=== PATIENT | female | born 2000 | race Caucasian/White ===

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

== ENCOUNTER 2024-02-14 12:49 | Inpatient (IN) ==
--- NOTE | 2024-02-14 13:57 | Emergency Department Note ---
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 PRN (Reason: Nausea) diclofenac sodium [Voltaren] 1 % gel 1 % TOPICAL TID PRN (Reason: KNEES) oxybutynin chloride 5 mg tablet 5 mg PO TID cetirizine [Zyrtec] 10 mg tablet 10 mg PO HS levothyroxine 75 mcg tablet 75 mcg PO UD Rx Instructions: Wednesdays takes 2 (150 mg), rest of days 1 tablet methenamine hippurate 1 gram tablet 1 g PO UD Rx Instructions: 1 gram po BID Mom isnt too sure of this medication. Decided to leave on the list if she does remember. azelastine 137 mcg (0.1 %) aerosol,spray 1 spray intranasal DAILY PRN (Reason: Allergy Symptoms) Rx Instructions: administer into each nostril sodium chloride [Hyper-Haim] 7 % solution for nebulization 4 ml inhalation BID PRN (Reason: Other) Women's Multivitamin 18 mg-400 mcg- 500 mg-50 mcg tablet 0.5 tab PO DAILY Rx Instructions: half tab Referrals Referrals: Sin Fitzpatrick MD [Primary Care Provider] - Discharge Problem: Pulmonary edema Qualifiers: Chronicity: acute Qualified Code(s): J81.0 - Acute pulmonary edema
[2024-02-14] MEDS ORDERED: CEFEPIME 2,000 MG/20 ML VIAL IV STA (14:01)
[2024-02-14 14:39] LABS: Basophils # (auto) 0.02 K/uL (0.00-0.20); Basophils % (auto) 0.3 %; Eosinophils % (auto) 1.3 %; Hematocrit (blood only) 36.8 % (37.0-47.0); Hemoglobin 12.3 g/dl (12.0-16.0); Immature Granulocytes # (auto) 0.12 K/uL (0.01-0.20); Immature Granulocytes % (auto) 1.6 %; Lymphocytes # (auto) 0.87 K/uL (1.20-3.40); Lymphocytes % (auto) 11.7 %; Mean Corpuscular Hemoglobin 33.3 pg (25.0-34.0); Mean Corpuscular Hgb Conc 33.4 g/dL (32.0-36.0); Mean Corpuscular Volume 99.7 fL (80.0-100.0); Mean Platelet Volume 12.6 fL (9.4-12.4); Monocytes % (auto) 6.7 %; Neutrophils # (auto) 5.81 K/uL (1.40-6.50); Neutrophils % (auto) 78.4 %; Nucleated RBC # (auto) 0.02 K/uL (0.00-0.12); Nucleated RBC % (auto) 0.3 %; Platelet Count 163 K/uL (130-400); RDW Coefficient of Variation 16.2 % (11.5-14.5); RDW Standard Deviation 57.1 fL (36.4-46.3); Red Blood Count 3.69 M/uL (4.20-5.40); White Blood Count 7.42 K/ul (4.8-10.8)
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
[2024-02-14 14:55] LABS: Troponin I High Sensitivity 3.3 pg/ml (0-14)
[2024-02-14 15:11] LABS: Adenovirus PCR Not Detected (NotDetected); Bordetella parapertussis PCR Not Detected (NotDetected); Bordetella pertussis PCR Not Detected (NotDetected); Chlamydia pneumoniae PCR Not Detected (NotDetected); Coronavirus 229E PCR Not Detected (NotDetected); Coronavirus CoV-2 (COVID19)PCR Not Detected (NotDetected); Coronavirus HKU1 PCR Not Detected (NotDetected); Coronavirus NL63 PCR Not Detected (NotDetected); Coronavirus OC43PCR Not Detected (NotDetected); Human Metapneumovirus PCR Not Detected (NotDetected); Influenza A PCR Not Detected (NotDetected); Influenza B PCR Not Detected (NotDetected); Mycoplasma pneumoniae PCR Not Detected (NotDetected); Parainfluenza Virus 1 PCR Not Detected (NotDetected); Parainfluenza Virus 2 PCR Not Detected (NotDetected); Parainfluenza Virus 3 PCR Not Detected (NotDetected); Parainfluenza Virus 4 PCR Not Detected (NotDetected); Respiratory Syncytial VirusPCR Not Detected (NotDetected); Rhinovirus/Enterovirus PCR Not Detected (NotDetected)
[2024-02-14 15:42] LABS: iSTAT Creatinine 0.7 mg/dl (0.6-1.3); iSTAT Hemoglobin 11.6 g/dl (12.0-16.0); iSTAT Ionized Calcium 1.12 mmol/l (1.12-1.32); iSTAT Potassium 6.3 mmol/L (3.3-5.0)
[2024-02-14] MEDS: CALCIUM GLUCONATE 1,000 MG/60 ML BAG IV STA (16:09)
[2024-02-14 16:10] LABS: Albumin Globulin Ratio 0.9 (0.9-2); Albumin Level 3.3 gm/dl (3.4-5.0); BUN Creatinine Ratio 45.6 (10-20); Bilirubin,Total 0.2 mg/dl (0.2-1.0); Calcium 8.5 mg/dl (8.6-10.3); Creatinine Clr Calc Pharmacy 113.7 ml/min; Est GFR (African American) 143.9 ml/min; Est GFR (Non-African American) 124.2 ml/min; Globulin 3.8 gm/dl (2.5-4.0); Potassium 6.4 mmol/L (3.5-5.1); Total Protein 7.1 gm/dl (6.0-8.3)
[2024-02-14] MEDS ORDERED: NovoLIN-R INSULIN PER UNIT CHARGE IV STA (16:15)
[2024-02-14] MEDS ORDERED: VANCOMYCIN CONSULT ACTIVE PRN (16:25)
[2024-02-14] MEDS: DEXTROSE 50% 50 ML SYRINGE IV STA ×2 (16:38→23:46)
[2024-02-14] MEDS: INSULIN HUMAN REGULAR PER UNIT 10 UNITS in SYRINGE 9.9 ML IV STA ×2 (16:38→23:46)
[2024-02-14] MEDS: DEXTROSE 50% 50 ML SYRINGE IV ONE (16:38)
[2024-02-14 16:53] LABS: Base Excess VBG 2.4 mEq/L; HCO3 VBG 31 mmol/L; Oxygen Saturation VBG 88.7 %; PCO2 VBG 62 mmHg (38-50); PO2 VBG 57 mmHg
[2024-02-14] MEDS: CEFEPIME 2,000 MG in SYRINGE 0 ML IV STA (17:14)
[2024-02-14 17:17] LABS: Immunoglobulin A 408.5 mg/dl (70-400); Immunoglobulin G 1165.4 mg/dl (635-1741); Immunoglobulin M 43.7 mg/dl (45-281)
[2024-02-14] MEDS: diphenhydrAMINE 50 MG/ML VIAL IV STA (17:19)
[2024-02-14] MEDS: ACETAMINOPHEN 1,000 MG/100 ML VIAL IV STA (17:20)
[2024-02-14] MEDS: VANCOMYCIN HCL 1,750 MG in SODIUM CHLORIDE 0.9% 500 ML IV ONE (17:36)
[2024-02-14 17:54] LABS: Magnesium 3.3 mg/dl (1.7-2.4)
[2024-02-14] MEDS: OPTIRAY 320 125ml IV ONE (18:10)
[2024-02-14] MEDS ORDERED: METHENAMINE HIPPURATE 1 GM TAB PO SCH (18:17)
[2024-02-14] MEDS ORDERED: DOCUSATE SODIUM SYRUP 100 MG/10 ML UDC GT PRN (18:17)
[2024-02-14] MEDS ORDERED: AZELASTINE HCL 0.1% NASAL 200 SPRAYS/27,400 MCG BTL PRN (18:17)
[2024-02-14] MEDS ORDERED: SENNOSIDES 8.8 MG/5 ML UDC PO PRN (18:17)
[2024-02-14] MEDS ORDERED: SODIUM CHLOR 7% 4 ML NEB INH PRN (18:17)
[2024-02-14] MEDS ORDERED: diazePAM RECTAL 2.5 MG GEL PR PRN (18:17)
[2024-02-14] MEDS ORDERED: SODIUM CHLORIDE 0.9% NEBU SOLN 3 ML NEB PRN (18:17)
[2024-02-14] MEDS ORDERED: IBUPROFEN 100 MG/5 ML UDC GT PRN (18:17)
[2024-02-14] MEDS ORDERED: LORazepam 1 MG TAB PO PRN (18:17)
[2024-02-14] MEDS ORDERED: dexAMETHasone 1 MG TAB PO SCH (18:17)
[2024-02-14] MEDS ORDERED: DICLOFENAC SOD 1% GEL 100 GM TUBE EXT PRN (18:17)
--- NOTE | 2024-02-14 18:23 | XCELERA ---
[id number] [id number]
--- NOTE | 2024-02-14 18:25 | CT Scan Report ---
CHEST CTA for PULMONARY ARTERIES CT DOSE: 711.11 mGy.cm HISTORY: Shortness of breath. TECHNIQUE: Multiaxial CT images of the chest were performed following the intravenous administration of contrast to evaluate the pulmonary arteries. 3D/Maximal intensity projection images were also obta ined. Sagittal and coronal reformations were also reviewed. A dose lowering technique was utilized a dhering to the principles of ALARA. COMPARISON STUDY: Chest CT 10/30/2013 FINDINGS: Dextroscoliosis of the thoracic spine. No acute fractures within the chest. The left pcb design engineer ior fourth and fifth ribs are partially fused. This is likely developmental. Limited views of the upp er abdomen demonstrate a normal liver and spleen. There is retrograde opacification of the hepatic ve ins. There are 2 right-sided shunt catheters noted within the anterior chest wall. One of these is in complete and likely old. A tracheostomy tube appears in good position. Normal esophagus. Small hiatus hernia. The heart is mildly enlarged. There are small bilateral pleural effusions. No pericardial ef fusion. Consolidation within the lower lobes posteriorly. This may represent a combination of atelect asis and/or pneumonia. There is heterogeneous opacification in the left lower lobe consolidation norm al caliber thoracic aorta with no evidence for a dissection. The main pulmonary artery remains dilate d up to 3 cm. This suggests mild pulmonary arterial hypertension. No filling defects within the pulmo nary arteries to suggest a pulmonary embolus. No pneumothorax. The central airways are patent. Patchy bilateral perihilar airspace opacities most pronounced on the right. This could be due to pulmonary edema or a pneumonia. IMPRESSION: 1. No evidence for a pulmonary embolus. 2. Cardiomegaly and small bilateral pleural effusions. 3. Consolidation within the lower lobes posteriorly may represent atelectasis and/or a pneumonia. 4. Patchy bilateral perihilar airspace opacities most pronounced on the right. This could be due to p ulmonary edema or a pneumonia. 5. Mild dilatation of the main pulmonary artery suggesting pulmonary arterial hypertension. ACT 112: Negative or not required by law. Electronically signed by: Jeff Chapman M.D. 02/14/2024 6:23 PM
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
[2024-02-14] MEDS ORDERED: TRIAMCINOLONE ACET 0.1% CR 15 GM TUBE TOP PRN (18:39)
--- NOTE | 2024-02-14 19:29 | Electrocardiogram Report ---
Test Reason : Blood Pressure : / mmHG Vent. Rate : 055 BPM Atrial Rate : 055 BPM P-R Int : 174 ms QRS Dur : 096 ms QT Int : 416 ms P-R-T Axes : 039 053 084 degrees QTc Int : 397 ms Sinus bradycardia T wave abnormality, consider lateral ischemia When compared with ECG of 24-SEP-2015 00:30, T wave inversion now evident in Lateral leads Confirmed by Octavio Church ([id number]) on 02/14/2024 7:29:09 PM Referred By: Confirmed By:Octavio Church
[2024-02-14] MEDS: ALBUTEROL HFA 8 GM INHALER INH SCH ×2 (19:31→20:23)
--- NOTE | 2024-02-14 20:19 | Billing Data ---
Date of Service February 14, 2024 Coding Level of Care Code New Pt PROLONG IP/OBS E/M EA 15 MIN (25 - SIGNIFICANT, SEPARATELY IDENTIFIABLE ) Patient Type New Time Spent (min) 30 Comment Time spent in addition to other billable services
[2024-02-14] MEDS: ICU Protocol for HYPERglycemia SCH (20:44)
[2024-02-14] MEDS: PHENobarbitaL 30 MG TAB PO SCH (21:39)
[2024-02-14] MEDS: levETIRAcetam ORAL SOLN 100MG/ML GT SCH (21:40)
[2024-02-14] MEDS: TUBE FEEDING WATER FLUSH GT SCH (21:49)
[2024-02-14] MEDS: MELATONIN 3 MG TAB PO SCH (22:00)
[2024-02-14] MEDS: LEVOTHYROXINE SODIUM 75 MCG TABLET PO SCH (22:00)
[2024-02-14] MEDS: BACLOFEN 10 MG TAB PO SCH ×2 (22:01→22:02)
[2024-02-14] MEDS: MENTHOL-ZINC OXIDE 360 APPLN/120 GM TUBE EXT SCH (22:02)
[2024-02-14] MEDS: CETIRIZINE HCL 10 MG TABLET PO SCH (22:02)
[2024-02-14] MEDS: oxyBUTYnin chloride 5 MG TAB PO SCH (22:03)
[2024-02-14] MEDS: MONTELUKAST SODIUM 10 MG TABLET GT SCH (22:03)
[2024-02-14] MEDS: ERTAPENEM SODIUM 1,000 MG in SYRINGE 0 ML IV SCH (22:04)
[2024-02-14 22:46] LABS: BUN Creatinine Ratio 50.8 (10-20); Calcium 8.3 mg/dl (8.6-10.3); Est GFR (African American) 149.1 ml/min; Est GFR (Non-African American) 128.7 ml/min
[2024-02-14] MEDS: MoRPHine SULFATE 2 MG/ML CARP IV PRN (23:45)
[2024-02-15] MEDS ORDERED: CEFEPIME 2,000 MG in SYRINGE 0 ML IV SCH (01:00)
[2024-02-15] MEDS ORDERED: ACETAMINOPHEN 1,000 MG/100 ML VIAL IV SCH (01:00)
[2024-02-15] MEDS ORDERED: diphenhydrAMINE 50 MG/ML VIAL IV SCH (01:00)
[2024-02-15] MEDS ORDERED: VANCOMYCIN HCL 1,000 MG in SODIUM CHLORIDE 0.9% 250 ML IV SCH (02:00)
[2024-02-15] MEDS ORDERED: VANCOMYCIN HCL 1,000 MG in SODIUM CHLORIDE 0.9% 500 ML IV SCH (02:00)
[2024-02-15 02:12] LABS: BUN Creatinine Ratio 49.2 (10-20); Calcium 8.3 mg/dl (8.6-10.3); Est GFR (African American) 149.1 ml/min; Est GFR (Non-African American) 128.7 ml/min; Potassium 5.9 mmol/L (3.5-5.1)
[2024-02-15] MEDS: PATIROMER CALCIUM SORBITEX 8.4 GM PACK PO ONE (02:17)
[2024-02-15] MEDS: LINEZOLID 600 MG/300 ML BAG IV SCH (03:57)
[2024-02-15] MEDS: DEXTROSE 50% 50 ML SYRINGE IV ONE (04:18)
--- NOTE | 2024-02-15 04:53 | Ultrasound Report ---
Exam(s): US VENOUS BILATERAL LOWER EXTREMITIES EXAM: US Duplex Bilateral Lower Extremities Veins CLINICAL HISTORY: Reason for exam: leg swelling. TECHNIQUE: Real-time duplex ultrasound scan of the bilateral lower extremity veins integrating B-mode two-dimensional vascular structure, Doppler spectral analysis, color flow Doppler imaging and compression. COMPARISON: No relevant prior studies available. FINDINGS: Right deep veins: Unremarkable. No DVT in the right common femoral, femoral, proximal deep femoral or popliteal veins. The veins demonstrate normal color flow, are normally compressible, with normal phasic flow and/or augmentation response. Right superficial veins: Unremarkable. No thrombus in the visualized right great saphenous vein. Left deep veins: Unremarkable. No DVT in the left common femoral, femoral, proximal deep femoral or popliteal veins. The veins demonstrate normal color flow, are normally compressible, with normal phasic flow and/or augmentation response. Left superficial veins: Unremarkable. No thrombus in the visualized left great saphenous vein. Soft tissues: No acute findings. No popliteal cyst. IMPRESSION: No evidence of deep vein thrombus. Electronically signed by: Neeru Mirza MD 02/15/24 04:53 AM
[2024-02-15] MEDS ORDERED: GLUCOSE 10 TAB/TUBE PO PRN (05:08)
[2024-02-15] MEDS ORDERED: GLUCOSE 40% GEL 15 GM TUBE PO PRN (05:08)
[2024-02-15] MEDS ORDERED: GLUCAGON FOR INJ 1 MG VIAL SQ PRN (05:08)
[2024-02-15] MEDS ORDERED: DEXTROSE 50% 50 ML SYRINGE IV PRN (05:08)
[2024-02-15] MEDS ORDERED: CARBOHYDRATES FOR HYPOGLYCEMIA PO PRN (05:08)
[2024-02-15 06:26] LABS: Basophils # (auto) 0.02 K/uL (0.00-0.20); Basophils % (auto) 0.4 %; Eosinophils # (auto) 0.13 K/uL (0.00-0.50); Eosinophils % (auto) 2.9 %; Hematocrit (blood only) 31.6 % (37.0-47.0); Hemoglobin 10.6 g/dl (12.0-16.0); Immature Granulocytes # (auto) 0.04 K/uL (0.01-0.20); Immature Granulocytes % (auto) 0.9 %; Lymphocytes # (auto) 0.87 K/uL (1.20-3.40); Lymphocytes % (auto) 19.1 %; Mean Corpuscular Hemoglobin 32.7 pg (25.0-34.0); Mean Corpuscular Hgb Conc 33.5 g/dL (32.0-36.0); Mean Corpuscular Volume 97.5 fL (80.0-100.0); Mean Platelet Volume 11.5 fL (9.4-12.4); Monocytes # (auto) 0.42 K/uL (0.11-0.59); Monocytes % (auto) 9.2 %; Neutrophils # (auto) 3.08 K/uL (1.40-6.50); Neutrophils % (auto) 67.5 %; Nucleated RBC # (auto) 0.03 K/uL (0.00-0.12); Nucleated RBC % (auto) 0.7 %; Platelet Count 162 K/uL (130-400); RDW Coefficient of Variation 15.5 % (11.5-14.5); RDW Standard Deviation 53.2 fL (36.4-46.3); Red Blood Count 3.24 M/uL (4.20-5.40); White Blood Count 4.56 K/ul (4.8-10.8)
[2024-02-15] MEDS ORDERED: LEVOTHYROXINE SODIUM 75 MCG TABLET PO SCH (06:30)
[2024-02-15 06:48] LABS: BUN Creatinine Ratio 48.3 (10-20); Calcium 8.6 mg/dl (8.6-10.3); Creatinine Clr Calc Pharmacy 140.4 ml/min; Est GFR (Non-African American) 129.4 ml/min
[2024-02-15 07:04] LABS: Thyroid Stimulating Hormone 2.845 uIu/ml (0.300-4.500)
[2024-02-15] MEDS: ICU ELECTROLYTE REPLACEMENT PROTOCOL SCH (07:17)
[2024-02-15] MEDS: COSYNTROPIN 1 MCG in SYRINGE 0 ML IV ONE (07:41)
[2024-02-15] MEDS: PHENobarbitaL 30 MG TAB PO SCH (08:54)
[2024-02-15] MEDS: DEXTROSE 50% 50 ML SYRINGE IV STA (08:54)
[2024-02-15] MEDS: PATIROMER CALCIUM SORBITEX 8.4 GM PACK PO STA (08:54)
[2024-02-15] MEDS: INSULIN HUMAN REGULAR PER UNIT 10 UNITS in SYRINGE 9.9 ML IV STA (08:54)
[2024-02-15] MEDS: LANSOPRAZOLE 30 MG SOLTAB PEG SCH (09:01)
[2024-02-15] MEDS ORDERED: VANCOMYCIN LEVEL ONE (09:30)
[2024-02-15] MEDS: CALCIUM GLUCONATE 1,000 MG/60 ML BAG IV STA (09:32)
--- NOTE | 2024-02-15 12:03 | Critical Care Progress Note ---
Date of Service February 15, 2024 Assessment & Plan (1) Seizure disorder: (2) Chronic respiratory insufficiency: (3) Neurogenic bladder: (4) Congenital dysplasia of hips, bilateral: (5) Liver enzyme elevation: (6) Hypothyroidism: (7) Cerebral palsy: (8) Acid reflux: (9) Ventilator dependent: (10) Hyperkalemia: (11) Hyponatremia: (12) IMER (acute kidney injury): Plan Reason Critically Ill: 23 YOF presents to the ICU for treatment of pneumonia in chronic ventilator dependant patient. Also noted with hyperkalemia and hyponatremia. 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, chronic pain CAM ICU: XANDER - No acute needs at this time- continue with chronic pain control with Tylenol and morphine at this point- introduce other agents from home based on renal indices and clinical course - Continue sizure medications at this time- Keppra, Phenobarb, -Keppra and phenobarbital levels pending, review of labs in September they were within reference range - EXTRUSION PROCESS OPERATOR shunt in place Respiratory - Chronic ventilatory dependancy secondary to chronic respiratory failure, Ventilator associated pneumonia versus tracheitis - patchy opacities and basilar opacity- sputum currently with serratia and staph species- which also appears to be possibly chronic- see ID below - Ventilator support- continue home settings adjust per [employer] for SPo2 and EtCo2 - Tracheostomy site intact- likely with some tracheitis resulting in bloody sputum from increased suctioning - Continue ADAMA nebulizers, hypertonic saline, cough assist and pulmonary toileting Repeated VBG, GI - GERD, enteral feedings - Continue PPI Transaminitis: Chronic Possible mild liver nodularity on ultrasound Nutrition: Nutritional consult - Continue home feeding regime with [employer]- mother would like to continue her home nutrition- will need pump and bags - free water and skim milk as tolerated RENAL/LYTES - Hyponatremia, hyperkalemia, new since labs obtained in September - Hyponatremia likely from free water - consider reducing - Hyperkalemia- would not use milk as tube feeding flush - Hypochloremia: Patient has usually been hyperchloremic or you chloremia this is a change since September - Mild increase in BUN with stable FOOT WORKER follow - - Hold NSAIDS - Urine and plasma osmolality, urine electrolytes - Adequate response to cosyntropin, ordering ACTH, renin aldosterone: These are send out labs - renal consult -Possible relative adrenal insufficiency in the setting of pneumonia and chronic disease -No hemodynamic instability at this time continue to trend electrolytes would consider stress dose steroids in the next 12 to 24 hours after baseline laboratories obtained as well as nephrology consultation - Neurogenic bladder, chronic suppressant therapy for UTI - Place Turner for next 24-48 hours pending clinical course to follow urinary output while in ICU secondary to sepsis and borderline BP - Continue Ditropan - Continue methenamine hippurate ENDO - Hypothyroidism - Continue Synthroid -September TSH and free T4 within appropriate reference range HEME - Immunoglobulin deficiency, hx of b cell lymphoblastic disorder (remission) - receives IGG supplementation every 2 weeks- next dose would be due on 20Feb2024 ID -doubtful sepsis, ventilator associated pneumonia versus tracheitis with suspected chronic colonization - sputum culture with serratia and staph species and with opacities, increase in sputum production mildly elevated NLR - Continue with abx- cefepime- change to Invanz, and change vanco to Zyvox- MRSA nares negative- await sensitivities. Day 2 of 14 day course - Respiratory BioFire panel negative, hepatitis panel negative LINES/IV ACCESS - PIV x2 Continue use of these lines DVT PROPHYLAXIS - SCDS, DISPO: ICU Admission and Anticipated Discharge Date Admission Date: February 14, 2024 Supervising Physician Co-Signing Physician Notes I have personally spent 50 minutes of critical care time in the direct management of this patient. This is a life/limb threatening event. This includes time spent evaluating patient, direct bedside care, chart review, placing orders, interpretation of diagnostic studies, discussion with consultants, patient, and/or family members regarding treatment decisions, as well as other required patient management activities. This time is exclusive of all separately billable procedures, and teaching time and separate from and in addition to any other critical care service time. Subjective No events overnight When I evaluated the patient the patient's father was the only available historian. Unsure of ventilator settings, I was able to turn on the patient's home ventilator it appears the ventilator is set on a pressure support mode with a inspiratory pressure of 18 and a PEEP of 6 and a rate of 10. A asked if there has been any change in the patient's dietary supplementation in the last 6 months also including skim milk flushes and the father reports there has been no change for greater than 6 months. Results & Data Results & Data Vital Signs (Past 12 Hours) Vital Signs Temp Pulse Resp BP BP Pulse Ox FiO2 02/15/24 07:55 63 17 95 30 02/15/24 06:00 35.8 C L 52 L 14 95 02/15/24 06:00 126/61 02/15/24 05:51 35.8 C L 52 L 15 95 02/15/24 05:00 122/61 02/15/24 05:00 35.4 C L 51 L 15 95 02/15/24 04:57 35.4 C L 49 L 16 02/15/24 04:42 35.3 C L 50 L 17 02/15/24 04:30 147/80 H 02/15/24 04:21 35.2 C L 48 L 15 02/15/24 04:00 30 02/15/24 04:00 35.0 C L 48 L 15 02/15/24 03:42 34.9 C L 48 L 16 96 02/15/24 03:37 46 L 18 95 30 02/15/24 03:33 34.8 C L 47 L 15 02/15/24 03:00 114/70 02/15/24 02:48 34.4 C L 45 L 15 95 02/15/24 02:42 34.3 C L 46 L 20 96 02/15/24 02:33 34.3 C L 47 L 14 96 02/15/24 02:30 118/70 02/15/24 02:00 115/67 02/15/24 01:57 34.0 C L 45 L 14 96 02/15/24 01:30 116/70 02/15/24 01:03 33.9 C L 45 L 14 96 02/15/24 01:00 114/69 Critical Care Results & Data Vital Signs (Past 12 Hours) Vital Signs Temp Pulse Resp BP BP Pulse Ox O2 Del Method 02/15/24 12:00 37.2 C 59 L 17 94 Mechanical Vent 02/15/24 12:00 98/56 L 02/15/24 11:24 37.1 C 64 18 95 02/15/24 10:30 36.9 C 76 17 95 02/15/24 10:30 103/59 L 02/15/24 10:00 96/53 L 02/15/24 10:00 36.9 C 60 17 93 02/15/24 09:00 93/52 L 02/15/24 09:00 36.9 C 57 L 16 94 02/15/24 08:03 36.7 C 59 L 12 97 02/15/24 07:55 63 17 95 02/15/24 07:30 36.5 C 60 19 93 02/15/24 07:30 97/56 L 02/15/24 07:06 36.3 C L 58 L 18 94 02/15/24 07:00 126/58 L 02/15/24 06:54 36.2 C L 55 L 18 95 02/15/24 06:00 35.8 C L 52 L 14 95 02/15/24 06:00 126/61 02/15/24 05:51 35.8 C L 52 L 15 95 02/15/24 05:00 122/61 02/15/24 05:00 35.4 C L 51 L 15 02/15/24 04:57 35.4 C L 49 L 16 02/15/24 04:42 35.3 C L 50 L 17 02/15/24 04:30 147/80 H 02/15/24 04:21 35.2 C L 48 L 15 02/15/24 04:00 02/15/24 04:00 35.0 C L 48 L 15 02/15/24 03:42 34.9 C L 48 L 16 96 02/15/24 03:37 46 L 18 95 02/15/24 03:33 34.8 C L 47 L 15 02/15/24 03:00 114/70 02/15/24 02:48 34.4 C L 45 L 15 02/15/24 02:42 34.3 C L 46 L 20 96 02/15/24 02:33 34.3 C L 47 L 14 96 02/15/24 02:30 118/70 02/15/24 02:00 115/67 02/15/24 01:57 34.0 C L 45 L 14 96 02/15/24 01:30 116/70 02/15/24 01:03 33.9 C L 45 L 14 96 02/15/24 01:00 114/69 O2 Flow Rate FiO2 02/15/24 12:00 30 02/15/24 12:00 02/15/24 11:24 02/15/24 10:30 02/15/24 10:30 02/15/24 10:00 02/15/24 10:00 02/15/24 09:00 02/15/24 09:00 02/15/24 08:03 02/15/24 07:55 30 02/15/24 07:30 02/15/24 07:30 02/15/24 07:06 02/15/24 07:00 02/15/24 06:54 02/15/24 06:00 02/15/24 06:00 02/15/24 05:51 02/15/24 05:00 02/15/24 05:00 02/15/24 04:57 02/15/24 04:42 02/15/24 04:30 02/15/24 04:21 02/15/24 04:00 30 02/15/24 04:00 02/15/24 03:42 02/15/24 03:37 30 02/15/24 03:33 02/15/24 03:00 02/15/24 02:48 02/15/24 02:42 02/15/24 02:33 02/15/24 02:30 02/15/24 02:00 02/15/24 01:57 02/15/24 01:30 02/15/24 01:03 02/15/24 01:00 Lab & Micro Results (Past 24 Hours) RBC 3.24 M/uL (4.20-5.40) L 02/15/24 WBC 4.56 K/ul (4.8-10.8) L 02/15/24 Hgb 10.6 g/dl (12.0-16.0) L 02/15/24 Hct 31.6 % (37.0-47.0) L 02/15/24 MCV 97.5 fL (80.0-100.0) 02/15/24 MCH 32.7 pg (25.0-34.0) 02/15/24 MCHC 33.5 g/dL (32.0-36.0) 02/15/24 RDW Standard Deviation 53.2 fL (36.4-46.3) H 02/15/24 RDW Coefficient of Variation 15.5 % (11.5-14.5) H 02/15/24 Plt Count 162 K/uL (130-400) 02/15/24 MPV 11.5 fL (9.4-12.4) 02/15/24 Nucleated Red Blood Cells % (auto) 0.7 % 02/14 Nucleated RBC Absolute Count (auto) 0.03 K/uL (0.00-0.12) 0 02/15/24 Neutrophils (%) (Auto) 67.5 % 02/15/24 Lymphocytes (%) (Auto) 19.1 % 02/15/24 Monocytes # (Auto) 0.42 K/uL (0.11-0.59) 02/15/24 Eosinophils # (Auto) 0.13 K/uL (0.00-0.50) 02/15/24 Immature Granulocyte % (Auto) 0.9 % 02/15/24 Neutrophils # (Auto) 3.08 K/uL (1.40-6.50) 02/15/24 Lymphocytes # (Auto) 0.87 K/uL (1.20-3.40) L 02/15/24 Monocytes # (Auto) 0.42 K/uL (0.11-0.59) 02/15/24 Eosinophils # (Auto) 0.13 K/uL (0.00-0.50) 02/15/24 Basophils # (Auto) 0.02 K/uL (0.00-0.20) 02/15/24 Immature Granulocyte # (Auto) 0.04 K/uL (0.01-0.20) 4 Na 131 mmol/L (136-145) L 02/15/24 K 6.0 mmol/L (3.5-5.1) H 02/15/24 Cl 97 mmol/L (98-107) L 02/15/24 CO2 32 mmol/L (21-32) 02/15/24 Anion Gap 2 (3-11) L 02/15/24 BUN 29 mg/dl (6-23) H 02/15/24 Creatinine 0.60 mg/dl (0.6-1.2) 02/15/24 Estimated GFR ( Amer) 150.0 ml/min 02/15/24 Estimated GFR (Non-Af Amer) 129.4 ml/min 02/15/24 BUN/Creatinine Ratio 48.3 (10-20) H 02/15/24 Glu 134 mg/dl (70-99(Fasting)) H 02/15/24 Ca 8.6 mg/dl (8.6-10.3) 02/15/24 Total Bilirubin 0.2 mg/dl (0.2-1.0) 02/14/24 AST 39 U/L (13-39) 02/14/24 ALT 92 U/L (7-52) H 02/14/24 Alkaline Phosphatase 266 U/L (34-104) H 02/14/24 TP 7.1 gm/dl (6.0-8.3) 02/14/24 Albumin 3.3 gm/dl (3.4-5.0) L 02/14/24 Globulin 3.8 gm/dl (2.5-4.0) 02/14/24 Albumin/Globulin Ratio 0.9 (0.9-2) 02/14/24 Mg 3.0 mg/dl (1.7-2.4) H 02/15/24 06:08 Calcium Level 8.6 mg/dl (8.6-10.3) 02/15/24 06:08 Venous Blood pH 7.42 (7.36-7.41) H 02/15/24 12:40 Venous Blood Partial Pressure CO2 50 mmHg (38-50) 02/15/24 12:4 0 Venous Blood Partial Pressure O2 37 mmHg 02/15/24 12:40 Venous Blood HCO3 32 mmol/L 02/15/24 12:40 Venous Blood Base Excess 6.6 mEq/L 02/15/24 12:40 Venous Blood Oxygen Saturation 74.5 % 02/15/24 12:40 Diagnostic Findings (Past 24 Hours) Chest CTA 02/14/24 16:35 CHEST CTA for PULMONARY ARTERIES CT DOSE: 711.11 mGy.cm HISTORY: Shortness of breath. TECHNIQUE: Multiaxial CT images of the chest were performed following the intravenous administration of contrast to evaluate the pulmonary arteries. 3D/Maximal intensity projection images were also obtained. Sagittal and coronal reformations were also reviewed. A dose lowering technique was utilized adhering to the principles of ALARA. COMPARISON STUDY: Chest CT 10/30/2013 FINDINGS: Dextroscoliosis of the thoracic spine. No acute fractures within the chest. The left posterior fourth and fifth ribs are partially fused. This is likely developmental. Limited views of the upper abdomen demonstrate a normal liver and spleen. There is retrograde opacification of the hepatic veins. There are 2 right-sided shunt catheters noted within the anterior chest wall. One of these is incomplete and likely old. A tracheostomy tube appears in good position. Normal esophagus. Small hiatus hernia. The heart is mildly enlarged. There are small bilateral pleural effusions. No pericardial effusion. Consolidation within the lower lobes posteriorly. This may represent a combination of atelectasis and/or pneumonia. There is heterogeneous opacification in the left lower lobe consolidation normal caliber thoracic aorta with no evidence for a dissection. The main pulmonary artery remains dilated up to 3 cm. This suggests mild pulmonary arterial hypertension. No filling defects within the pulmonary arteries to suggest a pulmonary embolus. No pneumothorax. The central airways are patent. Patchy bilateral perihilar airspace opacities most pronounced on the right. This could be due to pulmonary edema or a pneumonia. IMPRESSION: 1. No evidence for a pulmonary embolus. 2. Cardiomegaly and small bilateral pleural effusions. 3. Consolidation within the lower lobes posteriorly may represent atelectasis and/or a pneumonia. 4. Patchy bilateral perihilar airspace opacities most pronounced on the right. This could be due to pulmonary edema or a pneumonia. 5. Mild dilatation of the main pulmonary artery suggesting pulmonary arterial hypertension. ACT 112: Negative or not required by law. Electronically signed by: Jeff Chapman M.D. 02/14/2024 6:23 PM Venous Doppler Study 02/15/24 00:00 Exam(s): US VENOUS BILATERAL LOWER EXTREMITIES EXAM: US Duplex Bilateral Lower Extremities Veins CLINICAL HISTORY: Reason for exam: leg swelling. TECHNIQUE: Real-time duplex ultrasound scan of the bilateral lower extremity veins integrating B-mode two-dimensional vascular structure, Doppler spectral analysis, color flow Doppler imaging and compression. COMPARISON: No relevant prior studies available. FINDINGS: Right deep veins: Unremarkable. No DVT in the right common femoral, femoral, proximal deep femoral or popliteal veins. The veins demonstrate normal color flow, are normally compressible, with normal phasic flow and/or augmentation response. Right superficial veins: Unremarkable. No thrombus in the visualized right great saphenous vein. Left deep veins: Unremarkable. No DVT in the left common femoral, femoral, proximal deep femoral or popliteal veins. The veins demonstrate normal color flow, are normally compressible, with normal phasic flow and/or augmentation response. Left superficial veins: Unremarkable. No thrombus in the visualized left great saphenous vein. Soft tissues: No acute findings. No popliteal cyst. IMPRESSION: No evidence of deep vein thrombus. Electronically signed by: Neeru Mirza MD 02/15/24 04:53 AM I & O Totals 24 Hours 02/14/24 02/15/24 02/16/24 06:59 06:59 06:59 Intake Total 1245 / 1245 60 / 60 Output Total 1675 / 1675 Balance -430 / -430 60 / 60 Cumulative 02/14/24 12:49 thru 02/15/24 09:52 Intake Total 1305 Output Total 1675 Balance -370 RT Ventilator Mngmt (Last Documented) Ventilator Ordered Settings Ventilator Support Mode SIMV 02/15/24 07:55 Respiratory Rate 17 02/15/24 12:00 Minute Ventilation 4.4 02/15/24 07:55 Ventilator Positive Pressure 12 02/15/24 07:55 Support Setting Positive End Expiratory 6 02/15/24 07:55 Pressure Fraction of Inspired Oxygen 30 02/15/24 07:55 Inspiratory Pressure 18 02/15/24 07:55 Ventilator - PT Measurements Respiratory Rate 17 Exhaled Tidal Volume 261 Minute Ventilation 4.4 Peak Inspiratory Airway 20 Pressure Plateau Pressure 17 Respiratory Cycle Inspiratory: 1:3.4 Expiratory Ratio Inspiratory Phase Time 1.0 End-Tidal CO2 42 Static Lung Compliance 23.73 Dynamic Lung Compliance 18.64 Normal Static Lung Compliance 45.00 Coding Level of Care Code 60706 CRITICAL CARE 1ST 30-74M Diagnoses Seizure disorder G40.909 Chronic respiratory insufficiency R06.89 Neurogenic bladder N31.9 Congenital dysplasia of hips, bilateral Q65.89 Liver enzyme elevation R74.8 Hypothyroidism E03.9 Cerebral palsy G80.9 Acid reflux K21.9 Ventilator dependent Z99.11 Hyperkalemia E87.5 Hyponatremia E87.1 IMER (acute kidney injury) N17.9
[2024-02-15 12:48] LABS: Base Excess VBG 6.6 mEq/L; HCO3 VBG 32 mmol/L; Oxygen Saturation VBG 74.5 %; PCO2 VBG 50 mmHg (38-50); PO2 VBG 37 mmHg; pH VBG 7.42 (7.36-7.41)
[2024-02-15 13:47] LABS: BUN Creatinine Ratio 39.5 (10-20); Calcium 8.9 mg/dl (8.6-10.3); Creatinine Clr Calc Pharmacy 110.8 ml/min; Est GFR (African American) 129.1 ml/min; Est GFR (Non-African American) 111.3 ml/min; Potassium 5.8 mmol/L (3.5-5.1)
[2024-02-15] MEDS: ALBUTEROL 0.083% NEBU SOLN 3 ML VIAL INH PRN (13:54)
[2024-02-15] MEDS: TUBE FEEDING WATER FLUSH GT SCH ×2 (14:08→20:38)
[2024-02-15 14:31] LABS: Urine Chloride 16 mmol/L; Urine Potassium 22.5 mmol/L; Urine Sodium < 10 mmol/L
--- NOTE | 2024-02-15 15:15 | Hospitalist Progress Note ---
Date of Service February 15, 2024 Assessment & Plan (1) Pneumonia: Plan: Worsening/intermittent SOB x 1 month with an acute worsening on 02/13 Patient completed course of levofloxacin prescribed on 01/27 - 02/03; failure of outpatient tx Outpatient CXR on 02/13 revealed residual pneumonia History of MRSA pneumonia Sputum culture result from 02/12/2024 revealed Serratia and staph. Tracheitis versus pneumonia. Antibiotics changed to Zyvox and Invanz per director of security. Bilateral lower extremities dopplers negative (2) Sepsis: Plan: Pulmonary source Hypotensive in the ED Lactate WNL Procalcitonin WNL Blood cultures ordered, pending Echo showed an EF of 50%. No wall motion abnormalities. Mild concentric LVH. 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 Contributing to pulmonary edema Echocardiogram showed near normal EF (5) Hyperkalemia: Plan: K 6.4 on arrival Despite repeated treatment of hyperkalemia, potassium remains elevated Noted that nephrology has been consulted Trend BMP q4h (6) Feeding by G-tube: Plan: N.p.o. 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 He tells me that the patient is looking better. She is more alert today. Review of Systems Review of Systems: All systems reviewed & are unremarkable except as noted in Subjective Physical Exam Physical Exam: General: Awake, trached Heart: S1, S2/regular rate and rhythm, no murmur rubs or gallops Lungs: Diminished breath sounds bilaterally. Normal effort Abdomen: Soft/nontender/nondistended. No hepatosplenomegaly Extremities: No clubbing/cyanosis. 1+ pitting bilateral edema. Contractures noted Behavior: Appropriate, cooperative Results & Data Results & Data Vital Signs (Past 12 Hours) Vital Signs Temp Pulse Pulse Resp BP BP Pulse Ox 02/15/24 14:35 66 21 96 02/15/24 13:55 65 27 H 94 02/15/24 12:00 37.2 C 59 L 17 94 02/15/24 12:00 98/56 L 02/15/24 12:00 02/15/24 11:40 60 19 96 02/15/24 11:24 37.1 C 64 18 95 02/15/24 10:30 36.9 C 76 17 95 02/15/24 10:30 103/59 L 02/15/24 10:00 96/53 L 02/15/24 10:00 36.9 C 60 17 93 02/15/24 09:00 93/52 L 02/15/24 09:00 36.9 C 57 L 16 94 02/15/24 08:03 36.7 C 59 L 12 97 02/15/24 08:00 02/15/24 08:00 02/15/24 07:55 63 17 95 02/15/24 07:30 36.5 C 60 19 93 02/15/24 07:30 97/56 L 02/15/24 07:06 36.3 C L 58 L 18 94 02/15/24 07:00 126/58 L 02/15/24 06:54 36.2 C L 55 L 18 95 02/15/24 06:00 35.8 C L 52 L 14 95 02/15/24 06:00 126/61 02/15/24 05:51 35.8 C L 52 L 15 95 02/15/24 05:00 122/61 02/15/24 05:00 35.4 C L 51 L 15 95 02/15/24 04:57 35.4 C L 49 L 16 95 02/15/24 04:42 35.3 C L 50 L 17 95 02/15/24 04:30 147/80 H 02/15/24 04:21 35.2 C L 48 L 15 02/15/24 04:00 02/15/24 04:00 35.0 C L 48 L 15 95 02/15/24 03:42 34.9 C L 48 L 16 96 02/15/24 03:37 46 L 18 95 02/15/24 03:33 34.8 C L 47 L 15 95 O2 Del Method O2 Flow Rate FiO2 02/15/24 14:35 30 02/15/24 13:55 Mechanical Vent 02/15/24 12:00 Mechanical Vent 30 02/15/24 12:00 02/15/24 12:00 30 02/15/24 11:40 30 02/15/24 11:24 02/15/24 10:30 02/15/24 10:30 02/15/24 10:00 02/15/24 10:00 02/15/24 09:00 02/15/24 09:00 02/15/24 08:03 02/15/24 08:00 Mechanical Vent 02/15/24 08:00 02/15/24 07:55 30 02/15/24 07:30 02/15/24 07:30 02/15/24 07:06 02/15/24 07:00 02/15/24 06:54 02/15/24 06:00 02/15/24 06:00 02/15/24 05:51 02/15/24 05:00 02/15/24 05:00 02/15/24 04:57 02/15/24 04:42 02/15/24 04:30 02/15/24 04:21 02/15/24 04:00 30 02/15/24 04:00 02/15/24 03:42 02/15/24 03:37 30 02/15/24 03:33 Laboratory Results Abnormal lab results 02/14/24 02/14/24 02/14/24 Range/Units 14:35 15:20 15:29 WBC (4.8-10.8) K/ul RBC (4.20-5.40) M/uL Hgb (12.0-16.0) g/dl POC Hgb 11.6 L (12.0-16.0) g/dl Hct (37.0-47.0) % POC Hct 34 L (37-47) % RDW Std Deviation (36.4-46.3) fL RDW Coeff of Dulce (11.5-14.5) % Lymph # (Auto) (1.20-3.40) K/uL VBG pH (7.36-7.41) VBG pCO2 (38-50) mmHg POC Sodium 130 L (135-144) mmol/L Sodium 130 L (136-145) mmol/L POC Potassium 6.3 H* (3.3-5.0) mmol/L Potassium 6.4 H* (3.5-5.1) mmol/L POC Chloride 97 L (101-112) mmol/L Chloride 97 L (98-107) mmol/L POC Total CO2 32 H (24-31) mmol/L Anion Gap (3-11) POC Anion Gap 8.0 L (16-25) mmol/L POC BUN 35 H (7-18) mg/dl BUN 31 H (6-23) mg/dl BUN/Creatinine Ratio 45.6 H (10-20) Glucose 106 H (70-99(Fasting)) mg/dl POC Glucose (70-99) mg/dl POC Glucose (other) 146 H (70-99) mg/dl Calcium 8.5 L (8.6-10.3) mg/dl Magnesium 3.3 H (1.7-2.4) mg/dl ALT 92 H (7-52) U/L Alkaline Phosphatase 266 H (34-104) U/L B-Natriuretic Peptide 211 H (0-100) pg/ml Albumin 3.3 L (3.4-5.0) gm/dl Urine Osmolality (500-800) mOsm/kg IgA (70-400) mg/dl IgM (45-281) mg/dl 02/14/24 02/14/24 02/14/24 Range/Units 16:05 16:32 16:34 WBC (4.8-10.8) K/ul RBC (4.20-5.40) M/uL Hgb (12.0-16.0) g/dl POC Hgb (12.0-16.0) g/dl Hct (37.0-47.0) % POC Hct (37-47) % RDW Std Deviation (36.4-46.3) fL RDW Coeff of Dulce (11.5-14.5) % Lymph # (Auto) (1.20-3.40) K/uL VBG pH 7.30 L (7.36-7.41) VBG pCO2 62 H (38-50) mmHg POC Sodium (135-144) mmol/L Sodium (136-145) mmol/L POC Potassium (3.3-5.0) mmol/L Potassium 6.0 H (3.5-5.1) mmol/L POC Chloride (101-112) mmol/L Chloride (98-107) mmol/L POC Total CO2 (24-31) mmol/L Anion Gap (3-11) POC Anion Gap (16-25) mmol/L POC BUN (7-18) mg/dl BUN (6-23) mg/dl BUN/Creatinine Ratio (10-20) Glucose (70-99(Fasting)) mg/dl POC Glucose 135 H (70-99) mg/dl POC Glucose (other) (70-99) mg/dl Calcium (8.6-10.3) mg/dl Magnesium (1.7-2.4) mg/dl ALT (7-52) U/L Alkaline Phosphatase (34-104) U/L B-Natriuretic Peptide (0-100) pg/ml Albumin (3.4-5.0) gm/dl Urine Osmolality (500-800) mOsm/kg IgA 408.5 H (70-400) mg/dl IgM 43.7 L (45-281) mg/dl 02/14/24 02/15/24 02/15/24 Range/Units 21:39 01:37 04:06 WBC (4.8-10.8) K/ul RBC (4.20-5.40) M/uL Hgb (12.0-16.0) g/dl POC Hgb (12.0-16.0) g/dl Hct (37.0-47.0) % POC Hct (37-47) % RDW Std Deviation (36.4-46.3) fL RDW Coeff of Dulce (11.5-14.5) % Lymph # (Auto) (1.20-3.40) K/uL VBG pH (7.36-7.41) VBG pCO2 (38-50) mmHg POC Sodium (135-144) mmol/L Sodium 128 L 130 L (136-145) mmol/L POC Potassium (3.3-5.0) mmol/L Potassium 6.0 H 5.9 H (3.5-5.1) mmol/L POC Chloride (101-112) mmol/L Chloride 96 L 97 L (98-107) mmol/L POC Total CO2 (24-31) mmol/L Anion Gap 2 L 1 L (3-11) POC Anion Gap (16-25) mmol/L POC BUN (7-18) mg/dl BUN 31 H 30 H (6-23) mg/dl BUN/Creatinine Ratio 50.8 H 49.2 H (10-20) Glucose 114 H (70-99(Fasting)) mg/dl POC Glucose 62 L* (70-99) mg/dl POC Glucose (other) (70-99) mg/dl Calcium 8.3 L 8.3 L (8.6-10.3) mg/dl Magnesium (1.7-2.4) mg/dl ALT (7-52) U/L Alkaline Phosphatase (34-104) U/L B-Natriuretic Peptide (0-100) pg/ml Albumin (3.4-5.0) gm/dl Urine Osmolality (500-800) mOsm/kg IgA (70-400) mg/dl IgM (45-281) mg/dl 02/15/24 02/15/24 02/15/24 Range/Units 04:09 04:51 06:08 WBC 4.56 L (4.8-10.8) K/ul RBC 3.24 L (4.20-5.40) M/uL Hgb 10.6 L (12.0-16.0) g/dl POC Hgb (12.0-16.0) g/dl Hct 31.6 L (37.0-47.0) % POC Hct (37-47) % RDW Std Deviation 53.2 H (36.4-46.3) fL RDW Coeff of Dulce 15.5 H (11.5-14.5) % Lymph # (Auto) 0.87 L (1.20-3.40) K/uL VBG pH (7.36-7.41) VBG pCO2 (38-50) mmHg POC Sodium (135-144) mmol/L Sodium 131 L (136-145) mmol/L POC Potassium (3.3-5.0) mmol/L Potassium 6.0 H (3.5-5.1) mmol/L POC Chloride (101-112) mmol/L Chloride 97 L (98-107) mmol/L POC Total CO2 (24-31) mmol/L Anion Gap 2 L (3-11) POC Anion Gap (16-25) mmol/L POC BUN (7-18) mg/dl BUN 29 H (6-23) mg/dl BUN/Creatinine Ratio 48.3 H (10-20) Glucose 134 H (70-99(Fasting)) mg/dl POC Glucose 60 L* 179 H (70-99) mg/dl POC Glucose (other) (70-99) mg/dl Calcium (8.6-10.3) mg/dl Magnesium 3.0 H (1.7-2.4) mg/dl ALT (7-52) U/L Alkaline Phosphatase (34-104) U/L B-Natriuretic Peptide (0-100) pg/ml Albumin (3.4-5.0) gm/dl Urine Osmolality (500-800) mOsm/kg IgA (70-400) mg/dl IgM (45-281) mg/dl 02/15/24 02/15/24 02/15/24 Range/Units 09:07 09:11 09:35 WBC (4.8-10.8) K/ul RBC (4.20-5.40) M/uL Hgb (12.0-16.0) g/dl POC Hgb (12.0-16.0) g/dl Hct (37.0-47.0) % POC Hct (37-47) % RDW Std Deviation (36.4-46.3) fL RDW Coeff of Dulce (11.5-14.5) % Lymph # (Auto) (1.20-3.40) K/uL VBG pH (7.36-7.41) VBG pCO2 (38-50) mmHg POC Sodium (135-144) mmol/L Sodium (136-145) mmol/L POC Potassium (3.3-5.0) mmol/L Potassium (3.5-5.1) mmol/L POC Chloride (101-112) mmol/L Chloride (98-107) mmol/L POC Total CO2 (24-31) mmol/L Anion Gap (3-11) POC Anion Gap (16-25) mmol/L POC BUN (7-18) mg/dl BUN (6-23) mg/dl BUN/Creatinine Ratio (10-20) Glucose (70-99(Fasting)) mg/dl POC Glucose 69 L* 66 L* 162 H (70-99) mg/dl POC Glucose (other) (70-99) mg/dl Calcium (8.6-10.3) mg/dl Magnesium (1.7-2.4) mg/dl ALT (7-52) U/L Alkaline Phosphatase (34-104) U/L B-Natriuretic Peptide (0-100) pg/ml Albumin (3.4-5.0) gm/dl Urine Osmolality (500-800) mOsm/kg IgA (70-400) mg/dl IgM (45-281) mg/dl 02/15/24 02/15/24 02/15/24 Range/Units 12:40 13:18 14:05 WBC (4.8-10.8) K/ul RBC (4.20-5.40) M/uL Hgb (12.0-16.0) g/dl POC Hgb (12.0-16.0) g/dl Hct (37.0-47.0) % POC Hct (37-47) % RDW Std Deviation (36.4-46.3) fL RDW Coeff of Dulce (11.5-14.5) % Lymph # (Auto) (1.20-3.40) K/uL VBG pH 7.42 H (7.36-7.41) VBG pCO2 (38-50) mmHg POC Sodium (135-144) mmol/L Sodium 128 L (136-145) mmol/L POC Potassium (3.3-5.0) mmol/L Potassium 5.8 H (3.5-5.1) mmol/L POC Chloride (101-112) mmol/L Chloride 96 L (98-107) mmol/L POC Total CO2 (24-31) mmol/L Anion Gap 2 L (3-11) POC Anion Gap (16-25) mmol/L POC BUN (7-18) mg/dl BUN 30 H (6-23) mg/dl BUN/Creatinine Ratio 39.5 H (10-20) Glucose 109 H (70-99(Fasting)) mg/dl POC Glucose (70-99) mg/dl POC Glucose (other) (70-99) mg/dl Calcium (8.6-10.3) mg/dl Magnesium (1.7-2.4) mg/dl ALT (7-52) U/L Alkaline Phosphatase (34-104) U/L B-Natriuretic Peptide (0-100) pg/ml Albumin (3.4-5.0) gm/dl Urine Osmolality 243 L (500-800) mOsm/kg IgA (70-400) mg/dl IgM (45-281) mg/dl Diagnostic Findings Chest CTA 02/14/24 16:35 CHEST CTA for PULMONARY ARTERIES CT DOSE: 711.11 mGy.cm HISTORY: Shortness of breath. TECHNIQUE: Multiaxial CT images of the chest were performed following the intravenous administration of contrast to evaluate the pulmonary arteries. 3D/Maximal intensity projection images were also obtained. Sagittal and coronal reformations were also reviewed. A dose lowering technique was utilized adhering to the principles of ALARA. COMPARISON STUDY: Chest CT 10/30/2013 FINDINGS: Dextroscoliosis of the thoracic spine. No acute fractures within the chest. The left posterior fourth and fifth ribs are partially fused. This is likely developmental. Limited views of the upper abdomen demonstrate a normal liver and spleen. There is retrograde opacification of the hepatic veins. There are 2 right-sided shunt catheters noted within the anterior chest wall. One of these is incomplete and likely old. A tracheostomy tube appears in good position. Normal esophagus. Small hiatus hernia. The heart is mildly enlarged. There are small bilateral pleural effusions. No pericardial effusion. Consolidation within the lower lobes posteriorly. This may represent a combination of atelectasis and/or pneumonia. There is heterogeneous opacification in the left lower lobe consolidation normal caliber thoracic aorta with no evidence for a dissection. The main pulmonary artery remains dilated up to 3 cm. This suggests mild pulmonary arterial hypertension. No filling defects within the pulmonary arteries to suggest a pulmonary embolus. No pneumothorax. The central airways are patent. Patchy bilateral perihilar airspace opacities most pronounced on the right. This could be due to pulmonary edema or a pneumonia. IMPRESSION: 1. No evidence for a pulmonary embolus. 2. Cardiomegaly and small bilateral pleural effusions. 3. Consolidation within the lower lobes posteriorly may represent atelectasis and/or a pneumonia. 4. Patchy bilateral perihilar airspace opacities most pronounced on the right. This could be due to pulmonary edema or a pneumonia. 5. Mild dilatation of the main pulmonary artery suggesting pulmonary arterial hypertension. ACT 112: Negative or not required by law. Electronically signed by: Jeff Chapman M.D. 02/14/2024 6:23 PM Venous Doppler Study 02/15/24 00:00 Exam(s): US VENOUS BILATERAL LOWER EXTREMITIES EXAM: US Duplex Bilateral Lower Extremities Veins CLINICAL HISTORY: Reason for exam: leg swelling. TECHNIQUE: Real-time duplex ultrasound scan of the bilateral lower extremity veins integrating B-mode two-dimensional vascular structure, Doppler spectral analysis, color flow Doppler imaging and compression. COMPARISON: No relevant prior studies available. FINDINGS: Right deep veins: Unremarkable. No DVT in the right common femoral, femoral, proximal deep femoral or popliteal veins. The veins demonstrate normal color flow, are normally compressible, with normal phasic flow and/or augmentation response. Right superficial veins: Unremarkable. No thrombus in the visualized right great saphenous vein. Left deep veins: Unremarkable. No DVT in the left common femoral, femoral, proximal deep femoral or popliteal veins. The veins demonstrate normal color flow, are normally compressible, with normal phasic flow and/or augmentation response. Left superficial veins: Unremarkable. No thrombus in the visualized left great saphenous vein. Soft tissues: No acute findings. No popliteal cyst. IMPRESSION: No evidence of deep vein thrombus. Electronically signed by: Neeru Mirza MD 02/15/24 04:53 AM PG Care Time/CCT Total # of Minutes Spent Total Time Spent with Patient: Total time spent is greater than 50% in coordination of care (as documented) at patient's floor/unit and/or counseling patient: Coding Level of Care Code 32989 SUB INP/OBS CARE 2/35MIN Diagnoses Pneumonia J18.9 Sepsis A41.9 Seizure disorder G40.909 History of acute lymphoblastic leukemia (ALL) in remission Z85.6 Hyperkalemia E87.5 Feeding by G-tube Z93.1 Primary immune deficiency disorder D84.89 Bedbound Z74.01 Cerebral palsy G80.9 Spastic quadriplegic cerebral palsy G80.0 Ventilator dependent Z99.11 Hypotension I95.9
[2024-02-16 04:19] LABS: Basophils # (auto) 0.04 K/uL (0.00-0.20); Basophils % (auto) 0.5 %; Eosinophils # (auto) 0.17 K/uL (0.00-0.50); Eosinophils % (auto) 2.3 %; Hemoglobin 10.2 g/dl (12.0-16.0); Immature Granulocytes # (auto) 0.04 K/uL (0.01-0.20); Immature Granulocytes % (auto) 0.5 %; Lymphocytes # (auto) 1.58 K/uL (1.20-3.40); Lymphocytes % (auto) 21.4 %; Mean Corpuscular Volume 97.1 fL (80.0-100.0); Mean Platelet Volume 11.8 fL (9.4-12.4); Monocytes # (auto) 0.88 K/uL (0.11-0.59); Monocytes % (auto) 11.9 %; Neutrophils # (auto) 4.67 K/uL (1.40-6.50); Neutrophils % (auto) 63.4 %; Nucleated RBC # (auto) 0.05 K/uL (0.00-0.12); Nucleated RBC % (auto) 0.7 %; Platelet Count 188 K/uL (130-400); RDW Coefficient of Variation 15.5 % (11.5-14.5); RDW Standard Deviation 53.4 fL (36.4-46.3); Red Blood Count 3.09 M/uL (4.20-5.40); White Blood Count 7.38 K/ul (4.8-10.8)
[2024-02-16 04:34] LABS: BUN Creatinine Ratio 37.3 (10-20); Calcium 8.3 mg/dl (8.6-10.3); Creatinine Clr Calc Pharmacy 101.5 ml/min; Est GFR (Non-African American) 100.1 ml/min; Phosphorus 3.6 mg/dl (2.5-4.9)
--- NOTE | 2024-02-16 07:11 | Critical Care Progress Note ---
Date of Service February 16, 2024 Assessment & Plan (1) Seizure disorder: (2) Chronic respiratory insufficiency: (3) Neurogenic bladder: (4) Congenital dysplasia of hips, bilateral: (5) Liver enzyme elevation: (6) Hypothyroidism: (7) Cerebral palsy: (8) Acid reflux: (9) Ventilator dependent: (10) Hyperkalemia: (11) Hyponatremia: (12) IMER (acute kidney injury): Plan Reason Critically Ill: 23 YOF presents to the ICU for treatment of pneumonia in chronic ventilator dependant patient. Also noted with hyperkalemia and hyponatremia. Neuro - Cerbral Palsy- spastic, seizure disorder, hx of BACKFILLER shunt placement, chronic pain - Continue seizure medications at this time- Keppra, Phenobarb, - BACKFILLER shunt in place Cardiac - -Asymptomatic bradycardia -Low heart rates noted on prior records: 04/28/2019, 08/28/2019, January 2023 Respiratory - Chronic ventilatory dependancy secondary to chronic respiratory failure, pneumonia - patchy opacities and basilar opacity- sputum currently with serratia and staph species- which also appears to be possibly chronic- see ID below - Ventilator support-continue current ventilation - Tracheostomy site intact- likely with some tracheitis resulting in bloody sputum from increased suctioning - Continue ADAMA nebulizers, hypertonic saline, cough assist and pulmonary toileting GI - GERD, enteral feedings - Continue PPI - Continue home feeding regime with K [place]-adjusted per nutrition RENAL/LYTES - Hyponatremia, hyperkalemia - Hyponatremia: Free water flushes had been adjusted yesterday - Hyperkalemia-resolved, discontinuing milk PEG tube flush - Mild increase in BUN with stable [employer] follow - - Hold NSAIDS -Nephrology consult: Renin and aldosterone ACTH all reference labs and sent this morning -Transtubular potassium gradient from /8 labs at 1pm: 5 - Consider stress dose steroids: Mother reports she receives 5 mg Decadron every other week when given IVIG infusion - Neurogenic bladder, chronic suppressant therapy for UTI - Discontinue Turner - Continue Ditropan - Continue methenamine hippurate ENDO - Hypothyroidism - Continue Synthroid HEME - Immunoglobulin deficiency, hx of b cell lymphoblastic disorder (remission) - receives IGG supplementation every 2 weeks- next dose would be due on 20Feb2024 ID -ventilator dependent pneumonia - sputum culture with serratia and staph species and with opacities, increase in sputum production - Invanz Day 2, and Zyvox day 2 -Improved oxygenation per family's report of increased oxygen requirement in the last 2 to 3 days LINES/IV ACCESS - PIV x2 Continue use of these lines DVT PROPHYLAXIS - SCDS, DISPO: Patient's critical care needs have resolved: Hyperkalemia. Will continue to follow given chronic vent. 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 Results & Data Results & Data Vital Signs (Past 12 Hours) Vital Signs Temp Pulse Pulse Resp BP BP Pulse Ox 02/16/24 05:59 36.9 C 57 L 18 92/57 L 95 02/16/24 05:40 60 18 93 02/16/24 05:00 88/56 L 02/16/24 05:00 36.9 C 59 L 16 91 02/16/24 04:00 02/16/24 04:00 36.9 C 59 L 21 92 02/16/24 04:00 93/58 L 02/16/24 03:33 56 L 18 93 02/16/24 03:30 92/58 L 02/16/24 03:30 36.9 C 58 L 17 93 02/16/24 03:00 36.9 C 56 L 19 93 02/16/24 03:00 93/58 L 02/16/24 02:00 93/59 L 02/16/24 02:00 37.0 C 56 L 19 93/58 L 94 02/16/24 01:24 37.0 C 58 L 18 92 02/16/24 00:18 37.1 C 58 L 19 87/57 L 93 02/16/24 00:00 02/16/24 00:00 64 02/15/24 23:30 92/55 L 02/15/24 23:30 37.1 C 66 21 94 02/15/24 23:20 02/15/24 23:15 69 19 93 02/15/24 23:06 37.1 C 70 22 91 02/15/24 22:00 91/53 L 02/15/24 22:00 37.1 C 66 21 91 02/15/24 21:28 61 18 93 02/15/24 21:15 37.1 C 60 19 90 02/15/24 20:30 37.0 C 60 17 95 02/15/24 20:30 102/63 02/15/24 20:09 37.0 C 59 L 16 92 02/15/24 20:06 61 18 93 02/15/24 20:00 02/15/24 19:30 37.0 C 58 L 16 94 02/15/24 19:30 94/58 L O2 Del Method O2 Flow Rate FiO2 02/16/24 05:59 Mechanical Vent 02/16/24 05:40 Mechanical Vent 02/16/24 05:00 02/16/24 05:00 02/16/24 04:00 30 02/16/24 04:00 02/16/24 04:00 02/16/24 03:33 30 02/16/24 03:30 02/16/24 03:30 02/16/24 03:00 02/16/24 03:00 02/16/24 02:00 02/16/24 02:00 02/16/24 01:24 02/16/24 00:18 02/16/24 00:00 30 02/16/24 00:00 02/15/24 23:30 02/15/24 23:30 02/15/24 23:20 Mechanical Vent 21 02/15/24 23:15 30 02/15/24 23:06 02/15/24 22:00 02/15/24 22:00 02/15/24 21:28 30 02/15/24 21:15 02/15/24 20:30 02/15/24 20:30 02/15/24 20:09 02/15/24 20:06 Mechanical Vent 02/15/24 20:00 30 02/15/24 19:30 02/15/24 19:30 Critical Care Results & Data Vital Signs (Past 12 Hours) Vital Signs Temp Pulse Pulse Resp BP BP Pulse Ox 02/16/24 05:59 36.9 C 57 L 18 92/57 L 95 02/16/24 05:40 60 18 93 02/16/24 05:00 88/56 L 02/16/24 05:00 36.9 C 59 L 16 91 02/16/24 04:00 02/16/24 04:00 36.9 C 59 L 21 92 02/16/24 04:00 93/58 L 02/16/24 03:33 56 L 18 93 02/16/24 03:30 92/58 L 02/16/24 03:30 36.9 C 58 L 17 93 02/16/24 03:00 36.9 C 56 L 19 93 02/16/24 03:00 93/58 L 02/16/24 02:00 93/59 L 02/16/24 02:00 37.0 C 56 L 19 93/58 L 94 02/16/24 01:24 37.0 C 58 L 18 92 02/16/24 00:18 37.1 C 58 L 19 87/57 L 93 02/16/24 00:00 02/16/24 00:00 64 02/15/24 23:30 92/55 L 02/15/24 23:30 37.1 C 66 21 94 02/15/24 23:20 02/15/24 23:15 69 19 93 02/15/24 23:06 37.1 C 70 22 91 02/15/24 22:00 91/53 L 02/15/24 22:00 37.1 C 66 21 91 02/15/24 21:28 61 18 93 02/15/24 21:15 37.1 C 60 19 90 02/15/24 20:30 37.0 C 60 17 95 02/15/24 20:30 102/63 02/15/24 20:09 37.0 C 59 L 16 92 02/15/24 20:06 61 18 93 02/15/24 20:00 02/15/24 19:30 37.0 C 58 L 16 94 02/15/24 19:30 94/58 L O2 Del Method O2 Flow Rate FiO2 02/16/24 05:59 Mechanical Vent 02/16/24 05:40 Mechanical Vent 02/16/24 05:00 02/16/24 05:00 02/16/24 04:00 30 02/16/24 04:00 02/16/24 04:00 02/16/24 03:33 30 02/16/24 03:30 02/16/24 03:30 02/16/24 03:00 02/16/24 03:00 02/16/24 02:00 02/16/24 02:00 02/16/24 01:24 02/16/24 00:18 02/16/24 00:00 30 02/16/24 00:00 02/15/24 23:30 02/15/24 23:30 02/15/24 23:20 Mechanical Vent 21 02/15/24 23:15 30 02/15/24 23:06 02/15/24 22:00 02/15/24 22:00 02/15/24 21:28 30 02/15/24 21:15 02/15/24 20:30 02/15/24 20:30 02/15/24 20:09 02/15/24 20:06 Mechanical Vent 21 02/15/24 20:00 30 02/15/24 19:30 02/15/24 19:30 Lab & Micro Results (Past 24 Hours) RBC 3.09 M/uL (4.20-5.40) L 02/16/24 WBC 7.38 K/ul (4.8-10.8) 02/16/24 Hgb 10.2 g/dl (12.0-16.0) L 02/16/24 Hct 30.0 % (37.0-47.0) L 02/16/24 MCV 97.1 fL (80.0-100.0) 02/16/24 MCH 33.0 pg (25.0-34.0) 02/16/24 MCHC 34.0 g/dL (32.0-36.0) 02/16/24 RDW Standard Deviation 53.4 fL (36.4-46.3) H 02/16/24 RDW Coefficient of Variation 15.5 % (11.5-14.5) H 02/16/24 Plt Count 188 K/uL (130-400) 02/16/24 MPV 11.8 fL (9.4-12.4) 02/16/24 Nucleated Red Blood Cells % (auto) 0.7 % 02/15 Nucleated RBC Absolute Count (auto) 0.05 K/uL (0.00-0.12) 0 02/16/24 Neutrophils (%) (Auto) 63.4 % 02/16/24 Lymphocytes (%) (Auto) 21.4 % 02/16/24 Monocytes # (Auto) 0.88 K/uL (0.11-0.59) H 02/16/24 Eosinophils # (Auto) 0.17 K/uL (0.00-0.50) 02/16/24 Immature Granulocyte % (Auto) 0.5 % 02/16/24 Neutrophils # (Auto) 4.67 K/uL (1.40-6.50) 02/16/24 Lymphocytes # (Auto) 1.58 K/uL (1.20-3.40) 02/16/24 Monocytes # (Auto) 0.88 K/uL (0.11-0.59) H 02/16/24 Eosinophils # (Auto) 0.17 K/uL (0.00-0.50) 02/16/24 Basophils # (Auto) 0.04 K/uL (0.00-0.20) 02/16/24 Immature Granulocyte # (Auto) 0.04 K/uL (0.01-0.20) 4 Na 129 mmol/L (136-145) L 02/16/24 K 5.0 mmol/L (3.5-5.1) 02/16/24 Cl 95 mmol/L (98-107) L 02/16/24 CO2 30 mmol/L (21-32) 02/16/24 Anion Gap 4 (3-11) 02/16/24 BUN 31 mg/dl (6-23) H 02/16/24 Creatinine 0.83 mg/dl (0.6-1.2) 02/16/24 Estimated GFR ( Amer) 116.0 ml/min 02/16/24 Estimated GFR (Non-Af Amer) 100.1 ml/min 02/16/24 BUN/Creatinine Ratio 37.3 (10-20) H 02/16/24 Glu 66 mg/dl (70-99(Fasting)) L 02/16/24 Ca 8.3 mg/dl (8.6-10.3) L 02/16/24 Phosphorus Level 3.6 mg/dl (2.5-4.9) 02/16/24 Calcium Level 8.3 mg/dl (8.6-10.3) L 02/16/24 03:46 Venous Blood pH 7.42 (7.36-7.41) H 02/15/24 12:40 Venous Blood Partial Pressure CO2 50 mmHg (38-50) 02/15/24 12:4 0 Venous Blood Partial Pressure O2 37 mmHg 02/15/24 12:40 Venous Blood HCO3 32 mmol/L 02/15/24 12:40 Venous Blood Base Excess 6.6 mEq/L 02/15/24 12:40 Venous Blood Oxygen Saturation 74.5 % 02/15/24 12:40 Microbiology 02/14/24 14:33 Aerobic Blood Culture - Preliminary Blood No growth in Aerobic bottle after 24 hours. Anaerobic Blood Culture - Final 02/14/24 16:32 Aerobic Blood Culture - Preliminary Blood No growth in Aerobic bottle after 24 hours. Anaerobic Blood Culture - Preliminary No growth in Anaerobic bottle after 24 hours. I & O Totals 24 Hours 02/15/24 02/16/24 02/17/24 06:59 06:59 06:59 Intake Total 1245 / 1245 1635 / 1635 Output Total 1675 / 1675 2450 / 2450 Balance -430 / -430 -815 / -815 Cumulative 02/14/24 12:49 thru 02/16/24 05:57 Intake Total 2880 Output Total 4125 Balance -1245 RT Ventilator Mngmt (Last Documented) Ventilator Ordered Settings Ventilator Support Mode SIMV 02/16/24 04:00 Respiratory Rate 18 02/16/24 05:59 Minute Ventilation 4.9 02/16/24 03:33 Ventilator Positive Pressure 12 02/16/24 04:00 Support Setting Positive End Expiratory 6 02/16/24 04:00 Pressure Fraction of Inspired Oxygen 28 02/16/24 05:40 Inspiratory Pressure 18 02/16/24 03:33 Machine Comment weaned to 21%O2 02/15/24 14:35 Ventilator - PT Measurements Respiratory Rate 18 Exhaled Tidal Volume 254 Minute Ventilation 4.9 Peak Inspiratory Airway 18 Pressure Plateau Pressure 17 Respiratory Cycle Inspiratory: 1:4.8 Expiratory Ratio Inspiratory Phase Time 1.0 End-Tidal CO2 42 Static Lung Compliance 23.09 Dynamic Lung Compliance 21.17 Normal Static Lung Compliance 46.00 Coding Level of Care Code 93595 SUB INP/OBS CARE 3/50MIN Diagnoses Seizure disorder G40.909 Chronic respiratory insufficiency R06.89 Neurogenic bladder N31.9 Congenital dysplasia of hips, bilateral Q65.89 Liver enzyme elevation R74.8 Hypothyroidism 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
--- NOTE | 2024-02-16 08:22 | XRay Report ---
SINGLE VIEW CHEST CLINICAL HISTORY: Respiratory failure. FINDINGS: An AP, portable, upright chest radiograph is compared to chest x-ray and chest CT dated 02/13. The examination is degraded by portable technique and patient rotation. A right PICC line is n ew from previous. The tip projects over the cavoatrial junction. A tracheostomy is in place. A shunt catheter traverses the right chest wall. The heart is mildly enlarged. There is pulmonary vascular co ngestion. There are layering pleural effusions with bibasilar consolidation. No pneumothorax is seen. The skeletal structures are osteopenic. The bony thorax is grossly intact. Degenerative change and s coliosis is seen in the spine. Cholecystectomy clips are seen in the right upper quadrant. IMPRESSION: 1. Lines and tubes as above. 2. Cardiomegaly with pulmonary vascular congestion. 3. Layering pleural effusions with dependent consolidation. ACT 112: Negative or not required by law. Electronically signed by: Pedro Quispe M.D. 02/16/2024 8:20 AM
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
[2024-02-16] MEDS: ACETAMINOPHEN 1,000 MG/100 ML VIAL IV PRN (11:37)
[2024-02-16] MEDS: SODIUM CHLORIDE 0.9% 500 ML IV ONE (14:39)
--- NOTE | 2024-02-16 15:00 | Hospitalist Progress Note ---
Date of Service February 16, 2024 Assessment & Plan (1) Pneumonia: Plan: Worsening/intermittent SOB x 1 month with an acute worsening on 02/13 Patient completed course of levofloxacin prescribed on 01/27 - 02/03; failure of outpatient tx Outpatient CXR on 02/13 revealed residual pneumonia History of MRSA pneumonia Sputum culture result from 02/12/2024 revealed Serratia and staph. Tracheitis versus pneumonia. Antibiotics changed to Zyvox and Invanz per [place] cutter. Bilateral lower extremities dopplers negative (2) Sepsis: Plan: Pulmonary source Hypotensive in the ED Lactate WNL Procalcitonin WNL Blood cultures negative for 24 hours Echo showed an EF of 50%. No wall motion abnormalities. Mild concentric LVH. 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 Contributing to pulmonary edema But echocardiogram showed near normal EF (5) Hyperkalemia: Plan: K 6.4 on arrival Required several treatment of hyperkalemia Intensive Care Unit Registered Nurse on board Recommends continuing to monitor sodium and potassium. Possibly due to central adrenal insufficiency. Awaiting ACTH, cortisol, reading, aldosterone. May need to consider glucocorticoid or mineralocorticoid based on results (6) Feeding by G-tube: Plan: N.p.o. All medications by GT (7) Primary immune deficiency disorder: Plan: Patient receives IVIG (Hizentra) every other Saturday Last dose on 02/06 Pretreatment with dex 1mg prior to being given (8) Bedbound: Plan: Functional quadriplegia (9) Cerebral palsy: (10) Spastic quadriplegic cerebral palsy: (11) Ventilator dependent: (12) Hypotension: Plan Full code Gastric tube feeding VTE PPx: SCDs Admission and Anticipated Discharge Date Admission Date: February 14, 2024 Subjective Per family, patient is back to her usual baseline mental status. Review of Systems Review of Systems: All systems reviewed & are unremarkable except as noted in Subjective Physical Exam Physical Exam: General: Awake, trached Heart: S1, S2/regular rate and rhythm, no murmur rubs or gallops Lungs: Diminished breath sounds bilaterally. Normal effort Abdomen: Soft/nontender/nondistended. No hepatosplenomegaly Extremities: No clubbing/cyanosis. 1+ pitting bilateral edema. Contractures noted Behavior: Appropriate, cooperative Results & Data Results & Data Vital Signs (Past 12 Hours) Vital Signs Temp Pulse Pulse Resp BP BP Pulse Ox 02/16/24 14:00 87/49 L 02/16/24 14:00 55 L 17 95 02/16/24 13:48 55 L 21 95 02/16/24 13:33 58 L 17 94 02/16/24 13:16 90/50 L 02/16/24 12:54 54 L 18 94 02/16/24 12:09 57 L 18 95 02/16/24 12:00 02/16/24 11:57 56 L 20 95 02/16/24 11:45 57 L 20 99 02/16/24 11:42 59 L 18 94 02/16/24 11:21 62 19 96 02/16/24 11:00 70 16 95 02/16/24 11:00 90/53 L 02/16/24 10:45 37.0 C 82 26 H 93 02/16/24 10:36 37.0 C 67 16 95 02/16/24 10:15 37.1 C 78 19 94 02/16/24 10:03 37.1 C 71 19 94 02/16/24 09:30 91/57 L 02/16/24 09:30 37.1 C 64 20 94 02/16/24 09:09 37.0 C 60 21 94 02/16/24 08:30 37.0 C 71 14 95 02/16/24 08:30 95/58 L 02/16/24 08:27 37.0 C 74 26 H 94 02/16/24 08:20 70 20 95 02/16/24 08:00 02/16/24 08:00 02/16/24 08:00 56 L 02/16/24 07:27 36.9 C 58 L 16 94 02/16/24 06:09 36.8 C 59 L 20 94 02/16/24 05:59 36.9 C 57 L 18 92/57 L 95 02/16/24 05:40 60 18 93 02/16/24 05:00 88/56 L 02/16/24 05:00 36.9 C 59 L 16 91 02/16/24 04:00 02/16/24 04:00 36.9 C 59 L 21 92 02/16/24 04:00 93/58 L 02/16/24 03:33 56 L 18 93 02/16/24 03:30 92/58 L 02/16/24 03:30 36.9 C 58 L 17 93 02/16/24 03:00 36.9 C 56 L 19 93 02/16/24 03:00 93/58 L O2 Del Method O2 Flow Rate FiO2 02/16/24 14:00 02/16/24 14:00 Mechanical Vent 02/16/24 13:48 02/16/24 13:33 02/16/24 13:16 02/16/24 12:54 02/16/24 12:09 02/16/24 12:00 02/16/24 11:57 02/16/24 11:45 02/16/24 11:42 02/16/24 11:21 02/16/24 11:00 02/16/24 11:00 02/16/24 10:45 02/16/24 10:36 02/16/24 10:15 02/16/24 10:03 02/16/24 09:30 02/16/24 09:30 Mechanical Vent 02/16/24 09:09 02/16/24 08:30 02/16/24 08:30 02/16/24 08:27 02/16/24 08:20 28 02/16/24 08:00 28 02/16/24 08:00 Mechanical Vent 02/16/24 08:00 02/16/24 07:27 02/16/24 06:09 02/16/24 05:59 Mechanical Vent 02/16/24 05:40 Mechanical Vent 02/16/24 05:00 02/16/24 05:00 02/16/24 04:00 30 02/16/24 04:00 02/16/24 04:00 02/16/24 03:33 30 02/16/24 03:30 02/16/24 03:30 02/16/24 03:00 02/16/24 03:00 Laboratory Results Abnormal lab results 02/15/24 02/16/24 Range/Units 18:32 03:46 RBC 3.09 L (4.20-5.40) M/uL Hgb 10.2 L (12.0-16.0) g/dl Hct 30.0 L (37.0-47.0) % RDW Std Deviation 53.4 H (36.4-46.3) fL RDW Coeff of Dulce 15.5 H (11.5-14.5) % [place] # (Auto) 0.88 H (0.11-0.59) K/uL Sodium 129 L (136-145) mmol/L Chloride 95 L (98-107) mmol/L BUN 31 H (6-23) mg/dl BUN/Creatinine Ratio 37.3 H (10-20) Glucose 66 L (70-99(Fasting)) mg/dl POC Glucose 117 H (70-99) mg/dl Calcium 8.3 L (8.6-10.3) mg/dl PG Care Time/CCT Total # of Minutes Spent Total Time Spent with Patient: Total time spent is greater than 50% in coordination of care (as documented) at patient's floor/unit and/or counseling patient: Coding Level of Care Code 43036 SUB INP/OBS CARE 2/35MIN Diagnoses Pneumonia J18.9 Sepsis A41.9 Seizure disorder G40.909 History of acute lymphoblastic leukemia (ALL) in remission Z85.6 Hyperkalemia E87.5 Feeding by G-tube Z93.1 Primary immune deficiency disorder D84.89 Bedbound Z74.01 Spastic quadriplegic cerebral palsy G80.0 Cerebral palsy type: spastic quadriplegic Spastic quadriplegic cerebral palsy G80.0 Ventilator dependent Z99.11 Hypotension I95.9 (9) Cerebral palsy Cerebral palsy type: spastic quadriplegic Qualified Code(s): G80.0 - Spastic quadriplegic cerebral palsy
[2024-02-17 05:14] LABS: Basophils # (auto) 0.03 K/uL (0.00-0.20); Basophils % (auto) 0.5 %; Eosinophils # (auto) 0.14 K/uL (0.00-0.50); Eosinophils % (auto) 2.4 %; Hematocrit (blood only) 28.2 % (37.0-47.0); Hemoglobin 9.5 g/dl (12.0-16.0); Immature Granulocytes # (auto) 0.02 K/uL (0.01-0.20); Immature Granulocytes % (auto) 0.3 %; Lymphocytes # (auto) 1.51 K/uL (1.20-3.40); Lymphocytes % (auto) 25.4 %; Mean Corpuscular Hemoglobin 33.2 pg (25.0-34.0); Mean Corpuscular Hgb Conc 33.7 g/dL (32.0-36.0); Mean Corpuscular Volume 98.6 fL (80.0-100.0); Mean Platelet Volume 11.5 fL (9.4-12.4); Monocytes # (auto) 0.83 K/uL (0.11-0.59); Neutrophils # (auto) 3.41 K/uL (1.40-6.50); Neutrophils % (auto) 57.4 %; Nucleated RBC # (auto) 0.02 K/uL (0.00-0.12); Nucleated RBC % (auto) 0.3 %; Platelet Count 190 K/uL (130-400); RDW Coefficient of Variation 15.6 % (11.5-14.5); RDW Standard Deviation 54.8 fL (36.4-46.3); Red Blood Count 2.86 M/uL (4.20-5.40); White Blood Count 5.94 K/ul (4.8-10.8)
[2024-02-17 05:54] LABS: BUN Creatinine Ratio 35.7 (10-20); Calcium 8.2 mg/dl (8.6-10.3); Creatinine Clr Calc Pharmacy 101.1 ml/min; Est GFR (African American) 114.3 ml/min; Est GFR (Non-African American) 98.7 ml/min
--- NOTE | 2024-02-17 07:44 | Critical Care Progress Note ---
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 Also noted with hyperkalemia and hyponatremia. Neuro - Cerbral Palsy- spastic, seizure disorder, hx of [employer]MP[employer] shunt placement, chronic pain - Continue seizure medications at this time- Keppra, Phenobarb - LU[employer] shunt in place Cardiac - -Asymptomatic bradycardia -Low heart rates noted on prior records: 04/28/2019, 08/28/2019, January 2023 Respiratory - Chronic ventilatory dependancy secondary to chronic respiratory failure, pneumonia - patchy opacities and basilar opacity- sputum currently with serratia and staph species- which also appears to be possibly chronic - Continue ADAMA nebulizers, hypertonic saline, cough assist and pulmonary toileting GI - GERD, enteral feedings - Continue PPI - Continue home feeding regime with [place]-adjusted per nutrition RENAL/LYTES - Hyponatremia, hyperkalemia -Nephrology consult: Renin and aldosterone ACTH all reference labs and sent this morning -Transtubular potassium gradient from 02/14 labs at 1pm: 5 - Consider stress dose steroids: Mother reports she receives 5 mg Decadron every other week when given IVIG infusion Nephrology recommends outpatient endocrinology follow-up - Neurogenic bladder, chronic suppressant therapy for UTI - Continue Ditropan - Continue methenamine hippurate ENDO - Hypothyroidism - Continue Synthroid HEME - Immunoglobulin deficiency, hx of b cell lymphoblastic disorder (remission) - receives IGG supplementation every 2 weeks- next dose would be due on 20Feb2024 ID -ventilator dependent pneumonia - sputum culture with serratia and staph species and with opacities, increase in sputum production -On ertapenem and linezolid Infectious disease have been consulted --Prophylaxis VTE: IPC GI: Pantoprazole Lines: Peripheral Diet: Tube feeds Plan: In/Out: +205, urine output 3025, -1 L since coming to the hospital Continue with antibiotics, infectious disease has been consulted for the duration of antibiotics Strict in and out Would recommend repeat chest x-ray in 2 weeks to make sure there is improvement. Disposition will be as per the recommendation of antibiotics from infectious disease. Had a bout of morning hypoglycemia yesterday. Will get nutrition involved to adjust timing of evening feed. Needs adjustment even to the free water flushes given the hyponatremia. Continue with pulmonary toileting Please note the above document was generated using voice recognition software. It may contain grammatical, syntax or spelling errors.Any formal questions or concerns about the content, text or information contained within the body of this dictation should be directly addressed to the provider for clarification. Admission and Anticipated Discharge Date Admission Date: February 14, 2024 Subjective Patient seen and examined at bedside. Patient's parents were also in the room at the time of examination She was on SIMV. Breathing over the set rate. She is nonverbal and does not follow any commands Has been afebrile Systolic blood pressure was in the high 90s with MAP in the mid to high 60s. Review of Systems 2 Review of Systems: Unobtainable due to mental health condition Physical Exam 2 Physical Exam: Constitutional: No acute distress HEENT: PERRLA, positive trach Respiratory system: Decreased air entry bilaterally, no wheeze, no rhonchi, positive crackles bilateral lower lobes CVS: S1-S2 positive, no murmurs or gallops Abdomen: Soft, nontender, nondistended, positive bowel sounds x4, obese Extremities: +2 pulses bilaterally radialis/ dorsalis pedis, no cyanosis, minimal pitting edema bilateral lower extremity Neuro: Awake and alert Psych: Unable to assess G/U: No Turner Skin: no rashes, warm and dry Lymphatic: no cervical or axillary lymphadenopathy Results & Data Results & Data Vital Signs (Past 12 Hours) Vital Signs Temp Pulse Pulse Resp BP Pulse Ox O2 Del Method 02/17/24 07:24 59 L 24 94 02/17/24 07:22 59 L 24 94 Mechanical Vent 02/17/24 06:30 121/92 02/17/24 06:30 76 25 H 95 02/17/24 06:09 60 18 96 02/17/24 06:00 97/68 L 02/17/24 05:57 64 20 94 02/17/24 05:12 57 L 16 95 02/17/24 04:30 85/48 L 02/17/24 04:30 54 L 16 94 02/17/24 04:03 61 13 94 02/17/24 04:00 87/52 L 02/17/24 03:51 36.6 C 02/17/24 03:51 02/17/24 03:42 62 16 95 02/17/24 03:30 89/48 L 02/17/24 03:30 65 16 94 02/17/24 03:03 67 18 96 02/17/24 02:00 60 18 95 02/17/24 01:00 84/52 L 02/17/24 01:00 64 15 95 02/17/24 00:03 72 23 94 02/16/24 23:48 78 20 95 02/16/24 23:44 36.7 C 02/16/24 23:41 02/16/24 23:40 65 02/16/24 23:30 98/60 L 02/16/24 23:29 74 20 96 02/16/24 23:27 76 23 96 02/16/24 23:03 81 24 96 02/16/24 22:09 68 23 94 02/16/24 21:00 67 21 96 02/16/24 20:12 57 L 19 94 02/16/24 20:00 98/63 L 02/16/24 20:00 Mechanical Vent 02/16/24 20:00 02/16/24 19:57 58 L 19 94 02/16/24 19:57 62 20 94 02/16/24 19:53 58 L 16 95 Mechanical Vent FiO2 02/17/24 07:24 28 02/17/24 07:22 28 02/17/24 06:30 02/17/24 06:30 02/17/24 06:09 02/17/24 06:00 02/17/24 05:57 02/17/24 05:12 02/17/24 04:30 02/17/24 04:30 02/17/24 04:03 02/17/24 04:00 02/17/24 03:51 02/17/24 03:51 28 02/17/24 03:42 28 02/17/24 03:30 02/17/24 03:30 02/17/24 03:03 02/17/24 02:00 02/17/24 01:00 02/17/24 01:00 02/17/24 00:03 02/16/24 23:48 02/16/24 23:44 02/16/24 23:41 28 02/16/24 23:40 02/16/24 23:30 02/16/24 23:29 28 02/16/24 23:27 02/16/24 23:03 02/16/24 22:09 02/16/24 21:00 02/16/24 20:12 02/16/24 20:00 02/16/24 20:00 28 02/16/24 20:00 28 02/16/24 19:57 02/16/24 19:57 28 02/16/24 19:53 28 Laboratory Results 02/17/24 04:10 02/17/24 04:10 Coding Level of Care Code 05424 SUB INP/OBS CARE 3/50MIN Diagnoses VAP (ventilator-associated pneumonia) J95.851 IMER (acute kidney injury) N17.9 Recurrent infections B99.9 Seizure disorder G40.909 Chronic respiratory insufficiency R06.89 Neurogenic bladder N31.9 Hypothyroidism E03.9 Spastic quadriplegic cerebral palsy G80.0 Cerebral palsy type: spastic quadriplegic History of acute lymphoblastic leukemia (ALL) in remission Z85.6 Spastic quadriplegic cerebral palsy G80.0 Ventilator dependent Z99.11 (8) Cerebral palsy Cerebral palsy type: spastic quadriplegic Qualified Code(s): G80.0 - Spastic quadriplegic cerebral palsy
[2024-02-17 08:23] LABS: Magnesium 2.8 mg/dl (1.7-2.4)
--- NOTE | 2024-02-17 09:42 | Nephrology Progress Note ---
Date of Service February 17, 2024 Assessment & Plan (1) Hyperkalemia: (2) Hyponatremia: (3) Hypotension: (4) Hypoxia: Plan 23 y old F with complex past medical history including cerebral palsy, seizure disorder, prior history of LL, chronic ventilator dependent with tracheostomy admitted with pneumonia. Noted to have hyperkalemia, hyponatremia and hypotension raising concern for central or primary adrenal insufficiency. Previously evaluated for adrenal insufficiency several years ago but workup was nonconclusive and has not been on hydrocortisone but has been on very low-dose of dexamethasone every 2 weeks. Electrolyte improved, blood pressure stable. Overall otherwise seems comfortable and at her baseline as per the parents. Sodium and potassium both normalized. Workup for evaluation for adrenal insufficiency is still pending -- Continue to monitor sodium and potassium, continue on potassium binder for hyperkalemia as needed while waiting for ACTH, cortisol, renin and aldosterone. If sodium remains low adjust with higher sodium content with J-tube feeding -- May need to consider glucocorticoid or mineralocorticoid based on the results. If any abnormality would recommend to get in touch with her international account representative at [facility] for further management. Will sign off. Thank you for allowing me to participate in your patient's care. It was a pleasure to see Stefany. Admission and Anticipated Discharge Date Admission Date: February 14, 2024 Subjective Stefany was seen and evaluated this morning with her parent at bedside. She seemed comfortable, vital signs are acceptable. Blood pressure improved. Sodium and potassium both normalized, on electrolyte replacement protocol. Review of Systems Review of Systems: Unobtainable due to endotracheal tube and Other Physical Exam Constitutional: WD/WN, vitals as above no acute distress Eyes: + anicteric sclerae Neck: Tracheostomy in place. Results & Data Vital Signs (Past 12 Hours) Vital Signs Temp Pulse Pulse Resp BP Pulse Ox O2 Del Method 02/17/24 07:24 59 L 24 94 02/17/24 07:22 59 L 24 94 Mechanical Vent 02/17/24 06:30 121/92 02/17/24 06:30 76 25 H 95 02/17/24 06:09 60 18 96 02/17/24 06:00 97/68 L 02/17/24 05:57 64 20 94 02/17/24 05:12 57 L 16 95 02/17/24 04:30 85/48 L 02/17/24 04:30 54 L 16 94 06/10/24 04:03 61 13 94 02/17/24 04:00 87/52 L 02/17/24 03:51 36.6 C 02/17/24 03:51 02/17/24 03:42 62 16 95 02/17/24 03:30 89/48 L 02/17/24 03:30 65 16 94 02/17/24 03:03 67 18 96 02/17/24 02:00 60 18 95 02/17/24 01:00 84/52 L 02/17/24 01:00 64 15 95 02/17/24 00:03 72 23 94 02/16/24 23:48 78 20 95 02/16/24 23:44 36.7 C 02/16/24 23:41 02/16/24 23:40 65 02/16/24 23:30 98/60 L 02/16/24 23:29 74 20 96 02/16/24 23:27 76 23 96 02/16/24 23:03 81 24 96 02/16/24 22:09 68 23 94 FiO2 02/17/24 07:24 28 02/17/24 07:22 28 02/17/24 06:30 02/17/24 06:30 02/17/24 06:09 02/17/24 06:00 02/17/24 05:57 02/17/24 05:12 02/17/24 04:30 02/17/24 04:30 02/17/24 04:03 02/17/24 04:00 02/17/24 03:51 02/17/24 03:51 28 02/17/24 03:42 28 02/17/24 03:30 02/17/24 03:30 02/17/24 03:03 02/17/24 02:00 02/17/24 01:00 02/17/24 01:00 02/17/24 00:03 02/16/24 23:48 02/16/24 23:44 02/16/24 23:41 28 02/16/24 23:40 02/16/24 23:30 02/16/24 23:29 28 02/16/24 23:27 02/16/24 23:03 02/16/24 22:09 PG Care Time/CCT Total # of Minutes Spent Total Time Spent with Patient: Total time spent is greater than 50% in coordination of care (as documented) at patient's floor/unit and/or counseling patient: Coding Level of Care Code 60907 SUB INP/OBS CARE 10/03MIN Diagnoses Hyperkalemia E87.5 Hyponatremia E87.1 Hypotension I95.9 Hypoxia R09.02
[2024-02-17] MEDS: PATIENT'S OWN ENTERAL FEEDING PEG SCH (12:30)
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
[2024-02-17] MEDS: TUBE FEEDING WATER FLUSH GT SCH ×2 (13:51→19:48)
[2024-02-17] MEDS: POLYETHYLENE (MIRALAX) 17 GM PACK GT PRN (14:24)
--- NOTE | 2024-02-17 16:56 | Hospitalist Progress Note ---
Date of Service February 17, 2024 Assessment & Plan (1) Pneumonia: Plan: Worsening/intermittent SOB x 1 month with an acute worsening on 02/13 Patient completed course of levofloxacin prescribed on 01/27 - 02/03; failure of outpatient tx Outpatient CXR on 02/13 revealed residual pneumonia History of MRSA pneumonia Sputum culture result from 02/12/2024 revealed Serratia and staph. Tracheitis versus pneumonia. Antibiotics changed to Zyvox and Invanz per life coach. Bilateral lower extremities dopplers negative (2) Sepsis: Plan: Pulmonary source Hypotensive in the ED Lactate WNL Procalcitonin WNL Blood cultures negative for 24 hours Echo showed an EF of 50%. No wall motion abnormalities. Mild concentric LVH. 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 Contributing to pulmonary edema But echocardiogram showed near normal EF (5) Hyperkalemia: Plan: K 6.4 on arrival Required several treatment of hyperkalemia Junior Engineer on board Recommends continuing to monitor sodium and potassium. Possibly due to central adrenal insufficiency.ACTH, cortisol, reading, aldosterone. (6) Feeding by G-tube: Plan: N.p.o. 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 Patient's parents were also in the room at the time of examination She was on SIMV. Breathing over the set rate. She is nonverbal and does not follow any commands Has been afebrile Systolic blood pressure was in the high 90s with MAP in the mid to high 60s. Review of Systems Review of Systems: All systems reviewed & are unremarkable except as noted in Subjective Physical Exam Physical Exam: head atraumatic neck trach in place chest CTA b/l heart S1S2 abdomen soft, nt, nd extremities edema present Results & Data Results & Data Vital Signs (Past 12 Hours) Vital Signs Temp Pulse Pulse Resp BP Pulse Ox O2 Del Method 02/17/24 15:50 66 24 95 02/17/24 14:09 60 16 94 02/17/24 13:00 72 21 95 02/17/24 12:09 77 22 96 02/17/24 12:00 02/17/24 12:00 113/84 02/17/24 12:00 37.0 C 02/17/24 11:54 67 19 96 02/17/24 11:52 64 23 96 Mechanical Vent 02/17/24 11:50 65 23 96 02/17/24 11:06 68 22 97 02/17/24 10:00 103/70 02/17/24 10:00 74 20 95 02/17/24 09:09 58 L 24 94 02/17/24 08:30 96/59 L 02/17/24 08:12 60 19 94 02/17/24 08:06 58 L 16 94 02/17/24 08:00 02/17/24 08:00 Mechanical Vent 02/17/24 08:00 36.7 C 02/17/24 07:24 59 L 24 94 02/17/24 07:22 59 L 24 94 Mechanical Vent 02/17/24 07:00 80/49 L 02/17/24 07:00 57 L 14 95 02/17/24 06:30 121/92 02/17/24 06:30 76 25 H 95 02/17/24 06:09 60 18 96 02/17/24 06:00 97/68 L 02/17/24 05:57 64 20 94 02/17/24 05:12 57 L 16 95 FiO2 02/17/24 15:50 21 02/17/24 14:09 02/17/24 13:00 02/17/24 12:09 02/17/24 12:00 24 02/17/24 12:00 02/17/24 12:00 02/17/24 11:54 02/17/24 11:52 24 02/17/24 11:50 24 02/17/24 11:06 02/17/24 10:00 02/17/24 10:00 02/17/24 09:09 02/17/24 08:30 02/17/24 08:12 02/17/24 08:06 02/17/24 08:00 28 02/17/24 08:00 02/17/24 08:00 02/17/24 07:24 28 02/17/24 07:22 28 02/17/24 07:00 02/17/24 07:00 02/17/24 06:30 02/17/24 06:30 02/17/24 06:09 02/17/24 06:00 02/17/24 05:57 02/17/24 05:12 PG Care Time/CCT Total # of Minutes Spent Total Time Spent with Patient: Total time spent is greater than 50% in coordination of care (as documented) at patient's floor/unit and/or counseling patient: Coding Level of Care Code 84318 SUB INP/OBS CARE 2/35MIN Diagnoses Pneumonia J18.9 Sepsis A41.9 Seizure disorder G40.909 History of acute lymphoblastic leukemia (ALL) in remission Z85.6 Hyperkalemia E87.5 Feeding by G-tube Z93.1 Primary immune deficiency disorder D84.89 Bedbound Z74.01 Spastic quadriplegic cerebral palsy G80.0 Cerebral palsy type: spastic quadriplegic Spastic quadriplegic cerebral palsy G80.0 Ventilator dependent Z99.11 Hypotension I95.9 (9) Cerebral palsy Cerebral palsy type: spastic quadriplegic Qualified Code(s): G80.0 - Spastic quadriplegic cerebral palsy
[2024-02-17] MEDS: SODIUM CHLOR 7% 4 ML NEB INH SCH (20:29)
[2024-02-18 04:47] LABS: Basophils # (auto) 0.03 K/uL (0.00-0.20); Basophils % (auto) 0.6 %; Eosinophils # (auto) 0.17 K/uL (0.00-0.50); Eosinophils % (auto) 3.7 %; Hematocrit (blood only) 30.6 % (37.0-47.0); Hemoglobin 10.2 g/dl (12.0-16.0); Immature Granulocytes # (auto) 0.01 K/uL (0.01-0.20); Immature Granulocytes % (auto) 0.2 %; Lymphocytes # (auto) 1.26 K/uL (1.20-3.40); Lymphocytes % (auto) 27.2 %; Mean Corpuscular Hemoglobin 32.6 pg (25.0-34.0); Mean Corpuscular Hgb Conc 33.3 g/dL (32.0-36.0); Mean Corpuscular Volume 97.8 fL (80.0-100.0); Mean Platelet Volume 11.2 fL (9.4-12.4); Monocytes % (auto) 12.9 %; Neutrophils # (auto) 2.57 K/uL (1.40-6.50); Neutrophils % (auto) 55.4 %; Platelet Count 193 K/uL (130-400); RDW Coefficient of Variation 15.7 % (11.5-14.5); RDW Standard Deviation 54.5 fL (36.4-46.3); Red Blood Count 3.13 M/uL (4.20-5.40); White Blood Count 4.64 K/ul (4.8-10.8)
[2024-02-18 04:55] LABS: BUN Creatinine Ratio 35.6 (10-20); Calcium 8.6 mg/dl (8.6-10.3); Creatinine Clr Calc Pharmacy 116.4 ml/min; Est GFR (African American) 135.5 ml/min; Est GFR (Non-African American) 116.9 ml/min; Magnesium 2.7 mg/dl (1.7-2.4); Phosphorus 4.1 mg/dl (2.5-4.9); Potassium 3.6 mmol/L (3.5-5.1)
[2024-02-18] MEDS: POTASSIUM CHLORIDE 20 MEQ/15 ML UDC NG SCH (06:15)
--- NOTE | 2024-02-18 07:35 | Critical Care Progress Note ---
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 Also noted with hyperkalemia and hyponatremia. Neuro - Cerbral Palsy- spastic, seizure disorder, hx of R DEVELOPER shunt placement, chronic pain - Continue seizure medications at this time- Keppra, Phenobarb - R DEVELOPER shunt in place Cardiac - -Asymptomatic bradycardia -Low heart rates noted on prior records: 04/28/2019, 08/28/2019, January 2023 Respiratory - Chronic ventilatory dependancy secondary to chronic respiratory failure, pneumonia - patchy opacities and basilar opacity- sputum currently with serratia and staph species- which also appears to be possibly chronic - Continue ADAMA nebulizers, hypertonic saline, cough assist and pulmonary toileting GI - GERD, enteral feedings - Continue PPI - Continue home feeding regime with [employer] [place]-adjusted per nutrition RENAL/LYTES - Hyponatremia, hyperkalemia -Nephrology consult: Renin and aldosterone ACTH all reference labs and sent this morning -Transtubular potassium gradient from 02/14 labs at 1pm: 5 - Consider stress dose steroids: Mother reports she receives 5 mg Decadron every other week when given IVIG infusion Nephrology recommends outpatient endocrinology follow-up - Neurogenic bladder, chronic suppressant therapy for UTI - Continue Ditropan - Continue methenamine hippurate ENDO - Hypothyroidism - Continue Synthroid HEME - Immunoglobulin deficiency, hx of b cell lymphoblastic disorder (remission) - receives IGG supplementation every 2 weeks- next dose would be due on 20Feb2024 ID -ventilator dependent pneumonia - sputum culture with serratia and staph species and with opacities, increase in sputum production -On ertapenem and linezolid Infectious disease have been consulted --Prophylaxis VTE: IPC GI: Pantoprazole Lines: Peripheral Diet: Tube feeds Plan: In/Out: -956, urine output 3326 Plan is to discharge the patient on Bactrim for 4 more days Would recommend repeat chest x-ray in 2 weeks to make sure there is improvement. Potassium being replaced Continue with pulmonary toileting Case was discussed with primary team Please note the above document was generated using voice recognition software. It may contain grammatical, syntax or spelling errors.Any formal questions or concerns about the content, text or information contained within the body of this dictation should be directly addressed to the provider for clarification. Admission and Anticipated Discharge Date Admission Date: February 14, 2024 Subjective Patient seen and examined at bedside. No acute distress, notable symptoms overnight Her systolic blood pressure was in the 130s. She was breathing over the vent. She was on SIMV. Has been afebrile. Making good amount of urine by straight cath Review of Systems 2 Review of Systems: Unobtainable due to cognitive status Physical Exam 2 Physical Exam: Constitutional: No acute distress HEENT: PERRLA, positive trach Respiratory system: Decreased air entry bilaterally, no wheeze, no rhonchi, positive crackles bilateral lower lobes CVS: S1-S2 positive, no murmurs or gallops Abdomen: Soft, nontender, nondistended, positive bowel sounds x4, obese Extremities: +2 pulses bilaterally radialis/ dorsalis pedis, no cyanosis, minimal pitting edema bilateral lower extremity Neuro: Awake and alert Psych: Unable to assess G/U: No Turner Skin: no rashes, warm and dry Lymphatic: no cervical or axillary lymphadenopathy Results & Data Results & Data Vital Signs (Past 12 Hours) Vital Signs Temp Pulse Resp BP Pulse Ox O2 Del Method FiO2 02/18/24 07:19 65 20 96 21 02/18/24 06:06 61 22 102/70 95 02/18/24 05:03 58 L 16 97/62 L 95 02/18/24 04:06 67 10 L 109/76 93 02/18/24 04:00 35.8 C L 02/18/24 04:00 21 02/18/24 03:03 51 L 21 117/83 96 02/18/24 02:50 52 L 17 96 21 02/18/24 02:36 54 L 21 113/72 96 02/18/24 01:00 63 16 108/78 94 02/18/24 00:03 62 12 104/68 95 02/18/24 00:00 21 02/18/24 00:00 66 02/18/24 00:00 35.8 C L 02/17/24 23:22 57 L 17 94 21 02/17/24 23:06 58 L 14 93 02/17/24 22:09 55 L 14 94 02/17/24 22:00 92/57 L 02/17/24 21:51 64 15 94 02/17/24 21:01 61 16 95 21 02/17/24 21:00 62 12 91/55 L 93 02/17/24 20:51 63 18 97 02/17/24 20:00 21 02/17/24 20:00 Mechanical Vent 21 02/17/24 20:00 35.6 C L Laboratory Results 02/18/24 04:09 02/18/24 04:09 Coding Level of Care Code 34748 SUB INP/OBS CARE 235MIN Diagnoses VAP (ventilator-associated pneumonia) J95.851 IMER (acute kidney injury) N17.9 Recurrent infections B99.9 Seizure disorder G40.909 Chronic respiratory insufficiency R06.89 Neurogenic bladder N31.9 Hypothyroidism E03.9 Spastic quadriplegic cerebral palsy G80.0 Cerebral palsy type: spastic quadriplegic History of acute lymphoblastic leukemia (ALL) in remission Z85.6 Spastic quadriplegic cerebral palsy G80.0 Ventilator dependent Z99.11 (8) Cerebral palsy Cerebral palsy type: spastic quadriplegic Qualified Code(s): G80.0 - Spastic quadriplegic cerebral palsy
--- NOTE | 2024-02-18 09:29 | Infectious Disease Progress Nt ---
Date of Service February 18, 2024 Assessment & Plan (1) VAP (ventilator-associated pneumonia): (2) Cerebral palsy: (3) Feeding by G-tube: (4) Ventilator dependent: Plan 23yo F with h/o quadriplegia cerebral palsy, congenital hydrocephalus, ventilator dependence, ventricular shunt, neuromuscular scoliosis, pulmonary valve insufficiency, ASD and VSD, s/p PEG, ALL dx at 4yo s/p chemo now in remission, 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 She had a gradual worsening of respiratory symptoms x 1mo along with bloody sputum from trach x 3wks, increased O2 the past month. She had recently completed Levaquin 01/27-02/03 for sinusitis. Here she was hypothermic. WBC 7.42, Cr wnl. Lactate wnl. ALT 92, Aphos 266. PCT 0.08. Sputum cx from 02/11 with Serratia, MRSA, and Stenotrophomonas. CXR with pulmonary edema, layering pleural effusions with bibasilar consolidation which may represent atelectasis vs PNA. CTA chest neg for PE, small bl effusions, consolidation within lower lobes posteriorly representing atelectasis and/or PNA, patchy bl perihilar airspace opacities most pronounced on right, could be edema or PNA. Venous duplex neg for DVT in LEs. She has been getting ertapenem and linezolid. ID consulted 02/16. Patient improving and is back to baseline. This is without treatment of Stenotrophomonas, which makes it more likely to be a colonizer rather than true pathogen. Will therefore target primarily MRSA and Serratia. She has received several days of IV abx with vanc/LZD/erta. Based on sensitivities, will change abx to Bactrim. Potassium was elevated on admission, and now wnl for the past 3 days. Would monitor closely while on Bactrim, which will only be for a few more days. # PNA SCx with MRSA, S marcescens, S maltophilia # Ventilator dependent # Cerebral palsy with quadriplegia # h/o primary immune deficiency on IVIG - antibiotics changed to Bactrim 2DS q8h discussed with pharmacy - complete 7d of abx, start 02/13, end 02/19 - monitor potassium closely while on Bactrim therapy if she is discharged, would repeat level in 1-2 days ID will discontinue active follow up at this time. Please do not hesitate to reconsult the Infectious Diseases service as needed. Asmita Ibanez MD [facility], Division of Infectious Diseases [facility]: [phone] Admission and Anticipated Discharge Date Admission Date: February 14, 2024 Subjective Subsequent visit was provided via telemedicine using two-way real-time interactive telecommunication between the patient and the telemedicine provider. For the duration of the visit, the provider was performing the assessment from a different facility than the patient. This includesuse of bluetooth stethoscope forauscultationperformed by the telepresenter that the telemedicine provider can hear if described in the physical exam. Livestock Trader contact information: Please call [facility] Call Center . (Phone Number For Physician Use Only) After establishing a telemedicine visit, patient was: Patient was verified with two unique identifiers, Patient/authorized rep acknowledged consent and understanding and Gave permission to continue telehealth session Time Spent with Patient: Subsequent => 55 min Dad at bedside. He says that patient is continuing to improve. Per RN, moderate secretions, no other issues. Physical Exam Physical Exam: General: Awake, no acute distress HEENT: NC/AT, EOMI, mmm Neck: trach in place, on vent Lungs: +BS bl, clear Heart: nl S1/S2, no appreciable murmurs Abdomen: soft, abdomen firm Results & Data Vital Signs (Past 12 Hours) Vital Signs Temp Pulse Pulse Resp BP BP Pulse Ox 02/18/24 09:00 62 19 96/60 L 94 02/18/24 08:00 02/18/24 08:00 36.8 C 52 L 20 147/87 H 93 02/18/24 08:00 61 02/18/24 07:19 65 20 96 02/18/24 07:00 63 21 118/77 93 02/18/24 06:06 61 22 102/70 95 02/18/24 05:03 58 L 16 97/62 L 95 02/18/24 04:06 67 10 L 109/76 93 02/18/24 04:00 35.8 C L 02/18/24 04:00 02/18/24 03:03 51 L 21 117/83 96 02/18/24 02:50 52 L 17 96 02/18/24 02:36 54 L 21 113/72 96 02/18/24 01:00 63 16 108/78 94 02/18/24 00:03 62 12 104/68 95 02/18/24 00:00 02/18/24 00:00 66 02/18/24 00:00 35.8 C L 02/17/24 23:22 57 L 17 94 02/17/24 23:06 58 L 14 93 02/17/24 22:09 55 L 14 94 02/17/24 22:00 92/57 L 02/17/24 21:51 64 15 94 O2 Del Method FiO2 02/18/24 09:00 Mechanical Vent 02/18/24 08:00 Mechanical Vent 02/18/24 08:00 Mechanical Vent 02/18/24 08:00 02/18/24 07:19 02/18/24 07:00 Mechanical Vent 02/18/24 06:06 02/18/24 05:03 02/18/24 04:06 02/18/24 04:00 02/18/24 04:00 21 02/18/24 03:03 02/18/24 02:50 21 02/18/24 02:36 02/18/24 01:00 02/18/24 00:03 02/18/24 00:00 21 02/18/24 00:00 02/18/24 00:00 02/17/24 23:22 21 02/17/24 23:06 02/17/24 22:09 02/17/24 22:00 02/17/24 21:51 Laboratory Results Labs reviewed. 02/11 SCx: Serratia marcescens (R-FQ), MRSA, Stenotrophomonas maltophilia (S- bactrim) 02/13 MRSA screen: neg 02/13 RPP: neg 02/13 BCX: ngtd (2) Cerebral palsy Cerebral palsy type: spastic quadriplegic Qualified Code(s): G80.0 - Spastic quadriplegic cerebral palsy
--- NOTE | 2024-02-18 11:29 | Discharge Summary ---
Date of Service February 18, 2024 Admission HPI Per Admitting Provider Stefany is a 23-year-old female with PMH of quadriplegia cerebral palsy, congenital hydrocephalus, ventilator dependence, ventricular shunt, neuromuscular scoliosis, pulmonary valve insufficiency, feeding tube, ALL (in remission), neurogenic bladder, seizure disorder, ASD, and VSD. She presented for acute worsening of SOB and oxygen demands on 02/13. Patient's mom is present in the room and provides most of the history. She reports that the patient has had a gradual worsening of respiratory symptoms the past month. She is also been having bloody sputum in her trach, which started 3 weeks ago. Today is the worst she has been, with her SpO2 dropping below 90% at home. Patient does have supplemental oxygen at home, but normally does not need it; however she is been using increased amounts this past month. Patient had an outpatient CXR taken, suggestive of pneumonia, and PCP recommended that she come in. Patient took all of her regular morning medications; she has not yet received her afte rnoon/evening medications. She is not take blood thinners. She did recently complete a course of Levaquin last week, and patient's mom reports that she was looking better temporarily. She is bedbound at baseline. Patient's mom reports that she communicates with blinking, and was reporting that she had new body aches yesterday (headache, stomachache, chest ache, etc.). She blinks once for "yes", twice for "no". Patient's mom reports that vancomycin would require pretreatment with Benadryl and Tylenol. Patient is bradycardic at 51 bpm and mildly hypothermic at 35.7 C; SpO2 90% on a mechanical ventilator. ED course: Cefepime 2000 mg IV ROS obtained from mother: Patient presents new body aches, loose stool (previously constipated), increased oxygen demands, and bloody sputum in trach. Patient denies fever, chills, night-sweats, cough (patient uses cough assist), nausea, vomiting, or blood in the urine/stool. Principal Diagnosis pneumonia Discharge Exam head atraumatic neck trach in place chest CTA b/l heart S1S2 abdomen soft, nt, nd extremities edema present , quadriplegic Discharge Data Allergies Allergy/AdvReac Type Severity Reaction Status Date / Time vancomycin Allergy Mild RED MAN Verified 11/19/23 10:38 SYNDROME Consultations 02/14/24 14:24 ED Decision to Admit Stat 02/14/24 18:17 Consult Training Mgr Routine 02/15/24 13:16 Consult Nephrology Routine 02/17/24 09:06 Consult Infectious Diseases Routine Ordered Studies 02/14/24 16:35 CT angio chest PE protocol Stat 02/15/24 US venous doppler LE Stat Hospital Course (1) Pneumonia: Worsening/intermittent SOB x 1 month with an acute worsening on 02/13 Patient completed course of levofloxacin prescribed on 01/27 - 02/03; failure of outpatient tx Outpatient CXR on 02/13 revealed residual pneumonia History of MRSA pneumonia Sputum culture result from 02/12/2024 revealed Serratia and staph. Tracheitis versus pneumonia. Antibiotics changed to Zyvox and Invanz per nitrator operator. as per ID recommendations will transitioned her to PO Bactrim to complete course of antibiotics Bilateral lower extremities dopplers negative (2) Sepsis: Pulmonary source Hypotensive in the ED Lactate WNL Procalcitonin WNL Blood cultures negative for 24 hours Echo showed an EF of 50%. No wall motion abnormalities. Mild concentric LVH. 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 Contributing to pulmonary edema But echocardiogram showed near normal EF (5) Hyperkalemia: K 6.4 on arrival Required several treatment of hyperkalemia Call Center Support Representative on board Recommends continuing to monitor sodium and potassium. Possibly due to central adrenal insufficiency.ACTH, cortisol, reading, aldosterone. K is 3.5 (6) Feeding by G-tube: N.p.o. 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: (11) Ventilator dependent: (12) Hypotension: Plan Full code Gastric tube feeding VTE PPx: SCDs Total Time Total Time Spent Total Time Spent (In Minutes): 40 min Discharge Plan Discharge Items Patient Disposition: Home - Self-Care Reason For Visit: SOB/DYSPNEA Discharge Diagnosis: pneumonia Activity: Resume your previous activity Non-emergency contact: Primary Care Provider Call non-emergency contact if: you have a fever Follow-up/Referrals: Sin Fitzpatrick MD [Primary Care Provider] - Diet: Nothing by Mouth Diet Comment: npo, tube feeds Addtl Attending Provider Instructions: complete course of antibiotics Pending Studies at Discharge: No Stand-Alone Forms: My [employer], Smoking Cessation Medications and DC Order Prescriptions: New sulfamethoxazole-trimethoprim [Bactrim DS] 800-160 mg tablet 1 tab PO BID Qty: 6 0RF Continued (DME) disposable gloves [Disposable Latex-Free Gloves] Misc See Rx Instructions .ROUTE .MEDSUPPLY Qty: 1200 11RF Rx Instructions: As directed melatonin 5 mg capsule 5 mg feeding tube .qhs Qty: 90 0RF naproxen 500 mg tablet 500 mg PO BID PRN (Reason: pain) Qty: 60 5RF sennosides [senna] 8.8 mg/5 mL syrup 8.8 mg PO HS PRN (Reason: Constipation) Qty: 236 5RF Calmoseptine 0.44-20.6 % ointment 1 applic TOP BID Qty: 113 5RF Sween Cream 1 applic TOP BID Qty: 600 5RF tobramycin-dexamethasone 0.3-0.1 % drops,suspension See Rx Instructions .ROUTE BID Qty: 5 5RF Rx Instructions: Apply 4 drops directly into Tracheostomy Tube twice daily for 7 days acetaminophen 160 mg/5 mL liquid 640 mg PO Q8H PRN (Reason: pain) Qty: 473 0RF tramadol 50 mg tablet 50 mg feeding tube BID PRN (Reason: Pain) Qty: 60 1RF dexamethasone 1 mg tablet 1 mg feeding tube UD Qty: 30 3RF Rx Instructions: gets for pre-treatment GIVE 3 DOSES PRIOR TO IVIG & 1 DOSE POST IVIG IM 1 MG DOSES lidocaine-prilocaine 2.5-2.5 % cream 1 applic topical ONCE PRN (Reason: prior to injections) Qty: 50 3RF montelukast [Singulair] 10 mg tablet 10 mg feeding tube PM Qty: 90 3RF levetiracetam [Keppra] 750 mg tablet 750 mg PO BID 90 Days Qty: 180 3RF Rx Instructions: PER G-TUBE baclofen 5 mg tablet 5 mg PO TID 90 Days Qty: 270 3RF lansoprazole [Prevacid SoluTab] 30 mg tablet,disintegrat, delay rel 30 mg feeding tube QAM Qty: 90 3RF diazepam 2.5 mg kit 12.5 mg MN UD PRN (Reason: FOR SEIZURE >5 MIN) Qty: 1 1RF lorazepam [Ativan] 1 mg tablet 1 mg PO DAILY PRN (Reason: anxiety) Qty: 30 2RF albuterol sulfate 2.5 mg /3 mL (0.083 %) solution for nebulization 2.5 mg inhalation UD PRN (Reason: Wheezing) Qty: 180 3RF medroxyprogesterone 150 mg/mL syringe 150 mg IM .q12wk Qty: 1 2RF Rx Instructions: due at end of month baclofen 10 mg tablet 10 mg PO TID 90 Days Qty: 270 3RF albuterol sulfate [Ventolin HFA] 90 mcg/actuation HFA aerosol inhaler 2 puff inhalation QID Qty: 8.5 3RF mometasone 0.1 % solution 1 applic topical DAILY PRN (Reason: skin irritation) Qty: 60 11RF sodium chloride 0.9 % solution for nebulization 3 ml inhalation QID PRN (Reason: shortness of breath or wheezing) Qty: 300 3RF phenobarbital 32.4 mg tablet 32.4 mg feeding tube QAM 30 Days Qty: 30 5RF phenobarbital 64.8 mg tablet 64.8 mg feeding tube .COMPLEX 30 Days Qty: 90 5RF Rx Instructions: 64.8 mg via feeding tube IN THE AM AND 2 TABS IN THE PM; docusate sodium 50 mg/15 mL syrup See Rx Instructions feeding tube BID PRN (Reason: Constipation) Patient Comments: 10mL feeding tube BID PRN; Rx Instructions: 10mL feeding tube BID PRN; cannabidiol 100 mg/mL solution See Rx Instructions .ROUTE BID Patient Comments: 0.5mL every a.m., 1mL every p.m. ; Rx Instructions: 1.0mL twice a day; pseudoephedrine HCl [Sudogest] 30 mg tablet 30 mg feeding tube Q6H PRN (Reason: Other) Rx Instructions: one tablet via g-tube 4 times as needed for nasal congestion Hizentra 10 gram/50 mL (20 %) solution See Rx Instructions subcut .COMPLEX Qty: 100 11RF Rx Instructions: INFUSE 10GM SQ subcutaneously EVERY 2 WEEKS [employer] Approved thru 03/09/24 polyethylene glycol 3350 [Miralax] 17 gram Powder In Packet 17 g feeding tube BID PRN (Reason: Constipation) ondansetron 4 mg Tablet,Disintegrating 4 mg PO Q6H PRN (Reason: Nausea) diclofenac sodium [Voltaren] 1 % gel 1 % TOPICAL TID PRN (Reason: KNEES) oxybutynin chloride 5 mg tablet 5 mg PO TID cetirizine [Zyrtec] 10 mg tablet 10 mg PO HS levothyroxine 75 mcg tablet 75 mcg PO UD Rx Instructions: Wednesdays takes 2 (150 mg), rest of days 1 tablet azelastine 137 mcg (0.1 %) aerosol,spray 1 spray intranasal DAILY PRN (Reason: Allergy Symptoms) Rx Instructions: administer into each nostril sodium chloride [Hyper-Haim] 7 % solution for nebulization 4 ml inhalation BID PRN (Reason: Other) Women's Multivitamin 18 mg-400 mcg- 500 mg-50 mcg tablet 0.5 tab PO DAILY Rx Instructions: half tab Held methenamine hippurate 1 gram tablet 1 g PO UD Hold Instructions: Resume on 02/22/24. until Bactrim completed Rx Instructions: 1 gram po BID Mom isnt too sure of this medication. Decided to leave on the list if she does remember. Discontinued ibuprofen 100 mg/5 mL suspension 600 mg feeding tube Q6H PRN (Reason: Fever Or Pain) Qty: 473 5RF Rx Instructions: use as needed Admission Data Admit Date/Time: 02/14/24 15:42 Attending Provider: Jesica Singh Admit Provider: Juan Harris Primary Care Provider: Sin Fitzpatrick V. Other Providers: Juan Harris; Huang Singh; Lennie Pisano; Kandi Jovel; Miriam Vasquez; Asmita Ibanez; Cisco Tee; Kourtney Banks; Danya Ansari Supervising Physician Co-Signing Physician Notes I have personally spent 50 minutes of critical care time in the direct management of this patient. This is a life/limb threatening event. This includes time spent evaluating patient, direct bedside care, chart review, placing orders, interpretation of diagnostic studies, discussion with consultants, patient, and/or family members regarding treatment decisions, as well as other required patient management activities. This time is exclusive of all separately billable procedures, and teaching time and separate from and in addition to any other critical care service time. Coding Level of Care Code 68152 INP/OBS DISCH >30 MIN Diagnoses Pneumonia J18.9 Sepsis A41.9 Seizure disorder G40.909 History of acute lymphoblastic leukemia (ALL) in remission Z85.6 Hyperkalemia E87.5 Feeding by G-tube Z93.1 Primary immune deficiency disorder D84.89 Bedbound Z74.01 Spastic quadriplegic cerebral palsy G80.0 Cerebral palsy type: spastic quadriplegic Spastic quadriplegic cerebral palsy G80.0 Ventilator dependent Z99.11 Hypotension I95.9
[2024-02-18] MEDS: SULFAMETHOXAZOLE/TRIMETHOPRIM DS 800/160MG TAB PO SCH (12:30)
[2024-02-18] MEDS ORDERED: SULFAMETHOXAZOLE/TRIMETHOPRIM DS 800/160MG TAB PO SCH (21:00)
[2024-02-18] MEDS ORDERED: SULFA/TRIMETH SUSP 800/160MG 20ML UDC GT SCH (21:00)
[2024-02-18 21:27] LABS: Levetiracetam Keppra 26.7 mcg/mL (6.0-46.0)
[2024-02-19] MEDS ORDERED: LEVOTHYROXINE SODIUM 75 MCG TABLET PO SCH (06:30)
== END 2024-02-18 17:39 | disposition home or self-care (01) | DRG 871 ==
LOC: ED 12:49 → SUATTDRO 15:42 → 1E 15:42

== ENCOUNTER 2024-12-28 13:14 | Inpatient (IN) ==
[2024-12-28 14:14] LABS: Basophils # (auto) 0.03 K/uL (0.00-0.20); Basophils % (auto) 0.5 %; Eosinophils # (auto) 0.15 K/uL (0.00-0.50); Eosinophils % (auto) 2.3 %; Hematocrit (blood only) 36.7 % (37.0-47.0); Hemoglobin 11.7 g/dl (12.0-16.0); Immature Granulocytes # (auto) 0.07 K/uL (0.01-0.20); Immature Granulocytes % (auto) 1.1 %; Lymphocytes # (auto) 0.96 K/uL (1.20-3.40); Lymphocytes % (auto) 14.6 %; Mean Corpuscular Hemoglobin 31.9 pg (25.0-34.0); Mean Corpuscular Hgb Conc 31.9 g/dL (32.0-36.0); Mean Platelet Volume 11.6 fL (9.4-12.4); Monocytes # (auto) 0.76 K/uL (0.11-0.59); Monocytes % (auto) 11.6 %; Neutrophils % (auto) 69.9 %; Platelet Count 152 K/uL (130-400); RDW Coefficient of Variation 17.4 % (11.5-14.5); RDW Standard Deviation 61.7 fL (36.4-46.3); Red Blood Count 3.67 M/uL (4.20-5.40); White Blood Count 6.57 K/ul (4.8-10.8)
--- NOTE | 2024-12-28 14:28 | Electrocardiogram Report ---
Test Reason : Blood Pressure : */* mmHG Vent. Rate : 50 BPM Atrial Rate : 50 BPM P-R Int : 170 ms QRS Dur : 90 ms QT Int : 436 ms P-R-T Axes : 48 68 97 degrees QTcB Int : 397 ms Sinus bradycardia Otherwise normal ECG When compared with ECG of 14-Feb-2024 13:36, No significant change was found Confirmed by Philippe Lott ([id number]) on 12/28/2024 2:27:35 PM Referred By: Confirmed By: Philippe Lott
[2024-12-28 14:36] LABS: Alanine Aminotransferase 64 U/L (7-52); Albumin Globulin Ratio 0.9 (0.9-2); Albumin Level 3.6 gm/dl (3.4-5.0); Alkaline Phosphatase 248 U/L (34-104); Anion Gap 3 (3-11); Aspartate Aminotransferase 33 U/L (13-39); BUN Creatinine Ratio 37.2 (10-20); Bilirubin,Total 0.2 mg/dl (0.2-1.0); Blood Urea Nitrogen 35 mg/dl (6-23); Calcium 8.4 mg/dl (8.6-10.3); Carbon Dioxide 29 mmol/L (21-32); Chloride 104 mmol/L (98-107); Globulin 3.8 gm/dl (2.5-4.0); Glucose 62 mg/dl (70-99(Fasting)); Magnesium 3.6 mg/dl (1.7-2.4); Potassium 5.5 mmol/L (3.5-5.1); Sodium 136 mmol/L (136-145); Total Protein 7.4 gm/dl (6.0-8.3)
[2024-12-28] MEDS: ALBUT/IPRATROP 3MG/0.5MG NEB 3 ML VIAL NEB STA (14:38)
--- NOTE | 2024-12-28 14:38 | Emergency Department Note ---
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 Days Qty: 28 0RF Rx Instructions: Start Date 12/22/24 x14 day supply baclofen 5 mg tablet 5 mg PO TID 90 Days Qty: 270 3RF Rx Instructions: take with the 10 mg tab to equal 15mg three times daily baclofen 10 mg tablet 10 mg PO TID 90 Days Qty: 270 3RF Rx Instructions: take with the 5 mg tab to equal 15mg three times daily levetiracetam [Keppra] 750 mg tablet 750 mg PO BID 90 Days Qty: 180 3RF Rx Instructions: PER G-TUBE olopatadine 0.2 % drops 1 drp ophthalmic (eye) DAILY PRN (Reason: itching) Qty: 2.5 11RF montelukast [Singulair] 10 mg tablet 10 mg feeding tube PM Qty: 90 3RF lidocaine-prilocaine 2.5-2.5 % cream 1 applic topical ONCE PRN (Reason: prior to injections) Qty: 50 6RF polyethylene glycol 3350 [Miralax] 17 gram Powder In Packet 17 g feeding tube BID PRN (Reason: Constipation) ondansetron 4 mg Tablet,Disintegrating 4 mg feeding tube Q6H PRN (Reason: Nausea) Multivitamin Women 50 Plus 8 mg iron-400 mcg-50 mcg Tablet 0.5 tab PO QAM diclofenac sodium 1 % Gel 2 g TOPICAL TID PRN (Reason: Pain in Knees) cetirizine [Zyrtec] 10 mg tablet 10 mg PO HS Rx Instructions: APPROVED phenobarbital 64.8 mg tablet 64.8 - 129.6 mg feeding tube DIRECTED Rx Instructions: Take w/ 32.4 mg by mouth in the morning to equal 97.2. Then take 64.8mg x2 (129.6mg) at bedtime. pseudoephedrine HCl [Sudogest] 30 mg tablet 30 mg feeding tube Q6H PRN (Reason: Congestion) Rx Instructions: one tablet via g-tube 4 times as needed for nasal congestion mupirocin 2 % ointment 1 applic topical TID PRN (Reason: infection) levofloxacin 750 mg tablet 750 mg PO HS Rx Instructions: Start Date 12/25/24 x14 day supply albuterol sulfate [Ventolin HFA] 90 mcg/actuation HFA aerosol inhaler 2 puff inhalation QID PRN (Reason: Wheezing) phenobarbital 32.4 mg tablet 97.2 mg feeding tube QAM Rx Instructions: Take w/ 64.8mg to equal 97.2mg medroxyprogesterone 150 mg/mL syringe 150 mg IM DIRECTED Rx Instructions: Inject once every 12 weeks diazepam 12.5-15-17.5-20 mg kit 12.5 mg CO DIRECTED PRN (Reason: seizure activity) Rx Instructions: 12.5 mg rectally Give 1 dose for seizure activity lasting more than 5 minutes or seizure clusters without return to baseline PRN; melatonin 5 mg capsule 5 mg feeding tube HS oxybutynin chloride 5 mg tablet 5 mg PO TID levothyroxine 75 mcg tablet 75 - 150 mcg PO DIRECTED Rx Instructions: Wednesdays takes 2 (150 mcg), rest of days 75mcg methenamine hippurate 1 gram tablet 0 g PO UD Hold Instructions: Resume on 02/22/24. until Bactrim completed Rx Instructions: Per mother, this is currently on hold until next appointment. Original Directions: 1 gram twice daily Referrals Referrals: Sin Fitzpatrick MD [Primary Care Provider] -
[2024-12-28 14:40] LABS: Troponin I High Sensitivity 3.1 pg/ml (0-14)
--- NOTE | 2024-12-28 15:16 | XRay Report ---
XR chest 1V portable CLINICAL HISTORY: Dyspnea COMPARISON STUDY: 02/16/2024. FINDINGS: Tracheostomy tube tip is just above the thoracic inlet. There is stable cardiomegaly with p ulmonary vascular congestion. Inspiration is shallow. There is stranding opacity in the lung bases. N o pleural effusion or pneumothorax. Right [employer] DEV[employer] shunt is partially visualized. IMPRESSION: Atelectasis versus pneumonia in the lung bases. ACT 112: Negative or not required by law. Electronically signed by: Abram Fenton M.D. 12/28/2024 3:14 PM
[2024-12-28 15:17] LABS: Adenovirus PCR Not Detected (NotDetected); Bordetella parapertussis PCR Not Detected (NotDetected); Bordetella pertussis PCR Not Detected (NotDetected); Chlamydia pneumoniae PCR Not Detected (NotDetected); Coronavirus 229E PCR Not Detected (NotDetected); Coronavirus CoV-2 (COVID19)PCR Not Detected (NotDetected); Coronavirus HKU1 PCR Not Detected (NotDetected); Coronavirus NL63 PCR Not Detected (NotDetected); Coronavirus OC43PCR Not Detected (NotDetected); Human Metapneumovirus PCR Not Detected (NotDetected); Influenza A PCR Not Detected (NotDetected); Influenza B PCR Not Detected (NotDetected); Mycoplasma pneumoniae PCR Not Detected (NotDetected); Parainfluenza Virus 1 PCR Not Detected (NotDetected); Parainfluenza Virus 2 PCR Not Detected (NotDetected); Parainfluenza Virus 3 PCR Not Detected (NotDetected); Parainfluenza Virus 4 PCR Not Detected (NotDetected); Respiratory Syncytial VirusPCR Not Detected (NotDetected); Rhinovirus/Enterovirus PCR Not Detected (NotDetected)
[2024-12-28] MEDS: FUROSEMIDE 40 MG/4 ML VIAL IV ONE (15:30)
[2024-12-28 16:14] LABS: Appearance Urine Cloudy (Clear); Bacteria Urine Automated 1+ (None Seen); Bilirubin Urine Negative (Negative); Blood Urine 2+ (Negative); Cast Urine Automated 0-2 /lpf (0-2); Color Urine Yellow; Epithelial Cell Urine Auto 0-2 /hpf (0-2); Glucose Urine UA Negative (Negative); Ketones Urine Negative (Negative); Leukocyte Esterase Urine 3+ (Negative); Nitrite Urine Negative (Negative); Protein Urine Trace (Negative); RBC Urine Automated >20 /hpf (0-2); Urobilinogen Urine Negative (Negative); WBC Urine Automated 21-50 /hpf (0-5)
[2024-12-28 16:31] LABS: Base Excess VBG -2.6 mEq/L; HCO3 VBG 28 mmol/L; Oxygen Saturation VBG 78.3 %; PCO2 VBG 74 mmHg (38-50); PO2 VBG 47 mmHg; pH VBG 7.18 (7.36-7.41)
[2024-12-28] MEDS: cefTRIAXone SODIUM 2,000 MG/50 ML BAG IV STA (18:04)
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
[2024-12-28 18:12] LABS: Base Excess VBG 0 mEq/L; HCO3 VBG 29 mmol/L; Oxygen Saturation VBG < 60.0 %; PCO2 VBG 68 mmHg (38-50); PO2 VBG 34 mmHg; pH VBG 7.24 (7.36-7.41)
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
[2024-12-28] MEDS ORDERED: methylPREDNISolone 10 mg/mL (For Ped Dose < 7mg) IV SCH (20:02)
[2024-12-28] MEDS ORDERED: ALBUTEROL 0.083% NEBU SOLN 3 ML VIAL INH PRN (20:02)
[2024-12-28] MEDS ORDERED: ACETAMINOPHEN SUSP 160 MG/5 ML BTL PO PRN (20:12)
[2024-12-28] MEDS ORDERED: SULFA/TRIMETH SUSP 800/160MG 20ML UDC PO SCH (20:45)
[2024-12-28] MEDS: BACLOFEN 10 MG TAB PO SCH ×2 (20:48→20:49)
[2024-12-28] MEDS: CETIRIZINE HCL 10 MG TABLET PO SCH (20:48)
[2024-12-28] MEDS: FUROSEMIDE 40 MG/4 ML VIAL IV SCH (20:48)
[2024-12-28] MEDS: levETIRAcetam 500 MG/5 ML VIAL IV SCH (20:49)
[2024-12-28] MEDS ORDERED: NAPROXEN 250 MG TAB PO PRN (20:50)
[2024-12-28] MEDS ORDERED: traMADol HCL 50 MG TABLET PO PRN (20:50)
[2024-12-28] MEDS: MONTELUKAST SODIUM 10 MG TABLET PEG SCH (20:57)
[2024-12-28] MEDS ORDERED: PHENobarbitaL 20 MG/5 ML PO SCH (21:00)
[2024-12-28] MEDS: PHENobarbitaL 30 MG TAB PO SCH (21:21)
[2024-12-28] MEDS: methylPREDNISolone 40 MG in SYRINGE 0 ML IV SCH (21:22)
[2024-12-28] MEDS: levoFLOXacin/D5W 750 MG/150 ML BAG IV SCH (21:22)
[2024-12-28] MEDS: SULFAMETHOXAZOLE/TRIMETHOPRIM 200MG/40MG/5ML SUSP GT SCH (21:32)
[2024-12-28] MEDS: oxyBUTYnin chloride 5 MG TAB PO SCH (22:43)
[2024-12-28] MEDS: ALBUTEROL 0.083% NEBU SOLN 3 ML VIAL ONE (22:55)
[2024-12-28] MEDS: PHENobarbitaL 20 MG/5 ML PEG SCH (23:56)
[2024-12-29 05:21] LABS: BUN Creatinine Ratio 38.7 (10-20); Calcium 8.4 mg/dl (8.6-10.3); Potassium 4.1 mmol/L (3.5-5.1)
[2024-12-29 06:06] LABS: Basophils # (auto) 0.01 K/uL (0.00-0.20); Basophils % (auto) 0.2 %; Eosinophils # (auto) 0.03 K/uL (0.00-0.50); Eosinophils % (auto) 0.7 %; Hematocrit (blood only) 30.9 % (37.0-47.0); Hemoglobin 10.5 g/dl (12.0-16.0); Immature Granulocytes # (auto) 0.01 K/uL (0.01-0.20); Immature Granulocytes % (auto) 0.2 %; Lymphocytes # (auto) 1.01 K/uL (1.20-3.40); Lymphocytes % (auto) 23.5 %; Mean Corpuscular Hemoglobin 32.2 pg (25.0-34.0); Mean Corpuscular Volume 94.8 fL (80.0-100.0); Mean Platelet Volume 11.8 fL (9.4-12.4); Monocytes # (auto) 0.28 K/uL (0.11-0.59); Monocytes % (auto) 6.5 %; Neutrophils # (auto) 2.95 K/uL (1.40-6.50); Neutrophils % (auto) 68.9 %; Platelet Count 184 K/uL (130-400); RDW Coefficient of Variation 16.8 % (11.5-14.5); RDW Standard Deviation 56.3 fL (36.4-46.3); Red Blood Count 3.26 M/uL (4.20-5.40); White Blood Count 4.29 K/ul (4.8-10.8)
[2024-12-29] MEDS: LEVOTHYROXINE SODIUM 75 MCG TABLET PO SCH ×2 (06:09→20:18)
[2024-12-29] MEDS ORDERED: LEVOTHYROXINE SODIUM 75 MCG TABLET PO SCH (06:30)
[2024-12-29] MEDS: ALBUTEROL 0.083% NEBU SOLN 3 ML VIAL INH SCH (07:25)
--- NOTE | 2024-12-29 07:28 | XRay Report ---
EXAM: XR chest 1V portable CLINICAL HISTORY: Follow up edema and infiltrates TECHNIQUE: Radiograph of chest was acquired. COMPARISON: 02/16/2024 05:50:45 AFTERSCHOOL FINDINGS: Mild blunting of left costophrenic angle likely due to mild left pleural effusion. The cardiomediastinal silhouette is within normal limits. No acute osseous abnormality. Tracheostomy tube in situ. IMPRESSION: 1. Mild blunting of left costophrenic angle likely due to mild left pleural effusion. 2. Tracheostomy tube in situ. Resolution of right lower zone hazy opacity compared to previous scan. Electronically signed by Alirio Guerra 12-29-2024 07:27 AM
--- NOTE | 2024-12-29 08:21 | Critical Care Progress Note ---
Date of Service December 29, 2024 Assessment & Plan (1) Acute and chronic respiratory failure, unspecified whether with hypoxia or hypercapnia: Plan IMPRESSION: 23-year-old female with a complicated past medical history including developmental delay secondary to obstructive hydrocephalus now with ELECTRIC OPERATOR shunt in place, ventilator dependency since 2016, and decline over the last few weeks who presents for ongoing evaluation and management. RECOMMENDATIONS: 1. Respiratory failure with hypoxia - Patient chronically ventilated without the requirement of supplemental oxygen. There has been an increasing oxygen requirement as well as increase in the patient's inspiratory pressure over the weekend. Additionally, during trach exchange there was blood noted. Patient has been worked up in the outpatient setting by our pulmonary colleagues and recent sputum cultures grew out MRSA as well as Pseudomonas. She is actively being treated with Levaquin and Bactrim per sensitivities. Would continue with this combination of antibiotics with hopes of being able to discharge on the same. Her ventilator settings have improved. We can trial her home ventilator today to maintain that she is doing well otherwise. 2. Pulmonary edema - Noted on CT scan. She did diurese well and her oxygen saturations have improved. Echocardiogram pending given the patient's history of structural heart changes. 3. Abnormal CT scan - Findings of bibasilar atelectatic changes appreciated on CT. The LEFT lower lobe collapse appears consistent with previous and per discussion with the patient's mother. Continue with recruitment techniques and pulmonary toileting. 4. Global concerns - Patient can continue with her home tube feedings. Continue with all home medications otherwise. Patient has significantly improved overnight. Will trial the patient on her home ventilator today and see if she can tolerate this. Goal will be to maintain the patient on her home settings and have stabilization well initiating antibiotics prior to consideration for discharge. Thank you for allowing us to participate in the care of this pleasant patient. If the patient is able to be well-maintained on her home ventilator settings, can downgrade to PCU status and we can follow the patient along from pulmonary perspective. Admission and Anticipated Discharge Date Admission Date: December 28, 2024 Supervising Physician Co-Signing Physician Notes Patient seen and examined. EMR reviewed. Discussed with bedside nurse as well as hospitalist and with DOTTIE. Agree with assessment plan as noted. Discussed with patient's father at bedside. Parents are both in agreement that patient is significantly improved clinically compared to on admission. We discussed that bronchoscopy could be performed however given her clinical improvement, it seems reasonable to continue current course of therapy and monitor. She has not had any additional hemoptysis or concerning events since being in the hospital. Will try and transition her back to her home ventilator. If she does well, she can likely be dismissed from the hospital in the next 24 hours on her home therapy. Subjective Patient was seen and evaluated at bedside. Mother provides historical information. She reports that improvement is "night and day" from yesterday. Her FiO2 has been weaned down to 25%. She was responding well to pulmonary toileting. She diuresed greater than 3 L yesterday. No fevers or other adverse events overnight. Review of Systems Review of Systems: As per subjective. Physical Exam Physical Exam: VITAL SIGNS Vital signs and nursing notes were reviewed. GENERAL 23-year-old female appearing her stated age who is in no acute distress. Blinks to answer questions (patient's baseline). SKIN Without rashes or lesions. NOSE Midline and without cyanosis. MOUTH/OROPHARYNX Without perioral cyanosis. NECK Trach site clean, dry, and intact. LUNGS Chest wall evaluation demonstrates normal chest wall A:P diameter. Auscultation reveals diminished breath sounds bilaterally without wheeze. CARDIAC RRR with S1/S2. No murmur, rubs, or gallops appreciated. ABDOMEN Abdominal inspection demonstrates an obese abdomen. BS normoactive all four quadrants. No tenderness, palpable masses, or ascites noted. EXTREMITIES Nail clubbing not present. No peripheral cyanosis. Moderate pretibial edema present. +3/5 radial palpated throughout. PSYCH No focal deficits appreciated. Blinks to answer questions (patient's baseline per mother). Results & Data Results & Data Vital Signs (Past 12 Hours) Vital Signs Temp Pulse Pulse Resp BP Pulse Ox O2 Del Method 12/29/24 07:26 61 24 97 12/29/24 07:26 67 24 Mechanical Vent 12/29/24 06:06 36.3 C L 56 L 21 96 12/29/24 06:00 102/55 L 12/29/24 05:57 36.2 C L 55 L 21 96 12/29/24 05:36 36.2 C L 56 L 24 97 12/29/24 05:03 36.2 C L 56 L 24 97 12/29/24 04:36 36.2 C L 55 L 29 H 98/53 L 97 12/29/24 04:19 57 L 24 96 12/29/24 04:12 36.2 C L 55 L 21 97 12/29/24 04:00 12/29/24 03:33 36.2 C L 56 L 26 H 97 12/29/24 03:15 36.2 C L 57 L 26 H 97 12/29/24 02:30 36.1 C L 62 24 96 12/29/24 02:29 97/55 L 12/29/24 02:29 97/55 L 12/29/24 02:29 97/55 L 12/29/24 02:15 36.1 C L 59 L 24 98 12/29/24 02:06 36.1 C L 63 24 98 12/29/24 01:36 36.0 C L 60 24 98 12/29/24 01:03 35.9 C L 60 24 98 12/29/24 00:30 35.7 C L 64 24 95 12/29/24 00:03 35.5 C L 61 24 94 12/29/24 00:00 111/56 L 12/29/24 00:00 111/56 L 12/29/24 00:00 12/29/24 00:00 57 L 12/28/24 23:54 35.5 C L 62 24 94 12/28/24 23:30 35.2 C L 61 24 94 12/28/24 23:06 Mechanical Vent 12/28/24 23:03 35.1 C L 58 L 24 97 12/28/24 23:01 57 L 24 97 12/28/24 22:30 34.8 C L 54 L 24 98 12/28/24 22:09 34.7 C L 53 L 24 97/52 L 98 12/28/24 21:30 34.4 C L 49 L 24 98 12/28/24 21:06 34.2 C L 48 L 24 98 12/28/24 20:45 33.9 C L 47 L 24 99 Mechanical Vent 12/28/24 20:27 33.7 C L 49 L 24 100/43 L 99 12/28/24 20:24 46 L 24 98 FiO2 12/29/24 07:26 30 12/29/24 07:26 30 12/29/24 06:06 12/29/24 06:00 12/29/24 05:57 12/29/24 05:36 12/29/24 05:03 12/29/24 04:36 12/29/24 04:19 30 12/29/24 04:12 12/29/24 04:00 30 12/29/24 03:33 12/29/24 03:15 12/29/24 02:30 12/29/24 02:29 12/29/24 02:29 12/29/24 02:29 12/29/24 02:15 12/29/24 02:06 12/29/24 01:36 12/29/24 01:03 12/29/24 00:30 12/29/24 00:03 12/29/24 00:00 12/29/24 00:00 12/29/24 00:00 30 12/29/24 00:00 12/28/24 23:54 12/28/24 23:30 12/28/24 23:06 30 12/28/24 23:03 12/28/24 23:01 30 12/28/24 22:30 12/28/24 22:09 12/28/24 21:30 12/28/24 21:06 12/28/24 20:45 12/28/24 20:27 12/28/24 20:24 30 Coding Level of Care Code 09855 SUB INP/OBS CARE MIN Diagnoses Acute and chronic respiratory failure, unspecified whether with hypoxia or hypercapnia J96.20
[2024-12-29] MEDS: MULTI VIT W/MINERALS LIQUID 15 ML UDC PO SCH (08:45)
[2024-12-29] MEDS: MENTHOL-ZINC OXIDE 360 APPLN/120 GM TUBE EXT SCH (08:47)
[2024-12-29] MEDS: LANSOPRAZOLE 30 MG SOLTAB GT SCH (08:47)
[2024-12-29] MEDS: PHENobarbitaL 30 MG TAB PO SCH (08:50)
[2024-12-29] MEDS ORDERED: PHENobarbitaL 20 MG/5 ML PEG SCH (09:00)
[2024-12-29] MEDS: MEDICAL MARIJUANA INH SCH (10:41)
[2024-12-29] MEDS: POLYETHYLENE (MIRALAX) 17 GM PACK PO SCH (11:31)
[2024-12-29] MEDS: SULFA/TRIMETH SUSP 800/160MG 20ML UDC GT SCH (11:50)
[2024-12-29] MEDS ORDERED: Nursing to Pharmacy Communication SCH ×2 (20:00)
[2024-12-29] MEDS: ALBUTEROL 0.5% NEB SOLN 2.5 MG/0.5 ML VIAL NEB PRN (20:05)
[2024-12-29] MEDS ORDERED: MEDICAL MARIJUANA INH SCH (21:00)
[2024-12-29] MEDS: levETIRAcetam ORAL SOLN 100MG/ML PO SCH (21:18)
--- NOTE | 2024-12-29 21:56 | Hospitalist Progress Note ---
Date of Service December 29, 2024 Assessment & Plan (1) Acute hypoxic respiratory failure: Plan: The patient has a permanent tracheostomy and is ventilator dependent. Pulmonary medicine consultation requested. Patient responded to diuretics. If she continues to improve likely discharge in AM. will continue antibiotics. (2) Pulmonary edema: Plan: Acute pulmonary edema suspected on admission. Parenteral Lasix diuresis. Monitor intake and output. Serial x-ray (3) VAP (ventilator-associated pneumonia): Plan: Left lower lobe infiltrate and/or atelectasis. Continue outpatient Levaquin and Bactrim intravenously (4) Seizure disorder: Plan: Keppra has been switched to intravenous dosing for now (5) Neurogenic bladder: Plan: Chronic. Turner catheter in place (6) Hypothyroidism: Plan: Continue replacement therapy (7) Cerebral palsy: Plan: Supportive care. Known ventriculoperitoneal shunt. Permanent tracheostomy status Admission and Anticipated Discharge Date Admission Date: December 28, 2024 Subjective 23 yo female with trach. Mother at bedside Physical Exam Physical Exam: General-Tracheostomy in place. Morbidly obese HEENT-head atraumatic and normocephalic Neck-no lymphadenopathy or thyromegaly, trachea midline. Permanent tracheostomy in place Chest-not using accessory muscles. Cardiac-normal heart rate. Abdomen-normal bowel sounds, no hepatosplenomegaly Extremities-chronic appearing bilateral lower extremity edema Results & Data Results & Data Vital Signs (Past 12 Hours) Vital Signs Temp Pulse Pulse Resp BP Pulse Ox O2 Del Method 12/29/24 21:03 36.1 C L 62 15 92 12/29/24 20:33 36.1 C L 60 15 114/63 97 12/29/24 20:09 36.2 C L 56 L 13 114/63 97 12/29/24 19:30 36.2 C L 58 L 11 L 96 12/29/24 19:27 36.2 C L 57 L 12 96 12/29/24 18:03 36.3 C L 62 13 94 12/29/24 18:00 126/65 12/29/24 17:48 36.2 C L 62 13 93 12/29/24 16:03 36.3 C L 59 L 12 91 12/29/24 16:00 120/64 12/29/24 16:00 66 12/29/24 15:54 36.3 C L 60 12 95 12/29/24 14:38 62 14 96 Mechanical Vent 12/29/24 14:00 107/53 L 12/29/24 14:00 36.4 C L 66 12 97 12/29/24 12:12 36.3 C L 55 L 11 L 97 12/29/24 12:00 109/58 L 12/29/24 11:24 36.3 C L 56 L 11 L 97 12/29/24 11:20 57 L 12 97 12/29/24 11:09 56 L 22 98 Mechanical Vent 12/29/24 10:03 36.3 C L 60 24 96 12/29/24 10:00 102/51 L O2 Flow Rate 12/29/24 21:03 12/29/24 20:33 12/29/24 20:09 12/29/24 19:30 12/29/24 19:27 12/29/24 18:03 12/29/24 18:00 12/29/24 17:48 12/29/24 16:03 12/29/24 16:00 12/29/24 16:00 12/29/24 15:54 12/29/24 14:38 3 12/29/24 14:00 12/29/24 14:00 12/29/24 12:12 12/29/24 12:00 12/29/24 11:24 12/29/24 11:20 12/29/24 11:09 2 12/29/24 10:03 12/29/24 10:00 PG Care Time/CCT Total # of Minutes Spent Total Time Spent with Patient: Total time spent is greater than 50% in coordination of care (as documented) at patient's floor/unit and/or counseling patient: Coding Level of Care Code 70791 SUB INP/OBS CARE 3/50MIN Diagnoses Acute hypoxic respiratory failure J96.01 Pulmonary edema J81.1 VAP (ventilator-associated pneumonia) J95.851 Seizure disorder G40.909 Neurogenic bladder N31.9 Hypothyroidism E03.9 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
[2024-12-30 06:03] LABS: Basophils # (auto) 0.04 K/uL (0.00-0.20); Basophils % (auto) 0.6 %; Eosinophils % (auto) 2.8 %; Hematocrit (blood only) 32.2 % (37.0-47.0); Hemoglobin 10.9 g/dl (12.0-16.0); Immature Granulocytes # (auto) 0.03 K/uL (0.01-0.20); Immature Granulocytes % (auto) 0.4 %; Lymphocytes # (auto) 1.87 K/uL (1.20-3.40); Lymphocytes % (auto) 26.5 %; Mean Corpuscular Hemoglobin 32.1 pg (25.0-34.0); Mean Corpuscular Hgb Conc 33.9 g/dL (32.0-36.0); Mean Corpuscular Volume 94.7 fL (80.0-100.0); Mean Platelet Volume 11.7 fL (9.4-12.4); Monocytes # (auto) 0.84 K/uL (0.11-0.59); Monocytes % (auto) 11.9 %; Neutrophils # (auto) 4.08 K/uL (1.40-6.50); Neutrophils % (auto) 57.8 %; Platelet Count 174 K/uL (130-400); RDW Coefficient of Variation 17.1 % (11.5-14.5); RDW Standard Deviation 57.1 fL (36.4-46.3); White Blood Count 7.06 K/ul (4.8-10.8)
[2024-12-30 06:15] LABS: BUN Creatinine Ratio 37.9 (10-20); Calcium 8.3 mg/dl (8.6-10.3); Creatinine Clr Calc Pharmacy 72.2 ml/min; Potassium 3.6 mmol/L (3.5-5.1)
[2024-12-30] MEDS ORDERED: LEVOTHYROXINE SODIUM 75 MCG TABLET PO SCH ×2 (06:30→21:00)
--- NOTE | 2024-12-30 07:50 | Pulmonology Progress Note ---
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 RECOMMENDATIONS: 1. Respiratory failure with hypoxia - Patient chronically ventilated without the requirement of supplemental oxygen. There has been an increasing oxygen requirement as well as increase in the patient's inspiratory pressure over the weekend. Additionally, during trach exchange there was blood noted. Patient has been worked up in the outpatient setting by our pulmonary colleagues and recent sputum cultures grew out MRSA as well as Pseudomonas. She is actively being treated with Levaquin and Bactrim per sensitivities. Patient is tolerating her home ventilator settings at this time. She is on room air. She has had increased mobilization of secretions which have been manageable and is seem to help with improvement of the patient. Mother reports the patient is significantly better than arrival. She would rather manage the patient at home at this time. In discussion, as the patient continues to clinically improve, we will continue with her course of Levaquin and Bactrim as prescribed in the outpatient setting. Did offer her to stay longer if they were uncomfortable or if there was anything that we could do to help continue to improve her symptoms. Mother feels as though she has the capabilities at home to manage the patient and would rather have her in the comfort of her own home at this time. This seems reasonable as the patient has clinically improved and the patient has every intervention at her disposal at home to manage the patient. Certainly, she was educated on if she changes her declines to return to the emergency department immediately. Otherwise, comfortable with the patient being discharged home at the discretion of hospitalist. 2. Pulmonary edema - Noted on CT scan. She did diurese well and her oxygen saturations have improved. No need for continued diuresis. Follow-up with her structural process laboratory specialist. 3. Abnormal CT scan - Findings of bibasilar atelectatic changes appreciated on CT. The LEFT lower lobe collapse appears consistent with previous and per discussion with the patient's mother. Continue with recruitment techniques and pulmonary toileting. Thank you for allowing us to participate in the care of this pleasant patient. Patient is stable for discharge home from pulmonary perspective at this time. Please feel free to reach out to us for any further questions or concerns. Admission and Anticipated Discharge Date Admission Date: December 28, 2024 Subjective Patient seen and evaluated at bedside. She is currently on her home ventilator settings. She was requiring supplemental oxygen 2 L overnight which has been discontinued at this time. Mother reports significant improvement. She has had mobilization of her secretions which have been manageable. Mother reports the patient is 80% better than when she had arrived. She is ready for the patient to be discharged home. Review of Systems Review of Systems: As per subjective. Physical Exam Physical Exam: VITAL SIGNS Vital signs and nursing notes were reviewed. GENERAL 23-year-old female appearing her stated age who is in no acute distress. Blinks to answer questions (patient's baseline). SKIN Without rashes or lesions. NOSE Midline and without cyanosis. MOUTH/OROPHARYNX Without perioral cyanosis. NECK Trach site clean, dry, and intact. LUNGS Chest wall evaluation demonstrates normal chest wall A:P diameter. Auscultation reveals diminished breath sounds bilaterally without wheeze. CARDIAC RRR with S1/S2. No murmur, rubs, or gallops appreciated. ABDOMEN Abdominal inspection demonstrates an obese abdomen. BS normoactive all four quadrants. No tenderness, palpable masses, or ascites noted. EXTREMITIES Nail clubbing not present. No peripheral cyanosis. Moderate pretibial edema present. +3/5 radial palpated throughout. PSYCH No focal deficits appreciated. Blinks to answer questions (patient's baseline per mother). Results & Data Results & Data Vital Signs (Past 12 Hours) Vital Signs Temp Pulse Resp BP Pulse Ox FiO2 12/30/24 06:42 35.4 C L 66 13 98 12/30/24 06:03 35.5 C L 50 L 10 L 97 12/30/24 06:00 118/59 L 12/30/24 06:00 118/59 L 12/30/24 06:00 118/59 L 12/30/24 05:54 35.5 C L 49 L 12 98 12/30/24 05:30 35.5 C L 51 L 12 97 12/30/24 05:18 35.5 C L 49 L 12 98 12/30/24 04:30 35.4 C L 50 L 12 98 12/30/24 04:00 35.4 C L 50 L 10 L 97 12/30/24 04:00 118/57 L 12/30/24 04:00 118/57 L 12/30/24 03:57 35.4 C L 50 L 10 L 97 12/30/24 03:03 35.4 C L 50 L 11 L 98 12/30/24 02:36 35.3 C L 51 L 11 L 98 12/30/24 02:06 35.3 C L 52 L 10 L 98 12/30/24 01:36 35.3 C L 51 L 12 99 12/30/24 01:06 35.3 C L 54 L 11 L 98 12/30/24 00:54 35.2 C L 53 L 12 98 12/30/24 00:18 35.3 C L 51 L 11 L 97 12/30/24 00:00 105/55 L 12/30/24 00:00 105/55 L 12/30/24 00:00 54 L 12/29/24 23:54 35.3 C L 51 L 11 L 97 12/29/24 23:30 35.4 C L 52 L 13 98 12/29/24 23:00 35.4 C L 54 L 12 97 12/29/24 22:43 2 12/29/24 22:30 35.5 C L 53 L 12 97 12/29/24 22:03 35.8 C L 60 15 98 12/29/24 22:00 129/73 12/29/24 22:00 129/73 12/29/24 21:36 35.9 C L 64 12 98 12/29/24 21:03 36.1 C L 62 15 92 12/29/24 20:33 36.1 C L 60 15 114/63 97 12/29/24 20:20 56 L 12 98 12/29/24 20:09 36.2 C L 56 L 13 114/63 97 PG Care Time/CCT Total # of Minutes Spent Total Time Spent with Patient: Total time spent is greater than 50% in coordination of care (as documented) at patient's floor/unit and/or counseling patient: Coding Level of Care Code 84799 SUB INP/OBS CARE 235MIN Diagnoses Acute and chronic respiratory failure, unspecified whether with hypoxia or hypercapnia J96.20
[2024-12-30 09:31] VITALS: BP 112/51; PULSE 54; RESP 14; TEMP 96.3; O2SAT 95
--- NOTE | 2025-01-01 10:42 | Discharge Summary ---
Discharge Summary Date of Service December 30, 2024 Principal Dx & Hospital Course #1 = Principal Diagnosis (1) Acute hypoxic respiratory failure: The patient has a permanent tracheostomy and is ventilator dependent. Pulmonary medicine consultation appreciated Patient responded to diuretics. Patient is now back to regular vent setting. Family is agreeable to discharge, will continue levagquin and bactrime. (2) Pulmonary edema: Acute pulmonary edema suspected on admission. Parenteral Lasix diuresis while in house (3) VAP (ventilator-associated pneumonia): Left lower lobe infiltrate and/or atelectasis. Continue outpatient Levaquin and Bactrim intravenously (4) Seizure disorder: Keppra has been switched to intravenous dosing for now (5) Neurogenic bladder: Chronic. Turner catheter in place (6) Hypothyroidism: Continue replacement therapy (7) Cerebral palsy: Supportive care. Known ventriculoperitoneal shunt. 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 She also has a permanent tracheostomy. Her mother noticed bloody secretions and worsening oxygen levels and brought her to the ED for evaluation. CT scan is highly suspicious for pulmonary edema. She also has evidence of left lower lobe atelectasis. She has been started on parenteral Lasix therapy. She may need bronchoscopy for further evaluation. Keppra will be switched to IV administration for now. Pulmonary medicine consultation requested. She will need to be in the ICU because she is ventilator dependent. Discharge Exam General-Tracheostomy in place. Morbidly obese HEENT-head atraumatic and normocephalic Neck-no lymphadenopathy or thyromegaly, trachea midline. Permanent tracheostomy in place Chest-not using accessory muscles. Cardiac-normal heart rate. Abdomen-normal bowel sounds, no hepatosplenomegaly Extremities-chronic appearing bilateral lower extremity edema Discharge Plan Discharge Items Patient Disposition: Home - Self-Care Reason For Visit: SUSPECTED PULM EDEMA Discharge Diagnosis: suspected pulm edema Activity: Resume your previous activity Non-emergency contact: Primary Care Provider Call non-emergency contact if: you have any medication questions Follow-up/Referrals: Sin Fitzpatrick MD [Primary Care Provider] - 01/01/25 10:30 am (Hospital follow up on January 01 at 10:30 am with Claudia Vogt PA-C.) Diet: Other - See Diet Comment Addtl Attending Provider Instructions: Please continue on home antibiotics. Pending Studies at Discharge: No Stand-Alone Forms: [facility] [employer] Smoking Cessation Medications and DC Order Prescriptions: Continued (DME) disposable gloves [Disposable Latex-Free Gloves] Misc See Rx Instructions .ROUTE .MEDSUPPLY Qty: 1200 11RF Rx Instructions: As directed Calmoseptine 0.44-20.6 % ointment 1 applic TOP BID Qty: 113 5RF Sween Cream 1 applic TOP BID Qty: 600 5RF acetaminophen 160 mg/5 mL liquid 640 mg PO Q8H PRN (Reason: pain) Qty: 473 0RF tramadol 50 mg tablet 50 mg feeding tube BID PRN (Reason: Pain) Qty: 60 1RF dexamethasone 1 mg tablet 1 mg feeding tube UD Qty: 30 3RF Rx Instructions: gets for pre-treatment GIVE 3 DOSES PRIOR TO IVIG & 1 DOSE POST IVIG IM 1 MG DOSES mometasone 0.1 % solution 1 applic topical DAILY PRN (Reason: skin irritation) Qty: 60 11RF docusate sodium 50 mg/15 mL syrup See Rx Instructions feeding tube BID PRN (Reason: Constipation) Qty: 118 0RF Rx Instructions: 10mL feeding tube BID PRN; sennosides [senna] 8.8 mg/5 mL syrup 8.8 mg PO HS PRN (Reason: Constipation) Qty: 236 5RF azelastine 137 mcg (0.1 %) spray,non-aerosol 1 spray intranasal DAILY PRN (Reason: Allergy Symptoms) Qty: 30 6RF Rx Instructions: administer into each nostril albuterol sulfate 2.5 mg /3 mL (0.083 %) solution for nebulization 2.5 mg inhalation UD PRN (Reason: Wheezing) Qty: 180 3RF Capex 0.01 % shampoo 30 ml topical DAILY Qty: 120 3RF triamcinolone acetonide 0.1 % lotion 1 applic topical BID Qty: 60 3RF Hizentra 10 gram/50 mL (20 %) solution See Rx Instructions subcut .COMPLEX Qty: 100 11RF Rx Instructions: INFUSE 10GM SQ subcutaneously EVERY 2 WEEKS [employer] Approved GOOD 09/21/24-03/21/25 MONALISA [id number] GOOD sodium chloride 0.9 % solution for nebulization 3 ml inhalation QID PRN (Reason: shortness of breath or wheezing) Qty: 300 3RF lorazepam [Ativan] 1 mg tablet 1 mg PO DAILY PRN (Reason: anxiety) Qty: 30 2RF naproxen 500 mg tablet 500 mg PO BID PRN (Reason: pain) Qty: 60 5RF lansoprazole [Prevacid SoluTab] 30 mg tablet,disintegrat, delay rel 30 mg feeding tube QAM Qty: 90 3RF clobetasol [Clodan] 0.05 % shampoo 1 applic topical DAILY Qty: 118 6RF cannabidiol 100 mg/mL solution 100 - 150 mg G-tube BID Patient Comments: 0.5mL every a.m., 1mL every p.m. ; Rx Instructions: 1.5ML QAM - 1ML QPM sulfamethoxazole-trimethoprim [Bactrim DS] 800-160 mg tablet 1 tab PO BID 14 Days Qty: 28 0RF Rx Instructions: Start Date 12/22/24 x14 day supply baclofen 5 mg tablet 5 mg PO TID 90 Days Qty: 270 3RF Rx Instructions: take with the 10 mg tab to equal 15mg three times daily baclofen 10 mg tablet 10 mg PO TID 90 Days Qty: 270 3RF Rx Instructions: take with the 5 mg tab to equal 15mg three times daily levetiracetam [Keppra] 750 mg tablet 750 mg PO BID 90 Days Qty: 180 3RF Rx Instructions: PER G-TUBE olopatadine 0.2 % drops 1 drp ophthalmic (eye) DAILY PRN (Reason: itching) Qty: 2.5 11RF montelukast [Singulair] 10 mg tablet 10 mg feeding tube PM Qty: 90 3RF lidocaine-prilocaine 2.5-2.5 % cream 1 applic topical ONCE PRN (Reason: prior to injections) Qty: 50 6RF polyethylene glycol 3350 [Miralax] 17 gram Powder In Packet 17 g feeding tube BID PRN (Reason: Constipation) ondansetron 4 mg Tablet,Disintegrating 4 mg feeding tube Q6H PRN (Reason: Nausea) Multivitamin Women 50 Plus 8 mg iron-400 mcg-50 mcg Tablet 0.5 tab PO QAM diclofenac sodium 1 % Gel 2 g TOPICAL TID PRN (Reason: Pain in Knees) cetirizine [Zyrtec] 10 mg tablet 10 mg PO HS Rx Instructions: APPROVED phenobarbital 64.8 mg tablet 64.8 - 129.6 mg feeding tube DIRECTED Rx Instructions: Take w/ 32.4 mg by mouth in the morning to equal 97.2. Then take 64.8mg x2 (129.6mg) at bedtime. pseudoephedrine HCl [Sudogest] 30 mg tablet 30 mg feeding tube Q6H PRN (Reason: Congestion) Rx Instructions: one tablet via g-tube 4 times as needed for nasal congestion mupirocin 2 % ointment 1 applic topical TID PRN (Reason: infection) levofloxacin 750 mg tablet 750 mg PO HS Rx Instructions: Start Date 12/25/24 x14 day supply albuterol sulfate [Ventolin HFA] 90 mcg/actuation HFA aerosol inhaler 2 puff inhalation QID PRN (Reason: Wheezing) phenobarbital 32.4 mg tablet 97.2 mg feeding tube QAM Rx Instructions: Take w/ 64.8mg to equal 97.2mg medroxyprogesterone 150 mg/mL syringe 150 mg IM DIRECTED Rx Instructions: Inject once every 12 weeks diazepam 12.5-15-17.5-20 mg kit 12.5 mg ND DIRECTED PRN (Reason: seizure activity) Rx Instructions: 12.5 mg rectally Give 1 dose for seizure activity lasting more than 5 minutes or seizure clusters without return to baseline PRN; melatonin 5 mg capsule 5 mg feeding tube HS oxybutynin chloride 5 mg tablet 5 mg PO TID levothyroxine 75 mcg tablet 75 - 150 mcg PO DIRECTED Rx Instructions: Wednesdays takes 2 (150 mcg), rest of days 75mcg methenamine hippurate 1 gram tablet 0 g PO UD Hold Instructions: Resume on 02/22/24. until Bactrim completed Rx Instructions: Per mother, this is currently on hold until next appointment. Original Directions: 1 gram twice daily Discharge Orders: Discharge Order (Routine); Ordered 12/30/24 Ordered By: Luis Irvin Admission Data Admit Date/Time: 12/28/24 17:49 Attending Provider: Luis Irvin Admit Provider: Tang Tabor Primary Care Provider: Sin Fitzpatrick V. Other Providers: Pk Rivera Other Interventions: Discharge Summary Assessment (RN) Last Done: 12/30/24 09:24 Hospital Stay Data Consultations 12/28/24 17:04 ED Decision to Admit Stat 12/28/24 20:20 Consult Pulmonology Routine Pending Results Patient Have Any Pending Studies at Discharge: No Discharge Instructions Given to Patient (Per Discharging Provider) Please continue on home antibiotics. 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
== END 2024-12-30 11:12 | disposition home or self-care (01) | DRG 189 ==
LOC: ED 13:14 → 1E 17:49 → SUATTDRO 17:49 → 1E 19:15
DX: Z96.0 Presence of urogenital implants; N31.9 Neuromuscular dysfunction of bladder, unspecified; E03.9 Hypothyroidism, unspecified; Q21.12 Patent foramen ovale; J96.21 Acute and chronic respiratory failure with hypoxia; G40.909 Epilepsy, unspecified, not intractable, without status epilepticus; Z79.899 Other long term (current) drug therapy; Z88.8 Allergy status to other drugs, medicaments and biological substances; Z98.2 Presence of cerebrospinal fluid drainage device; Z88.1 Allergy status to other antibiotic agents; Z79.890 Hormone replacement therapy; J95.851 Ventilator associated pneumonia; D84.9 Immunodeficiency, unspecified; J81.0 Acute pulmonary edema; Z93.0 Tracheostomy status; G80.0 Spastic quadriplegic cerebral palsy; Z74.01 Bed confinement status

== ENCOUNTER 2025-01-03 13:19 | Inpatient (IN) ==
[2025-01-03 13:57] LABS: iSTAT Creatinine 1.3 mg/dl (0.6-1.3); iSTAT Hemoglobin 13.3 g/dl (12.0-16.0); iSTAT Ionized Calcium 0.98 mmol/l (1.12-1.32); iSTAT Potassium 6.3 mmol/L (3.3-5.0)
[2025-01-03 14:00] LABS: Basophils # (auto) 0.01 K/uL (0.00-0.20); Basophils % (auto) 0.1 %; Eosinophils # (auto) 0.05 K/uL (0.00-0.50); Eosinophils % (auto) 0.6 %; Hematocrit (blood only) 39.3 % (37.0-47.0); Hemoglobin 12.2 g/dl (12.0-16.0); Immature Granulocytes # (auto) 0.08 K/uL (0.01-0.20); Lymphocytes # (auto) 0.22 K/uL (1.20-3.40); Lymphocytes % (auto) 2.8 %; Mean Corpuscular Volume 103.1 fL (80.0-100.0); Mean Platelet Volume 11.5 fL (9.4-12.4); Monocytes # (auto) 0.51 K/uL (0.11-0.59); Monocytes % (auto) 6.5 %; Neutrophils # (auto) 6.96 K/uL (1.40-6.50); Nucleated RBC # (auto) 0.06 K/uL (0.00-0.12); Nucleated RBC % (auto) 0.8 %; Platelet Count 100 K/uL (130-400); RDW Coefficient of Variation 17.2 % (11.5-14.5); RDW Standard Deviation 65.4 fL (36.4-46.3); Red Blood Count 3.81 M/uL (4.20-5.40); White Blood Count 7.83 K/ul (4.8-10.8)
[2025-01-03 14:16] LABS: Albumin Globulin Ratio 0.9 (0.9-2); Albumin Level 3.6 gm/dl (3.4-5.0); Bilirubin,Total 0.8 mg/dl (0.2-1.0); Calcium 7.9 mg/dl (8.6-10.3); Creatinine Clr Calc Pharmacy 73.4 ml/min; Globulin 4.2 gm/dl (2.5-4.0); Magnesium 3.5 mg/dl (1.7-2.4); Potassium 5.6 mmol/L (3.5-5.1); Total Protein 7.8 gm/dl (6.0-8.3)
[2025-01-03 14:23] LABS: Troponin I High Sensitivity 9.2 pg/ml (0-14)
--- NOTE | 2025-01-03 14:25 | XRay Report ---
Chest radiograph, one view History: Dyspnea Comparison: 12/29/2024 Findings: Single AP view of the chest performed. The left costophrenic angle is obscured with a prominent retrocardiac opacity in place representing atelectasis or consolidation. Tracheostomy tube in place. No pneumothorax. The cardiomediastinal silhouette is within normal limits. Prominence of the pulmonary vascularity. No evidence for lymphadenopathy. No visualized bony or soft tissue abnormality. Impression: Continued prominence of the pulmonary vascularity suggesting pulmonary venous hypertension. Retrocardiac opacity and obscured left costophrenic angle, which may be due to atelectasis or consolidation, as well as a pleural effusion, respectively. Electronically signed by Dimitri Medina 01-03-2025 2:24 PM
[2025-01-03 14:27] LABS: Partial Thromboplastin Ratio 1.6; Partial Thromboplastin Time 44 Seconds (21-31); Prothrombin Time 10.6 Seconds (9.0-12.0)
[2025-01-03 14:40] LABS: Appearance Urine Cloudy (Clear); Bacteria Urine Automated None Seen (None Seen); Bilirubin Urine 1+ (Negative); Blood Urine 3+ (Negative); Cast Urine Automated 0-2 /lpf (0-2); Color Urine Dark Yellow; Epithelial Cell Urine Auto 0-2 /hpf (0-2); Glucose Urine UA Negative (Negative); Ketones Urine Negative (Negative); Leukocyte Esterase Urine 1+ (Negative); Nitrite Urine Negative (Negative); Protein Urine 2+ (Negative); RBC Urine Automated >20 /hpf (0-2); Specific Gravity Urine 1.018 (1.000-1.030); Urobilinogen Urine Positive (Negative); pH Urine 5.5 (4.5-7.5)
[2025-01-03] MEDS: OPTIRAY 320 100ml IV ONE (14:46)
[2025-01-03 14:49] LABS: Adenovirus PCR Not Detected (NotDetected); Bordetella parapertussis PCR Not Detected (NotDetected); Bordetella pertussis PCR Not Detected (NotDetected); Chlamydia pneumoniae PCR Not Detected (NotDetected); Coronavirus 229E PCR Not Detected (NotDetected); Coronavirus CoV-2 (COVID19)PCR Not Detected (NotDetected); Coronavirus HKU1 PCR Not Detected (NotDetected); Coronavirus NL63 PCR Not Detected (NotDetected); Coronavirus OC43PCR Not Detected (NotDetected); Human Metapneumovirus PCR Not Detected (NotDetected); Influenza A PCR Not Detected (NotDetected); Influenza B PCR Not Detected (NotDetected); Mycoplasma pneumoniae PCR Not Detected (NotDetected); Parainfluenza Virus 1 PCR Not Detected (NotDetected); Parainfluenza Virus 2 PCR Not Detected (NotDetected); Parainfluenza Virus 3 PCR Not Detected (NotDetected); Parainfluenza Virus 4 PCR Not Detected (NotDetected); Respiratory Syncytial VirusPCR Not Detected (NotDetected); Rhinovirus/Enterovirus PCR DETECTED (NotDetected)
--- NOTE | 2025-01-03 15:29 | Emergency Department Note ---
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 predominantly on the right side. S-shaped scoliotic deformity of the thoracolumbar spine noted with levoscoliosis of the lumbar spine. IMPRESSION: A large colonic stool burden is present, associated with extensive fat attenuation, suggesting steatorrhea. The liver appears within normal limits. Continue trace bilateral pleural effusions. Subjacent atelectasis. Electronically signed by Dmiitri Medina 01-03-2025 3:54 PM Discharge Plan Visit Data Chief Complaint: Respiratory Distress Stated Complaint: RESPIRATORY DISTRESS ED Provider: Libertad Lomeli Discharge Problem: Acute and chronic respiratory failure with hypercapnia, Acute UTI (urinary tract infection), Acute hyponatremia Forms Stand Alone Forms: My [employer] Prescriptions Prescriptions: No Action (DME) disposable gloves [Disposable Latex-Free Gloves] Misc See Rx Instructions .ROUTE .MEDSUPPLY Qty: 1200 11RF Rx Instructions: As directed Calmoseptine 0.44-20.6 % ointment 1 applic TOP BID Qty: 113 5RF Rx Instructions: around trach Sween Cream 1 applic TOP BID Qty: 600 5RF Rx Instructions: around back of neck acetaminophen 160 mg/5 mL liquid 640 mg PO Q8H PRN (Reason: pain) Qty: 473 0RF tramadol 50 mg tablet 50 mg feeding tube BID PRN (Reason: Pain) Qty: 60 1RF dexamethasone 1 mg tablet 1 mg feeding tube UD Qty: 30 3RF Rx Instructions: gets for pre-treatment GIVE 1 mg prior to Hizentra q2 weeks mometasone 0.1 % solution 1 applic topical DAILY PRN (Reason: skin irritation) Qty: 60 11RF docusate sodium 50 mg/15 mL syrup See Rx Instructions feeding tube BID PRN (Reason: Constipation) Qty: 118 0RF Rx Instructions: 10mL feeding tube BID PRN; sennosides [senna] 8.8 mg/5 mL syrup 8.8 mg PO HS PRN (Reason: Constipation) Qty: 236 5RF azelastine 137 mcg (0.1 %) spray,non-aerosol 1 spray intranasal DAILY PRN (Reason: Allergy Symptoms) Qty: 30 6RF Rx Instructions: administer into each nostril albuterol sulfate 2.5 mg /3 mL (0.083 %) solution for nebulization 2.5 mg inhalation UD PRN (Reason: Wheezing) Qty: 180 3RF Capex 0.01 % shampoo 30 ml topical DAILY Qty: 120 3RF triamcinolone acetonide 0.1 % lotion 1 applic topical BID Qty: 60 3RF Hizentra 10 gram/50 mL (20 %) solution See Rx Instructions subcut .COMPLEX Qty: 100 11RF Rx Instructions: INFUSE 10GM SQ subcutaneously EVERY 2 WEEKS [employer] Approved GOOD 09/21/24-03/21/25 MONALISA [id number] GOOD sodium chloride 0.9 % solution for nebulization 3 ml inhalation QID PRN (Reason: shortness of breath or wheezing) Qty: 300 3RF lorazepam [Ativan] 1 mg tablet 1 mg PO DAILY PRN (Reason: anxiety) Qty: 30 2RF Rx Instructions: rare use naproxen 500 mg tablet 500 mg PO BID PRN (Reason: pain) Qty: 60 5RF lansoprazole [Prevacid SoluTab] 30 mg tablet,disintegrat, delay rel 30 mg feeding tube QAM Qty: 90 3RF clobetasol [Clodan] 0.05 % shampoo 1 applic topical DAILY Qty: 118 6RF cannabidiol 100 mg/mL solution 100 - 150 mg G-tube BID Patient Comments: 0.5mL every a.m., 1mL every p.m. ; Rx Instructions: 1.5ML QAM - 1ML QPM sulfamethoxazole-trimethoprim [Bactrim DS] 800-160 mg tablet 1 tab PO BID 14 Days Qty: 28 0RF Rx Instructions: Start Date 12/22/24 x14 day supply baclofen 5 mg tablet 5 mg PO TID 90 Days Qty: 270 3RF Rx Instructions: take with the 10 mg tab to equal 15mg three times daily baclofen 10 mg tablet 10 mg PO TID 90 Days Qty: 270 3RF Rx Instructions: take with the 5 mg tab to equal 15mg three times daily levetiracetam [Keppra] 750 mg tablet 750 mg PO BID 90 Days Qty: 180 3RF Rx Instructions: PER G-TUBE at 0800 and 1900 olopatadine 0.2 % drops 1 drp ophthalmic (eye) DAILY PRN (Reason: itching) Qty: 2.5 11RF montelukast [Singulair] 10 mg tablet 10 mg feeding tube PM Qty: 90 3RF lidocaine-prilocaine 2.5-2.5 % cream 1 applic topical ONCE PRN (Reason: prior to injections) Qty: 50 6RF polyethylene glycol 3350 [Miralax] 17 gram Powder In Packet 17 g feeding tube BID PRN (Reason: Constipation) ondansetron 4 mg Tablet,Disintegrating 4 mg feeding tube Q6H PRN (Reason: Nausea) Multivitamin Women 50 Plus 8 mg iron-400 mcg-50 mcg Tablet 0.5 tab PO QAM diclofenac sodium 1 % Gel 2 g TOPICAL TID PRN (Reason: Pain in Knees) cetirizine [Zyrtec] 10 mg tablet 10 mg PO HS Rx Instructions: APPROVED phenobarbital 64.8 mg tablet 64.8 - 129.6 mg feeding tube DIRECTED Rx Instructions: Take w/ 32.4 mg by mouth in the morning to equal 97.2. Then take 64.8mg x2 (129.6mg) at bedtime. Takes at 0700 and 1900 pseudoephedrine HCl [Sudogest] 30 mg tablet 30 mg feeding tube Q6H PRN (Reason: Congestion) Rx Instructions: one tablet via g-tube 4 times as needed for nasal congestion mupirocin 2 % ointment 1 applic topical TID PRN (Reason: infection) levofloxacin 750 mg tablet 750 mg PO HS Rx Instructions: Start Date 12/25/24 x14 day supply albuterol sulfate [Ventolin HFA] 90 mcg/actuation HFA aerosol inhaler 2 puff inhalation QID PRN (Reason: Wheezing) phenobarbital 32.4 mg tablet 97.2 mg feeding tube QAM Rx Instructions: Take w/ 64.8mg to equal 97.2mg medroxyprogesterone 150 mg/mL syringe 150 mg IM DIRECTED Rx Instructions: Inject once every 12 weeks diazepam 12.5-15-17.5-20 mg kit 12.5 mg OK DIRECTED PRN (Reason: seizure activity) Rx Instructions: 12.5 mg rectally Give 1 dose for seizure activity lasting more than 5 minutes or seizure clusters without return to baseline PRN; melatonin 5 mg capsule 5 mg feeding tube HS oxybutynin chloride 5 mg tablet 5 mg PO TID levothyroxine 75 mcg tablet 75 - 150 mcg PO DIRECTED Rx Instructions: Wednesdays takes 2 (150 mcg), rest of days 75mcg methenamine hippurate 1 gram tablet 1 g PO UD Hold Instructions: Resume on 02/22/24. until Bactrim completed Rx Instructions: Per mother, this is currently on hold until next appointment. Original Directions: 1 gram twice daily furosemide 20 mg tablet 20 mg PO DIRECTED Rx Instructions: filled 01/01 30 day supply Referrals Referrals: Sin Fitzpatrick MD [Primary Care Provider] -
[2025-01-03] MEDS: cefTRIAXone SODIUM 2,000 MG/50 ML BAG IV STA (15:52)
--- NOTE | 2025-01-03 15:54 | CT Scan Report ---
EXAMINATION: CT of the abdomen and pelvis performed after the administration of IV contrast TECHNIQUE: Helical CT images from the lung bases through the symphysis pubis were obtained with contrast. Coronal and sagittal reformatted images were generated at a workstation for further assessment. Dose reduction techniques were achieved by using automatic exposure control and/or adjustment of mA and/or kV according to patient size and/or use of iterative reconstruction technique. COMPARISON: 11/19/2024 HISTORY: Transaminitis FINDINGS: Lung bases: Trace bilateral pleural effusion with adjacent subsegmental consolidation/collapse noted. Liver, biliary: Liver appears normal in size with smooth margins and normal attenuation values. The intra and extrahepatic bile ducts appear unremarkable. Common bile duct appears unremarkable. Gallbladder fossa: Gall bladder is not visualized with cholecystectomy susy in the gall bladder fossa. Spleen: The spleen appears unremarkable. Pancreas: Fatty replacement of the pancreatic parenchyma noted. Adrenals: Both adrenal glands appear unremarkable. Kidneys, ureter, bladder: A Turner catheter is in place, with decompression of the urinary bladder. Severe left renal atrophy. There is also mild right renal atrophy. No hydronephrosis. No obstructing ureteral stone. No renal masses. 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 Hiatus hernia identified is decreased. Bowel: There is a large fecal burden of the colon, with extensive fat attenuation associated. No definite bowel obstruction identified. Most of the small bowel loops are collapsed. Vascular: Imaged portions of major blood vessels appear unremarkable on this non-contrast study. Pelvis: No evidence of significantly enlarged lymph nodes, ascites or free air. 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 Significant atrophy of the gluteal muscles also identified, predominantly on the right side. S-shaped scoliotic deformity of the thoracolumbar spine noted with levoscoliosis of the lumbar spine. IMPRESSION: A large colonic stool burden is present, associated with extensive fat attenuation, suggesting steatorrhea. The liver appears within normal limits. Continue trace bilateral pleural effusions. Subjacent atelectasis. Electronically signed by Dimitri Medina 01-03-2025 3:54 PM
[2025-01-03 16:07] LABS: Base Excess VBG 1.8 mEq/L; HCO3 VBG 29 mmol/L; Oxygen Saturation VBG 95.9 %; PCO2 VBG 58 mmHg (38-50); PO2 VBG 61 mmHg; pH VBG 7.31 (7.36-7.41)
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
[2025-01-03] MEDS: BACLOFEN 10 MG TAB PO STA ×2 (17:02)
[2025-01-03] MEDS: oxyBUTYnin chloride 5 MG TAB PO STA (17:02)
[2025-01-03] MEDS: FUROSEMIDE 40 MG/4 ML VIAL IV ONE (18:02)
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
[2025-01-03] MEDS ORDERED: GLUCAGON FOR INJ 1 MG VIAL SQ PRN (20:10)
[2025-01-03] MEDS ORDERED: CARBOHYDRATES FOR HYPOGLYCEMIA PO PRN (20:10)
[2025-01-03] MEDS ORDERED: POLYETHYLENE (MIRALAX) 17 GM PACK PEG PRN (20:10)
[2025-01-03] MEDS ORDERED: GLUCOSE 10 TAB/TUBE PO PRN (20:10)
[2025-01-03] MEDS ORDERED: GLUCOSE 40% GEL 15 GM TUBE PO PRN (20:10)
[2025-01-03] MEDS ORDERED: AZELASTINE HCL 0.1% NASAL 200 SPRAYS/27,400 MCG BTL NAE PRN (20:10)
[2025-01-03] MEDS ORDERED: DEXTROSE 50% 50 ML SYRINGE IV PRN (20:10)
[2025-01-03 20:20] LABS: BUN Creatinine Ratio 42.6 (10-20); Calcium 8.3 mg/dl (8.6-10.3); Creatinine Clr Calc Pharmacy 82.8 ml/min; Potassium 4.5 mmol/L (3.5-5.1)
[2025-01-03] MEDS: bisacodyL 10 MG SUPP PR STA (20:31)
[2025-01-03] MEDS: levETIRAcetam 250 MG TAB PO SCH (20:31)
[2025-01-03] MEDS: DOCUSATE SODIUM SYRUP 100 MG/10 ML UDC PEG SCH (20:32)
[2025-01-03] MEDS: CETIRIZINE HCL 10 MG TABLET PO SCH (20:32)
[2025-01-03] MEDS: SENNOSIDES 8.8 MG/5 ML UDC PO SCH (20:33)
[2025-01-03] MEDS: MONTELUKAST SODIUM 10 MG TABLET PEG SCH (20:33)
[2025-01-03] MEDS: MELATONIN 3 MG TAB PO SCH (20:33)
[2025-01-03] MEDS: DOXYCYCLINE HYCLATE 100 MG in DEXTROSE 5% MINI-B 100 ML IV SCH (20:37)
[2025-01-03] MEDS: MEDICAL MARIJUANA PO SCH (21:10)
[2025-01-03] MEDS: PEPTAMEN INTENSE VHP 1.0 CAL 1,000 ML BAG PEG SCH (21:11)
[2025-01-03] MEDS: CEFEPIME 2000MG 2,000 MG/20 ML SYR IV SCH (22:22)
[2025-01-03] MEDS: PHENobarbitaL 30 MG TAB PO ONE (22:22)
[2025-01-03] MEDS: oxyBUTYnin chloride 5 MG TAB PO SCH (22:23)
[2025-01-03] MEDS: BACLOFEN 10 MG TAB PO SCH ×2 (22:23)
[2025-01-03] MEDS: MENTHOL-ZINC OXIDE 360 APPLN/120 GM TUBE EXT SCH (22:25)
[2025-01-03] MEDS: TUBE FEEDING WATER FLUSH GT SCH (23:09)
[2025-01-04] MEDS: ICU Protocol for HYPERglycemia SCH (00:54)
[2025-01-04] MEDS: INSULIN ASPART PER UNIT CHARGE SC SCH (00:54)
[2025-01-04 05:15] LABS: Albumin Globulin Ratio 0.8 (0.9-2); Albumin Level 3.3 gm/dl (3.4-5.0); BUN Creatinine Ratio 45.2 (10-20); Bilirubin,Total 0.3 mg/dl (0.2-1.0); Calcium 7.8 mg/dl (8.6-10.3); Creatinine Clr Calc Pharmacy 80.5 ml/min; Globulin 3.9 gm/dl (2.5-4.0); Magnesium 3.3 mg/dl (1.7-2.4); Potassium 3.9 mmol/L (3.5-5.1); Total Protein 7.2 gm/dl (6.0-8.3)
[2025-01-04 05:22] LABS: Basophils # (auto) 0.01 K/uL (0.00-0.20); Basophils % (auto) 0.2 %; Eosinophils # (auto) 0.04 K/uL (0.00-0.50); Eosinophils % (auto) 0.8 %; Hematocrit (blood only) 31.9 % (37.0-47.0); Hemoglobin 10.6 g/dl (12.0-16.0); Immature Granulocytes # (auto) 0.07 K/uL (0.01-0.20); Immature Granulocytes % (auto) 1.5 %; Lymphocytes # (auto) 0.49 K/uL (1.20-3.40); Lymphocytes % (auto) 10.4 %; Mean Corpuscular Hemoglobin 31.7 pg (25.0-34.0); Mean Corpuscular Hgb Conc 33.2 g/dL (32.0-36.0); Mean Corpuscular Volume 95.5 fL (80.0-100.0); Mean Platelet Volume 11.8 fL (9.4-12.4); Monocytes # (auto) 0.43 K/uL (0.11-0.59); Monocytes % (auto) 9.1 %; Neutrophils # (auto) 3.68 K/uL (1.40-6.50); Nucleated RBC # (auto) 0.08 K/uL (0.00-0.12); Nucleated RBC % (auto) 1.7 %; Platelet Count 111 K/uL (130-400); RDW Coefficient of Variation 16.7 % (11.5-14.5); RDW Standard Deviation 57.1 fL (36.4-46.3); Red Blood Count 3.34 M/uL (4.20-5.40); White Blood Count 4.72 K/ul (4.8-10.8)
[2025-01-04 05:28] LABS: INR 1.1 (0.9-1.1); Partial Thromboplastin Ratio 1.6; Partial Thromboplastin Time 42 Seconds (21-31); Prothrombin Time 11.4 Seconds (9.0-12.0)
[2025-01-04 05:43] LABS: Thyroid Stimulating Hormone 0.724 uIu/ml (0.300-4.500)
[2025-01-04] MEDS: LEVOTHYROXINE SODIUM 75 MCG TABLET PEG SCH (06:19)
[2025-01-04] MEDS ORDERED: LEVOTHYROXINE SODIUM 75 MCG TABLET PO SCH (06:30)
--- NOTE | 2025-01-04 07:28 | Hospitalist Progress Note ---
Date of Service January 04, 2025 Assessment & Plan (1) Acute and chronic respiratory failure with hypercapnia: (2) VAP (ventilator-associated pneumonia): (3) Hyponatremia: (4) Thrombocytopenia: Plan 24F readmitted with acute on chronic respiratory failure with hypercarbic metabolic encephalopathy. Recent DC with HAP on Levaquin and Bactrim, has diffuse rash. She was rescued with ventilation adjustment via chronic trach, pre hospital concern for acute on chronic HFpEF with known ASD and VSD. Previous history of CP, hydrocephalus s/p CLINICAL SOCIAL WORK AIDE shunt, chronic tracheostomy with ventilator dependence, hypothyroidism, ALL in remission, primary immunodeficiency, neurogenic bladder requiring intermittent catheterization, seizure disorder, and morbid obesity. She was seen for a telehealth posthospitalization visit on 01/01 and was noted to have increased edema in her extremities and signs of air hunger-she was prescribed Lasix 20 Mg p.o., she did not respond. She was also with hyponatremia, hyperkalemia, elevated LFTs, thrombocytopenic, and appeared volume overloaded. She tested positive for rhino/enterovirus and has a persistent dense LLL pneumonia. She will be admitted for acute on chronic respiratory failure with hypercarbia and hypoxemia, rash, and rhino/enterovirus with hyponatremia, acute on chronic HFpEF. #Acute and chronic respiratory failure with hypercapnia and hypoxemia/ventilator and tracheostomy dependent/acute encephalopathy/entero-/rhinovirus/VAP. Her home vent settings need to be addressed prior to discharge, will return to home vent 01/04. CXR not much changed with small pleural effusions, difficult to rule out pne umonia. Grew out MRSA and Pseudomonas last admission on tracheal sputum culture. - pulmonology input for vent settings, trach care, remains in ICU status Infectious disease to comment on duration of treatment given rash and return to hospital for MRSA/Pseudomonas infection -Discontinued Bactrim and Levaquin started IV cefepime and IV doxycycline , allergy feels ok to revisit these meds if ID feels required - Diuresing with IV Lasix for heart failure #Acute on chronic HFpEF-with weight increased from previous, edema all 4 extremities. With a history of congenital heart disease with preserved EF on echo from 2023. - Give Lasix 40 Mg IV Hyponatremia/hyperkalemia-corrected sodium 130 for hyperglycemia, potassium elevated at 5.6, hyponatremia secondary to heart failure/volume overload #Hyperglycemia-blood sugar elevated on arrival at [facility] and she has no history of diabetes. - Accu-Cheks, NovoLog sliding scale ordered - Check HgbA1c in the a.m. #thrombocytopenia- Platelets low at 100, H/O ALL which could also be viral suppression from rhino/enterovirus. Bactrim can also cause thrombocytopenia - Follow CBC, check LDH, haptoglobin, peripheral smear, reticulocyte count. With Rash Allergy does not feel that this is Bactrim mediated, recommended ig levels and tryptase and to continue with immunoglobin Hizentra-20% immunoglobulin replacement regimen: 10g q2 weekly next dose 01/08/25 -premedication regimen: -Benadryl (~50mg) delivered via the G-tube -acetaminophen (~650mg) delivered via the G-tube -dexamethasone (~1mg) delivered via the G-tube #Cerebral palsy/CLINICAL SOCIAL WORK AIDE shunt/seizure disorder/tube feed dependent with PEG tube-no recent seizures, requires total care - Ordered similar tube feeds-appreciate dietitian consult, free water flushes, Fatty liver, steatorrhea and constipation seen on CT abd/Pelvis -Transaminitis on labs from fatty liver and possibly meds - Continue home Keppra and phenobarbital-doses confirmed with mom, some - Continue frequent turning and skin care, tracheostomy care, PEG tube care #Hypothyroidism-TSH normal on last check in 02/2025 - Check TSH - Continue home levothyroxine dosing #Primary immunodeficiency-follows with allergy/immunology, is on Hizentra injections. 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 Turner catheter placed in the ER for convenience and can be removed at discharge DVT prophylaxis-SCDs only given thrombocytopenia and petechial rash Admission and Anticipated Discharge Date Admission Date: January 03, 2025 Subjective pt is awake and alert, but not following commands mother is at bedside and states she is not in her normal state discussed case with nurse at bedside and pulm med not planning any additional testing on left lung, however recommend ID eval to comment on continuing treatment of MRSA/pseudomonas pneumonia from previous hopsital stay Physical Exam Physical Exam: PT has trach and PEg lungs are coarse and shallow PEg in stomach skin with redness to face sparing carlos oral and periorbital areas Results & Data Results & Data Vital Signs (Past 12 Hours) Vital Signs Temp Pulse Pulse Resp BP BP Pulse Ox 01/04/25 06:03 96.3 F L 57 L 19 90/45 L 94 01/04/25 05:51 96.1 F L 58 L 19 94 01/04/25 05:00 63 18 92 01/04/25 04:03 96.1 F L 60 18 93 01/04/25 04:00 87/53 L 01/04/25 04:00 01/04/25 03:57 96.1 F L 59 L 18 93 01/04/25 03:15 61 18 93 01/04/25 03:12 97.0 F L 61 18 93 01/04/25 03:00 92/56 L 01/04/25 02:57 60 01/04/25 02:30 96.4 F L 62 18 94 01/04/25 02:06 96.1 F L 67 18 95 01/04/25 01:54 96.1 F L 66 18 95 01/04/25 00:38 61 18 94 01/04/25 00:36 95.2 F L 62 18 95 01/04/25 00:03 94.6 F L 63 18 88/61 L 95 01/04/25 00:00 01/03/25 23:48 94.5 F L 61 18 94 01/03/25 23:45 94.5 F L 61 18 94 01/03/25 23:16 01/03/25 23:12 93.9 F L 59 L 18 94 01/03/25 23:00 101/69 01/03/25 22:57 93.7 F L 59 L 18 94 01/03/25 22:39 93.7 F L 57 L 18 94 01/03/25 22:09 93.4 F L 55 L 18 114/79 95 01/03/25 21:54 93.4 F L 54 L 18 95 01/03/25 21:41 01/03/25 21:36 93.2 F L 54 L 18 94 01/03/25 21:09 93.0 F L 56 L 18 95 01/03/25 20:51 93.0 F L 57 L 18 96 01/03/25 20:18 58 L 18 96 01/03/25 20:10 01/03/25 20:10 62 18 94 04/27/25 20:07 123/85 01/03/25 19:57 128/88 01/03/25 19:48 98.2 F 60 18 122/88 96 O2 Del Method O2 Del Method FiO2 01/04/25 06:03 01/04/25 05:51 01/04/25 05:00 01/04/25 04:03 01/04/25 04:00 01/04/25 04:00 30 01/04/25 03:57 01/04/25 03:15 30 01/04/25 03:12 01/04/25 03:00 01/04/25 02:57 01/04/25 02:30 01/04/25 02:06 01/04/25 01:54 01/04/25 00:38 30 01/04/25 00:36 01/04/25 00:03 01/04/25 00:00 30 01/03/25 23:48 01/03/25 23:45 01/03/25 23:16 30 01/03/25 23:12 01/03/25 23:00 01/03/25 22:57 01/03/25 22:39 01/03/25 22:09 01/03/25 21:54 01/03/25 21:41 Mechanical Vent 01/03/25 21:36 01/03/25 21:09 01/03/25 20:51 01/03/25 20:18 01/03/25 20:10 Mechanical Vent 01/03/25 20:10 30 01/03/25 20:07 01/03/25 19:57 01/03/25 19:48 Mechanical Vent Laboratory Results review cbc review chemistry PG Care Time/CCT Total # of Minutes Spent Total Time Spent with Patient: Total time spent is greater than 50% in coordination of care (as documented) at patient's floor/unit and/or counseling patient: Coding Level of Care Code 20595 SUB INP/OBS CARE 3/50MIN Diagnoses Acute and chronic respiratory failure with hypercapnia J96.22 VAP (ventilator-associated pneumonia) J95.851 Hyponatremia E87.1 Thrombocytopenia D69.6
[2025-01-04 07:59] LABS: Estimated Average Glucose 97 mg/dl
[2025-01-04] MEDS ORDERED: TUBE FEEDING WATER FLUSH GT SCH (08:00)
[2025-01-04] MEDS ORDERED: FIBERSOURCE HN 1.2 CAL 1000 ML BAG GT SCH (08:00)
--- NOTE | 2025-01-04 08:14 | Critical Care Progress Note ---
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 She was noted to be hypercarbic and acidotic on arrival which improved with support. She was also found with multiple electrolyte disturbances, and end organ dysfunction in setting of entero-virus, recent bacterial pneumonia, and concern for atypical drug reaction with flushed face and petichael rash. She will be admitted to ICU for continued support and monitorng of end organ labs. Patient is full code. 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 viral illness vs. adverse drug reaction or combination of the above BNP in the morbidly obese patient with lower extremity edema - she has been diuresed in the ER with good response and her hemodynamics have been adequate - SEE Hem/ID section below - Will continue with hemodynamic support with diuresis or volume replacement as needed- for this evening will jean-pierre hold on further diuresis - follow renal function and liver enzymes daily - Hold Bactrim Respiratory - Hypercarbic/hypoxic respiratory failure, viral illness with enterovirus- previous bacterial pneumonia 2 weeks ago with psudomonas and MRSA in sputum --Acute on chronic hypercapnic respiratory failure Patient does have AVAPS machine at home She was admitted with hypercapnia even on 12/28/2024 I think there might be adjustment needed in her AVAPS machine given the persistent hypercapnia while she is compliant with her AVAPS She is not on oxygen at home at baseline ADAMA and ICS nebulizers scheduled GI - Elevated LFTS, constipation, presence of feeding tube --Transaminitis Could be secondary to drug-induced Continue to trend PT/INR within normal limit CPK within normal limit --Severe constipation Continue with bowel regimen RENAL/LYTES - IMER II, Hyponatremia --Hyponatremia Seems to be hypervolemic given the lower extremity edema as well as elevated BNP Continue with diuresis - As above - continue shukla catheter ENDO - Continue Synthroid, ICU hyperglycemic protocol HEME - Acute on chronic thrombocytopenia, petechial rash, concern for AKANKSHA/ADR --History of pancytopenia Acute on chronic thrombocytopenia Continue to trend PT/INR within normal limit 12/30/2024 Patient with flushed face, peticahal rash to lower extremities, organ dysfunction - Fluorokine eye staining- negative for uptake - LDH 323, mildly elevated Hold Bactrim Neurology has been consulted ID - ERV, bacterial pneumonia -- Sputum culture growing MRSA as well as Pseudomonas pansensitive except for tobramycin on 12/22/2024 Sputum culture was also positive for MRSA on 02/12/2024, probability of colonization from MRSA is there Was given Bactrim as an outpatient for MRSA Follow repeat sputum culture and blood culture Procalcitonin 0.02 on 12/28/2024 Respiratory BioFire positive for entero-/rhinovirus CT chest shows chronic lower lobe atelectasis with patchy groundglass opacity on the right side which has not changed since at least February 2024 --Prophylaxis VTE: IPC GI: Pantoprazole Lines: Peripheral Diet: Tube feeds Plan: In/out: -3.1 L, urine output 3328 Patient has petechial rash, I do not see any significant mucosal involvement. Unlikely to be Garcia-Joshua's syndrome Hold Bactrim Potassium being replaced Monitor H&H Continue with cefepime and doxycycline for Pseudomonas and MRSA in the sputum. Will get infectious disease involved to get their opinion regarding the colonization Patient's blood pressure is on the softer side. This is baseline as per the family. Will continue to monitor Urine output has gone down early in the morning. Will continue to monitor. I am not sure if the patient's AVAPS machine is working appropriately. Will try to get a baseline VBG and change settings on AVAPS with increasing backup respiratory to 15 and making sure the tidal volumes around 300 mL Will repeat VBG in 2 hours to see if there is any worsening in the carbon dioxide if there is then adjustment needs to be made to her home AVAPS machine I have personally spent 45 minutes of critical care time in the direct management of this patient. This is a life/limb threatening event. This includes time spent evaluating patient, direct bedside care, chart review, placing orders, interpretation of diagnostic studies, discussion with consultants, patient, and family members, as well as other required patient management activities. This time is exclusive of all separately billable procedures, and teaching time and separate from and in addition to any other critical care service time. Thank you for allowing us to participate in the care of this patient. Please refer to my attending physician's documentation for any further recommendations. Admission and Anticipated Discharge Date Admission Date: January 03, 2025 Subjective Patient seen and examined at bedside. No acute distress, no adverse events overnight. Patient's father was in the room at the time of examination Her systolic blood pressure was in the mid 80s with MAP in the high 50s to low 60s. She was saturating 92-93% on 30% FiO2 Has been afebrile Review of Systems 2 Review of Systems: All systems reviewed & are unremarkable except as noted in Subjective Physical Exam 2 Physical Exam: Constitutional: No acute distress HEENT: PERRLA Respiratory system: Decreased air entry bilaterally, no wheeze, no rhonchi, no crackles CVS: S1-S2 positive, no murmurs or gallops Abdomen: Soft, nontender, nondistended, positive bowel sounds x4, obese, positive PEG Extremities: +2 pulses bilaterally radialis/ dorsalis pedis, no cyanosis, no edema Neuro: Awake and alert Psych: Unable to assess G/U: Positive Shukla Skin: Diffuse petechial rash appreciated bilaterally upper and lower extremity as well as abdominal, no clear mucosal lesions appreciated Skin: no rashes, warm and dry Lymphatic: no cervical or axillary lymphadenopathy Results & Data Results & Data Vital Signs (Past 12 Hours) Vital Signs Temp Pulse Resp BP Pulse Ox O2 Del Method O2 Del Method 01/04/25 06:03 35.7 C L 57 L 19 90/45 L 94 01/04/25 05:51 35.6 C L 58 L 19 94 01/04/25 05:00 63 18 92 01/04/25 04:03 35.6 C L 60 18 93 01/04/25 04:00 87/53 L 01/04/25 04:00 01/04/25 03:57 35.6 C L 59 L 18 93 01/04/25 03:15 61 18 93 01/04/25 03:12 36.1 C L 61 18 93 01/04/25 03:00 92/56 L 01/04/25 02:57 60 01/04/25 02:30 35.8 C L 62 18 94 01/04/25 02:06 35.6 C L 67 18 95 01/04/25 01:54 35.6 C L 66 18 95 01/04/25 00:38 61 18 94 01/04/25 00:36 35.1 C L 62 18 95 01/04/25 00:03 34.8 C L 63 18 88/61 L 95 01/04/25 00:00 01/03/25 23:48 34.7 C L 61 18 94 01/03/25 23:45 34.7 C L 61 18 94 01/03/25 23:16 01/03/25 23:12 34.4 C L 59 L 18 94 01/03/25 23:00 101/69 01/03/25 22:57 34.3 C L 59 L 18 94 01/03/25 22:39 34.3 C L 57 L 18 94 01/03/25 22:09 34.1 C L 55 L 18 114/79 95 01/03/25 21:54 34.1 C L 54 L 18 95 01/03/25 21:41 Mechanical Vent 01/03/25 21:36 34.0 C L 54 L 18 94 01/03/25 21:09 33.9 C L 56 L 18 95 01/03/25 20:51 33.9 C L 57 L 18 96 01/03/25 20:18 58 L 18 96 01/03/25 20:10 Mechanical Vent 01/03/25 20:10 62 18 94 FiO2 01/04/25 06:03 01/04/25 05:51 01/04/25 05:00 01/04/25 04:03 01/04/25 04:00 01/04/25 04:00 30 01/04/25 03:57 01/04/25 03:15 30 01/04/25 03:12 01/04/25 03:00 01/04/25 02:57 01/04/25 02:30 01/04/25 02:06 01/04/25 01:54 01/04/25 00:38 30 01/04/25 00:36 01/04/25 00:03 01/04/25 00:00 30 01/03/25 23:48 01/03/25 23:45 01/03/25 23:16 30 01/03/25 23:12 01/03/25 23:00 01/03/25 22:57 01/03/25 22:39 01/03/25 22:09 01/03/25 21:54 01/03/25 21:41 01/03/25 21:36 01/03/25 21:09 01/03/25 20:51 01/03/25 20:18 01/03/25 20:10 01/03/25 20:10 30 Laboratory Results 01/04/25 04:37 01/04/25 04:37 Coding Level of Care Code 19795 CRITICAL CARE 1ST 30-74M Diagnoses Viral illness B34.9 Stage 2 acute kidney injury N17.9 Acute and chronic respiratory failure with hypercapnia J96.22 Acute and chronic respiratory failure, unspecified whether with hypoxia or hypercapnia J96.20 Acute hyponatremia E87.1 Seizure disorder G40.909 Primary immune deficiency disorder D84.89 Transaminitis R74.01 Congenital hydrocephalus Q03.9 Congenital stenosis of pulmonary valve Q22.1 Slow transit constipation K59.01 Constipation type: slow transit constipation (11) Constipation Constipation type: slow transit constipation Qualified Code(s): K59.01 - Slow transit constipation
[2025-01-04] MEDS: BUDESONIDE 0.25 MG/2 ML VIAL (PULMICORT) NEB SCH (08:27)
[2025-01-04] MEDS: ALBUTEROL 0.083% NEBU SOLN 3 ML VIAL INH PRN (08:27)
[2025-01-04] MEDS: LANSOPRAZOLE 30 MG SOLTAB PEG SCH (08:45)
[2025-01-04] MEDS: MULTI VIT W/MINERALS LIQUID 15 ML UDC PEG SCH (08:45)
[2025-01-04] MEDS: ACETAMINOPHEN SUSP 160 MG/5 ML BTL PEG PRN (08:46)
[2025-01-04] MEDS: PHENobarbitaL 30 MG TAB PO SCH ×2 (08:52→18:03)
[2025-01-04 09:51] LABS: iSTAT Arterial Blood Gas HCO3 31 meg/L (19-24); iSTAT Arterial Blood Gas pCO2 115 mmHg (35-46); iSTAT Arterial Blood Gas pH 7.03 (7.35-7.45); iSTAT Arterial Blood Gas pO2 50 mmHg (80-95); iSTAT Carbon Dioxide 34 mmol/L (24-31); iSTAT Hematocrit 40 % (37-47); iSTAT Hemoglobin 13.6 g/dl (12.0-16.0); iSTAT Potassium 5.5 mmol/L (3.3-5.0); iSTAT Sodium 126 mmol/L (135-144)
[2025-01-04 11:08] LABS: iSTAT Art Bld Gas pCO2 Correct 52 mmHg (35-46); iSTAT Art Bld Gas pH Corrected 7.319 (7.35-7.45); iSTAT Arterial Blood Gas HCO3 27 meg/L (19-24); iSTAT Arterial Blood Gas pCO2 54 mmHg (35-46); iSTAT Arterial Blood Gas pH 7.31 (7.35-7.45); iSTAT Arterial Blood Gas pO2 56 mmHg (80-95); iSTAT Arterial Blood Gas pO2 C 52; iSTAT Carbon Dioxide 29 mmol/L (24-31); iSTAT FiO2 30 %; iSTAT Hematocrit 33 % (37-47); iSTAT Hemoglobin 11.2 g/dl (12.0-16.0); iSTAT Potassium 3.3 mmol/L (3.3-5.0); iSTAT Sample Type VEN; iSTAT Site L Brachial; iSTAT Sodium 129 mmol/L (135-144); iSTAT SpO2 92
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
[2025-01-04] MEDS: ALBUTEROL 0.083% NEBU SOLN 3 ML VIAL NEB SCH (15:00)
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
[2025-01-04 17:03] LABS: iSTAT Art Bld Gas pCO2 Correct 43 mmHg (35-46); iSTAT Art Bld Gas pH Corrected 7.392 (7.35-7.45); iSTAT Arterial Blood Gas HCO3 27 meg/L (19-24); iSTAT Arterial Blood Gas pCO2 45 mmHg (35-46); iSTAT Arterial Blood Gas pH 7.38 (7.35-7.45); iSTAT Arterial Blood Gas pO2 52 mmHg (80-95); iSTAT Arterial Blood Gas pO2 C 48; iSTAT Carbon Dioxide 28 mmol/L (24-31); iSTAT FiO2 24 %; iSTAT Hematocrit 33 % (37-47); iSTAT Hemoglobin 11.2 g/dl (12.0-16.0); iSTAT Potassium 4.1 mmol/L (3.3-5.0); iSTAT Sample Type VEN; iSTAT Site L Brachial; iSTAT Sodium 126 mmol/L (135-144); iSTAT SpO2 93
[2025-01-05 04:40] LABS: Base Excess VBG -0.1 mEq/L; HCO3 VBG 27 mmol/L; Oxygen Saturation VBG 93.1 %; PCO2 VBG 52 mmHg (38-50); PO2 VBG 60 mmHg; pH VBG 7.32 (7.36-7.41)
[2025-01-05 04:49] LABS: Basophils # (auto) 0.04 K/uL (0.00-0.20); Basophils % (auto) 0.6 %; Hematocrit (blood only) 29.5 % (37.0-47.0); Hemoglobin 9.9 g/dl (12.0-16.0); Immature Granulocytes # (auto) 0.05 K/uL (0.01-0.20); Immature Granulocytes % (auto) 0.7 %; Lymphocytes # (auto) 1.43 K/uL (1.20-3.40); Lymphocytes % (auto) 21.2 %; Mean Corpuscular Hemoglobin 31.9 pg (25.0-34.0); Mean Corpuscular Hgb Conc 33.6 g/dL (32.0-36.0); Mean Corpuscular Volume 95.2 fL (80.0-100.0); Mean Platelet Volume 11.5 fL (9.4-12.4); Monocytes # (auto) 0.83 K/uL (0.11-0.59); Monocytes % (auto) 12.3 %; Neutrophils # (auto) 4.19 K/uL (1.40-6.50); Neutrophils % (auto) 62.2 %; Nucleated RBC # (auto) 0.02 K/uL (0.00-0.12); Nucleated RBC % (auto) 0.3 %; Platelet Count 100 K/uL (130-400); RDW Coefficient of Variation 17.2 % (11.5-14.5); RDW Standard Deviation 58.9 fL (36.4-46.3); White Blood Count 6.74 K/ul (4.8-10.8)
[2025-01-05 05:02] LABS: Calcium 7.3 mg/dl (8.6-10.3); Creatinine Clr Calc Pharmacy 55.2 ml/min; Immunoglobulin A 444.6 mg/dl (70-400); Immunoglobulin G 983.9 mg/dl (635-1741); Immunoglobulin M 41.6 mg/dl (45-281); Magnesium 3.6 mg/dl (1.7-2.4); Potassium 4.5 mmol/L (3.5-5.1)
--- NOTE | 2025-01-05 06:50 | XRay Report ---
EXAM: XR chest 1V portable CLINICAL HISTORY: Eval lung ham, decreased lung sounds left TECHNIQUE: X-ray of the chest was performed in AP view. COMPARISON: 01/03/2025 FINDINGS: Mild blunting of bilateral costophrenic angles could be due to small pleural effusion/pleural thickening. Bilateral lower lung zone airspace opacities. The cardiomediastinal silhouette appears enlarged. No acute osseous abnormality. Tracheostomy tube in situ. IMPRESSION: 1. Mild blunting of bilateral costophrenic angles could be due to small pleural effusion/pleural thickening. 2. Bilateral lower lung zone airspace opacities. 3. The cardiomediastinal silhouette appears enlarged. 4. Findings are worsening since the prior study. Electronically signed by Aldair Albarran 01-05-2025 06:49 AM
--- NOTE | 2025-01-05 07:34 | Critical Care Progress Note ---
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 She was noted to be hypercarbic and acidotic on arrival which improved with support. She was also found with multiple electrolyte disturbances, and end organ dysfunction in setting of entero-virus, recent bacterial pneumonia, and concern for atypical drug reaction with flushed face and petichael rash. She will be admitted to ICU for continued support and monitorng of end organ labs. Patient is full code. Neuro - Lethargy - HX CP CYLINDRICAL MIXER shunt placement and siezure disorder CAM ICU: XANDER - Continue to support metabolic and respiratory acidosis - baseline is she opens eyes, smiles, and grimmaces -- History of seizure disorder On phenobarbital at home Cardiac - sepsis, acute on chronic pulmonary edema - she presents with hypercarbic respiratory failure with sources of lung- viral and likely remaining bacterial component and with organ dysfunction- her organ dysfunction was also concern for ADR/AKANKSHA- in setting of Bactrim DDX: septic shock vs. viral illness vs. adverse drug reaction or combination of the above BNP in the morbidly obese patient with lower extremity edema - she has been diuresed in the ER with good response and her hemodynamics have been adequate - SEE Hem/ID section below - Will continue with hemodynamic support with diuresis or volume replacement as needed- for this evening will jean-pierre hold on further diuresis - follow renal function and liver enzymes daily - Hold Bactrim Respiratory - Hypercarbic/hypoxic respiratory failure, viral illness with enterovirus- previous bacterial pneumonia 2 weeks ago with psudomonas and MRSA in sputum --Acute on chronic hypercapnic respiratory failure Patient does have BiPAP machine at home She was admitted with hypercapnia even on 12/28/2024 I think there might be adjustment needed in her BiPAP machine given the persistent hypercapnia while she is compliant with her BiPAP She is not on oxygen at home at baseline I did speak with patient's RT Dillon on 01/05/2025 at [phone], currently the IPAP ranges 20-22 and EPAP 6. Would recommend to increase the IPAP range to 22- 26 to aim for the tidal volume of 300 and increase the backup rate to 15 GI - Elevated LFTS, constipation, presence of feeding tube --Transaminitis Could be secondary to drug-induced Continue to trend PT/INR within normal limit CPK within normal limit --Severe constipation Continue with bowel regimen RENAL/LYTES - IMER II, Hyponatremia -- IMER Follow-up urine lites Monitor BUN/creatinine Avoid nephrotoxic medications Strict ins and outs --Hyponatremia Seems to be hypervolemic given the lower extremity edema as well as elevated BNP Phenobarbital is also associated with hyponatremia Patient also gets free water flushes on a regular basis which could be the reason as well Serum osmolality 292, urine osmolality 224, urine sodium < 10 - As above - continue shukla catheter ENDO - Continue Synthroid, ICU hyperglycemic protocol HEME - Acute on chronic thrombocytopenia, petechial rash -- Pancytopenia, history of leukemia Acute on chronic thrombocytopenia Continue to trend PT/INR within normal limit 12/30/2024 Bactrim can also cause pancytopenia -- Patient with flushed face, peticahal rash to lower extremities, organ dysfunction - Fluorokine eye staining- negative for uptake - LDH 323, mildly elevated, no eosinophilia on the peripheral smear Hold Bactrim Neurology has been consulted ID - ERV, bacterial pneumonia -- Sputum culture growing MRSA as well as Pseudomonas pansensitive except for tobramycin on 12/22/2024 Sputum culture was also positive for MRSA on 02/12/2024, probability of colonization from MRSA is there Was given Bactrim as an outpatient for MRSA Follow repeat sputum culture and blood culture Procalcitonin 0.02 on 12/28/2024 Respiratory BioFire positive for entero-/rhinovirus CT chest shows chronic lower lobe atelectasis with patchy groundglass opacity on the right side which has not changed since at least February 2024 -- Patient has petechial rash, I do not see any significant mucosal involvement. Unlikely to be Garcia-Joshua's syndrome Notes from immunology reviewed, there is thinking the rash is not related to Bactrim but rather a viral infection --Prophylaxis VTE: IPC GI: Pantoprazole Lines: Peripheral Diet: Tube feeds Plan: In/out: +1.1 L, urine output 633, -1.9 L since coming to the hospital Patient's serum sodium seems to be getting worse, we did not diurese her yesterday during the day. Her creatinine is getting worse today She has been hypotensive, her baseline blood pressure has been on the lower side but given the IMER I would have low threshold to start her on vasopressor. I did speak with patient's mother was at bedside and she said that her systolic in the high 80s to low 90s is baseline for the patient Currently patient has been getting 750 mL of free water by mother, they also delivered feeding and free water to decrease the calories. She is also getting free water flushes even with medications. That could also be one of the reason why her sodium is low on top of phenobarbital which has tendency to decrease the sodium Repeat BMP later today Follow-up serum osmolality, urine osmolality as well as urine lites Notes of infectious disease reviewed, they are think this is all colonization, if the cultures are negative then we will discontinue antibiotics I did speak with patient's RT Dillon on 01/05/2025 at [phone], currently the IPAP ranges 20-22 and EPAP 6. Would recommend to increase the IPAP range to 22- 26 to aim for the tidal volume of 300 and increase the backup rate to 15 I have personally spent 37 minutes of critical care time in the direct management of this patient. This is a life/limb threatening event. This includes time spent evaluating patient, direct bedside care, chart review, placing orders, interpretation of diagnostic studies, discussion with consultants, patient, and family members, as well as other required patient management activities. This time is exclusive of all separately billable procedures, and teaching time and separate from and in addition to any other critical care service time. Please note the above document was generated using voice recognition software. It may contain grammatical, syntax or spelling errors. Admission and Anticipated Discharge Date Admission Date: January 03, 2025 Subjective Patient seen and examined at bedside. No acute distress Patient's mother was in the room at the time of examination Systolic blood pressure was in the low 90s. Overnight patient's blood pressure was in the mid 80s while she was sleeping Has been afebrile Had some blood-tinged secretion. Getting tube feeds Review of Systems 2 Review of Systems: All systems reviewed & are unremarkable except as noted in Subjective Physical Exam 2 Physical Exam: Constitutional: No acute distress HEENT: PERRLA Respiratory system: Decreased air entry bilaterally, no wheeze, no rhonchi, no crackles CVS: S1-S2 positive, no murmurs or gallops Abdomen: Soft, nontender, nondistended, positive bowel sounds x4, obese, positive PEG Extremities: +2 pulses bilaterally radialis/ dorsalis pedis, no cyanosis, no edema Neuro: Awake and alert Psych: Unable to assess G/U: Positive Shukla Skin: Diffuse petechial rash appreciated bilaterally upper and lower extremity as well as abdominal --> improving from before, no clear mucosal lesions appreciated Skin: no rashes, warm and dry Lymphatic: no cervical or axillary lymphadenopathy Results & Data Results & Data Vital Signs (Past 12 Hours) Vital Signs Temp Pulse Pulse Resp BP Pulse Ox O2 Del Method 01/05/25 06:06 35.0 C L 53 L 11 L 82/31 L 90 01/05/25 05:45 54 L 17 95 Mechanical Vent 01/05/25 05:42 35.0 C L 54 L 15 94 01/05/25 05:18 35.0 C L 53 L 15 90 01/05/25 05:04 91/46 L 01/05/25 05:03 34.9 C L 52 L 16 78/35 L 93 01/05/25 04:48 35.0 C L 52 L 15 94 01/05/25 04:07 50 L 93 Mechanical Vent 01/05/25 04:06 34.9 C L 52 L 15 98/45 L 92 01/05/25 03:21 34.8 C L 50 L 15 93 01/05/25 03:03 34.8 C L 51 L 15 92/49 L 92 01/05/25 02:57 34.8 C L 51 L 16 92 01/05/25 02:03 34.7 C L 49 L 15 96/52 L 94 01/05/25 01:57 34.8 C L 49 L 15 94 01/05/25 01:09 34.7 C L 51 L 15 94/56 L 96 01/05/25 00:45 34.8 C L 54 L 15 92 01/05/25 00:09 34.9 C L 52 L 15 93 01/05/25 00:04 89/43 L 01/05/25 00:03 34.9 C L 53 L 15 94 01/05/25 00:02 82/35 L 01/05/25 00:00 34.9 C L 53 L 15 84/32 L 94 01/05/25 00:00 54 L 01/04/25 23:21 35.1 C L 55 L 15 93 01/04/25 23:01 82/37 L 01/04/25 22:54 35.3 C L 58 L 17 93 01/04/25 22:00 67 25 H 01/04/25 21:03 36.4 C L 67 17 92 01/04/25 21:00 97/49 L 01/04/25 20:57 36.4 C L 67 17 92 01/04/25 20:18 36.5 C 71 18 92 01/04/25 20:00 95/44 L 01/04/25 19:53 Mechanical Vent 01/04/25 19:48 36.5 C 72 19 92 O2 Flow Rate 01/05/25 06:06 01/05/25 05:45 2 01/05/25 05:42 01/05/25 05:18 01/05/25 05:04 01/05/25 05:03 01/05/25 04:48 01/05/25 04:07 01/05/25 04:06 01/05/25 03:21 01/05/25 03:03 01/05/25 02:57 01/05/25 02:03 01/05/25 01:57 01/05/25 01:09 01/05/25 00:45 01/05/25 00:09 01/05/25 00:04 01/05/25 00:03 01/05/25 00:02 01/05/25 00:00 01/05/25 00:00 01/04/25 23:21 01/04/25 23:01 01/04/25 22:54 01/04/25 22:00 01/04/25 21:03 01/04/25 21:00 01/04/25 20:57 01/04/25 20:18 01/04/25 20:00 01/04/25 19:53 01/04/25 19:48 Laboratory Results 01/05/25 04:28 01/05/25 04:28 Coding Level of Care Code 83642 CRITICAL CARE 1ST 30-74M Diagnoses Viral illness B34.9 Stage 2 acute kidney injury N17.9 Acute and chronic respiratory failure with hypercapnia J96.22 Acute and chronic respiratory failure, unspecified whether with hypoxia or hypercapnia J96.20 Acute hyponatremia E87.1 Seizure disorder G40.909 Primary immune deficiency disorder D84.89 Transaminitis R74.01 Congenital hydrocephalus Q03.9 Congenital stenosis of pulmonary valve Q22.1 Slow transit constipation K59.01 Constipation type: slow transit constipation (11) Constipation Constipation type: slow transit constipation Qualified Code(s): K59.01 - Slow transit constipation
[2025-01-05 09:50] LABS: Appearance Urine Clear (Clear); Bacteria Urine Automated None Seen (None Seen); Bilirubin Urine Negative (Negative); Blood Urine 2+ (Negative); Cast Urine Automated 0-2 /lpf (0-2); Color Urine Yellow; Epithelial Cell Urine Auto 0-2 /hpf (0-2); Glucose Urine UA Negative (Negative); Ketones Urine Negative (Negative); Leukocyte Esterase Urine Negative (Negative); Nitrite Urine Negative (Negative); Protein Urine 1+ (Negative); Specific Gravity Urine 1.014 (1.000-1.030); Urobilinogen Urine Negative (Negative); WBC Urine Automated 0-5 /hpf (0-5); pH Urine 5.5 (4.5-7.5)
[2025-01-05 10:22] LABS: Chloride Random Urine < 15 mmol/L; Potassium Random Urine 26.3 mmol/L; Sodium Random Urine < 10 mmol/L
[2025-01-05 10:31] LABS: Creatinine Urine Random 27.2 mg/dl
--- NOTE | 2025-01-05 11:06 | Infectious Disease Progress Nt ---
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 On admission, she was afebrile, initially normotensive, on 30% FiO2 Initial labs with WBC 7.83, Cr 1.14, AST 77, ALT 139. PCT 0.78. UA 6-10 WBC. MRSA screen pos. RPP with entero/rhinovirus. CXR with continued prominence of pulmonary vascularity suggesting pulmonary venous HTN, retrocardiac opacity and obscured left costophrenic angle, which may be due to atelectasis or consolidation as well as pleural effusion. CTAP w IV contrast showed findings c/f steatorrhea, trace bilateral pleural effusions, subjacent atelectasis. She was admitted to the ICU for monitoring. Given rash, there were concerns for drug reaction. Seen by allergy/imm and they do not think she has a drug reaction. She has low BPs but this is baseline per family. She has been started on cefepime and doxycycline. ID consulted 01/04. Patient has been on 2 weeks of abx since they were started on 12/22 for the MRSA/Pseudomonas in sputum cultures. Blood cx are still in process and 48hrs will be later today. Im going to stop doxycycline since I think presentation is primarily viral and there is no role for doxycycline if there were a bacteremia. If BCX remain negative today, then favor also stopping cefepime. # Acute on chronic respiratory failure # Rhinovirus/Enterovirus infection # Rash viral exanthem # Transaminitis # Memory B-cell defect - f/u blood cultures - Letitia stopped doxycycline - if BCX remain negative at 48hrs then stop cefepime - supportive care for rhinovirus/enterovirus infection Will continue to follow. If questions or concerns, contact via [employer] or Infectious Disease Call Center . Asmita Ibanez MD [facility], Division of Infectious Diseases Admission and Anticipated Discharge Date Admission Date: January 03, 2025 Subjective Subsequent visit was provided via telemedicine using two-way real-time interactive telecommunication between the patient and the telemedicine provider. For the duration of the visit, the provider was performing the assessment from a different facility than the patient. This includesuse of bluetooth stethoscope forauscultationperformed by the telepresenter that the telemedicine provider can hear if described in the physical exam. Behavioral Medical Director contact information: Please call [facility] Call Center [phone]. (Phone Number For Physician Use Only) After establishing a telemedicine visit, patient was: Patient was verified with two unique identifiers, Patient/authorized rep acknowledged consent and understanding and Gave permission to continue telehealth session Time Spent with Patient: Subsequent => 55 min Patient's father says that she is doing better today. Rash is less. Physical Exam Physical Exam: General: not awake HEENT: mmm Neck: trach Lungs: no crackles Heart: no appreciable murmurs Abdomen: soft, PEG site c/d/i Ext: feet appear swollen Skin: erythema over face Other: brown secretions noted in canister Results & Data Vital Signs (Past 12 Hours) Vital Signs Temp Pulse Pulse Resp BP Pulse Ox O2 Del Method 01/05/25 08:48 64 20 96 Mechanical Vent 01/05/25 08:00 35.4 C L 60 15 93/37 L 95 01/05/25 08:00 52 L 01/05/25 07:30 Mechanical Vent 01/05/25 07:00 35 C L 53 L 15 91/42 L 96 Mechanical Vent 01/05/25 06:06 35.0 C L 53 L 11 L 82/31 L 90 01/05/25 05:45 54 L 17 95 Mechanical Vent 01/05/25 05:42 35.0 C L 54 L 15 94 04/29/25 05:18 35.0 C L 53 L 15 90 01/05/25 05:04 91/46 L 01/05/25 05:03 34.9 C L 52 L 16 78/35 L 93 01/05/25 04:48 35.0 C L 52 L 15 94 01/05/25 04:07 50 L 93 Mechanical Vent 01/05/25 04:06 34.9 C L 52 L 15 98/45 L 92 01/05/25 03:21 34.8 C L 50 L 15 93 01/05/25 03:03 34.8 C L 51 L 15 92/49 L 92 01/05/25 02:57 34.8 C L 51 L 16 92 01/05/25 02:03 34.7 C L 49 L 15 96/52 L 94 01/05/25 01:57 34.8 C L 49 L 15 94 01/05/25 01:09 34.7 C L 51 L 15 94/56 L 96 01/05/25 00:45 34.8 C L 54 L 15 92 01/05/25 00:09 34.9 C L 52 L 15 93 01/05/25 00:04 89/43 L 01/05/25 00:03 34.9 C L 53 L 15 94 01/05/25 00:02 82/35 L 01/05/25 00:00 34.9 C L 53 L 15 84/32 L 94 01/05/25 00:00 54 L 01/04/25 23:21 35.1 C L 55 L 15 93 O2 Flow Rate 01/05/25 08:48 2 01/05/25 08:00 01/05/25 08:00 01/05/25 07:30 01/05/25 07:00 01/05/25 06:06 01/05/25 05:45 2 01/05/25 05:42 01/05/25 05:18 01/05/25 05:04 01/05/25 05:03 01/05/25 04:48 01/05/25 04:07 01/05/25 04:06 01/05/25 03:21 01/05/25 03:03 01/05/25 02:57 01/05/25 02:03 01/05/25 01:57 01/05/25 01:09 01/05/25 00:45 01/05/25 00:09 01/05/25 00:04 01/05/25 00:03 01/05/25 00:02 01/05/25 00:00 01/05/25 00:00 01/04/25 23:21 Laboratory Results Labs reviewed. Diagnostic Findings Imaging reviewed.
[2025-01-05] MEDS: ICU Protocol for HYPERglycemia SCH (11:39)
[2025-01-05] MEDS: TUBE FEEDING WATER FLUSH GT SCH (14:14)
[2025-01-05 15:24] LABS: Calcium 7.3 mg/dl (8.6-10.3); Potassium 4.6 mmol/L (3.5-5.1)
--- NOTE | 2025-01-05 15:25 | Hospitalist Progress Note ---
Date of Service January 05, 2025 Assessment & Plan (1) Acute and chronic respiratory failure with hypercapnia: (2) VAP (ventilator-associated pneumonia): (3) Hyponatremia: (4) Thrombocytopenia: Plan 24F readmitted with acute on chronic respiratory failure with hypercarbic metabolic encephalopathy. Recent DC with HAP on Levaquin and Bactrim, has diffuse rash. She was rescued with ventilation adjustment via chronic trach, pre hospital concern for acute on chronic HFpEF with known ASD and VSD. Previous history of CP, hydrocephalus s/p TIN FLOPPER shunt, chronic tracheostomy with ventilator dependence, hypothyroidism, ALL in remission, primary immunodeficiency, neurogenic bladder requiring intermittent catheterization, seizure disorder, and morbid obesity. She was seen for a telehealth posthospitalization visit on 01/01 and was noted to have increased edema in her extremities and signs of air hunger-she was prescribed Lasix 20 Mg p.o., she did not respond. She was also with hyponatremia, hyperkalemia, elevated LFTs, thrombocytopenic, and appeared volume overloaded. She tested positive for rhino/enterovirus and has a persistent dense LLL pneumonia. She will be admitted for acute on chronic respiratory failure with hypercarbia and hypoxemia, rash, and rhino/enterovirus with hyponatremia, acute on chronic HFpEF. #Acute and chronic respiratory failure with hypercapnia and hypoxemia/ventilator and tracheostomy dependent/acute encephalopathy/entero-/rhinovirus/VAP. Her home vent settings need to be addressed prior to discharge, did return to home vent 01/04. CXR not much changed with small pleural effusions, difficult to rule out pneu monia. Grew out MRSA and Pseudomonas last admission on tracheal sputum culture. - pulmonology input for vent settings, trach care, remains in ICU status -Discontinued Bactrim and Levaquin, allergy feels ok to revisit these meds if ID feels required started IV cefepime and IV doxycycline id streamlined to just Cefepime and will stop this if cultures are negative at 48H, - Diuresing with IV Lasix for heart failure #Acute on chronic HFpEF-with weight increased from previous, edema all 4 extremities. With a history of congenital heart disease with preserved EF on echo from 2023. - Give Lasix 40 Mg IV Hyponatremia/hyperkalemia-hyponatremia secondary to heart failure/volume overload, reduce free water, putting our dilute urine maybe attempt at auto correction #Hyperglycemia-blood sugar elevated on arrival at [facility] and she has no history of diabetes. - Accu-Cheks, NovoLog sliding scale ordered - HgbA1c 5.o #thrombocytopenia- Platelets stable but low at 100, H/O ALL which could also be viral suppression from rhino/enterovirus. Bactrim can also cause thrombocytopenia - Follow CBC, check LDH, haptoglobin, peripheral smear, reticulocyte count. With Rash Allergy does not feel that this is Bactrim mediated, recommended ig levels and tryptase and to continue with immunoglobin Hizentra-20% immunoglobulin replacement regimen: 10g q2 weekly next dose 01/08/25 -premedication regimen: -Benadryl (~50mg) delivered via the G-tube -acetaminophen (~650mg) delivered via the G-tube -dexamethasone (~1mg) delivered via the G-tube #Cerebral palsy/TIN FLOPPER shunt/seizure disorder/tube feed dependent with PEG tube-no recent seizures, requires total care - Ordered similar tube feeds-appreciate dietitian consult, free water flushes, Fatty liver, steatorrhea and constipation seen on CT abd/Pelvis -Transaminitis on labs from fatty liver and possibly meds - Continue home Keppra and phenobarbital-doses confirmed with mom, some - Continue frequent turning and skin care, tracheostomy care, PEG tube care #Hypothyroidism-TSH normal on last check in 02/2025 - Check TSH - Continue home levothyroxine dosing #Primary immunodeficiency-follows with allergy/immunology, is on Hizentra injections. 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 Turner catheter placed in the ER for convenience and can be removed at discharge DVT prophylaxis-SCDs only given thrombocytopenia and petechial rash Admission and Anticipated Discharge Date Admission Date: January 03, 2025 Subjective pt opens eyes does not have purposeful responses, seems comfortable breathing on her own vent Physical Exam Physical Exam: distant breath sounds, cardiac likewise is distant has LE edema, rash resolving Results & Data Results & Data Vital Signs (Past 12 Hours) Vital Signs Temp Pulse Pulse Resp BP Pulse Ox O2 Del Method 01/05/25 15:12 72 20 94 Mechanical Vent 01/05/25 08:48 64 20 96 Mechanical Vent 01/05/25 08:00 95.7 F L 60 15 93/37 L 95 01/05/25 08:00 52 L 01/05/25 07:30 Mechanical Vent 01/05/25 07:00 95 F L 53 L 15 91/42 L 96 Mechanical Vent 01/05/25 06:06 95.0 F L 53 L 11 L 82/31 L 90 01/05/25 05:45 54 L 17 95 Mechanical Vent 01/05/25 05:42 95.0 F L 54 L 15 94 01/05/25 05:18 95.0 F L 53 L 15 90 01/05/25 05:04 91/46 L 01/05/25 05:03 94.8 F L 52 L 16 78/35 L 93 01/05/25 04:48 95.0 F L 52 L 15 94 01/05/25 04:07 50 L 93 Mechanical Vent 01/05/25 04:06 94.8 F L 52 L 15 98/45 L 92 01/05/25 03:21 94.6 F L 50 L 15 93 O2 Flow Rate 01/05/25 15:12 2 01/05/25 08:48 2 01/05/25 08:00 01/05/25 08:00 01/05/25 07:30 01/05/25 07:00 01/05/25 06:06 01/05/25 05:45 2 01/05/25 05:42 01/05/25 05:18 01/05/25 05:04 01/05/25 05:03 01/05/25 04:48 01/05/25 04:07 01/05/25 04:06 01/05/25 03:21 Laboratory Results review chemistry, urine testing, hypervolemic hyponatremia PG Care Time/CCT Total # of Minutes Spent Total Time Spent with Patient: Total time spent is greater than 50% in coordination of care (as documented) at patient's floor/unit and/or counseling patient: Coding Level of Care Code 63246 SUB INP/OBS CARE 3/50MIN Diagnoses Acute and chronic respiratory failure with hypercapnia J96.22 VAP (ventilator-associated pneumonia) J95.851 Hyponatremia E87.1 Thrombocytopenia D69.6
[2025-01-05 15:29] LABS: BUN Creatinine Ratio 47.8 (10-20); Creatinine Clr Calc Pharmacy 52.9 ml/min
[2025-01-05] MEDS: CEFEPIME 2000MG 2,000 MG/20 ML SYR IV SCH (17:52)
[2025-01-05] MEDS ORDERED: PHENobarbitaL 20 MG/5 ML PO SCH (19:00)
[2025-01-05] MEDS: MIDODRINE HCL 2.5 MG TAB PO ONE (21:27)
[2025-01-05] MEDS: CETIRIZINE ORAL SOLN 1 MG/ML GT SCH (21:27)
[2025-01-05] MEDS: levETIRAcetam ORAL SOLN 100MG/ML PO SCH (21:28)
[2025-01-05] MEDS: PHENobarbitaL 20 MG/5 ML PO SCH (21:51)
--- NOTE | 2025-01-05 23:29 | Communication Note ---
Date of Service: January 05, 2025 S: Patient with hypercapnia and hypoxia, nasal flaring O: Hr 66, BP 97/45, RR 17, Spo2 88-92%, EtCO2 50-58, Lungs: Decreased air movement on left right with good air movement and no wheeze A/P: Hypercarbia and hypoxic respiratory failure: - Patient was on her home vent with iPAP 26, ePAP 6 RR 16- patient was rolled to right side for left lung up, RR on home machine was increased to 18 with no decrease in her EtCO2 and SPO2 remained 88-92% - She was with increased nasal flaring and flushing to face- Do not want to increase her iPAP or ePAP on her home vent to prevent lung injury as well as she appears she is also fatiguing. - We will foreign exchange clerk to our ventilator SIMV- RR 20-24, VT 290-300, Peep 5/6 to provide more support and rest patient- she tolerated well with reduction of flushing to face, SPO2 increased to 97%, EtCO2 40-45 - Will target a VT of 8-11 - If she remains hypercarbic and hypoxic could consider changing to [place] and do ASV mode - obtain VBG to assess Co2 levels and PH, but currently improved and tolerating change with expected results. Iker OROZCO ([facility]-)
[2025-01-05] MEDS: IBUPROFEN 200 MG/10 ML UDC PO ONE (23:54)
[2025-01-06 00:28] LABS: Base Excess VBG 0 mEq/L; HCO3 VBG 25 mmol/L; Oxygen Saturation VBG 92.8 %; PCO2 VBG 43 mmHg (38-50); PO2 VBG 60 mmHg; pH VBG 7.38 (7.36-7.41)
[2025-01-06 05:14] LABS: Basophils # (auto) 0.04 K/uL (0.00-0.20); Basophils % (auto) 0.6 %; Eosinophils # (auto) 0.24 K/uL (0.00-0.50); Eosinophils % (auto) 3.8 %; Hematocrit (blood only) 27.8 % (37.0-47.0); Hemoglobin 9.5 g/dl (12.0-16.0); Immature Granulocytes # (auto) 0.06 K/uL (0.01-0.20); Immature Granulocytes % (auto) 0.9 %; Lymphocytes # (auto) 1.52 K/uL (1.20-3.40); Mean Corpuscular Hemoglobin 31.5 pg (25.0-34.0); Mean Corpuscular Hgb Conc 34.2 g/dL (32.0-36.0); Mean Corpuscular Volume 92.1 fL (80.0-100.0); Mean Platelet Volume 11.4 fL (9.4-12.4); Monocytes % (auto) 14.2 %; Neutrophils # (auto) 3.58 K/uL (1.40-6.50); Neutrophils % (auto) 56.5 %; Nucleated RBC # (auto) 0.03 K/uL (0.00-0.12); Nucleated RBC % (auto) 0.5 %; Platelet Count 117 K/uL (130-400); RDW Coefficient of Variation 16.6 % (11.5-14.5); RDW Standard Deviation 55.3 fL (36.4-46.3); Red Blood Count 3.02 M/uL (4.20-5.40); White Blood Count 6.34 K/ul (4.8-10.8)
[2025-01-06 05:33] LABS: Calcium 7.4 mg/dl (8.6-10.3); Magnesium 3.8 mg/dl (1.7-2.4); Potassium 4.4 mmol/L (3.5-5.1)
[2025-01-06] MEDS: LEVOTHYROXINE SODIUM 150 MCG TABLET PO SCH (05:53)
[2025-01-06] MEDS ORDERED: PHENobarbitaL 20 MG/5 ML PO SCH (07:00)
--- NOTE | 2025-01-06 07:29 | Critical Care Progress Note ---
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 She was noted to be hypercarbic and acidotic on arrival which improved with support. She was also found with multiple electrolyte disturbances, and end organ dysfunction in setting of entero-virus, recent bacterial pneumonia, and concern for atypical drug reaction with flushed face and petichael rash. She will be admitted to ICU for continued support and monitorng of end organ labs. Patient is full code. 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 But there was no evidence of status epilepticus CT head 01/06/2025 did not show any new abnormality, she does have chronic changes in the brain from before., No hydrocephalus CT sinus 01/06/2025 show moderate to large amount of secretions in the nasal turbinates as well as nasopharynx, large mastoid and middle ear effusions Cardiac - sepsis, acute on chronic pulmonary edema - she presents with hypercarbic respiratory failure with sources of lung- viral and likely remaining bacterial component and with organ dysfunction- her organ dysfunction was also concern for ADR/AKANKSHA- in setting of Bactrim DDX: septic shock vs. viral illness vs. adverse drug reaction or combination of the above BNP in the morbidly obese patient with lower extremity edema - she has been diuresed in the ER with good response and her hemodynamics have been adequate - Hold Bactrim Respiratory - Hypercarbic/hypoxic respiratory failure, viral illness with enterovirus- previous bacterial pneumonia 2 weeks ago with psudomonas and MRSA in sputum --Acute on chronic hypercapnic respiratory failure Patient does have BiPAP machine at home She was admitted with hypercapnia even on 12/28/2024 I think there might be adjustment needed in her BiPAP machine given the persistent hypercapnia while she is compliant with her BiPAP She is not on oxygen at home at baseline I did speak with patient's RT Dillon on 01/05/2025 at [phone], currently the IPAP ranges 20-22 and EPAP 6. Would recommend to increase the IPAP range to 22- 26 to aim for the tidal volume of 300 and increase the backup rate to 15 I think patient will benefit from AVAPS rather than BiPAP/pressure support NIMV settings should be AVAPS-AE; Breath rate: auto; Inspiratory time:auto; Sigh: off; Tidal Volume: 300-320, PS min: 4-10 PS max: 12-25; EPAP min: 6-10; EPAP max: 10-16; AVAPS rate: 15 during sleep and as needed GI - Elevated LFTS, constipation, presence of feeding tube --Transaminitis Could be secondary to drug-induced Continue to trend PT/INR within normal limit CPK within normal limit --Severe constipation Continue with bowel regimen RENAL/LYTES - IMER II, Hyponatremia -- IMER Urine sodium <10, urine osmolality 224 Monitor BUN/creatinine Avoid nephrotoxic medications Strict ins and outs --Hyponatremia --> improving Seems to be hypervolemic given the lower extremity edema as well as elevated BNP Phenobarbital is also associated with hyponatremia Patient also gets free water flushes on a regular basis which could be the reason as well Serum osmolality 292, urine osmolality 224, urine sodium < 10 - As above - continue shukla catheter ENDO - Continue Synthroid, ICU hyperglycemic protocol --Cortisol a.m. 6.82 Patient has borderline hyponatremia, hypotension as well as normal-high potassium. Probability of adrenal insufficiency is there Patient will be started on hydrocortisone on 01/06/2025 HEME - Acute on chronic thrombocytopenia, petechial rash -- Pancytopenia, history of leukemia Acute on chronic thrombocytopenia Continue to trend PT/INR within normal limit 12/30/2024 Bactrim can also cause pancytopenia -- Patient with flushed face, peticahal rash to lower extremities, organ dysfunction - Fluorokine eye staining- negative for uptake - LDH 323, mildly elevated, no eosinophilia on the peripheral smear Hold Bactrim Neurology has been consulted ID - ERV, bacterial pneumonia -- Sputum culture growing MRSA as well as Pseudomonas pansensitive except for tobramycin on 12/22/2024 Sputum culture was also positive for MRSA on 02/12/2024, probability of colonization from MRSA is there Was given Bactrim as an outpatient for MRSA Follow repeat sputum culture and blood culture Procalcitonin 0.02 on 12/28/2024 Respiratory BioFire positive for entero-/rhinovirus CT chest shows chronic lower lobe atelectasis with patchy groundglass opacity on the right side which has not changed since at least February 2024 -- Patient has petechial rash, I do not see any significant mucosal involvement. Unlikely to be Garcia-Joshua's syndrome Notes from immunology reviewed, there is thinking the rash is not related to Bactrim but rather a viral infection --Prophylaxis VTE: IPC GI: Pantoprazole Lines: Peripheral Diet: Tube feeds Plan: In/out: -856, urine output 1116, - 2.5 L since coming to the hospital I think patient will benefit from AVAPS rather than BiPAP/pressure support NIMV settings should be AVAPS-AE; Breath rate: auto; Inspiratory time:auto; Sigh: off; Tidal Volume: 300-320, PS min: 4-10 PS max: 12-25; EPAP min: 6-10; EPAP max: 10-16; AVAPS rate: 15 during sleep and as needed Cortisol a.m. 6.82. Patient has borderline hyponatremia, hypotension as well as normal-high potassium. Probability of adrenal insufficiency is there Patient will be started on hydrocortisone on 01/06/2025 Patient's creatinine is still trending up but she is making good amount of urine. Continue to monitor. Will avoid diuretics for the time being Grandma calcium gluconate will be given to the patient given the mildly decreased corrected calcium in the serum Repeat BMP later today Patient is getting hypoglycemic in the morning labs. Will try to adjust her tube feeds. Notes of infectious disease reviewed, they are think this is all colonization, antibiotics have been discontinued I have personally spent 40 minutes of critical care time in the direct management of this patient. This is a life/limb threatening event. This includes time spent evaluating patient, direct bedside care, chart review, placing orders, interpretation of diagnostic studies, discussion with consultants, patient, and family members, as well as other required patient management activities. This time is exclusive of all separately billable procedures, and teaching time and separate from and in addition to any other critical care service time. Please note the above document was generated using voice recognition software. It may contain grammatical, syntax or spelling errors. Admission and Anticipated Discharge Date Admission Date: January 03, 2025 Subjective Patient seen and examined at bedside. No acute distress Overnight unfortunately patient again started to go hypercapnic and the tidal volumes went down while she was on her BiPAP settings She was put on SIMV with tidal volume of 300 VBG from midnight looks better. She is not spiking fever but Tmax is 36.2 Systolic blood pressure at the time of examination was in the high 80s to low 90s with MAP in the 60s Patient's family was in the room at the time of examination Review of Systems 2 Review of Systems: Unobtainable due to cognitive status Physical Exam 2 Physical Exam: Constitutional: No acute distress HEENT: PERRLA Respiratory system: Decreased air entry bilaterally, no wheeze, positive rhonchi on the right side, no crackles CVS: S1-S2 positive, no murmurs or gallops Abdomen: Soft, nontender, nondistended, positive bowel sounds x4, obese, positive PEG Extremities: +1 pulses bilaterally radialis/ dorsalis pedis, no cyanosis, +2 pitting edema bilateral lower extremity, +1 pitting edema bilateral upper extremity Neuro: Awake and alert Psych: Unable to assess G/U: Positive Shukla Skin: Diffuse petechial rash appreciated bilaterally upper and lower extremity as well as abdominal --> improving from before, no clear mucosal lesions appreciated Skin: no rashes, warm and dry Lymphatic: no cervical or axillary lymphadenopathy Results & Data Results & Data Vital Signs (Past 12 Hours) Vital Signs Temp Pulse Pulse Resp BP Pulse Ox O2 Del Method 01/06/25 06:03 18 01/06/25 06:00 36.1 C L 55 L 18 86/40 L 90 01/06/25 05:03 57 L 22 105/41 L 01/06/25 05:01 105/41 L 01/06/25 04:45 36.1 C L 53 L 22 97 01/06/25 04:28 89/41 L 01/06/25 04:27 36.1 C L 53 L 22 97 01/06/25 04:06 54 L 22 97 01/06/25 04:03 36.0 C L 54 L 22 97 01/06/25 04:00 84/36 L 01/06/25 04:00 01/06/25 03:45 36.0 C L 54 L 22 97 01/06/25 03:00 36.1 C L 54 L 22 96 01/06/25 02:21 36.1 C L 55 L 22 97 01/06/25 01:03 35.9 C L 56 L 22 91/37 L 96 01/06/25 01:02 59 L 01/06/25 00:54 35.9 C L 56 L 22 95 01/06/25 00:06 36.1 C L 59 L 22 92/39 L 95 01/06/25 00:00 01/05/25 23:51 36.1 C L 60 22 95 01/05/25 23:03 36.1 C L 67 19 97/45 L 93 01/05/25 22:52 01/05/25 22:50 66 22 96 01/05/25 22:49 99/46 L 01/05/25 22:48 36.2 C L 74 15 94 01/05/25 22:15 16 01/05/25 21:00 60 18 94 Mechanical Vent 01/05/25 21:00 63 16 01/05/25 20:00 56 L 16 91/46 L 94 O2 Del Method O2 Flow Rate FiO2 01/06/25 06:03 01/06/25 06:00 01/06/25 05:03 01/06/25 05:01 01/06/25 04:45 01/06/25 04:28 01/06/25 04:27 01/06/25 04:06 30 01/06/25 04:03 01/06/25 04:00 01/06/25 04:00 30 01/06/25 03:45 01/06/25 03:00 01/06/25 02:21 01/06/25 01:03 01/06/25 01:02 01/06/25 00:54 01/06/25 00:06 01/06/25 00:00 30 01/05/25 23:51 01/05/25 23:03 01/05/25 22:52 Mechanical Vent 01/05/25 22:50 30 01/05/25 22:49 01/05/25 22:48 01/05/25 22:15 01/05/25 21:00 2 01/05/25 21:00 01/05/25 20:00 Laboratory Results 01/06/25 04:48 Coding Level of Care Code 41384 CRITICAL CARE 1ST 30-74M Diagnoses Viral illness B34.9 Stage 2 acute kidney injury N17.9 Acute and chronic respiratory failure with hypercapnia J96.22 Acute and chronic respiratory failure, unspecified whether with hypoxia or hypercapnia J96.20 Acute hyponatremia E87.1 Seizure disorder G40.909 Primary immune deficiency disorder D84.89 Transaminitis R74.01 Congenital hydrocephalus Q03.9 Congenital stenosis of pulmonary valve Q22.1 Slow transit constipation K59.01 Constipation type: slow transit constipation (11) Constipation Constipation type: slow transit constipation Qualified Code(s): K59.01 - Slow transit constipation
[2025-01-06] MEDS: MIDODRINE HCL 2.5 MG TAB PO SCH ×2 (08:02→14:29)
[2025-01-06] MEDS: BACLOFEN 10 MG TAB PO SCH (08:04)
--- NOTE | 2025-01-06 08:06 | XRay Report ---
EXAM: XR chest 1V portable CLINICAL HISTORY: f/u. TECHNIQUE: An X-ray image of the chest is obtained in AP projection. COMPARISON: Prior CR 01/05/2025 FINDINGS: Pulmonary Parenchyma: Mild blunting of the left costophrenic angle could be due to small pleural effusion/pleural thickening. Regressive course of bilateral lower lung zone airspace opacities. No pulmonary nodules are identified. No evidence of right pleural effusion or pleural thickening. Heart and Mediastinum: Enlarged heart size. No mediastinal widening or masses. No hilar or mediastinal lymphadenopathy. Bony Thorax: Bony thorax appears intact without fractures or deformities. Soft Tissues: Soft tissues overlying the chest wall are unremarkable. Tracheostomy tube in situ. IMPRESSION: 1. Tracheostomy tube in situ (tip about 6cm from mariusz) 2. Mild blunting of the left costophrenic angle could be due to small left pleural effusion/pleural thickening,( Regressive ) 3. Regressive course of bilateral lower lung zone airspace opacities. 4. Mild cardiomegaly. Electronically signed by Aldair Albarran 01-06-2025 08:05 AM
[2025-01-06] MEDS: PHENobarbitaL 20 MG/5 ML PO SCH (08:08)
[2025-01-06 08:27] LABS: Bilirubin Direct 0.1 mg/dl (0-0.2); Bilirubin,Total 0.3 mg/dl (0.2-1.0)
[2025-01-06 08:33] LABS: Total Protein 6.3 gm/dl (6.0-8.3)
--- NOTE | 2025-01-06 08:50 | Infectious Disease Progress Nt ---
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 On admission, she was afebrile, initially normotensive, on 30% FiO2 Initial labs with WBC 7.83, Cr 1.14, AST 77, ALT 139. PCT 0.78. UA 6-10 WBC. MRSA screen pos. RPP with entero/rhinovirus. CXR with continued prominence of pulmonary vascularity suggesting pulmonary venous HTN, retrocardiac opacity and obscured left costophrenic angle, which may be due to atelectasis or consolidation as well as pleural effusion. CTAP w IV contrast showed findings c/f steatorrhea, trace bilateral pleural effusions, subjacent atelectasis. She was admitted to the ICU for monitoring. Given rash, there were concerns for drug reaction. Seen by allergy/imm and they do not think she has a drug reaction. She has low BPs but this is baseline per family. She has been started on cefepime and doxycycline. ID consulted 01/04. I did confirm with mother today about duration of abx, and she said its been since 12/22. BCx are no growth so I will stop antibiotics. MRSA and Steno in sputum cx, likely colonization. # Acute on chronic respiratory failure # Rhinovirus/Enterovirus infection # Rash viral exanthem # Transaminitis # Memory B-cell defect - Letitia stopped cefepime today - supportive care for rhinovirus/enterovirus infection - will hold on further abx at this point as she has already received 2 week course for PNA (suspect resp cx are colonization at this point) - if any concerns for developing sepsis or bacterial PNA, then treatment directed towards cultures can be started (ie bactrim) Will discontinue active follow up at this time. Please do not hesitate to reconsult the Infectious Diseases service as needed. Asmita Ibanez MD [facility], Division of Infectious Diseases [facility]: [phone] Admission and Anticipated Discharge Date Admission Date: January 03, 2025 Subjective Subsequent visit was provided via telemedicine using two-way real-time interactive telecommunication between the patient and the telemedicine provider. For the duration of the visit, the provider was performing the assessment from a different facility than the patient. This includesuse of bluetooth stethoscope forauscultationperformed by the telepresenter that the telemedicine provider can hear if described in the physical exam. Travel Clerk contact information: Please call [facility] Call Center . (Phone Number For Physician Use Only) After establishing a telemedicine visit, patient was: Patient was verified with two unique identifiers, Patient/authorized rep acknowledged consent and understanding and Gave permission to continue telehealth session Time Spent with Patient: Subsequent => 55 min Mother at bedside. She says patient is doing well. She had an issue overnight with the vent. Still bringing up some secretions occasionally. Making stools since having gotten laxatives. She reports patient has not been getting much antibiotics in the past year. Physical Exam Physical Exam: General: on vent HEENT: mmm Neck: trach Lungs: diminished breath sounds Heart: regular Abdomen: soft, PEG site c/d/i Ext: warm, no edema Skin: erythema over face Other: brown secretions noted in canister Results & Data Vital Signs (Past 12 Hours) Vital Signs Temp Pulse Pulse Resp BP Pulse Ox O2 Del Method 01/06/25 06:03 18 01/06/25 06:00 36.1 C L 55 L 18 86/40 L 90 01/06/25 05:03 57 L 22 105/41 L 01/06/25 05:01 105/41 L 01/06/25 04:45 36.1 C L 53 L 22 97 01/06/25 04:28 89/41 L 01/06/25 04:27 36.1 C L 53 L 22 97 01/06/25 04:06 54 L 22 97 01/06/25 04:03 36.0 C L 54 L 22 97 01/06/25 04:00 84/36 L 01/06/25 04:00 01/06/25 03:45 36.0 C L 54 L 22 97 01/06/25 03:00 36.1 C L 54 L 22 96 01/06/25 02:21 36.1 C L 55 L 22 97 01/06/25 01:03 35.9 C L 56 L 22 91/37 L 96 01/06/25 01:02 59 L 01/06/25 00:54 35.9 C L 56 L 22 95 01/06/25 00:06 36.1 C L 59 L 22 92/39 L 95 01/06/25 00:00 01/05/25 23:51 36.1 C L 60 22 95 01/05/25 23:03 36.1 C L 67 19 97/45 L 93 01/05/25 22:52 01/05/25 22:50 66 22 96 01/05/25 22:49 99/46 L 01/05/25 22:48 36.2 C L 74 15 94 01/05/25 22:15 16 01/05/25 21:00 60 18 94 Mechanical Vent 01/05/25 21:00 63 16 O2 Del Method O2 Flow Rate FiO2 01/06/25 06:03 01/06/25 06:00 01/06/25 05:03 01/06/25 05:01 01/06/25 04:45 01/06/25 04:28 01/06/25 04:27 01/06/25 04:06 30 01/06/25 04:03 01/06/25 04:00 01/06/25 04:00 30 01/06/25 03:45 01/06/25 03:00 01/06/25 02:21 01/06/25 01:03 01/06/25 01:02 01/06/25 00:54 01/06/25 00:06 01/06/25 00:00 30 01/05/25 23:51 01/05/25 23:03 01/05/25 22:52 Mechanical Vent 01/05/25 22:50 30 01/05/25 22:49 01/05/25 22:48 01/05/25 22:15 01/05/25 21:00 2 01/05/25 21:00 Laboratory Results Labs reviewed.
--- NOTE | 2025-01-06 10:59 | CT Scan Report ---
SINUS CT HISTORY: Acute headache with possible sinus disease r/o sinusitis and dental disease TECHNIQUE: Multiaxial CT images of the paranasal sinuses and maxillofacial bones were performed and r eformatted in the coronal plane without the use of contrast. A dose lowering technique was utilized adhering to the principles of ALARA. COMPARISON: Head CT of same day, CT maxillofacial 09/23/2015 FINDINGS: CT SINUS: Head CT dictated separately. Right frontal and parietal approach ventriculostomy catheters are in place. There is decreased volume of the ventricles compared to the study from 2016. Developmen helena brain malformations redemonstrated. Partially imaged chronic calvarial deformities are also noted . A large mastoid and middle ear effusions are new from the prior study. Cerumen noted within the alpesh ateral external auditory canals. Hypoplastic frontal sinuses. Opacified frontal ethmoidal recesses. There is severe opacification of t he nasal turbinates, right sphenoid sinus and bilateral ethmoid air cells. There is at least moderate mucosal thickening of the left sphenoid sinus and bilateral maxillary sinuses. Nasopharyngeal secret ions with mostly opacified nasopharyngeal airway. There is opacification of the sphenoethmoidal reces ses and maxillary ostiomeatal units. Mild sigmoidal bowing and spurring of the nasal septum. No large lizbeth bullosa. Bilateral Bee cells. Normal brian neelam. CT MAXILLOFACIAL: No acute facial bone fracture identified. No suspicious bone lesions are seen. No l arge periapical cysts are seen within the teeth. Unerupted bilateral maxillary and mandibular third m olars. Unremarkable orbits. The soft tissues are within normal limits. No significant inflammatory changes o r abscess. IMPRESSION: 1. Severe paranasal sinus disease as above with opacified sinus outflow tracts. 2. Moderate to large amount of secretions are seen within the nasal turbinates and nasopharynx. 3. Large mastoid and middle ear effusions. 4. Head CT dictated separately. ACT 112: Negative or not required by law. Electronically signed by: Chapo Thacker M.D. 01/06/2025 10:57 AM
--- NOTE | 2025-01-06 11:05 | CT Scan Report ---
CT SCAN OF THE BRAIN WITHOUT IV CONTRAST CLINICAL HISTORY: Altered mental status. COMPARISON STUDY: Head CT November 12, 2017. TECHNIQUE: Unenhanced axial CT scan of the brain was performed from the vertex to the skull base. A dose lowering technique was utilized adhering to the principles of ALARA. FINDINGS: This exam is mildly compromised by artifact. A right frontal ventriculostomy catheter remai ns in place. The tip is adjacent to the septum pellucidum. The lateral ventricles have decreased in c aliber since CT of November 12, 2017. An additional right parietal ventriculostomy catheter is in place. This extends across a CSF attenuation focus which has also decreased in size. Multiple congenital ano malies are again noted. Bilateral parieto-occipital encephalomalacia is unchanged. There are no findi ngs to suggest acute dural sinus thrombosis or acute territorial infarct. No acute intracranial hemor rhage is present. Large bilateral mastoid effusions are present. The right mastoid air cells are enti rely opacified. Left mastoid air cells are nearly entirely opacified. There is extensive sinus mucosa l thickening depicted on the sinus CT will be reported separately. IMPRESSION: 1. No acute intracranial findings. 2. Ventriculostomy catheters in place, as described above. No hydrocephalus. Decrease in lateral vent ricular dilatation since CT of November 12, 2017. 3. No significant change in appearance of the brain. Multiple congenital abnormalities. 4. Large bilateral mastoid effusions. Extensive sinus mucosal thickening, better depicted on the same day sinus CT. ACT 112: Negative or not required by law. Electronically signed by: Michael Cunningham M.D. 01/06/2025 11:04 AM
[2025-01-06] MEDS: CALCIUM GLUCONATE 10% 1,000 MG in NS X1 BAG IV ONE (11:10)
--- NOTE | 2025-01-06 11:51 | Electroencephalogram ---
EEG Procedure Note Date of Service January 06, 2025 Start / End Times Start Time: 1109 End Time: [address] Padilla History 24-year-old with respiratory failure being mechanically ventilated with seizure- like activity Home Medication List Medication Instructions Recorded Confirmed Type ondansetron 4 mg disintegrating 4 mg feeding tube Q6H PRN Nausea 04/11/19 01/03/25 History tablet polyethylene glycol 3350 17 gram 17 g feeding tube BID PRN 04/11/19 01/03/25 History oral powder packet (Miralax) Constipation cannabidiol 100 mg/mL oral solution 100 - 150 mg G-tube BID 08/11/19 01/03/25 History disposable gloves (Disposable #1,200 ea 12/24/19 12/30/24 Rx Latex-Free Gloves) menthol 0.44 %-zinc oxide 20.6 % 1 applic topical BID skin 03/26/22 01/03/25 Rx topical ointment (Calmoseptine) irritation #113 grams vitamin A and D (Sween topical 1 applic topical BID skin 03/26/22 01/03/25 Rx cream) irritation #600 grams acetaminophen 160 mg/5 mL oral 640 mg (20 mL) PO Q8H PRN pain 12/13/23 01/03/25 Rx liquid #473 mL dexamethasone 1 mg tablet 1 mg feeding tube UD #30 tabs 12/25/23 01/03/25 Rx tramadol 50 mg tablet 50 mg feeding tube BID PRN Pain 12/25/23 01/03/25 Rx #60 tabs mometasone 0.1 % topical solution 1 applic topical DAILY PRN skin 12/30/23 01/03/25 Rx irritation #60 mL levothyroxine 75 mcg tablet 75 - 150 mcg PO DIRECTED 02/14/24 01/03/25 History methenamine hippurate 1 gram tablet 1 g PO UD 02/14/24 01/03/25 History oxybutynin chloride 5 mg tablet 5 mg PO TID 02/14/24 01/03/25 History docusate sodium 50 mg/15 mL oral See Rx Instructions feeding tube 06/09/24 01/03/25 Rx syrup BID PRN Constipation #118 mL sennosides 8.8 mg/5 mL oral syrup 8.8 mg (5 mL) PO HS PRN 06/09/24 01/03/25 Rx (senna) Constipation #236 mL azelastine 137 mcg (0.1 %) nasal 1 spray intranasal DAILY PRN 08/03/24 01/03/25 Rx spray Allergy Symptoms #30 mL albuterol sulfate 2.5 mg/3 mL 2.5 mg (3 mL) inhalation UD PRN 09/08/24 01/03/25 Rx (0.083 %) solution for nebulization Wheezing #180 mL fluocinolone 0.01 % shampoo (Capex) 30 ml topical DAILY #120 mL 09/15/24 01/03/25 Rx triamcinolone acetonide 0.1 % 1 applic topical BID #60 mL 10/01/24 01/03/25 Rx lotion lidocaine-prilocaine 2.5 %-2.5 % 1 applic topical ONCE PRN prior to 10/05/24 01/03/25 Rx topical cream injections #50 grams montelukast 10 mg tablet 10 mg feeding tube PM #90 tabs 10/05/24 01/03/25 Rx (Singulair) olopatadine 0.2 % eye drops 1 drp ophthalmic (eye) DAILY PRN 10/05/24 01/03/25 Rx itching #2.5 mL immun glob G 10 gram/50 mL(20 See Rx Instructions subcut 10/07/24 01/03/25 Rx %)-pro-IgA 0-50 mcg/mL .COMPLEX #100 mL subcutaneous soln (Hizentra) sodium chloride 0.9 % for 3 ml inhalation QID PRN shortness 10/22/24 01/03/25 Rx nebulization of breath or wheezing #300 mL lorazepam 1 mg tablet (Ativan) 1 mg PO DAILY PRN anxiety #30 tabs 11/09/24 01/03/25 Rx baclofen 10 mg tablet 10 mg PO TID 90 days #270 tabs 11/20/24 01/03/25 Rx baclofen 5 mg tablet 5 mg PO TID 90 days #270 tabs 11/20/24 01/03/25 Rx levetiracetam 750 mg tablet 750 mg PO BID 90 days #180 tabs 11/20/24 01/03/25 Rx (Keppra) lansoprazole 30 mg delayed 30 mg feeding tube QAM #90 tabs 12/17/24 01/03/25 Rx release,disintegrating tablet (Prevacid SoluTab) naproxen 500 mg tablet 500 mg PO BID PRN pain #60 tabs 12/17/24 01/03/25 Rx clobetasol 0.05 % shampoo (Clodan) 1 applic topical DAILY #118 mL 12/18/24 01/03/25 Rx sulfamethoxazole 800 1 tab PO BID 2 weeks #28 tabs 12/22/24 01/03/25 Rx mg-trimethoprim 160 mg tablet (Bactrim DS) albuterol sulfate 90 mcg/actuation 2 puff inhalation QID PRN Wheezing 12/28/24 01/03/25 History aerosol inhaler (Ventolin HFA) cetirizine 10 mg tablet (Zyrtec) 10 mg PO HS allergy symptoms 12/28/24 01/03/25 History diazepam 12.5 mg-15 mg-17.5 mg-20 12.5 mg OH DIRECTED PRN seizure 12/28/24 01/03/25 History mg rectal kit activity diclofenac sodium 1 % topical gel 2 g topical TID PRN Pain in Knees 12/28/24 01/03/25 History levofloxacin 750 mg tablet 750 mg PO HS 12/28/24 01/03/25 History medroxyprogesterone 150 mg/mL 150 mg IM DIRECTED 12/28/24 01/03/25 History intramuscular syringe melatonin 5 mg capsule 5 mg feeding tube HS 12/28/24 01/03/25 History [id number] 8 mg-folic 400 0.5 tab PO QAM 12/28/24 01/03/25 History mcg-K 50 mcg-lutein 300 mcg tablet (Multivitamin Women 50 Plus) mupirocin 2 % topical ointment 1 applic topical TID PRN infection 12/28/24 01/03/25 History phenobarbital 32.4 mg tablet 97.2 mg feeding tube QAM 12/28/24 01/03/25 History phenobarbital 64.8 mg tablet 64.8 - 129.6 mg feeding tube 12/28/24 01/03/25 History DIRECTED pseudoephedrine HCl 30 mg tablet 30 mg feeding tube Q6H PRN 12/28/24 01/03/25 History (Sudogest) Congestion furosemide 20 mg tablet 20 mg PO DIRECTED edema 01/03/25 01/03/25 History Inpatient Medication List Acetaminophen (Acetaminophen Susp 160 Mg/5 Ml Btl) 640 mg PEG Q8H PRN PRN Reason: pain Stop: 02/02/25 20:40 Last Admin: 01/05/25 21:29 Dose: 640 mg Documented By: Admin: 01/04/25 21:27 Dose: 640 mg Documented By: Admin: 01/04/25 08:46 Dose: 640 mg Documented By: DYLON Albuterol (Albuterol 0.083% Nebu Soln 3 Ml Vial) 2.5 mg INH Q6H PRN; Protocol PRN Reason: Wheezing Stop: 02/02/25 20:09 Last Admin: 01/05/25 05:44 Dose: 2.5 mg Documented By: Admin: 01/04/25 08:27 Dose: 2.5 mg Documented By: SWAPNIL Albuterol (Albuterol 0.083% Nebu Soln 3 Ml Vial) 2.5 mg NEB QIDR [facility]; Protocol Stop: 02/03/25 14:59 Last Admin: 01/06/25 11:31 Dose: 2.5 mg Documented By: Admin: 01/06/25 07:43 Dose: 2.5 mg Documented By: Admin: 01/05/25 20:49 Dose: 2.5 mg Documented By: Admin: 01/05/25 15:12 Dose: 2.5 mg Documented By: Admin: 01/05/25 11:15 Dose: 2.5 mg Documented By: Admin: 01/05/25 07:25 Dose: 2.5 mg Documented By: Admin: 01/04/25 19:19 Dose: 2.5 mg Documented By: Admin: 01/04/25 15:00 Dose: 2.5 mg Documented By: DYLON Baclofen (Baclofen 10 Mg Tab) 15 mg PO TID [facility] Stop: 02/05/25 08:59 Last Admin: 01/06/25 08:04 Dose: 15 mg Documented By: BRAVO Budesonide (Budesonide 0.25 Mg/2 Ml Vial (Pulmicort)) 0.25 mg NEB BIDR [facility] Stop: 02/03/25 06:59 Last Admin: 01/06/25 07:43 Dose: 0.25 mg Documented By: Admin: 01/05/25 20:50 Dose: 0.25 mg Documented By: Admin: 01/05/25 07:25 Dose: 0.25 mg Documented By: Admin: 01/04/25 19:18 Dose: 0.25 mg Documented By: Admin: 01/04/25 08:27 Dose: 0.25 mg Documented By: SWAPNIL Calamine/Phenol (Menthol-Zinc Oxide 360 Appln/120 Gm Tube) 1 appln EXT BID [facility] Stop: 02/02/25 20:59 Last Admin: 01/06/25 08:08 Dose: 1 appln Documented By: Admin: 01/05/25 21:35 Dose: 1 appln Documented By: Admin: 01/05/25 08:58 Dose: 1 appln Documented By: Admin: 01/04/25 21:31 Dose: 1 appln Documented By: Admin: 01/04/25 08:47 Dose: 1 appln Documented By: Admin: 01/03/25 22:25 Dose: Not Given Documented By: NAZIAG Cetirizine HCl (Cetirizine Oral Soln 1 Mg/Ml) 10 mg GT HS [facility] Stop: 02/04/25 20:59 Last Admin: 01/05/25 21:27 Dose: 10 mg Documented By: BERENICE Docusate Sodium (Docusate Sodium Syrup 100 Mg/10 Ml Udc) 100 mg PEG BID [facility] Stop: 02/02/25 20:59 Last Admin: 01/06/25 08:03 Dose: 100 mg Documented By: Admin: 01/05/25 21:36 Dose: Not Given Documented By: Admin: 01/05/25 08:59 Dose: 100 mg Documented By: Admin: 01/04/25 22:51 Dose: Not Given Documented By: Admin: 01/04/25 08:49 Dose: Not Given Documented By: Admin: 01/03/25 20:32 Dose: 100 mg Documented By: TMG Lansoprazole (Lansoprazole 30 Mg Soltab) 30 mg PEG QAM [facility] Stop: 02/03/25 08:59 Last Admin: 01/06/25 08:03 Dose: 30 mg Documented By: Admin: 01/05/25 08:59 Dose: 30 mg Documented By: Admin: 01/04/25 08:45 Dose: 30 mg Documented By: DYLON Levetiracetam (Levetiracetam Oral Soln 100mg/Ml) 750 mg PO BID@0800,1900 [facility] Stop: 02/04/25 18:59 Last Admin: 01/06/25 08:02 Dose: 750 mg Documented By: Admin: 01/05/25 21:28 Dose: 750 mg Documented By: BERENICE Levothyroxine Sodium (Levothyroxine Sodium 150 Mcg Tablet) 150 mcg PO We@0630 [facility] Stop: 02/05/25 06:29 Last Admin: 01/06/25 05:53 Dose: 150 mcg Documented By: BERENICE Levothyroxine Sodium (Levothyroxine Sodium 75 Mcg Tablet) 75 mcg PEG SuMoTuThFrSa@30 [facility] Stop: 02/03/25 06:29 Last Admin: 01/05/25 06:07 Dose: 75 mcg Documented By: Admin: 01/04/25 06:19 Dose: 75 mcg Documented By: BERENICE Melatonin (Melatonin 3 Mg Tab) 4.5 mg PO HS [facility] Stop: 02/02/25 20:59 Last Admin: 01/05/25 21:32 Dose: 4.5 mg Documented By: Admin: 01/04/25 21:28 Dose: 4.5 mg Documented By: Admin: 01/03/25 20:33 Dose: 4.5 mg Documented By: BERENICE Miscellaneous (Olopatadine 0.2% Drops: Order Awaiting Action) 1 each N/A QS [facility] Stop: 02/03/25 07:59 Last Admin: 01/06/25 08:04 Dose: Not Given Documented By: Admin: 01/05/25 23:55 Dose: Not Given Documented By: Admin: 01/05/25 18:20 Dose: Not Given Documented By: Admin: 01/05/25 18:20 Dose: Not Given Documented By: Admin: 01/04/25 23:56 Dose: Not Given Documented By: Admin: 01/04/25 12:54 Dose: Not Given Documented By: Admin: 01/04/25 08:49 Dose: Not Given Documented By: DYLON Miscellaneous Medication (Medical Marijuana) 1 dose PO BID [facility] Stop: 02/02/25 20:59 Last Admin: 01/06/25 08:05 Dose: 1 dose Documented By: Admin: 01/05/25 21:51 Dose: 1 dose Documented By: Admin: 01/05/25 08:58 Dose: 1 dose Documented By: Admin: 01/04/25 21:33 Dose: 1 dose Documented By: Admin: 01/04/25 08:50 Dose: Not Given Documented By: Admin: 01/03/25 21:10 Dose: Not Given Documented By: BERENICE Montelukast Sodium (Montelukast Sodium 10 Mg Tablet) 10 mg PEG PM [facility] Stop: 02/02/25 20:59 Last Admin: 01/05/25 21:38 Dose: 10 mg Documented By: Admin: 01/04/25 21:30 Dose: 10 mg Documented By: Admin: 01/03/25 20:33 Dose: 10 mg Documented By: BERENICE Multivitamins/Minerals (Multi Vit W/Minerals Liquid 15 Ml Udc) 7.5 ml PEG QAM [facility] Stop: 02/03/25 08:59 Last Admin: 01/06/25 08:03 Dose: 7.5 ml Documented By: Admin: 01/05/25 08:58 Dose: 7.5 ml Documented By: Admin: 01/04/25 08:45 Dose: 7.5 ml Documented By: DYLON Oxybutynin Chloride (Oxybutynin Chloride 5 Mg Tab) 5 mg PO TID [facility] Stop: 02/02/25 20:59 Last Admin: 01/06/25 08:04 Dose: 5 mg Documented By: Admin: 01/05/25 21:37 Dose: 5 mg Documented By: Admin: 01/05/25 14:14 Dose: 5 mg Documented By: Admin: 01/05/25 08:59 Dose: 5 mg Documented By: Admin: 01/04/25 21:30 Dose: 5 mg Documented By: Admin: 01/04/25 12:54 Dose: 5 mg Documented By: Admin: 01/04/25 08:48 Dose: 5 mg Documented By: Admin: 01/03/25 22:23 Dose: 5 mg Documented By: BERENICE Phenobarbital (Phenobarbital 20 Mg/5 Ml) 120 mg PO HS [facility] Stop: 02/04/25 21:44 Last Admin: 01/05/25 21:51 Dose: 120 mg Documented By: BERENICE Phenobarbital (Phenobarbital 20 Mg/5 Ml) 90 mg PO DAILY [facility] Stop: 02/05/25 08:59 Last Admin: 01/06/25 08:08 Dose: 90 mg Documented By: BRAVO Sennosides (Sennosides 8.8 Mg/5 Ml Udc) 8.8 mg PO HS [facility] Stop: 02/02/25 20:59 Last Admin: 01/05/25 21:35 Dose: Not Given Documented By: Admin: 01/04/25 22:51 Dose: Not Given Documented By: Admin: 01/03/25 20:33 Dose: 8.8 mg Documented By: BERENICE Sterile Water (Tube Feeding Water Flush) 100 ml GT TID [facility] Stop: 02/04/25 13:59 Last Admin: 01/06/25 08:04 Dose: 100 ml Documented By: Admin: 01/05/25 21:38 Dose: 100 ml Documented By: Admin: 01/05/25 14:14 Dose: 100 ml Documented By: BRAVO Discontinued Medications Baclofen (Baclofen 10 Mg Tab) 10 mg PO TID [facility] Stop: 02/02/25 20:59 Last Admin: 01/05/25 21:32 Dose: 10 mg Documented By: Admin: 01/05/25 14:13 Dose: 10 mg Documented By: Admin: 01/05/25 08:58 Dose: 10 mg Documented By: Admin: 01/04/25 21:29 Dose: 10 mg Documented By: Admin: 01/04/25 12:54 Dose: 10 mg Documented By: Admin: 01/04/25 08:48 Dose: 10 mg Documented By: Admin: 01/03/25 22:23 Dose: 10 mg Documented By: BERENICE Baclofen (Baclofen 10 Mg Tab) 5 mg PO NOW STA Stop: 01/03/25 16:49 Last Admin: 01/03/25 17:02 Dose: 5 mg Documented By: SWATHI Baclofen (Baclofen 10 Mg Tab) 10 mg PO NOW STA Stop: 01/03/25 16:54 Last Admin: 01/03/25 17:02 Dose: 10 mg Documented By: SWATHI Baclofen (Baclofen 10 Mg Tab) 5 mg PO TID [facility] Stop: 02/02/25 20:59 Last Admin: 01/05/25 21:32 Dose: 5 mg Documented By: Admin: 01/05/25 14:13 Dose: 5 mg Documented By: Admin: 01/05/25 08:58 Dose: 5 mg Documented By: Admin: 01/04/25 21:30 Dose: 5 mg Documented By: Admin: 01/04/25 12:54 Dose: 5 mg Documented By: Admin: 01/04/25 08:48 Dose: 5 mg Documented By: Admin: 01/03/25 22:23 Dose: 5 mg Documented By: BERENICE Bisacodyl (Bisacodyl 10 Mg Supp) 10 mg OH NOW STA Stop: 01/03/25 20:11 Last Admin: 01/03/25 20:31 Dose: 10 mg Documented By: BERENICE Cetirizine HCl (Cetirizine Hcl 10 Mg Tablet) 10 mg PO HS [facility] Stop: 02/02/25 20:59 Last Admin: 01/04/25 21:30 Dose: 10 mg Documented By: Admin: 01/03/25 20:32 Dose: 10 mg Documented By: BERENICE Furosemide (Furosemide 40 Mg/4 Ml Vial) 40 mg IV ONE ONE Stop: 01/03/25 17:51 Last Admin: 01/03/25 18:02 Dose: 40 mg Documented By: DYLON(2) Ceftriaxone Sodium (Rocephin) 2,000 mg in 50 mls @ 100 mls/hr IV NOW STA Stop: 01/03/25 15:58 Last Infusion: 01/03/25 16:32 Dose: Infused Documented By: Admin: 01/03/25 15:52 Dose: 100 mls/hr Documented By: ALONSO Cefepime HCl (Maxipime 2000mg) 2,000 mg in 20 mls @ 5 mls/min IV Q8H [facility]; Protocol Stop: 01/08/25 21:59 Last Admin: 01/05/25 06:07 Dose: 5 mls/min Documented By: Admin: 01/04/25 21:37 Dose: 5 mls/min Documented By: Admin: 01/04/25 12:54 Dose: 5 mls/min Documented By: Admin: 01/04/25 06:19 Dose: 5 mls/min Documented By: Admin: 01/03/25 22:22 Dose: 5 mls/min Documented By: BERENICE Doxycycline Hyclate 100 mg/ (Dextrose) 100 mls @ 50 mls/hr IV Q12H [facility] Stop: 01/08/25 20:59 Last Infusion: 01/05/25 11:05 Dose: Infused Documented By: Admin: 01/05/25 09:02 Dose: 50 mls/hr Documented By: Infusion: 01/05/25 02:11 Dose: Infused Documented By: Admin: 01/04/25 21:31 Dose: 50 mls/hr Documented By: Infusion: 01/04/25 10:38 Dose: Infused Documented By: Admin: 01/04/25 08:46 Dose: 50 mls/hr Documented By: Infusion: 01/03/25 23:16 Dose: Infused Documented By: Admin: 01/03/25 20:37 Dose: 50 mls/hr Documented By: BERENICE Cefepime HCl (Maxipime 2000mg) 2,000 mg in 20 mls @ 5 mls/min IV Q12H [facility]; Protocol Stop: 01/08/25 23:59 Last Admin: 01/06/25 05:52 Dose: 5 mls/min Documented By: Admin: 01/05/25 17:52 Dose: 5 mls/min Documented By: BRAVO Calcium Gluconate 1,000 mg/ (Sodium Chloride) 60 mls @ 240 mls/hr IV NOW ONE Stop: 01/06/25 10:14 Last Admin: 01/06/25 11:10 Dose: 240 mls/hr Documented By: BRAVO Ibuprofen (Ibuprofen 200 Mg/10 Ml Udc) 400 mg PO ONCE ONE Stop: 01/05/25 23:46 Last Admin: 01/05/25 23:54 Dose: 400 mg Documented By: BERENICE Insulin Aspart (Insulin Aspart Per Unit Charge) 0 units SC Q6 [facility] Stop: 02/03/25 00:00 Last Admin: 01/05/25 05:54 Dose: Not Given Documented By: BERENICE Co-signed By: EDISON Admin: 01/04/25 23:58 Dose: 1 units Documented By: BERENICE Co-signed By: EDISON Admin: 01/04/25 16:17 Dose: Not Given Documented By: Admin: 01/04/25 12:05 Dose: Not Given Documented By: Admin: 01/04/25 06:06 Dose: Not Given Documented By: BERENICE Co-signed By: EDISON Admin: 01/04/25 00:54 Dose: 3 units Documented By: BERENICE Co-signed By: KAYLENE Ioversol (Optiray 320 100ml) 93 ml IV ONCE ONE Stop: 01/03/25 14:46 Last Admin: 01/03/25 14:46 Dose: 93 ml Documented By: HAILEY Levetiracetam (Levetiracetam 250 Mg Tab) 750 mg PO BID@0800,1900 [facility] Stop: 02/02/25 20:09 Last Admin: 01/05/25 07:52 Dose: 750 mg Documented By: Admin: 01/04/25 18:04 Dose: 750 mg Documented By: Admin: 01/04/25 08:47 Dose: 750 mg Documented By: Admin: 01/03/25 20:31 Dose: 750 mg Documented By: BERENICE Midodrine (Midodrine Hcl 2.5 Mg Tab) 5 mg PO ONE ONE Stop: 01/05/25 19:01 Last Admin: 01/05/25 21:27 Dose: 5 mg Documented By: BERENICE Midodrine (Midodrine Hcl 2.5 Mg Tab) 5 mg PO TID@0800,1200,1700 [facility] Stop: 02/05/25 07:59 Last Admin: 01/06/25 08:02 Dose: 5 mg Documented By: BRAVO Seaman ([facility] Protocol For Hyperglycemia) 1 each N/A Q6 [facility] Stop: 01/06/25 00:00 Last Admin: 01/04/25 06:05 Dose: Not Given Documented By: Admin: 01/04/25 00:54 Dose: 1 each Documented By: BERENICE Seaman ([facility] Protocol For Hyperglycemia) 1 each N/A Q6 [facility] Stop: 01/07/25 11:59 Last Admin: 01/06/25 05:52 Dose: Not Given Documented By: Admin: 01/06/25 00:20 Dose: Not Given Documented By: Admin: 01/05/25 18:20 Dose: Not Given Documented By: Admin: 01/05/25 11:39 Dose: Not Given Documented By: BRAVO Nutritional Formula (Peptamen Intense Vhp 1.0 [place] 1,000 Ml Bag) 1,000 ml PEG TID [facility]; Protocol Stop: 02/02/25 20:59 Last Admin: 01/06/25 08:06 Dose: 1,000 ml Documented By: Admin: 01/05/25 21:35 Dose: Not Given Documented By: Admin: 01/05/25 14:14 Dose: 1,000 ml Documented By: Admin: 01/05/25 08:59 Dose: 1,000 ml Documented By: Admin: 01/04/25 21:29 Dose: Not Given Documented By: Admin: 01/04/25 12:52 Dose: Not Given Documented By: Admin: 01/04/25 08:50 Dose: Not Given Documented By: Admin: 01/03/25 21:11 Dose: Not Given Documented By: BERENICE Oxybutynin Chloride (Oxybutynin Chloride 5 Mg Tab) 5 mg PO NOW STA Stop: 01/03/25 16:49 Last Admin: 01/03/25 17:02 Dose: 5 mg Documented By: SWATHI Phenobarbital (Phenobarbital 30 Mg Tab) 90 mg PO DAILY@0700 [facility] Stop: 02/03/25 06:59 Last Admin: 01/05/25 07:52 Dose: 90 mg Documented By: Admin: 01/04/25 08:52 Dose: 90 mg Documented By: DYLON Phenobarbital (Phenobarbital 30 Mg Tab) 120 mg PO DAILY@1900 [facility] Stop: 02/03/25 18:59 Last Admin: 01/04/25 18:03 Dose: 120 mg Documented By: DYLON Phenobarbital (Phenobarbital 30 Mg Tab) 120 mg PO NOW ONE Stop: 01/03/25 21:31 Last Admin: 01/03/25 22:22 Dose: 120 mg Documented By: BERENICE Sterile Water (Tube Feeding Water Flush) 250 ml GT TID [facility] Stop: 02/02/25 20:59 Last Admin: 01/05/25 09:00 Dose: 100 ml Documented By: Admin: 01/04/25 21:34 Dose: 250 ml Documented By: Admin: 01/04/25 12:54 Dose: 250 ml Documented By: Admin: 01/04/25 08:50 Dose: 250 ml Documented By: Admin: 01/03/25 23:09 Dose: 250 ml Documented By: BERENICE Description This is a 21 electrode EEG with a single channel dedicated to limited EKG. The electrodes were placed in accordance with the International 10-20 system. Interpretation The predominant background activity consists of regular 4 to 5 Hz activity, of up to 50 mV in amplitude,seen symmetrically distributed over the posterior head regions bilaterally, spreading anteriorly. Patient would open her eyes spontaneously, but it did not lead to any attenuation of the background activity. There were higher amplitude waveforms in the frontal head regions bilaterally occurring irregularly with some of these waveforms consistent with triphasic waves. Photic stimulation was performed and elicited no change in the background activity and no abnormal responses were seen. Hyperventilation was not performed. A mild amount of muscle and movement artifact activity contaminated the recording, hindering interpretation from time to time but not to any significant degree overall. Most of her movement was in the frontal head region with eye blinking. In addition, there were a few sharply contorted waveforms spreading throughout most of the head regions as isolated transients, likely electrical interference (ICU equipment). No focal abnormalities were noted and no potentially epileptogenic discharges were identified. In summary, this EEG was abnormal throughout the recording, as noted by generalized slowing of the background activity of a moderate nature with higher relative waveforms of the slow nature frontally bilaterally. No focal abnormalities or potentially epileptogenic discharges were seen. Clinical Correlation There is no evidence of subclinical status epilepticus by this study. The abnormal slowing and higher amplitude waveforms frontally is consistent with a significant encephalopathy which could be due to a wide variety of causes. Typically, however, this type of slowing can be seen with encephalopathy from renal or hepatic causes. Clinical correlation is required. [facility] EEG Procedure Codes Indication for Procedure (1) Seizure-like activity: Neurology Neurology: 59377 EEG include record awake & drowsy
[2025-01-06] MEDS: HYDROCORTISONE SOD 50 MG in SYRINGE 0 ML IV SCH (12:04)
[2025-01-06] MEDS: PROSOURCE NO CARB 30 ML/PKT GT SCH (14:29)
[2025-01-06] MEDS: PATIENT'S OWN ENTERAL FEEDING GT SCH (14:30)
[2025-01-06 15:13] LABS: BUN Creatinine Ratio 58.7 (10-20); Calcium 7.6 mg/dl (8.6-10.3); Creatinine Clr Calc Pharmacy 57.6 ml/min; Potassium 4.5 mmol/L (3.5-5.1)
--- NOTE | 2025-01-06 17:19 | Hospitalist Progress Note ---
Date of Service January 06, 2025 Assessment & Plan (1) Acute and chronic respiratory failure with hypercapnia: (2) VAP (ventilator-associated pneumonia): (3) Hyponatremia: (4) Thrombocytopenia: Plan 24F readmitted with acute on chronic respiratory failure with hypercarbic metabolic encephalopathy. Recent DC with HAP on Levaquin and Bactrim, has diffuse rash. She was rescued with ventilation adjustment via chronic trach, pre hospital concern for acute on chronic HFpEF with known ASD and VSD. Previous history of CP, hydrocephalus s/p QUALITY IMPROVEMENT ENGINEER shunt, chronic tracheostomy with ventilator dependence, hypothyroidism, ALL in remission, primary immunodeficiency, neurogenic bladder requiring intermittent catheterization, seizure disorder, and morbid obesity. She was seen for a telehealth posthospitalization visit on 01/01 and was noted to have increased edema in her extremities and signs of air hunger-she was prescribed Lasix 20 Mg p.o., she did not respond. She was also with hyponatremia, hyperkalemia, elevated LFTs, thrombocytopenic, and appeared volume overloaded. She tested positive for rhino/enterovirus and has a persistent dense LLL pneumonia. She was admitted for acute on chronic respiratory failure with hypercarbia and hypoxemia, rash, and rhino/enterovirus with hyponatremia, acute on chronic HFpEF. however has develed some challenges with volume status and hyponatermia #Acute and chronic respiratory failure with hypercapnia and hypoxemia/ventilator and tracheostomy dependent/acute encephalopathy/entero-/rhinovirus/VAP. Her home vent settings need to be addressed prior to discharge, did return to home vent 01/04. CXR not much changed with small pleural effusions, difficult to rule out pneumonia. Grew out MRSA and Pseudomonas last admission on tracheal sputum culture. - pulmonology input for vent settings, trach care, remains in ICU status -Discontinued Bactrim and Levaquin, allergy feels ok to revisit these meds if ID feels required started IV cefepime and IV doxycycline id stoppeds as cultures are negative at 48H, #Acute on chronic HFpEF-with weight increased from previous, edema all 4 extremities. With a history of congenital heart disease with preserved EF on echo from 2023. - Give Lasix 40 Mg IV now with hyponatremia and steven lasix on hold Hyponatremia/hyperkalemia-hyponatremia secondary to heart failure/volume overload, reduce free water, putting our dilute urine maybe attempt at auto correction #Hyperglycemia-blood sugar elevated on arrival at 246 and she has no history of diabetes. - Accu-Cheks, NovoLog sliding scale ordered - HgbA1c 5.o #thrombocytopenia- Platelets stable but low at 100, H/O ALL which could also be viral suppression from rhino/enterovirus. Bactrim can also cause thrombocytopenia - Follow CBC, check LDH, haptoglobin, peripheral smear, reticulocyte count. With Rash Allergy does not feel that this is Bactrim mediated, recommended ig levels and tryptase and to continue with immunoglobin Hizentra-20% immunoglobulin replacement regimen: 10g q2 weekly next dose 01/08/25 -premedication regimen: -Benadryl (~50mg) delivered via the G-tube -acetaminophen (~650mg) delivered via the G-tube -dexamethasone (~1mg) delivered via the G-tube #Cerebral palsy/QUALITY IMPROVEMENT ENGINEER shunt/seizure disorder/tube feed dependent with PEG tube-no recent seizures, requires total care - Ordered similar tube feeds-appreciate dietitian consult, free water flushes, Fatty liver, steatorrhea and constipation seen on CT abd/Pelvis -Transaminitis on labs from fatty liver and possibly meds - Continue home Keppra and phenobarbital-doses confirmed with mom, some - Continue frequent turning and skin care, tracheostomy care, PEG tube care #Hypothyroidism-TSH normal on last check in 02/2025 - Check TSH - Continue home levothyroxine dosing #Primary immunodeficiency-follows with allergy/immunology, is on Hizentra injections. 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 Turner catheter placed in the ER for convenience and can be removed at discharge DVT prophylaxis-SCDs only given thrombocytopenia and petechial rash Admission and Anticipated Discharge Date Admission Date: January 03, 2025 Results & Data Results & Data Vital Signs (Past 12 Hours) Vital Signs Temp Pulse Pulse Resp BP Pulse Ox O2 Del Method 01/06/25 16:03 63 18 132/67 94 01/06/25 16:00 62 01/06/25 15:37 62 20 93 Mechanical Vent 01/06/25 15:03 66 20 101/64 89 L 01/06/25 14:09 65 20 97/48 L 91 01/06/25 13:03 96.8 F L 58 L 17 94/45 L 94 01/06/25 12:00 67 16 98/56 L 92 01/06/25 11:31 70 22 94 Mechanical Vent 01/06/25 10:00 97.2 F L 73 18 94/48 L 93 01/06/25 09:23 56 L 18 95 01/06/25 09:06 96.6 F L 63 18 89/41 L 93 01/06/25 08:00 01/06/25 08:00 69 01/06/25 08:00 96.8 F L 59 L 18 94/42 L 96 01/06/25 07:30 Mechanical Vent 01/06/25 07:00 96.6 F L 54 L 18 89/40 L 96 01/06/25 06:03 18 01/06/25 06:00 97.0 F L 55 L 18 86/40 L 90 O2 Flow Rate FiO2 01/06/25 16:03 01/06/25 16:00 01/06/25 15:37 2 01/06/25 15:03 01/06/25 14:09 01/06/25 13:03 01/06/25 12:00 01/06/25 11:31 2 01/06/25 10:00 01/06/25 09:23 30 01/06/25 09:06 01/06/25 08:00 30 01/06/25 08:00 01/06/25 08:00 01/06/25 07:30 01/06/25 07:00 01/06/25 06:03 01/06/25 06:00 PG Care Time/CCT Total # of Minutes Spent Total Time Spent with Patient: Total time spent is greater than 50% in coordination of care (as documented) at patient's floor/unit and/or counseling patient: Coding Level of Care Code 77715 SUB INP/OBS CARE 3/50MIN Diagnoses Acute and chronic respiratory failure with hypercapnia J96.22 VAP (ventilator-associated pneumonia) J95.851 Hyponatremia E87.1 Thrombocytopenia D69.6
[2025-01-06 17:41] LABS: Base Excess VBG 0.8 mEq/L; HCO3 VBG 25 mmol/L; Oxygen Saturation VBG 92.2 %; PCO2 VBG 39 mmHg (38-50); PO2 VBG 58 mmHg; pH VBG 7.42 (7.36-7.41)
[2025-01-06] MEDS: LORazepam 1 MG TAB PO PRN (23:24)
[2025-01-07 04:32] LABS: Basophils # (auto) 0.02 K/uL (0.00-0.20); Basophils % (auto) 0.3 %; Eosinophils # (auto) 0.08 K/uL (0.00-0.50); Eosinophils % (auto) 1.1 %; Hematocrit (blood only) 28.9 % (37.0-47.0); Immature Granulocytes % (auto) 1.4 %; Lymphocytes # (auto) 1.05 K/uL (1.20-3.40); Mean Corpuscular Hemoglobin 32.1 pg (25.0-34.0); Mean Corpuscular Hgb Conc 34.6 g/dL (32.0-36.0); Mean Corpuscular Volume 92.6 fL (80.0-100.0); Mean Platelet Volume 11.2 fL (9.4-12.4); Monocytes # (auto) 0.61 K/uL (0.11-0.59); Monocytes % (auto) 8.7 %; Neutrophils # (auto) 5.15 K/uL (1.40-6.50); Neutrophils % (auto) 73.5 %; Nucleated RBC # (auto) 0.02 K/uL (0.00-0.12); Nucleated RBC % (auto) 0.3 %; Platelet Count 136 K/uL (130-400); RDW Coefficient of Variation 17.1 % (11.5-14.5); RDW Standard Deviation 56.3 fL (36.4-46.3); Red Blood Count 3.12 M/uL (4.20-5.40); White Blood Count 7.01 K/ul (4.8-10.8)
[2025-01-07 04:47] LABS: BUN Creatinine Ratio 60.8 (10-20); Calcium 7.8 mg/dl (8.6-10.3); Creatinine Clr Calc Pharmacy 63.8 ml/min; Magnesium 4.2 mg/dl (1.7-2.4); Potassium 3.8 mmol/L (3.5-5.1)
--- NOTE | 2025-01-07 07:38 | Critical Care Progress Note ---
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 She was noted to be hypercarbic and acidotic on arrival which improved with support. She was also found with multiple electrolyte disturbances, and end organ dysfunction in setting of entero-virus, recent bacterial pneumonia, and concern for atypical drug reaction with flushed face and petichael rash. She will be admitted to ICU for continued support and monitorng of end organ labs. Patient is full code. Neuro - Lethargy - HX CP RIGHT OF WAY CUTTER shunt placement and siezure disorder CAM ICU: XANDER Baseline is she opens eyes, smiles, and grimmaces -- History of seizure disorder On phenobarbital and Keppra at home EEG 01/06/2025 shows abnormal slowing indication of significant encephalopathy. But there was no evidence of status epilepticus CT head 01/06/2025 did not show any new abnormality, she does have chronic changes in the brain from before., No hydrocephalus CT sinus 01/06/2025 show moderate to large amount of secretions in the nasal turbinates as well as nasopharynx, large mastoid and middle ear effusions Cardiac - sepsis, acute on chronic pulmonary edema - she presents with hypercarbic respiratory failure with sources of lung- viral and likely remaining bacterial component and with organ dysfunction- her organ dysfunction was also concern for ADR/AKANKSHA- in setting of Bactrim DDX: septic shock vs. viral illness vs. adverse drug reaction or combination of the above --Borderline hypotension As per family patient systolic blood pressure is usually in the high 80s to low 90s. Given the IMER with low blood pressure, I will start the patient on midodrine 5 mg 3 times daily and gradually titrated off BNP in the morbidly obese patient with lower extremity edema - she has been diuresed in the ER with good response and her hemodynamics have been adequate - Hold Bactrim Respiratory - Hypercarbic/hypoxic respiratory failure, viral illness with enterovirus- previous bacterial pneumonia 2 weeks ago with psudomonas and MRSA in sputum --Acute on chronic hypercapnic respiratory failure Patient does have BiPAP machine at home She was admitted with hypercapnia even on 12/28/2024 I think there might be adjustment needed in her BiPAP machine given the persistent hypercapnia while she is compliant with her BiPAP She is not on oxygen at home at baseline I did speak with patient's RT Dillon on 01/05/2025 at [phone], currently the IPAP ranges 20-22 and EPAP 6. Would recommend to increase the IPAP range to 22- 26 to aim for the tidal volume of 300 and increase the backup rate to 15 I think patient will benefit from AVAPS rather than BiPAP/pressure support NIMV settings should be AVAPS-AE; Breath rate: auto; Inspiratory time:auto; Sigh: off; Tidal Volume: 300-320, PS min: 4-10 PS max: 12-25; EPAP min: 6-10; EPAP max: 10-16; AVAPS rate: 14 during sleep and as needed GI - Elevated LFTS, constipation, presence of feeding tube --Transaminitis --> trending down Could be secondary to drug-induced PT/INR within normal limit CPK within normal limit --Severe constipation Continue with bowel regimen RENAL/LYTES - IMER II, Hyponatremia -- IMER --> improving Urine sodium <10, urine osmolality 224 Monitor BUN/creatinine Avoid nephrotoxic medications Strict ins and outs --Hyponatremia --> improving Seems to be hypervolemic given the lower extremity edema as well as elevated BNP Phenobarbital is also associated with hyponatremia Patient also gets free water flushes on a regular basis which could be the reason as well Serum osmolality 292, urine osmolality 224, urine sodium < 10 - As above - continue shukla catheter ENDO - Continue Synthroid, ICU hyperglycemic protocol --Cortisol a.m. 6.82 Patient has borderline hyponatremia, hypotension as well as normal-high potassium. Probability of adrenal insufficiency is there Patient will be started on hydrocortisone on 01/06/2025 HEME - Acute on chronic thrombocytopenia, petechial rash -- Pancytopenia, history of leukemia Acute on chronic thrombocytopenia Continue to trend PT/INR within normal limit 12/30/2024 Bactrim can also cause pancytopenia -- Patient with flushed face, peticahal rash to lower extremities, organ dysfunction - Fluorokine eye staining- negative for uptake - LDH 323, mildly elevated, no eosinophilia on the peripheral smear Hold Bactrim Neurology has been consulted ID - ERV, bacterial pneumonia -- Sputum culture growing MRSA as well as Pseudomonas pansensitive except for tobramycin on 12/22/2024 Sputum culture was also positive for MRSA on 02/12/2024, probability of colonization from MRSA is there Was given Bactrim as an outpatient for MRSA Follow repeat sputum culture and blood culture Procalcitonin 0.02 on 12/28/2024 Respiratory BioFire positive for entero-/rhinovirus CT chest shows chronic lower lobe atelectasis with patchy groundglass opacity on the right side which has not changed since at least February 2024 -- Patient has petechial rash, I do not see any significant mucosal involvement. Unlikely to be Garcia-Joshua's syndrome Notes from immunology reviewed, there is thought process that the rash is not related to Bactrim but rather viral infection --Prophylaxis VTE: IPC GI: Pantoprazole Lines: Peripheral Diet: Tube feeds Plan: In/out: -2.6 L, urine output 2960,-5.4 L since coming to the hospital VB.42/79/58 VBG is inclining towards alkalosis, I will decrease the respiratory rate to 14, repeat VBG later today. There has been significant improvement in sodium and patient is diuresing well as well, patient was started on hydrocortisone yesterday. Probability of it being response to hydrocortisone is high Will discontinue midodrine as of tomorrow Corrected calcium within normal limits Potassium being replaced Hypermagnesemia is likely from the tube feeds. Will need to make changes. Director Of Operations For Therapy involved Case discussed with case management to make sure there are AVAPS order set in place before she is discharged Case was discussed with RN and primary team I spent more than 50 minutes looking in the chart, images, discussing the plan of care with the patient, RN as well as primary team This includes time spent evaluating patient, direct bedside care, chart review, placing orders, interpretation of diagnostic studies, discussion with consultants, patient, and family members, as well as other required patient management activities. Please note the above document was generated using voice recognition software. It may contain grammatical, syntax or spelling errors.Any formal questions or concerns about the content, text or information contained within the body of this dictation should be directly addressed to the provider for clarification. Admission and Anticipated Discharge Date Admission Date: January 03, 2025 Subjective Patient seen and examined at bedside. No acute distress, no adverse events overnight Patient's parents were in the room at the time of examination Has been afebrile Systolic blood pressure was in the mid 90s with MAP in the low 60s She was tolerating AVAPS machine well. VBG in the morning was little bit alkalotic. Saturation was 97% on 2 L bled into the machine. We will take her off oxygen. Review of Systems 2 Review of Systems: All systems reviewed & are unremarkable except as noted in Subjective Physical Exam 2 Physical Exam: Constitutional: No acute distress HEENT: PERRLA Respiratory system: Decreased air entry bilaterally, no wheeze, No rhonchi, no crackles CVS: S1-S2 positive, no murmurs or gallops Abdomen: Soft, nontender, nondistended, positive bowel sounds x4, obese, positive PEG Extremities: +1 pulses bilaterally radialis/ dorsalis pedis, no cyanosis, +2 pitting edema bilateral lower extremity, +1 pitting edema bilateral upper extremity Neuro: Awake and alert Psych: Unable to assess G/U: Positive Shukla Skin: Diffuse petechial rash appreciated bilaterally upper and lower extremity as well as abdominal --> improving from before, no clear mucosal lesions appreciated Skin: no rashes, warm and dry Lymphatic: no cervical or axillary lymphadenopathy Results & Data Results & Data Vital Signs (Past 12 Hours) Vital Signs Temp Pulse Pulse Resp BP Pulse Ox O2 Del Method 01/07/25 06:03 36.7 C 55 L 16 90/41 L 95 01/07/25 05:54 36.8 C 56 L 16 95 01/07/25 05:00 36.7 C 55 L 16 91/40 L 95 01/07/25 04:00 87/41 L 01/07/25 04:00 36.6 C 56 L 16 87/41 L 95 01/07/25 03:42 36.5 C 55 L 16 95 01/07/25 02:00 36.3 C L 55 L 16 93/41 L 95 01/07/25 01:09 36.2 C L 57 L 18 91/40 L 95 01/07/25 00:48 36.1 C L 59 L 19 94 01/07/25 00:09 36.0 C L 54 L 18 86/42 L 94 01/07/25 00:00 56 L 01/06/25 23:21 36.0 C L 55 L 17 97 01/06/25 23:09 36.0 C L 55 L 16 96 01/06/25 23:00 89/38 L 01/06/25 22:57 36.0 C L 54 L 16 96 01/06/25 22:06 36.0 C L 56 L 17 85/42 L 96 01/06/25 22:00 01/06/25 21:57 36.0 C L 55 L 16 95 01/06/25 21:00 36.1 C L 61 18 92/47 L 90 01/06/25 20:12 58 L 17 95 01/06/25 20:00 99/48 L 01/06/25 20:00 58 L 20 96 Mechanical Vent 01/06/25 19:51 58 L 19 94 O2 Del Method O2 Flow Rate 01/07/25 06:03 01/07/25 05:54 01/07/25 05:00 01/07/25 04:00 01/07/25 04:00 01/07/25 03:42 01/07/25 02:00 01/07/25 01:09 01/07/25 00:48 01/07/25 00:09 01/07/25 00:00 01/06/25 23:21 01/06/25 23:09 01/06/25 23:00 01/06/25 22:57 01/06/25 22:06 01/06/25 22:00 Mechanical Vent 01/06/25 21:57 01/06/25 21:00 01/06/25 20:12 01/06/25 20:00 01/06/25 20:00 2 01/06/25 19:51 Laboratory Results 01/07/25 04:12 01/07/25 04:12 Coding Level of Care Code 65334 SUB INP/OBS CARE 3/50MIN Diagnoses Viral illness B34.9 Stage 2 acute kidney injury N17.9 Acute and chronic respiratory failure with hypercapnia J96.22 Acute and chronic respiratory failure, unspecified whether with hypoxia or hypercapnia J96.20 Acute hyponatremia E87.1 Seizure disorder G40.909 Primary immune deficiency disorder D84.89 Transaminitis R74.01 Congenital hydrocephalus Q03.9 Congenital stenosis of pulmonary valve Q22.1 Slow transit constipation K59.01 Constipation type: slow transit constipation (11) Constipation Constipation type: slow transit constipation Qualified Code(s): K59.01 - Slow transit constipation
[2025-01-07] MEDS: POTASSIUM CHLORIDE 20 MEQ/15 ML UDC PO STA (08:21)
--- NOTE | 2025-01-07 08:40 | Electrocardiogram Report ---
Test Reason : Blood Pressure : */* mmHG Vent. Rate : 66 BPM Atrial Rate : * BPM P-R Int : * ms QRS Dur : 102 ms QT Int : 414 ms P-R-T Axes : * 62 28 degrees QTcB Int : 434 ms Accelerated Junctional rhythm Abnormal ECG When compared with ECG of 28-Dec-2024 14:01, Junctional rhythm has replaced Sinus rhythm T wave inversion no longer evident in Lateral leads Confirmed by Jacek Lopez ([id number]) on 01/07/2025 8:40:06 AM Referred By: REFERRED SELF Confirmed By: Jacek Lopez
[2025-01-07] MEDS: FLUTICASONE PROPIONATE NA SPR 16 GM BTL SCH (14:14)
[2025-01-07 15:02] LABS: Base Excess VBG -0.2 mEq/L; HCO3 VBG 26 mmol/L; Oxygen Saturation VBG 92.8 %; PCO2 VBG 47 mmHg (38-50); PO2 VBG 63 mmHg; pH VBG 7.35 (7.36-7.41)
[2025-01-07 15:37] LABS: BUN Creatinine Ratio 67.7 (10-20); Creatinine Clr Calc Pharmacy 66.9 ml/min; Potassium 4.6 mmol/L (3.5-5.1)
--- NOTE | 2025-01-07 16:40 | Hospitalist Progress Note ---
Date of Service January 07, 2025 Assessment & Plan (1) Acute and chronic respiratory failure with hypercapnia: (2) VAP (ventilator-associated pneumonia): (3) Hyponatremia: (4) Thrombocytopenia: Plan 24F readmitted with acute on chronic respiratory failure with hypercarbic metabolic encephalopathy. Recent DC with HAP on Levaquin and Bactrim, has diffuse rash. She was rescued with ventilation adjustment via chronic trach, pre hospital concern for acute on chronic HFpEF with known ASD and VSD. Previous history of CP, hydrocephalus s/p ANESTHESIA TECHNICIAN shunt, chronic tracheostomy with ventilator dependence, hypothyroidism, ALL in remission, primary immunodeficiency, neurogenic bladder requiring intermittent catheterization, seizure disorder, and morbid obesity. She was seen for a telehealth posthospitalization visit on 01/01 and was noted to have increased edema in her extremities and signs of air hunger-she was prescribed Lasix 20 Mg p.o., she did not respond. She was also with hyponatremia, hyperkalemia, elevated LFTs, thrombocytopenic, and appeared volume overloaded. She tested positive for rhino/enterovirus and has a persistent dense LLL pneumonia. She was admitted for acute on chronic respiratory failure with hypercarbia and hypoxemia, rash, and rhino/enterovirus with hyponatremia, acute on chronic HFpEF. however has develed some challenges with volume status and hyponatermia #Acute and chronic respiratory failure with hypercapnia and hypoxemia/ventilator and tracheostomy dependent/acute encephalopathy/entero-/rhinovirus/VAP. Her home vent settings need to be addressed prior to discharge, did return to home vent 01/04. CXR not much changed with small pleural effusions, difficult to rule out pneumonia. Grew out MRSA and Pseudomonas last admission on tracheal sputum culture. - pulmonology input for vent settings, trach care, remains in ICU status - Flonase started for sinusitis - VBG planned AM, depending on the results may be medically stable for discharge -Discontinued Bactrim and Levaquin, allergy feels ok to revisit these meds if ID feels required initially treated with IV cefepime and IV doxycycline, stopped by infectious diseases because cultures remained negative Home BiPAP adjusted: Sweatband Drummer did speak with patient's RT Dillon on 01/05/2025 at [phone], currently the IPAP ranges 20-22 and EPAP 6. Would recommend to increase the IPAP range to 22-26 to aim for the tidal volume of 300 and increase the backup rate to 15 " home AVAPS rather than BiPAP recommended, settings in Dr. Padilla's note from today #Acute on chronic HFpEF-with weight increased from previous, edema all 4 extremities. With a history of congenital heart disease with preserved EF on echo from 2023. - diuresed in ED, no diuretics today hyponatremia resolved, sodium normalized #Hyperglycemia-blood sugar elevated on arrival at 246 and she has no history of diabetes. - Accu-Cheks, NovoLog sliding scale ordered - HgbA1c 5.o #thrombocytopenia- may be viral suppression from rhino/enterovirus. Bactrim can also cause thrombocytopenia resolved, platelets normal today - automobile repair service estimator did not feel that this is Bactrim mediated, recommended ig levels and tryptase and to continue with immunoglobin #Cerebral palsy/ANESTHESIA TECHNICIAN shunt/seizure disorder/tube feed dependent with PEG tube-no recent seizures, requires total care - Ordered similar tube feeds-appreciate dietitian consult, free water flushes, Fatty liver, steatorrhea and constipation seen on CT abd/Pelvis -Transaminitis on labs from fatty liver and possibly meds - Continue home Keppra and phenobarbital-doses - Continue frequent turning and skin care, tracheostomy care, PEG tube care #Hypothyroidism- - TSH was normal - Continue home levothyroxine dosing #Primary immunodeficiency-follows with allergy/immunology, is on Hizentra injections. 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 Turner catheter placed in the ER for convenience and can be removed at discharge IMER - present on admission and improving - Cr down to 1.3 Hypermagnesemia - Mag is twice the upper limit of normal. Was also elevated last summer and now more so, exacerbated by IMRE. This is unusual. We evaluated her home liver supplement and label does not state that it contains magesium. Evaluate her home tube feed - [employer] - standard formula does contain magnesium and three cartons a day is 345 mg which is near the CRINKLING MACHINE OPERATOR. Will double check whether her family gives mag containing antacids or laxative at home. TSH was normal and AM cortisol normal at 6.2. I researched her home medications today and I do not find any that should raise serum magnesium DVT prophylaxis-SCDs only given thrombocytopenia and petechial rash I updated her parents at bedside, discussed plan of care with parents, CAST IRON DRAIN PIPE LAYERservice cleaner and Anticipated Discharge Date Admission Date: January 03, 2025 Subjective no significant events overnight, discussed with her parents at bedside, she is blinking yes/no to questions seems to be at her normal level of responsiveness Petechial rash seems to be improving still has some facial erythema Physical Exam 2 Physical Exam: Last 24h vitals reviewed GEN: no acute distress, awake HEENT: pupils reactive and unequal which is baseline, sclerae anicteric, moist MM, no sloughing of conjunctiva or mucous membranes, will not open her mouth, tracheostomy anterior neck RESP: normal WOB, CTAB anteriorly CV: reg no mrg ABD: soft/nt/nd +BT SKIN: warm and dry, petechial at rash arms and legs, there do not seem to be any new lesions according to her mother's observations. She has some persistent facial erythema NEURO: alert, communicating by blinking yes/no Results & Data Results & Data Vital Signs (Past 12 Hours) Vital Signs Temp Pulse Pulse Resp BP Pulse Ox O2 Del Method 01/07/25 14:57 69 01/07/25 13:02 36.5 C 73 19 90 Mechanical Vent 01/07/25 13:00 87/43 L 01/07/25 12:50 36.6 C 69 18 92 01/07/25 12:17 80 16 92 01/07/25 11:08 83 16 94 Mechanical Vent 01/07/25 11:00 37.2 C 103 H 0 L 84 L 01/07/25 11:00 105/53 L 01/07/25 10:24 37.1 C 89 16 92 01/07/25 09:00 36.6 C 64 16 94 Mechanical Vent 01/07/25 09:00 100/50 L 01/07/25 08:03 36.8 C 58 L 16 96 Mechanical Vent 01/07/25 08:00 94/44 L 01/07/25 08:00 56 L 01/07/25 07:57 36.8 C 58 L 17 96 01/07/25 07:30 57 L 16 93 01/07/25 07:30 01/07/25 07:00 36.7 C 55 L 16 98 Mechanical Vent 01/07/25 07:00 91/39 L 01/07/25 06:03 36.7 C 55 L 16 90/41 L 95 01/07/25 05:54 36.8 C 56 L 16 95 01/07/25 05:00 36.7 C 55 L 16 91/40 L 95 O2 Flow Rate FiO2 01/07/25 14:57 01/07/25 13:02 0 01/07/25 13:00 01/07/25 12:50 01/07/25 12:17 01/07/25 11:08 3 01/07/25 11:00 01/07/25 11:00 01/07/25 10:24 01/07/25 09:00 2 01/07/25 09:00 01/07/25 08:03 2 01/07/25 08:00 01/07/25 08:00 01/07/25 07:57 01/07/25 07:30 01/07/25 07:30 2 01/07/25 07:00 01/07/25 07:00 01/07/25 06:03 01/07/25 05:54 01/07/25 05:00 Laboratory Results 01/07/25 04:12 01/07/25 14:54 PG Care Time/CCT Total # of Minutes Spent Total Time Spent with Patient: Total time spent is greater than 50% in coordination of care (as documented) at patient's floor/unit and/or counseling patient: Coding Level of Care Code 79114 SUB INP/OBS CARE 3/50MIN Diagnoses Acute and chronic respiratory failure with hypercapnia J96.22 VAP (ventilator-associated pneumonia) J95.851 Hyponatremia E87.1 Thrombocytopenia D69.6
[2025-01-08 04:46] LABS: Base Excess VBG 6.2 mEq/L; HCO3 VBG 31 mmol/L; Oxygen Saturation VBG 89.9 %; PCO2 VBG 42 mmHg (38-50); PO2 VBG 54 mmHg; pH VBG 7.47 (7.36-7.41)
[2025-01-08 04:47] LABS: Basophils # (auto) 0.04 K/uL (0.00-0.20); Basophils % (auto) 0.5 %; Eosinophils # (auto) 0.23 K/uL (0.00-0.50); Eosinophils % (auto) 2.6 %; Hematocrit (blood only) 30.1 % (37.0-47.0); Hemoglobin 10.1 g/dl (12.0-16.0); Immature Granulocytes # (auto) 0.25 K/uL (0.01-0.20); Immature Granulocytes % (auto) 2.8 %; Lymphocytes # (auto) 2.25 K/uL (1.20-3.40); Lymphocytes % (auto) 25.5 %; Mean Corpuscular Hemoglobin 32.4 pg (25.0-34.0); Mean Corpuscular Hgb Conc 33.6 g/dL (32.0-36.0); Mean Corpuscular Volume 96.5 fL (80.0-100.0); Mean Platelet Volume 11.2 fL (9.4-12.4); Monocytes # (auto) 1.35 K/uL (0.11-0.59); Monocytes % (auto) 15.3 %; Neutrophils # (auto) 4.69 K/uL (1.40-6.50); Neutrophils % (auto) 53.3 %; Nucleated RBC # (auto) 0.09 K/uL (0.00-0.12); Platelet Count 143 K/uL (130-400); RDW Coefficient of Variation 17.6 % (11.5-14.5); RDW Standard Deviation 61.3 fL (36.4-46.3); Red Blood Count 3.12 M/uL (4.20-5.40); White Blood Count 8.81 K/ul (4.8-10.8)
[2025-01-08 05:02] LABS: BUN Creatinine Ratio 70.9 (10-20); Creatinine Clr Calc Pharmacy 80.5 ml/min; Magnesium 4.2 mg/dl (1.7-2.4); Phosphorus 3.2 mg/dl (2.5-4.9); Potassium 3.9 mmol/L (3.5-5.1)
--- NOTE | 2025-01-08 07:08 | Critical Care Progress Note ---
Date of Service January 08, 2025 Assessment & Plan (1) Viral illness: (2) Stage 2 acute kidney injury: (3) Acute and chronic respiratory failure with hypercapnia: (4) Acute hyponatremia: (5) Seizure disorder: (6) Primary immune deficiency disorder: (7) Transaminitis: (8) Congenital hydrocephalus: (9) Congenital stenosis of pulmonary valve: (10) Constipation: (11) Dependence on home ventilator: Plan Reason Critically Ill: 24 YOF presents to hospital for lethargy and increase in tachypnea/nasal flaring at home consistent with her symptoms of respiratory distress. She was noted to be hypercarbic and acidotic on arrival which improved with support. She was also found with multiple electrolyte disturbances, and end organ dysfunction in setting of entero-virus, recent bacterial pneumonia, and concern for atypical drug reaction with flushed face and petichael rash. She will be admitted to ICU for continued support and monitorng of end organ labs. Patient is full code. Neuro - Lethargy - HX CP ASSOCIATE MERCHANDISER shunt placement and siezure disorder CAM ICU: XANDER Baseline is she opens eyes, smiles, and grimmaces -- History of seizure disorder On phenobarbital and Keppra at home EEG 01/06/2025 shows abnormal slowing indication of significant encephalopathy. But there was no evidence of status epilepticus CT head 01/06/2025 did not show any new abnormality, she does have chronic changes in the brain from before., No hydrocephalus CT sinus 01/06/2025 show moderate to large amount of secretions in the nasal turbinates as well as nasopharynx, large mastoid and middle ear effusions Cardiac - sepsis, acute on chronic pulmonary edema - she presents with hypercarbic respiratory failure with sources of lung- viral and likely remaining bacterial component and with organ dysfunction- her organ dysfunction was also concern for ADR/AKANKSHA- in setting of Bactrim DDX: septic shock vs. viral illness vs. adverse drug reaction or combination of the above --Borderline hypotension As per family patient systolic blood pressure is usually in the high 80s to low 90s. Given the IMER with low blood pressure, I will start the patient on midodrine 5 mg 3 times daily and gradually titrated off BNP in the morbidly obese patient with lower extremity edema - she has been diuresed in the ER with good response and her hemodynamics have been adequate - Hold Bactrim Respiratory - Hypercarbic/hypoxic respiratory failure, viral illness with enterovirus- previous bacterial pneumonia 2 weeks ago with psudomonas and MRSA in sputum --Acute on chronic hypercapnic vent dependent respiratory failure Patient does have BiPAP machine at home She was admitted with hypercapnia even on 12/28/2024 I think there might be adjustment needed in her BiPAP machine given the persistent hypercapnia while she is compliant with her BiPAP She is not on oxygen at home at baseline I did speak with patient's RT Dillon on 01/05/2025 at [phone], currently the IPAP ranges 20-22 and EPAP 6. Would recommend to increase the IPAP range to 22- 26 to aim for the tidal volume of 300 and increase the backup rate to 15 I think patient will benefit from AVAPS rather than BiPAP/pressure support NIMV settings should be AVAPS-AE; Breath rate: auto; Inspiratory time:auto; Sigh: off; Tidal Volume: 300, PS min/ max: 6/24 ; EPAP min/ max: 6/16 ; AVAPS rate: 14 during sleep and as needed GI - Elevated LFTS, constipation, presence of feeding tube --Transaminitis --> trending down Could be secondary to drug-induced PT/INR within normal limit CPK within normal limit --Severe constipation Continue with bowel regimen RENAL/LYTES - IMER II, Hyponatremia -- IMER --> improving Urine sodium <10, urine osmolality 224 Monitor BUN/creatinine Avoid nephrotoxic medications Strict ins and outs -- S/p hyponatremia Seems to be hypervolemic given the lower extremity edema as well as elevated BNP Phenobarbital is also associated with hyponatremia Patient also gets free water flushes on a regular basis which could be the reason as well Serum osmolality 292, urine osmolality 224, urine sodium < 10 - As above - continue shukla catheter ENDO - Continue Synthroid, ICU hyperglycemic protocol --Cortisol a.m. 6.82 Patient has borderline hyponatremia, hypotension as well as normal-high potassium. Probability of adrenal insufficiency is there Patient will be started on hydrocortisone on 01/06/2025 HEME - Acute on chronic thrombocytopenia, petechial rash -- Pancytopenia, history of leukemia Improvement in thrombocytopenia Continue to trend PT/INR within normal limit 12/30/2024 Bactrim can also cause pancytopenia -- Patient with flushed face, petechial rash to lower extremities, organ dysfunction - Fluorokine eye staining- negative for uptake - LDH 323, mildly elevated, no eosinophilia on the peripheral smear Hold Bactrim Neurology has been consulted ID - ERV, bacterial pneumonia -- Sputum culture growing MRSA as well as Pseudomonas pansensitive except for tobramycin on 12/22/2024 Sputum culture was also positive for MRSA on 02/12/2024, probability of colonization from MRSA is there Was given Bactrim as an outpatient for MRSA Follow repeat sputum culture and blood culture Procalcitonin 0.02 on 12/28/2024 Respiratory BioFire positive for entero-/rhinovirus CT chest shows chronic lower lobe atelectasis with patchy groundglass opacity on the right side which has not changed since at least February 2024 -- Patient has petechial rash, I do not see any significant mucosal involvement. Unlikely to be Garcia-Joshua's syndrome Notes from immunology reviewed, there is thought process that the rash is not related to Bactrim but rather viral infection --Prophylaxis VTE: IPC GI: Pantoprazole Lines: Peripheral Diet: Tube feeds Plan: In/out: - 560 mL, urine output 1935,- 6 L since coming to the hospital VB.47/42/58 AVAPS-AE; Breath rate: auto; Inspiratory time:auto; Sigh: off; Tidal Volume: 300, PS min/ max: 6/24 ; EPAP min/ max: 6/16 ; AVAPS rate: 14 during sleep and as needed Continue with tapering dose of hydrocortisone at home Recommend getting a VBG tomorrow and day after tomorrow in the morning. Increase free water flushes to 150 Q8 given that the sodium is 141 today. Potassium being replaced Case was discussed with RN, case management and primary team I spent more than 50 minutes looking in the chart, images, discussing the plan of care with the patient, RN as well as primary team This includes time spent evaluating patient, direct bedside care, chart review, placing orders, interpretation of diagnostic studies, discussion with consultants, patient, and family members, as well as other required patient management activities. Please note the above document was generated using voice recognition software. It may contain grammatical, syntax or spelling errors.Any formal questions or concerns about the content, text or information contained within the body of this dictation should be directly addressed to the provider for clarification. Admission and Anticipated Discharge Date Admission Date: January 03, 2025 Subjective Patient seen and examined at bedside. No acute distress, no adverse events overnight She was on her AVAPS machine. Was getting low tidal volume than expected. I did make some changes which improved the tidal volume. Has been afebrile Getting tube feeds Patient's family was in the room at the time of examination Review of Systems 2 Review of Systems: All systems reviewed & are unremarkable except as noted in Subjective Physical Exam 2 Physical Exam: Constitutional: No acute distress HEENT: PERRLA Respiratory system: Decreased air entry bilaterally, no wheeze, no rhonchi, no crackles CVS: S1-S2 positive, no murmurs or gallops Abdomen: Soft, nontender, nondistended, positive bowel sounds x4, obese, positive PEG Extremities: +1 pulses bilaterally radialis/ dorsalis pedis, no cyanosis, +2 pitting edema bilateral lower extremity, +1 pitting edema bilateral upper extremity Neuro: Awake and alert Psych: Unable to assess G/U: Positive Shukla Skin: Diffuse petechial rash appreciated bilaterally upper and lower extremity as well as abdominal --> improving from before, no clear mucosal lesions appreciated Skin: no rashes, warm and dry Lymphatic: no cervical or axillary lymphadenopathy Results & Data Results & Data Vital Signs (Past 12 Hours) Vital Signs Temp Pulse Pulse Resp BP Pulse Ox Pulse Ox 01/08/25 06:00 36.3 C L 55 L 15 94 01/08/25 05:00 36.3 C L 52 L 15 93 01/08/25 05:00 87/44 L 01/08/25 05:00 87/44 L 01/08/25 04:03 36.4 C L 52 L 14 93 01/08/25 04:00 90/40 L 01/08/25 04:00 90/40 L 01/08/25 04:00 90/40 L 01/08/25 03:51 36.3 C L 58 L 16 94 01/08/25 03:24 36.4 C L 53 L 15 94 01/08/25 03:00 96/45 L 01/08/25 03:00 96/45 L 01/08/25 02:54 36.4 C L 56 L 15 93 01/08/25 02:09 36.5 C 54 L 14 94 01/08/25 02:00 97/43 L 01/08/25 01:51 36.5 C 53 L 15 94 01/08/25 01:12 36.6 C 56 L 14 93 01/08/25 01:00 96/46 L 01/08/25 01:00 96/46 L 01/08/25 00:51 36.6 C 56 L 14 93 01/08/25 00:06 36.6 C 54 L 15 94 01/08/25 00:00 95/47 L 01/08/25 00:00 95/47 L 01/08/25 00:00 95/47 L 01/08/25 00:00 54 L 01/07/25 23:45 36.6 C 56 L 16 94 01/07/25 23:03 36.6 C 57 L 14 94 01/07/25 23:00 94/46 L 01/07/25 23:00 94/46 L 01/07/25 23:00 94/46 L 01/07/25 22:51 36.6 C 56 L 18 94 01/07/25 22:15 36.6 C 58 L 19 94 01/07/25 22:00 93 01/07/25 21:03 36.7 C 62 14 95 01/07/25 21:00 99/45 L 01/07/25 21:00 99/45 L 01/07/25 20:39 36.8 C 64 28 H 99/45 L 95 01/07/25 20:00 36.8 C 64 19 93 01/07/25 19:57 65 41 H 93 01/07/25 19:39 63 18 93 01/07/25 19:27 36.7 C 67 17 93 O2 Del Method O2 Del Method O2 Flow Rate 01/08/25 06:00 01/08/25 05:00 01/08/25 05:00 01/08/25 05:00 01/08/25 04:03 01/08/25 04:00 01/08/25 04:00 01/08/25 04:00 01/08/25 03:51 01/08/25 03:24 01/08/25 03:00 01/08/25 03:00 01/08/25 02:54 01/08/25 02:09 01/08/25 02:00 01/08/25 01:51 01/08/25 01:12 01/08/25 01:00 01/08/25 01:00 01/08/25 00:51 01/08/25 00:06 01/08/25 00:00 01/08/25 00:00 01/08/25 00:00 01/08/25 00:00 01/07/25 23:45 01/07/25 23:03 01/07/25 23:00 01/07/25 23:00 01/07/25 23:00 01/07/25 22:51 01/07/25 22:15 01/07/25 22:00 Mechanical Vent 01/07/25 21:03 01/07/25 21:00 01/07/25 21:00 01/07/25 20:39 01/07/25 20:00 01/07/25 19:57 Mechanical Vent 2 01/07/25 19:39 01/07/25 19:27 Laboratory Results 01/08/25 04:20 01/08/25 04:20 Coding Level of Care Code 52581 SUB INP/OBS CARE 3/50MIN Diagnoses Viral illness B34.9 Stage 2 acute kidney injury N17.9 Acute and chronic respiratory failure with hypercapnia J96.22 Acute hyponatremia E87.1 Seizure disorder G40.909 Primary immune deficiency disorder D84.89 Transaminitis R74.01 Congenital hydrocephalus Q03.9 Congenital stenosis of pulmonary valve Q22.1 Slow transit constipation K59.01 Constipation type: slow transit constipation Dependence on home ventilator Z99.11 (10) Constipation Constipation type: slow transit constipation Qualified Code(s): K59.01 - Slow transit constipation
[2025-01-08 08:43] VITALS: RESP 17
[2025-01-08] MEDS: TUBE FEEDING WATER FLUSH GT SCH (09:14)
--- NOTE | 2025-01-08 11:09 | XRay Report ---
XR chest 1V portable CLINICAL HISTORY: f/u COMPARISON STUDY: Chest CT December 28, 2024. Chest radiograph January 06, 2025. FINDINGS: PERSONNEL SUPERVISOR shunt catheters are partially imaged. Tracheostomy tube is noted. There is no pneumothor ax. Small left pleural effusion is unchanged. Bibasilar opacities are noted. Lung aeration has slight ly improved. Cardiomediastinal silhouette is stable. Evidence for left lung volume loss is unchanged. IMPRESSION: 1. Bibasilar airspace opacities, greater on the left. These have slightly improved since prior exam a nd may represent pneumonia or atelectasis. 2. No change in a small left pleural effusion. No pneumothorax. ACT 112: Negative or not required by law. Electronically signed by: Michael Cunningham M.D. 01/08/2025 11:08 AM
[2025-01-08 13:09] VITALS: BP 98/55; PULSE 70; TEMP 98.1; O2SAT 93
[2025-01-08] MEDS ORDERED: HYDROCORTISONE SOD 50 MG in SYRINGE 0 ML IV SCH (14:00)
--- NOTE | 2025-01-08 15:26 | XCELERA ---
[id number] \\[id number]
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
[2025-01-10] MEDS ORDERED: HYDROCORTISONE SOD 50 MG in SYRINGE 0 ML IV SCH (18:00)
[2025-01-13] MEDS ORDERED: HYDROCORTISONE SOD 50 MG in SYRINGE 0 ML IV SCH (06:00)
== END 2025-01-08 13:58 | disposition home or self-care (01) | DRG 208 ==
LOC: SUATTDRO → ED 13:19 → 1E 18:30 → SUATTDRO 18:30 → 1E 19:35

== ENCOUNTER 2025-04-08 17:51 | Inpatient (IN) ==
[2025-04-08] MEDS ORDERED: VANCOMYCIN CONSULT ACTIVE PRN ×2 (19:35→23:40)
--- NOTE | 2025-04-08 19:35 | Emergency Department Note ---
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 JAJA Levothyroxine Sodium (Levothyroxine Sodium 75 Mcg Tablet) 75 mcg GT [id number]@2100 [facility] Stop: 05/09/25 20:59 Last Admin: 04/09/25 21:10 Dose: 75 mcg Documented By: [id number] Lorazepam (Lorazepam 1 Mg Tab) 1 mg PEG DAILY PRN PRN Reason: anxiety Stop: 05/08/25 23:16 Last Admin: 04/10/25 09:26 Dose: 1 mg Documented By: JOE Melatonin (Melatonin 3 Mg Tab) 4.5 mg PO DAILY@2300 [facility] Stop: 05/09/25 22:59 Last Admin: 04/09/25 22:53 Dose: 4.5 mg Documented By: [id number] Midodrine (Midodrine Hcl 2.5 Mg Tab) 2.5 mg PO TID@0800,1200,1700 [facility] Stop: 05/09/25 05:59 Last Admin: 04/10/25 08:22 Dose: 2.5 mg Documented By: Admin: 04/09/25 17:32 Dose: 2.5 mg Documented By: Admin: 04/09/25 12:51 Dose: 2.5 mg Documented By: Admin: 04/09/25 07:53 Dose: 2.5 mg Documented By: Admin: 04/09/25 06:42 Dose: 2.5 mg Documented By: JAJA Miscellaneous (Clobetasol [Clodan] Shampoo: Order Awaiting Action) 1 each N/A QS [facility] Stop: 05/09/25 07:59 Last Admin: 04/10/25 08:25 Dose: Not Given Documented By: Admin: 04/09/25 23:45 Dose: Not Given Documented By: [id number] Admin: 04/09/25 22:02 Dose: Not Given Documented By: [id number] Admin: 04/09/25 21:46 Dose: Not Given Documented By: [id number] Miscellaneous (Fluocinolone [Capex] Shampoo: Order Awaiting Action) 1 each N/A QS [facility] Stop: 05/09/25 07:59 Last Admin: 04/10/25 08:25 Dose: Not Given Documented By: Admin: 04/09/25 23:45 Dose: Not Given Documented By: [id number] Admin: 04/09/25 22:02 Dose: Not Given Documented By: [id number] Admin: 04/09/25 21:46 Dose: Not Given Documented By: [id number] Montelukast Sodium (Montelukast Sodium 10 Mg Tablet) 10 mg GT DAILY@2300 [facility] Stop: 05/09/25 22:59 Last Admin: 04/09/25 22:55 Dose: 10 mg Documented By: [id number] Oxybutynin Chloride (Oxybutynin Chloride 5 Mg Tab) 5 mg PO TID@0700,1430,2300 [facility] Stop: 05/09/25 06:59 Last Admin: 04/10/25 06:52 Dose: 5 mg Documented By: [id number] Admin: 04/09/25 22:57 Dose: 5 mg Documented By: [id number] Admin: 04/09/25 12:51 Dose: 5 mg Documented By: Admin: 04/09/25 07:53 Dose: 5 mg Documented By: ERIC Phenobarbital (Phenobarbital 30 Mg Tab) 120 mg PO QPM [facility] Stop: 05/09/25 20:59 Last Admin: 04/09/25 20:09 Dose: 120 mg Documented By: [id number] Phenobarbital (Phenobarbital 30 Mg Tab) 90 mg PO DAILY@0700 [facility] Stop: 05/09/25 07:44 Last Admin: 04/10/25 06:51 Dose: 90 mg Documented By: [id number] Admin: 04/09/25 07:53 Dose: 90 mg Documented By: ERIC Polyethylene Glycol (Polyethylene (Miralax) 17 Gm Pack) 17 gm GT DAILY@0700 [facility] Stop: 05/09/25 06:59 Last Admin: 04/10/25 06:53 Dose: Not Given Documented By: [id number] Admin: 04/09/25 07:54 Dose: 17 gm Documented By: ERIC Sodium Zirconium Cyclosilicate (Sodium Zirconium Cyclosilicate 10 Gm Packet) 10 gm GT ONE ONE Stop: 04/08/25 23:27 Last Admin: 04/09/25 01:24 Dose: 10 gm Documented By: JAJA Sterile Water (Tube Feeding Water Flush) 250 ml GT TID [facility] Stop: 05/09/25 13:29 Last Admin: 04/10/25 08:24 Dose: 250 ml Documented By: Admin: 04/09/25 21:47 Dose: 250 ml Documented By: [id number] Admin: 04/09/25 13:48 Dose: 250 ml Documented By: Admin: 04/09/25 12:52 Dose: 250 ml Documented By: ERIC Tobramycin Sulfate (Tobramycin Sulf 0.3% Op Soln 5 Ml Btl) 1 drops OP Q4H [facility] Stop: 04/19/25 00:00 Last Admin: 04/10/25 08:23 Dose: 1 drops Documented By: Admin: 04/10/25 04:19 Dose: 1 drops Documented By: [id number] Admin: 04/10/25 00:00 Dose: Not Given Documented By: [id number] Admin: 04/09/25 20:27 Dose: 1 drops Documented By: Mariana Admin: 04/09/25 17:33 Dose: 1 drops Documented By: Admin: 04/09/25 12:50 Dose: 1 drops Documented By: Admin: 04/09/25 07:54 Dose: 1 drops Documented By: Admin: 04/09/25 04:47 Dose: Not Given Documented By: Admin: 04/09/25 01:24 Dose: 1 drops Documented By: JAJA Tramadol HCl (Tramadol Hcl 50 Mg Tablet) 50 mg NG BID PRN PRN Reason: Moderate Pain (Scale 4, 5, 6) Stop: 05/08/25 23:16 Last Admin: 04/10/25 08:29 Dose: 50 mg Documented By: Admin: 04/09/25 05:35 Dose: 50 mg Documented By: JAJA Imaging Data Radiologist's Impression: Chest X-Ray 04/08/25 18:12 Single frontal view of the chest Comparison made with prior exam dated 01/06/2025 Impression: Stable position of tracheostomy tube. Presumed ventriculoperitoneal shunt also stable in position. Interval development of left pleural effusion with cardiomegaly and pulmonary vascular congestion consistent with mild CHF. Electronically signed by Sebastián Gardiner 04-08-2025 8:[address] 04/08/25 21:09 Exam(s): CT CHEST Without Contrast EXAM: CT Chest Without Intravenous Contrast CLINICAL HISTORY: PNA vs fluid. TECHNIQUE: Axial computed tomography images of the chest without intravenous contrast. CTDI is 36.49 mGy and DLP is 964.27 mGy-cm. Automated exposure control was utilized for the study. A dose lowering technique was utilized adhering to the principles of ALARA. COMPARISON: CTA chest 12/28/2024 FINDINGS: Lungs: Similar dependent airspace opacities with air bronchograms involving the dependent lower lobes, similar to the prior examination. Interval clearing of the previously noted ground-glass opacities involving the anterior right upper lobe and posterior right middle lobe. Pleural space: Mild bilateral pleural effusions, similar on the left and similar to slightly decreased on the right. No loculation. No pneumothorax. Heart: Unremarkable. No cardiomegaly. No significant pericardial effusion. No significant coronary artery calcifications. Bones/joints: Scoliosis noted with a rotatory component, stable. No acute osseous abnormality. Soft tissues: Unremarkable. Vasculature: Unremarkable. No thoracic aortic aneurysm. Lymph nodes: Unremarkable. No enlarged lymph nodes. Liver: Hepatomegaly suspected, similar. Gallbladder and bile ducts: Cholecystectomy suggested. Kidneys and ureters: Similar moderately severe left hydroureteronephrosis. Detailed evaluation limited. Tubes, lines and devices: A tracheostomy tube is noted in position. IMPRESSION: 1. Similar dependent airspace opacities with air bronchograms involving the dependent lower lobes, similar to the prior examination. This may represent chronic atelectasis or recurrent bibasilar pneumonia. Interval clearing of the previously noted ground-glass opacities involving the anterior right upper lobe and posterior right middle lobe. 2. Mild bilateral pleural effusions, similar on the left and similar to slightly decreased on the right. No loculation. 3. Similar moderately severe left hydroureteronephrosis. Detailed evaluation limited. Electronically signed by: Flaco De Paz MD 04/08/25 23:41 PM Discharge Plan Visit Data Chief Complaint: Shortness of Breath/Dyspnea Stated Complaint: RESPIRTORY DISTRESS ED Provider: Carlton Chambers Discharge Problem: Acute respiratory failure with hypercapnia, Pneumonia, UTI (urinary tract infection), IMER (acute kidney injury), Acute hyperkalemia, Acute hyponatremia Patient Disposition: Admitted As Inpatient Condition: Good Discharge Instructions Interventions: ED Discharge Assessment Last Done: 04/08/25 23:11
[2025-04-08 19:39] LABS: Base Excess VBG -4.5 mEq/L; HCO3 VBG 24 mmol/L; Oxygen Saturation VBG 70.4 %; PCO2 VBG 61 mmHg (38-50); PO2 VBG 46 mmHg; pH VBG 7.21 (7.36-7.41)
[2025-04-08] MEDS: CEFEPIME 2000MG 2,000 MG/20 ML SYR IV STA (19:46)
[2025-04-08 20:00] LABS: Chlamydia pneumoniae PCR Not Detected (NotDetected); Coronavirus 229E PCR Not Detected (NotDetected); Coronavirus CoV-2 (COVID19)PCR Not Detected (NotDetected); Coronavirus HKU1 PCR Not Detected (NotDetected); Coronavirus NL63 PCR Not Detected (NotDetected); Coronavirus OC43PCR Not Detected (NotDetected); Human Metapneumovirus PCR Not Detected (NotDetected); Parainfluenza Virus 1 PCR Not Detected (NotDetected); Parainfluenza Virus 2 PCR Not Detected (NotDetected); Parainfluenza Virus 3 PCR Not Detected (NotDetected); Parainfluenza Virus 4 PCR Not Detected (NotDetected); Respiratory Syncytial VirusPCR Not Detected (NotDetected); Rhinovirus/Enterovirus PCR Not Detected (NotDetected)
[2025-04-08 20:03] LABS: Alanine Aminotransferase 109 U/L (7-52); Albumin Globulin Ratio 0.7 (0.9-2); Alkaline Phosphatase 360 U/L (34-104); Anion Gap 8 (3-11); Bilirubin,Total 0.2 mg/dl (0.2-1.0); Blood Urea Nitrogen 49 mg/dl (6-23); Calcium 8.0 mg/dl (8.6-10.3); Carbon Dioxide 23 mmol/L (21-32); Chloride 95 mmol/L (98-107); Globulin 4.6 gm/dl (2.5-4.0); Glucose 152 mg/dl (70-99(Fasting)); Potassium 5.7 mmol/L (3.5-5.1); Sodium 126 mmol/L (136-145); Total Protein 7.9 gm/dl (6.0-8.3)
[2025-04-08] MEDS: diphenhydrAMINE 50 MG/ML VIAL IV STA (20:08)
[2025-04-08 20:14] LABS: INR 1.0 (0.9-1.1); Partial Thromboplastin Time 26 Seconds (21-31); Prothrombin Time 10.7 Seconds (9.0-12.0)
[2025-04-08] MEDS: VANCOMYCIN HCL 2,000 MG in SODIUM CHLORIDE 0.9% 500 ML IV ONE (20:26)
[2025-04-08 20:27] LABS: Hematocrit (blood only) 30.8 % (37.0-47.0); Hemoglobin 9.6 g/dl (12.0-16.0); Mean Corpuscular Hemoglobin 30.2 pg (25.0-34.0); Mean Corpuscular Volume 96.9 fL (80.0-100.0); Platelet Count 174 K/uL (130-400); RDW Standard Deviation 75.6 fL (36.4-46.3); Red Blood Count 3.18 M/uL (4.20-5.40); White Blood Count 4.43 K/ul (4.8-10.8)
[2025-04-08 20:29] LABS: Anisocytosis Present; Immature Granulocytes # (auto) 0.20 K/uL (0.01-0.20); Immature Granulocytes % (auto) 4.5 %; Polychromasia 1+
--- NOTE | 2025-04-08 20:46 | XRay Report ---
Single frontal view of the chest Comparison made with prior exam dated 01/06/2025 Impression: Stable position of tracheostomy tube. Presumed ventriculoperitoneal shunt also stable in position. Interval development of left pleural effusion with cardiomegaly and pulmonary vascular congestion consistent with mild CHF. Electronically signed by Sebastián Gardiner 04-08-2025 8:45 PM
[2025-04-08] MEDS: FUROSEMIDE 40 MG/4 ML VIAL IV ONE (22:18)
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
[2025-04-08] MEDS: ALBUT/IPRATROP 3MG/0.5MG NEB 3 ML VIAL NEB STA (23:14)
[2025-04-08] MEDS ORDERED: SENNOSIDES 8.8 MG/5 ML UDC GT PRN (23:17)
[2025-04-08] MEDS ORDERED: LIDOCAINE/PRILOCAINE 2.5% EA CRM EXT PRN (23:17)
[2025-04-08] MEDS ORDERED: IPRATROPIUM BROMIDE NEB SOLN 0.02% 0.5MG/2.5ML VIAL INH PRN (23:17)
[2025-04-08] MEDS ORDERED: DIAZEPAM PR PRN (23:17)
[2025-04-08] MEDS ORDERED: SODIUM CHLORIDE 0.9% NEBU SOLN 3 ML NEB PRN (23:17)
[2025-04-08] MEDS ORDERED: DOCUSATE SODIUM SYRUP 100 MG/10 ML UDC GT PRN (23:17)
[2025-04-08] MEDS ORDERED: AZELASTINE HCL 0.1% NASAL 200 SPRAYS/27,400 MCG BTL NAE PRN (23:17)
[2025-04-08] MEDS ORDERED: IBUPROFEN 200 MG/10 ML UDC GT PRN (23:29)
[2025-04-08] MEDS ORDERED: GLUCOSE 40% GEL 15 GM TUBE PO PRN (23:40)
[2025-04-08] MEDS ORDERED: CARBOHYDRATES FOR HYPOGLYCEMIA PO PRN (23:40)
[2025-04-08] MEDS ORDERED: DEXTROSE 50% 50 ML SYRINGE IV PRN (23:40)
[2025-04-08] MEDS ORDERED: GLUCOSE 10 TAB/TUBE PO PRN (23:40)
[2025-04-08] MEDS ORDERED: ONDANSETRON INJ 2 MG/ML 2 ML VIAL IV PRN (23:40)
[2025-04-08] MEDS ORDERED: GLUCAGON FOR INJ 1 MG VIAL SQ PRN (23:40)
[2025-04-08] MEDS ORDERED: ACETAMINOPHEN 1000 MG/100 ML IV IV PRN (23:40)
--- NOTE | 2025-04-08 23:42 | CT Scan Report ---
Exam(s): CT CHEST Without Contrast EXAM: CT Chest Without Intravenous Contrast CLINICAL HISTORY: PNA vs fluid. TECHNIQUE: Axial computed tomography images of the chest without intravenous contrast. CTDI is 36.49 mGy and DLP is 964.27 mGy-cm. Automated exposure control was utilized for the study. A dose lowering technique was utilized adhering to the principles of ALARA. COMPARISON: CTA chest 12/28/2024 FINDINGS: Lungs: Similar dependent airspace opacities with air bronchograms involving the dependent lower lobes, similar to the prior examination. Interval clearing of the previously noted ground-glass opacities involving the anterior right upper lobe and posterior right middle lobe. Pleural space: Mild bilateral pleural effusions, similar on the left and similar to slightly decreased on the right. No loculation. No pneumothorax. Heart: Unremarkable. No cardiomegaly. No significant pericardial effusion. No significant coronary artery calcifications. Bones/joints: Scoliosis noted with a rotatory component, stable. No acute osseous abnormality. Soft tissues: Unremarkable. Vasculature: Unremarkable. No thoracic aortic aneurysm. Lymph nodes: Unremarkable. No enlarged lymph nodes. Liver: Hepatomegaly suspected, similar. Gallbladder and bile ducts: Cholecystectomy suggested. Kidneys and ureters: Similar moderately severe left hydroureteronephrosis. Detailed evaluation limited. Tubes, lines and devices: A tracheostomy tube is noted in position. IMPRESSION: 1. Similar dependent airspace opacities with air bronchograms involving the dependent lower lobes, similar to the prior examination. This may represent chronic atelectasis or recurrent bibasilar pneumonia. Interval clearing of the previously noted ground-glass opacities involving the anterior right upper lobe and posterior right middle lobe. 2. Mild bilateral pleural effusions, similar on the left and similar to slightly decreased on the right. No loculation. 3. Similar moderately severe left hydroureteronephrosis. Detailed evaluation limited. Electronically signed by: Flaco De Paz MD 04/08/25 23:41 PM
[2025-04-09] MEDS ORDERED: ACETAMINOPHEN SUSP 160 MG/5 ML UDC GT PRN (00:43)
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
--- NOTE | 2025-04-09 00:54 | Billing Data ---
Date of Service April 09, 2025 Coding Level of Care Code 01120 CRITICAL CARE
[2025-04-09] MEDS: CALCIUM GLUCONATE 1,000 MG/60 ML BAG IV STA (01:23)
[2025-04-09] MEDS: SODIUM ZIRCONIUM CYCLOSILICATE 10 GM PACKET GT ONE (01:24)
[2025-04-09] MEDS: TOBRAMYCIN SULF 0.3% OP SOLN 5 ML BTL OP SCH (01:24)
[2025-04-09 01:28] LABS: Base Excess VBG -1.0 mEq/L; HCO3 VBG 22 mmol/L; Oxygen Saturation VBG 99.8 %; PCO2 VBG 32 mmHg (38-50); PO2 VBG 140 mmHg; pH VBG 7.45 (7.36-7.41)
[2025-04-09 01:47] LABS: Anion Gap 9.0 (3-11); Calcium 7.8 mg/dl (8.6-10.3); Carbon Dioxide 22.0 mmol/L (21-32); Chloride 98.0 mmol/L (98-107); Potassium 5.4 mmol/L (3.5-5.1); Sodium 129.0 mmol/L (136-145)
[2025-04-09 01:53] LABS: Blood Urea Nitrogen 47.0 mg/dl (6-23); Creatinine Clr Calc Pharmacy 79.5 ml/min; Glucose 77.0 mg/dl (70-99(Fasting))
--- NOTE | 2025-04-09 01:54 | CT Scan Report ---
EXAM: CT abd pelvis wo con CLINICAL HISTORY: L hydronephrosis with UTI TECHNIQUE: Contiguous axial images were obtained from the level of the diaphragm to the pubic symphysis without intravenous or oral contrast. Coronal and sagittal reconstructions were likewise performed and indicated to increase the sensitivity for detecting clinically relevant pathology. CT scan was performed according to ALARA (as low as reasonable achievable). COMPARISON: FINDINGS: The visualized lung bases shows interval decrease in areas of consolidations. There is mild bilateral pleural effusion. Evaluation of the abdominal and pelvic visceral organs is limited without intravenous contrast. The unenhanced liver, spleen, pancreas, and adrenal glands are grossly unremarkable. The gallbladder is present. Small sized left kidney-unchanged The right kidney is normal in size and attenuation without obvious calcification. There is no hydronephrosis or perinephric stranding. Mild prominence of bilateral ureters with carlos-ureteric fat stranding, possibility of urinary tract infection. Suggest lab correlation. No adenopathy or fluid collections are seen. 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 The urinary bladder is undistended with shukla's catheter. Pelvic viscera are grossly unremarkable. No aggressive appearing osseous lesions are identified. 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 There is mild bilateral pleural effusion. Small sized left kidney-unchanged Mild prominence of bilateral ureters with carlos-ureteric fat stranding, possibility of urinary tract infection. Suggest lab correlation. Spondylodegenerative changes in visualised bones No other new findings Electronically signed by Alirio Guerra 04-09-2025 01:53 AM
[2025-04-09] MEDS: SULFA/TRIMETH 80/16MG/ML 304 MG in DEXTROSE 5% 500 ML IV SCH (02:59)
[2025-04-09] MEDS: HYDROCORTISONE SOD 50 MG in SYRINGE 0 ML IV SCH (03:45)
[2025-04-09] MEDS: CEFEPIME 2000MG 2,000 MG/20 ML SYR IV SCH (04:50)
[2025-04-09 05:43] LABS: Hematocrit (blood only) 25.7 % (37.0-47.0); Hemoglobin 8.3 g/dl (12.0-16.0); Immature Granulocytes # (auto) 0.08 K/uL (0.01-0.20); Immature Granulocytes % (auto) 2.5 %; Mean Corpuscular Hemoglobin 30.9 pg (25.0-34.0); Mean Corpuscular Volume 95.5 fL (80.0-100.0); Platelet Count 169 K/uL (130-400); RDW Standard Deviation 72.8 fL (36.4-46.3); Red Blood Count 2.69 M/uL (4.20-5.40); White Blood Count 3.21 K/ul (4.8-10.8)
[2025-04-09 06:00] LABS: Alanine Aminotransferase 84.0 U/L (7-52); Albumin Globulin Ratio 0.8 (0.9-2); Alkaline Phosphatase 302.0 U/L (34-104); Anion Gap 12.0 (3-11); Bilirubin,Total 0.2 mg/dl (0.2-1.0); Blood Urea Nitrogen 45.0 mg/dl (6-23); Calcium 8.2 mg/dl (8.6-10.3); Carbon Dioxide 21.0 mmol/L (21-32); Chloride 96.0 mmol/L (98-107); Creatinine Clr Calc Pharmacy 81.0 ml/min; Globulin 3.8 gm/dl (2.5-4.0); Glucose 167.0 mg/dl (70-99(Fasting)); Magnesium 3.4 mg/dl (1.7-2.4); Potassium 3.7 mmol/L (3.5-5.1); Sodium 129.0 mmol/L (136-145); Total Protein 6.8 gm/dl (6.0-8.3)
[2025-04-09] MEDS ORDERED: DOXYCYCLINE HYCLATE 100 MG in DEXTROSE 5% MINI-B 100 ML IV SCH (06:00)
[2025-04-09] MEDS: INSULIN ASPART PER UNIT CHARGE SC SCH (06:37)
[2025-04-09] MEDS: LANSOPRAZOLE 30 MG SOLTAB GT SCH (06:42)
[2025-04-09] MEDS: BACLOFEN 10 MG TAB GT SCH (06:42)
[2025-04-09] MEDS: MIDODRINE HCL 2.5 MG TAB PO SCH (06:42)
[2025-04-09 06:45] LABS: Anisocytosis Present; Polychromasia 1+; Stomatocytes 1+
[2025-04-09] MEDS ORDERED: CEFEPIME 2000MG 2,000 MG/20 ML SYR IV SCH (07:00)
[2025-04-09] MEDS ORDERED: INSULIN ASPART PER UNIT CHARGE SC SCH (07:30)
[2025-04-09 07:38] LABS: Hemoglobin A1C 5.0 % (4.5-5.6)
[2025-04-09] MEDS: BUDESONIDE 0.25 MG/2 ML VIAL (PULMICORT) NEB SCH (07:40)
[2025-04-09] MEDS: ALBUT/IPRATROP 3MG/0.5MG NEB 3 ML VIAL NEB PRN (07:40)
[2025-04-09] MEDS: POLYETHYLENE (MIRALAX) 17 GM PACK GT SCH (07:54)
[2025-04-09] MEDS: ENOXAPARIN INJ 40 MG/0.4 ML SYR SQ SCH (07:57)
[2025-04-09] MEDS: FLUTICASONE PROPIONATE NA SPR 16 GM BTL NAE SCH (07:58)
[2025-04-09] MEDS: MENTHOL-ZINC OXIDE 360 APPLN/120 GM TUBE EXT SCH (07:59)
[2025-04-09] MEDS ORDERED: PANTOprazole 40 MG/10 ML SYR IV SCH (09:00)
[2025-04-09] MEDS ORDERED: BACLOFEN 10 MG TAB GT SCH ×2 (09:00)
[2025-04-09] MEDS ORDERED: POLYETHYLENE (MIRALAX) 17 GM PACK GT SCH (09:00)
--- NOTE | 2025-04-09 09:39 | Critical Care Progress Note ---
Date of Service April 09, 2025 Assessment & Plan (1) Dependence on home ventilator: (2) VAP (ventilator-associated pneumonia): (3) Hyperkalemia: (4) Primary immune deficiency disorder: (5) Urinary tract bacterial infections: (6) Hydronephrosis: Plan Patient is a 24yo F w/ PMH notable for spastic quadriplegic cerebral palsy, primary immunodeficiency disorder, chronic respiratory insufficiency w/ dependence on home ventilator, VAP, seizure disorder, anemia, hyponatremia, hyperkalemia, hypothyroidism, cortical blindness, ventriculoperitoneal shunt status, and congenital hydrocephalus. She was brought to the ED by family on 04/08 due to concern about lack of response to abx for UTI. She was also having respiratory distress, hypercapnia, and multiple abnormal labs. She was admitted to the ICU for management of ventilator and evaluation of potential VAP. Neuro [facility] ICU: Negative RASS GOAL 0 to -1 Ativan PRN Continue home phenobarbital, Keppra, Baclofen, tramadol Cardiac Chronic bradycardia and chronic hypotension. Vitals currently stable w/ HR in 50s and BP ~ 90s/50s. Prior TTE (01/2025) showed EF 60-65% and normal structure and motion, but w/ technically difficult study This admission: Trop 4.4. BNP 112. CXR w/ cardiomegaly and pulmonary vascular congestion, consistent with mild CHF. MAP goal > 60mmHg Respiratory Initial VBG w/ respiratory acidosis has improved. Now pH 7.45 w/ pCO2 32 Current vent settings: SIMV, RR 16, TV 290, PEEP 5, FIO2 30. Continue vent management, appropriate trach care CXR and CT chest showed mild bilateral pleural effusion, no loculation. Bibasilar opacities, atelectasis vs pna. HOB 30, aspiration precautions Cough assist QID ADAMA and ICS nebulizers scheduled Pulmonary hygiene SpO2 goal 92% GI Diet: NPO; TF via GT (provided by family). Language Arts Teacher formally consulted for tube feed assessment LFTs elevated but downtrending; now AST 53 ALT 84 ALP 302 Patient's mother reports constipation. CT A/P did show fecal retention in large bowel loops. Bowel regimen: Miralax, Senna SUP: PPI RENAL/LYTES Na remains low at 129. Hyperkalemia improved; K now 3.7. Mg elevated to 3.4 Cr 1.04. BUN elevated at 45. CT showed mod-severe L hydroureteronephrosis Turner for accurate I/Os; Maintain net even to net negative ENDO Random cortisol was 8.04. Patient had adrenal insufficiency and had taken dexamethasone in the past; may need to be placed on hydrocortisone again Most recent TSH (01/04/2025) was 0.724. Continue home levothyroxine SSI if needed while inpatient: Goal 140-180, CF 25, CR 10. BSGs ACHS if eating, q6h if npo HEME Pancytopenia is chronic; continue to monitor Transfuse for Hgb < 7 or active bleeding ID Patient was on levofloxacin and Bactrim outpatient for UTI and ?pna. Family brought her to the ED d/t concern for lack of response to abx. Reviewing past labs, urine cx from 04/02/2025 grew E. coli resistant to fluoroquinolones. Patient was empirically placed on cefepime. MRSA nares +ve (as seen in Apr). RPP negative. CXR and CT chest w/o consolidation or signs of infection. Procal neg. UA consistent with infection. Ucx pending BC x2 pending (note: collected after antibiotic initiation). Patient not producing sufficient sputum, but will plan for sputum cx if possible. ID consulted: recommended stopping all antibiotics and monitoring. Family agreeable with this plan LINES/TUBES/DRAINS PIV x1 per mother request Turner (Day #1) [place] trach PEG VTE PPX: discontinue CODE: Full DISPO: continue ICU stay, while requiring full mechanical ventilatory support Admission and Anticipated Discharge Date Admission Date: April 08, 2025 Supervising Physician Co-Signing Physician Notes Dr. Markham was resident physician during care of patient. I separately evaluated patient for batista portions of the history and the exam. I was present during the critical portion of medical decision making, and I discussed the case with the resident. I generally agree with the findings and plan. Increased work of breathing with mild hypercapnia. Procalcitonin was negative chest x-ray largely unremarkable with the exception of a pleural effusion which has been noted previously. Obtaining echo, mildly elevated BNP. Admission weight was 79 kg received significant amount of fluid for sepsis protocol in the ED currently 84.2. In review of patient weights she has had increased over the last 2 years of 44 pounds: 20 kg. Will discuss with pulmonary possible changing of her AVAPS settings. Discontinuing DVT prophylaxis patient is nonambulatory for years at baseline, additionally family refused Lovenox this morning. Subjective Patient examined at bedside, history provided by mom. Review of Systems Review of Systems: As per HPI. Physical Exam Physical Exam: Gen: The patient is awake, not responding to questions, no purposeful movement; NAD HEENT: NCAT, MMM, trach in place CV: RRR, no m/r/g, S1/S2 normal Resp: diffuse coarse breath sounds, no increased WOB / accessory muscle use / nasal flaring, symmetrical chest rise Abd: Firm, distended, nontender, +BS, no HSM, PEG in place MSK: No cyanosis, clubbing, or joint swelling. +scoliosis. + b/l LE edema Skin: Warm, dry, well-perfused, no rashes Neuro: Does not track gaze or respond to commands, does withdraw from pain, no facial droop, no abnormal movements Results & Data Results & Data Vital Signs (Past 12 Hours) Vital Signs Temp Pulse Pulse Resp BP BP Pulse Ox 04/09/25 07:40 53 L 16 99 04/09/25 07:00 53 L 16 89/47 L 99 04/09/25 06:00 51 L 16 84/44 L 99 04/09/25 05:12 48 L 16 82/42 L 100 04/09/25 04:06 47 L 16 89/51 L 99 04/09/25 04:00 04/09/25 03:00 44 L 16 95/57 L 100 04/09/25 02:45 45 L 16 100 04/09/25 02:01 45 L 20 98/56 L 98 04/09/25 01:37 93/43 L 04/09/25 01:00 40 L 20 91/54 L 100 04/09/25 00:00 04/09/25 00:00 40 L 20 90/56 L 99 04/09/25 00:00 49 L 04/09/25 00:00 04/08/25 23:44 41 L 14 89/52 L 100 04/08/25 23:40 33.2 C L 40 L 23 95/53 L 100 04/08/25 23:15 40 L 21 100 04/08/25 23:11 42 L 20 105/65 97 04/08/25 22:32 43 L 04/08/25 22:17 45 L 20 97/61 L 100 O2 Del Method FiO2 04/09/25 07:40 30 04/09/25 07:00 Trach Collar 04/09/25 06:00 Trach Collar 04/09/25 05:12 Trach Collar 04/09/25 04:06 Trach Collar 04/09/25 04:00 04/09/25 03:00 Trach Collar 04/09/25 02:45 04/09/25 02:01 Trach Collar 04/09/25 01:37 04/09/25 01:00 Trach Collar 04/09/25 00:00 Trach Collar 04/09/25 00:00 Trach Collar 04/09/25 00:00 04/09/25 00:00 04/08/25 23:44 Trach Collar 04/08/25 23:40 Mechanical Vent 04/08/25 23:15 04/08/25 23:11 04/08/25 22:32 04/08/25 22:17
--- NOTE | 2025-04-09 09:49 | Infectious Disease Consult ---
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 Q4H [facility] Stop: 04/19/25 00:00 Last Admin: 04/09/25 12:50 Dose: 1 drops Tramadol HCl (Tramadol Hcl 50 Mg Tablet) 50 mg NG BID PRN PRN Reason: Moderate Pain (Scale 4, 5, 6) Stop: 05/08/25 23:16 Last Admin: 04/09/25 05:35 Dose: 50 mg (1) Urinary tract infection Urinary tract infection type: acute cystitis Hematuria presence: with hematuria Qualified Code(s): N30.01 - Acute cystitis with hematuria
--- NOTE | 2025-04-09 10:05 | Billing Data ---
Date of Service April 09, 2025 Coding Level of Care Code 41573 CRITICAL CARE EA ADD 30M
--- NOTE | 2025-04-09 10:18 | Hospitalist Progress Note ---
Date of Service April 09, 2025 Assessment & Plan (1) Acute respiratory failure with hypercapnia: (2) Urinary tract infection: (3) MRSA nasal colonization: (4) Hyponatremia: (5) Hyperkalemia: Plan In summary this is a 24-year-old female with multiple chronic medical conditions who presented to [facility] due to perceived respiratory distress, subsequently admitted due to acute respiratory failure with hypercapnia. She was already being treated in the outpatient setting for a urinary tract infection by their senior business architect, cultures are available for review and detailed further below. #Acute respiratory failure with hypercapnea With the patient's respiratory failure, this is significantly improved with interventions provided by the quality lead; following the patient's VBG draws overnight the initial presenting the respiratory acidosis has improved - continue ventilator adjustments with quality lead guidance; noted MRSA nasal colonization, based on the patient's presenting symptomatology, and imaging available, MRSA pneumonia is unlikely - pulmonary toilet #Acute bacterial cystitis with hemorrhage With regard to the patient's urinary tract infection; this initially treated in the outpatient setting with Bactrim, reviewing urine culture obtained on 04/04 does reveal sensitivity to trimethoprim/sulfamethoxazole however not especially sensitive at ; the patient is currently being treated with cefepime 2 g IV daily initiated at admission due to concern of possible superimposed ventilator associated pneumonia - continue cefepime 2 g IV every 8 hours, started 04/09 - discontinue Bactrim on 04/09, redundant coverage given sensitivities available for review from urine culture in the outpatient setting - Infectious disease consulted #Hypervolemic hyponatremia // Metabolic acidosis with anion gap elevation Patient initially presented with hyponatremia and hyperkalemia; this has improved with interventions provided overnight, sodium now 129 from 126, potassium 3.7 from 5.4; calculated serum osmolarity is 283 with urine osmolarity measured of 224; clinically this is consistent with hypervolemic hyponatremia though their serum serum osmolarity has improved from their initial presentation; they appear to be administered IgG in the outpatient setting, could be causing a pseudohyponatremic picture as well Continue to monitor with daily renal function panel - Pending lactic acid and BHOB to further assess anion gap increase Admission and Anticipated Discharge Date Admission Date: April 08, 2025; anticipated discharge in 48 to 72 hours Subjective Ms. 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 No acute overnight events; patient appears comfortable at bedside. History was obtained from her mother who is her primary caregiver. Review of Systems Review of Systems: Unobtainable due to cognitive status Physical Exam Physical Exam: General: Young adult female in no acute distress Vital Signs: Reviewed HEENT: Normocephalic, atraumatic; no purposeful extraocular motions, nor able to follow instructions given their associated neurologic comorbidities; tacky mucous membranes Neck: tracheostomy site appears well, moist, no significant secretions Pulmonary: symmetric chest wall excursion; CTAB with minimally diminished air movement in the posterior basilar segments Cardiovascular: Regular rate and rhythm with no murmurs, rubs, or gallops; S1 and S2 normal; bilateral radial and posterior tibial pulses 2+; 1+ pitting edema of the bilateral upper and lower extremities distal to the elbow and mid thigh Gastrointestinal: Soft, nondistended; normal frequency and pitch of bowel sounds throughout; no palpable masses or organomegaly; G-tube site appears well Genitourinary: Turner catheter in place with approximately 195 mL of nathaniel urine without sediment Neurologic: paraplegic, unable to reach his feet and full neurologic exam Skin: no apparent pressure wounds or other skin findings at this time Results & Data Results & Data Vital Signs (Past 12 Hours) Vital Signs Temp Pulse Pulse Resp BP BP Pulse Ox 04/09/25 07:40 53 L 16 99 04/09/25 07:00 53 L 16 89/47 L 99 04/09/25 06:00 51 L 16 84/44 L 99 04/09/25 05:12 48 L 16 82/42 L 100 04/09/25 04:06 47 L 16 89/51 L 99 04/09/25 04:00 04/09/25 03:00 44 L 16 95/57 L 100 04/09/25 02:45 45 L 16 100 04/09/25 02:01 45 L 20 98/56 L 98 04/09/25 01:37 93/43 L 04/09/25 01:00 40 L 20 91/54 L 100 04/09/25 00:00 04/09/25 00:00 40 L 20 90/56 L 99 04/09/25 00:00 49 L 04/09/25 00:00 04/08/25 23:44 41 L 14 89/52 L 100 04/08/25 23:40 33.2 C L 40 L 23 95/53 L 100 04/08/25 23:15 40 L 21 100 04/08/25 23:11 42 L 20 105/65 97 04/08/25 22:32 43 L 04/08/25 22:17 45 L 20 97/61 L 100 O2 Del Method FiO2 04/09/25 07:40 30 04/09/25 07:00 Trach Collar 30 04/09/25 06:00 Trach Collar 30 04/09/25 05:12 Trach Collar 30 04/09/25 04:06 Trach Collar 30 04/09/25 04:00 30 04/09/25 03:00 Trach Collar 30 04/09/25 02:45 30 04/09/25 02:01 Trach Collar 30 04/09/25 01:37 04/09/25 01:00 Trach Collar 30 04/09/25 00:00 Trach Collar 30 04/09/25 00:00 Trach Collar 30 04/09/25 00:00 04/09/25 00:00 30 04/08/25 23:44 Trach Collar 30 04/08/25 23:40 Mechanical Vent 30 04/08/25 23:15 30 04/08/25 23:11 04/08/25 22:32 04/08/25 22:17 PG Care Time/CCT Total # of Minutes Spent Total Time Spent with Patient: Total time spent is greater than 50% in coordination of care (as documented) at patient's floor/unit and/or counseling patient: Coding [place] [address] SUB INP/OBS CARE 3/50MIN Patient Type Established History Detailed Exam Detailed Medical Decision Making High Complexity Diagnoses Acute respiratory failure with hypercapnia J96.02 Acute cystitis with hematuria N30.01 Urinary tract infection type: acute cystitis Hematuria presence: with hematuria MRSA nasal colonization Z22.322 Hyponatremia E87.1 Hyperkalemia E87.5 (2) Urinary tract infection Urinary tract infection type: acute cystitis Hematuria presence: with hematuria Qualified Code(s): N30.01 - Acute cystitis with hematuria
[2025-04-09] MEDS: TUBE FEEDING WATER FLUSH GT SCH (12:52)
--- NOTE | 2025-04-09 14:33 | XCELERA ---
[id number]
[2025-04-09] MEDS ORDERED: PATIENT'S OWN ENTERAL FEEDING GT SCH (16:00)
[2025-04-09 16:37] LABS: Base Excess VBG -0.3 mEq/L; HCO3 VBG 24 mmol/L; Oxygen Saturation VBG 95.7 %; PCO2 VBG 38 mmHg (38-50); PO2 VBG 66 mmHg; pH VBG 7.41 (7.36-7.41)
[2025-04-09] MEDS ORDERED: VANCOMYCIN HCL 1,250 MG in SODIUM CHLORIDE 0.9% 250 ML IV SCH (20:00)
[2025-04-09] MEDS ORDERED: MELATONIN 3 MG TAB PO SCH (21:00)
[2025-04-09] MEDS ORDERED: MONTELUKAST SODIUM 10 MG TABLET GT SCH (21:00)
[2025-04-09] MEDS: LEVOTHYROXINE SODIUM 75 MCG TABLET GT SCH (21:10)
[2025-04-09] MEDS ORDERED: Nursing to Pharmacy Communication SCH (21:45)
[2025-04-09] MEDS: MELATONIN 3 MG TAB PO SCH (22:53)
[2025-04-09] MEDS: MONTELUKAST SODIUM 10 MG TABLET GT SCH (22:55)
[2025-04-10 04:56] LABS: Hematocrit (blood only) 24.8 % (37.0-47.0); Hemoglobin 8.4 g/dl (12.0-16.0); Immature Granulocytes # (auto) 0.03 K/uL (0.01-0.20); Immature Granulocytes % (auto) 0.4 %; Mean Corpuscular Hemoglobin 31.1 pg (25.0-34.0); Mean Corpuscular Volume 91.9 fL (80.0-100.0); Platelet Count 208 K/uL (130-400); RDW Standard Deviation 69.0 fL (36.4-46.3); Red Blood Count 2.70 M/uL (4.20-5.40); White Blood Count 8.22 K/ul (4.8-10.8)
[2025-04-10 05:13] LABS: Alanine Aminotransferase 77.0 U/L (7-52); Albumin Globulin Ratio 0.8 (0.9-2); Alkaline Phosphatase 307.0 U/L (34-104); Anion Gap 10.0 (3-11); Bilirubin,Total 0.2 mg/dl (0.2-1.0); Blood Urea Nitrogen 45.0 mg/dl (6-23); Calcium 8.1 mg/dl (8.6-10.3); Carbon Dioxide 23.0 mmol/L (21-32); Chloride 97.0 mmol/L (98-107); Creatinine Clr Calc Pharmacy 76.6 ml/min; Globulin 3.9 gm/dl (2.5-4.0); Glucose 94.0 mg/dl (70-99(Fasting)); Magnesium 3.7 mg/dl (1.7-2.4); Potassium 4.0 mmol/L (3.5-5.1); Sodium 130.0 mmol/L (136-145); Total Protein 6.9 gm/dl (6.0-8.3)
[2025-04-10 05:31] LABS: Anisocytosis Present
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
[2025-04-10 08:52] VITALS: TEMP 97.7
--- NOTE | 2025-04-10 09:07 | Critical Care Progress Note ---
Date of Service April 10, 2025 Assessment & Plan (1) Acute and chronic respiratory failure with hypercapnia: (2) Dependence on home ventilator: (3) VAP (ventilator-associated pneumonia): (4) Bedbound: (5) Recurrent infections: (6) Primary immune deficiency disorder: (7) Chronic respiratory insufficiency: (8) Urinary tract bacterial infections: (9) Hyperkalemia: (10) Hydronephrosis: (11) Obesity (BMI 30-39.9): Plan Neuro At baseline Continue home phenobarbital, Keppra, Baclofen, tramadol Cardiac Chronic bradycardia and chronic hypotension. Vitals currently stable w/ HR in 50s and BP ~ 90s/50s. Echo largely unchanged compared to prior Respiratory Chronic respiratory failure with ventilatory dependence Discussed with on-call pulmonary patient appears to be tolerating current AVAPS ventilator settings No oxygen requirement, no mucopurulent secretions, no strong clinical indication for pulmonary infection at this time HOB 30, aspiration precautions Cough assist QID ADAMA and ICS nebulizers scheduled Pulmonary hygiene SpO2 goal 92% GI Diet: Diet per mother LFTs elevated but downtrending; now AST 53 ALT 84 ALP 302 Class II obesity - Dietitian consult - Patient has gained approximately 1 kg/month for last 24 months - Discussed pressure support may be a result of poor chest wall compliance secondary to increasing mass, reports they are following with an outpatient dietitian in [place] and is adjusting nutritional supplements - Progression of underlying neuromuscular disease component also included in differential for increased ventilatory support RENAL/LYTES Na remains low at 129. Hyperkalemia improved; K now 3.7. Mg elevated to 3.4 Cr 1.04. BUN elevated at 45. CT showed mod-severe L hydroureteronephrosis - Was recently treated for urinary tract infection, findings may be postinflammatory and unresolved since urinary tract treatment - Follow-up as outpatient to ensure resolution Turner for accurate I/Os; Maintain net even to net negative ENDO Random cortisol was 8.04. Patient had adrenal insufficiency and had taken dexamethasone in the past; may need to be placed on hydrocortisone again Most recent TSH (01/04/2025) was 0.724. Continue home levothyroxine SSI if needed while inpatient: Goal 140-180, CF 25, CR 10. BSGs ACHS if eating, q6h if npo HEME Pancytopenia is chronic; continue to monitor Transfuse for Hgb < 7 or active bleeding ID Patient was on levofloxacin and Bactrim outpatient for UTI and ?pna. Family brought her to the ED d/t concern for lack of response to abx. Reviewing past labs, urine cx from 04/02/2025 grew E. coli resistant to fluoroquinolones. Patient was empirically placed on cefepime. ID consulted: recommended stopping all antibiotics and monitoring. Family agreeable with this plan - Mother reports urine characteristics are near baseline in terms of clarity no sediment and completed course of antibiotics LINES/TUBES/DRAINS [place] trach PEG VTE PPX: Nonambulatory at baseline for years no corey indication for DVT prophylaxis CODE: Full DISPO: Patient tolerating home vent, off antibiotics clinically improved mother desires to discharge home I believe this is reasonable has close follow-up with multiple physicians - Stable for downgrade out of the ICU and probable discharge Admission and Anticipated Discharge Date Admission Date: April 08, 2025 Subjective No overnight events. Patient's mother reports she is tolerating the home ventilator, no nasal flaring no significant increased work of breathing, no redness per mother. In conversations mother feels she would be able to manage patient at home. Physical Exam Physical Exam: General: Alert. Tracking with eyes Skin: Warm, dry, no rash Head: Atraumatic Ears, nose, mouth and throat: airway patent, tracheostomy in place Cardiovascular: Normal peripheral perfusion Respiratory: no respiratory distress, no nasal flaring while on home ventilator Gastrointestinal: Non distended Musculoskeletal: No deformity Results & Data Results & Data Vital Signs (Past 12 Hours) Vital Signs Temp Pulse Resp BP Pulse Ox O2 Del Method 04/10/25 08:51 36.5 C 04/10/25 08:12 59 L 18 95 04/10/25 08:00 79/38 L 04/10/25 08:00 79/38 L 04/10/25 07:54 58 L 21 98 04/10/25 07:30 54 L 17 92 04/10/25 07:00 98/55 L 04/10/25 07:00 54 L 17 91 Mechanical Vent 04/10/25 06:51 54 L 18 91 04/10/25 06:00 36.6 C 54 L 17 94/46 L 94 Mechanical Vent, Other 04/10/25 05:00 36.4 C L 55 L 17 94/48 L 94 Mechanical Vent 04/10/25 04:00 36.4 C L 55 L 17 91/46 L 93 Mechanical Vent 04/10/25 03:00 55 L 17 90/48 L 94 Mechanical Vent 04/10/25 02:00 36.4 C L 56 L 17 91/45 L 94 Mechanical Vent 04/10/25 01:00 56 L 17 94/48 L 94 Mechanical Vent 04/10/25 00:00 59 L 18 96/53 L 94 Mechanical Vent 04/09/25 23:46 59 L 04/09/25 23:00 36.5 C 58 L 17 96/54 L 95 Mechanical Vent 04/09/25 22:00 Mechanical Vent 04/09/25 22:00 62 18 99/52 L 94 Mechanical Vent Critical Care Results & Data Vital Signs (Past 12 Hours) Vital Signs Temp Pulse Resp BP Pulse Ox O2 Del Method 04/10/25 08:51 36.5 C 04/10/25 08:12 59 L 18 95 04/10/25 08:00 79/38 L 04/10/25 08:00 79/38 L 04/10/25 07:54 58 L 21 98 04/10/25 07:30 54 L 17 92 04/10/25 07:00 98/55 L 04/10/25 07:00 54 L 17 91 Mechanical Vent 04/10/25 06:51 54 L 18 91 04/10/25 06:00 36.6 C 54 L 17 94/46 L 94 Mechanical Vent, Other 04/10/25 05:00 36.4 C L 55 L 17 94/48 L 94 Mechanical Vent 04/10/25 04:00 36.4 C L 55 L 17 91/46 L 93 Mechanical Vent 04/10/25 03:00 55 L 17 90/48 L 94 Mechanical Vent 04/10/25 02:00 36.4 C L 56 L 17 91/45 L 94 Mechanical Vent 04/10/25 01:00 56 L 17 94/48 L 94 Mechanical Vent 04/10/25 00:00 59 L 18 96/53 L 94 Mechanical Vent 04/09/25 23:46 59 L 04/09/25 23:00 36.5 C 58 L 17 96/54 L 95 Mechanical Vent 04/09/25 22:00 Mechanical Vent 04/09/25 22:00 62 18 99/52 L 94 Mechanical Vent Lab & Micro Results (Past 24 Hours) RBC 2.70 M/uL (4.20-5.40) L 04/10/25 WBC 8.22 K/ul (4.8-10.8) 04/10/25 Hgb 8.4 g/dl (12.0-16.0) L 04/10/25 Hct 24.8 % (37.0-47.0) L 04/10/25 MCV 91.9 fL (80.0-100.0) 04/10/25 MCH 31.1 pg (25.0-34.0) 04/10/25 MCHC 33.9 g/dL (32.0-36.0) 04/10/25 RDW Standard Deviation 69.0 fL (36.4-46.3) H 04/10/25 RDW Coefficient of Variation 21.0 % (11.5-14.5) H 04/10/25 Plt Count 208 K/uL (130-400) 04/10/25 MPV 10.8 fL (9.4-12.4) 04/10/25 Nucleated Red Blood Cells % (auto) 0.5 % 04/10 Nucleated RBC Absolute Count (auto) 0.04 K/uL (0.00-0.12) 0 04/10/25 Neutrophils (%) (Auto) 78.0 % 04/10/25 Lymphocytes (%) (Auto) 11.6 % 04/10/25 Monocytes # (Auto) 0.75 K/uL (0.11-0.59) H 04/10/25 Eosinophils # (Auto) 0.06 K/uL (0.00-0.50) 04/10/25 Immature Granulocyte % (Auto) 0.4 % 04/10/25 Neutrophils # (Auto) 6.41 K/uL (1.40-6.50) 04/10/25 Lymphocytes # (Auto) 0.95 K/uL (1.20-3.40) L 04/10/25 Monocytes # (Auto) 0.75 K/uL (0.11-0.59) H 04/10/25 Eosinophils # (Auto) 0.06 K/uL (0.00-0.50) 04/10/25 Basophils # (Auto) 0.02 K/uL (0.00-0.20) 04/10/25 Immature Granulocyte # (Auto) 0.03 K/uL (0.01-0.20) 5 Anisocytosis Present 04/10/25 Na 130 mmol/L (136-145) L 04/10/25 K 4.0 mmol/L (3.5-5.1) 04/10/25 Cl 97 mmol/L (98-107) L 04/10/25 CO2 23 mmol/L (21-32) 04/10/25 Anion Gap 10 (3-11) 04/10/25 BUN 45 mg/dl (6-23) H 04/10/25 Creatinine 1.10 mg/dl (0.6-1.2) 04/10/25 BUN/Creatinine Ratio 40.9 (10-20) H 04/10/25 Glu 94 mg/dl (70-99(Fasting)) 04/10/25 Ca 8.1 mg/dl (8.6-10.3) L 04/10/25 Total Bilirubin 0.2 mg/dl (0.2-1.0) 04/10/25 AST 43 U/L (13-39) H 04/10/25 ALT 77 U/L (7-52) H 04/10/25 Alkaline Phosphatase 307 U/L (34-104) H 04/10/25 TP 6.9 gm/dl (6.0-8.3) 04/10/25 Albumin 3.0 gm/dl (3.4-5.0) L 04/10/25 Globulin 3.9 gm/dl (2.5-4.0) 04/10/25 Albumin/Globulin Ratio 0.8 (0.9-2) L 04/10/25 Mg 3.7 mg/dl (1.7-2.4) H 04/10/25 04:18 Calcium Level 8.1 mg/dl (8.6-10.3) L 04/10/25 04:18 Venous Blood pH 7.41 (7.36-7.41) 04/09/25 16:03 Venous Blood Partial Pressure CO2 38 mmHg (38-50) 04/09/25 16:0 3 Venous Blood Partial Pressure O2 66 mmHg 04/09/25 16:03 Venous Blood HCO3 24 mmol/L 04/09/25 16:03 Venous Blood Base Excess -0.3 mEq/L 04/09/25 16:03 Venous Blood Oxygen Saturation 95.7 % 04/09/25 16:03 Microbiology 04/09/25 22:00 Gram Stain - Final Sputum,Vent Suction 04/08/25 19:35 Aerobic Blood Culture - Preliminary Blood No growth in Aerobic bottle after 24 hours. Anaerobic Blood Culture - Preliminary No growth in Anaerobic bottle after 24 hours. 04/09/25 01:19 Aerobic Blood Culture - Preliminary Blood No growth in Aerobic bottle after 24 hours. I & O Totals 24 Hours 04/09/25 04/10/25 04/11/25 06:59 06:59 06:59 Intake Total 1274 / 1274 Output Total 1850 / 1850 2162 / 2162 Balance -576 / -576 -2162 / -2162 Cumulative 04/08/25 17:51 thru 04/10/25 06:00 Intake Total 1274 Output Total 4012 Balance -2738 RT Ventilator Mngmt (Last Documented) Ventilator Ordered Settings Ventilator Support Mode SIMV 04/09/25 16:00 Respiratory Rate 18 04/10/25 08:12 Ventilator Tidal Volume 290 04/09/25 11:30 Setting Minute Ventilation 5.1 04/10/25 07:30 Ventilator Positive Pressure 12 04/09/25 11:30 Support Setting Positive End Expiratory 5 04/09/25 11:30 Pressure Fraction of Inspired Oxygen 30 04/09/25 11:30 Machine Comment on AVAPS, RR 17, VT 300, EPAP 6- 04/10/25 07:30 16, PS 6-30 and max pressure 36. Ventilator - PT Measurements Respiratory Rate 18 Exhaled Tidal Volume 298 Minute Ventilation 5.1 Peak Inspiratory Airway 25 Pressure Plateau Pressure 15 Respiratory Cycle Inspiratory: 1:2.5 Expiratory Ratio Inspiratory Phase Time 1.0 End-Tidal CO2 30 Static Lung Compliance 29.10 Dynamic Lung Compliance 24.25 Normal Static Lung Compliance 46.00 Patient Measurements Comment home vent with 1L titrated in Coding Level of Care Code 25009 SUB INP/OBS CARE 3/50MIN Diagnoses Acute and chronic respiratory failure with hypercapnia J96.22 Dependence on home ventilator Z99.11 VAP (ventilator-associated pneumonia) J95.851 Bedbound Z74.01 Recurrent infections B99.9 Primary immune deficiency disorder D84.89 Chronic respiratory insufficiency R06.89 Urinary tract bacterial infections N39.0; A49.9 Hyperkalemia E87.5 Hydronephrosis N13.30 Obesity (BMI 30-39.9) E66.9
[2025-04-10] MEDS: LORazepam 1 MG TAB PEG PRN (09:26)
--- NOTE | 2025-04-10 11:27 | Discharge Summary ---
Discharge Summary Date of Service April 10, 2025 Principal Dx & Hospital Course #1 = Principal Diagnosis (1) Acute respiratory failure with hypercapnia: (2) Urinary tract infection: (3) MRSA nasal colonization: (4) Hyponatremia: (5) Hyperkalemia: Plan In summary this is a 24-year-old female with multiple chronic medical conditions who presented to [facility] due to perceived respiratory distress, subsequently admitted due to acute respiratory failure with hypercapnia. She was already being treated in the outpatient setting for a urinary tract infection by their clinical science liaison, cultures are available for review and detailed further below. #Acute respiratory failure with hypercapnia With regard to the patient's presenting respiratory failure, this significantly improved with interventions provided by the field map technician - Ventilator adjustments with field map technician and pulmonology guidance; pulmonology recommends the following regarding the patient's ventilator settings at [facility] "Recommend to increase the IPAP range to 22-26 and increasing max pressure support to 30 to aim for the tidal volume of 300 and increase the backup rate to 17... NIMV settings should be AVAPS-AE; Breath rate: auto; Inspiratory time:auto; Sigh: off; Tidal Volume: 300-320, PS min: 4-10 PS max: 12-30; EPAP min: 6-10; EPAP max: 10-16; AVAPS rate: 17 during sleep and as needed" - Noted MRSA nasal colonization #Acute bacterial cystitis with hemorrhage Treatment initiated in the outpatient setting with Bactrim, reviewing urine culture obtained on 04/04 does reveal sensitivity to trimethoprim/sulfamethoxazole; Infectious disease consulted by admitting team who advised no further antibiotic treatment as full course had been completed prior to admission #Hypervolemic hyponatremia // Metabolic acidosis with anion gap elevation Patient initially presented with hyponatremia; improved, likely consequential of chronic hypervolemic state in addition to pseudohyponatremia in the setting of outpatient IgG infusions Notes For Next Care Provider Medication Changes From Visit Ventilator settings changed per pulmonology recommendations as follows: "Recommend to increase the IPAP range to 22-26 and increasing max pressure support to 30 to aim for the tidal volume of 300 and increase the backup rate to 17... 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 She has been on levofloxacin and Bactrim via feeding tube for treatment of urinary tract infection, and pneumonia. Family has brought the patient to the emergency department for assessment due to concerns regarding her responsiveness to the current antibiotic treatment. She was noted to have an E. coli UTI on 04/02/2025, which presently is found to be resistant to fluoroquinolones. Discharge Exam General: Young adult female in no acute distress Vital Signs: Reviewed HEENT: Normocephalic, atraumatic; no purposeful extraocular motions, nor able to follow instructions given their associated neurologic comorbidities; moist mucous membranes Neck: tracheostomy site appears well, moist, no significant secretions Pulmonary: symmetric chest wall excursion; CTAB with minimally diminished air movement in the posterior basilar segments Cardiovascular: Regular rate and rhythm with no murmurs, rubs, or gallops; S1 and S2 normal; bilateral radial and posterior tibial pulses 2+; 1+ pitting edema of the bilateral upper and lower extremities distal to the elbow and mid thigh Gastrointestinal: Soft, nondistended; normal frequency and pitch of bowel sounds throughout; no palpable masses or organomegaly; G-tube site appears well Genitourinary: Turner catheter in place with approximately 115 mL of pale yellow urine without sediment Neurologic: paraplegic, unable to participate in full neurologic exam Skin: no apparent pressure wounds or other skin findings at this time Discharge Plan Discharge Items Patient Disposition: Home - Self-Care Reason For Visit: PNEUMONIA,MDR UTI,CHF Discharge Diagnosis: Acute on chronic respiratory failure with hypercapnea Condition on Discharge: Good Activity: Resume your previous activity Bathing: No limitations Non-emergency contact: Primary Care Provider and Academic Tutor Call non-emergency contact if: you have any medication questions and your symptoms worsen Follow-up/Referrals: Sin Fitzpatrick MD [Primary Care Provider] - 04/20/25 3:00 pm (Primary Care hospital follow up scheduled on 04/20/25 at 3:00 with Claudia Vogt PA-C) Diet: Other - See Diet Comment Diet Comment: G-Tube Feeds Addtl Attending Provider Instructions: Maintain ventilator settings as recommended by Pulmonology. Addtl Broiler Manager Provider Instructions: NIMV settings should be AVAPS-AE; Breath rate: auto; Inspiratory time:auto; Sigh: off; Tidal Volume: 300-320, PS min: 4-10 PS max: 12-30; EPAP min: 6-10; EPAP max: 10-16; AVAPS rate: 17 during sleep and as needed Pending Studies at Discharge: Yes Studies:: Pending final results of pulmonary secretion and blood cultures; no growth at discharge Stand-Alone Forms: [facility] Medications and DC Order Prescriptions: Continued (DME) disposable gloves [Disposable Latex-Free Gloves] Misc See Rx Instructions .ROUTE .MEDSUPPLY Qty: 1200 11RF Rx Instructions: As directed Calmoseptine 0.44-20.6 % ointment 1 applic TOP BID Qty: 113 5RF Rx Instructions: around trach tramadol 50 mg tablet 50 mg feeding tube BID PRN (Reason: Pain) Qty: 60 1RF sennosides [senna] 8.8 mg/5 mL syrup 8.8 mg PO HS PRN (Reason: Constipation) Qty: 236 5RF azelastine 137 mcg (0.1 %) spray,non-aerosol 1 spray intranasal DAILY PRN (Reason: Allergy Symptoms) Qty: 30 6RF Rx Instructions: administer into each nostril Capex 0.01 % shampoo 30 ml topical DAILY Qty: 120 3RF lorazepam [Ativan] 1 mg tablet 1 mg PO DAILY PRN (Reason: anxiety) Qty: 30 2RF Rx Instructions: rare use naproxen 500 mg tablet 500 mg PO BID PRN (Reason: pain) Qty: 60 5RF lansoprazole [Prevacid SoluTab] 30 mg tablet,disintegrat, delay rel 30 mg feeding tube QAM Qty: 90 3RF clobetasol [Clodan] 0.05 % shampoo 1 applic topical DAILY Qty: 118 6RF docusate sodium 50 mg/15 mL syrup See Rx Instructions feeding tube BID PRN (Reason: Constipation) Qty: 118 5RF Rx Instructions: 10mL feeding tube BID PRN; sodium chloride 0.9 % solution for nebulization 3 ml inhalation QID PRN (Reason: shortness of breath or wheezing) Qty: 300 3RF medroxyprogesterone 150 mg/mL syringe 150 mg IM .q12wk Qty: 1 0RF Rx Instructions: PT NO LONGER SEES OBGYN. MOM STATES ENDO IS NOW PRESCRIBING. acetaminophen 160 mg/5 mL liquid 640 mg PO Q8H PRN (Reason: pain) Qty: 473 2RF albuterol sulfate 2.5 mg /3 mL (0.083 %) solution for nebulization 2.5 mg inhalation Q6H PRN (Reason: Wheezing) Qty: 360 3RF pseudoephedrine HCl 30 mg tablet See Rx Instructions .ROUTE .COMPLEX Qty: 30 3RF Dose Instruction: ADMINISTER 1 TABLET VIA FEEDING TUBE EVERY 6 HOURS NEEDED FOR NASAL DECONGESTION Rx Instructions: ADMINISTER 1 TABLET VIA FEEDING TUBE EVERY 6 HOURS NEEDED FOR NASAL DECONGESTION fluticasone propionate [Flonase Allergy Relief] 50 mcg/actuation spray,suspension 1 spray intranasal DAILY Qty: 16 5RF Rx Instructions: administer into each nostril ibuprofen 100 mg/5 mL suspension 600 mg feeding tube Q6H PRN (Reason: Fever Or Pain) Qty: 473 3RF Rx Instructions: use as needed ipratropium bromide 0.02 % solution 2.5 ml inhalation QID PRN (Reason: shortness of breath or wheezing) Qty: 75 6RF cannabidiol 100 mg/mL solution 100 - 150 mg G-tube AMHS Patient Comments: 0.5mL every a.m., 1mL every p.m. ; Rx Instructions: 1.5ML QAM - 1ML QPM levofloxacin 750 mg tablet 750 mg PO DAILY Qty: 14 2RF Rx Instructions: OF 04/08/25 HAS 6 DAYS LEFT dexamethasone 1 mg tablet 1 mg feeding tube UD Qty: 30 3RF Rx Instructions: gets for pre-treatment GIVE 1 mg prior to Hizentra q2 weeks Hizentra 10 gram/50 mL (20 %) solution See Rx Instructions subcut .COMPLEX Qty: 120 11RF Rx Instructions: INFUSE 12GM SQ subcutaneously EVERY 2 WEEKS [employer] GOOD 09/21/24-03/21/25 MONALISA [id number] GOOD tobramycin 0.3 % drops 1 drp ophthalmic (eye) Q4H Qty: 5 1RF baclofen 5 mg tablet 5 mg PO TID 90 Days Qty: 270 3RF Rx Instructions: take with the 10 mg tab to equal 15mg three times daily baclofen 10 mg tablet 10 mg PO TID 90 Days Qty: 270 3RF Rx Instructions: take with the 5 mg tab to equal 15mg three times daily levetiracetam [Keppra] 750 mg tablet 750 mg PO BID 90 Days Qty: 180 3RF Rx Instructions: PER G-TUBE at 0700 and 1830 olopatadine 0.2 % drops 1 drp ophthalmic (eye) DAILY PRN (Reason: itching) Qty: 2.5 11RF lidocaine-prilocaine 2.5-2.5 % cream 1 applic topical ONCE PRN (Reason: prior to injections) Qty: 50 6RF polyethylene glycol 3350 [Miralax] 17 gram Powder In Packet 17 g feeding tube BID PRN (Reason: Constipation) Multivitamin Women 50 Plus 8 mg iron-400 mcg-50 mcg Tablet 0.5 tab PO QAM diclofenac sodium 1 % Gel 2 g TOPICAL TID PRN (Reason: Pain in Knees) cetirizine [Zyrtec] 10 mg tablet 10 mg PO HS phenobarbital 64.8 mg tablet 64.8 - 129.6 mg feeding tube QAM Rx Instructions: Take w/ 32.4 mg by mouth in the morning to equal 97.2. 0700 albuterol sulfate [Ventolin HFA] 90 mcg/actuation HFA aerosol inhaler 2 puff inhalation QID PRN (Reason: Wheezing) phenobarbital 32.4 mg tablet 97.2 mg feeding tube QAM Rx Instructions: Take w/ 64.8mg to equal 97.2mg diazepam 12.5-15-17.5-20 mg kit 12.5 mg OR DIRECTED PRN (Reason: seizure activity) Rx Instructions: 12.5 mg rectally Give 1 dose for seizure activity lasting more than 5 minutes or seizure clusters without return to baseline PRN; melatonin 5 mg capsule 5 mg feeding tube HS montelukast [Singulair] 10 mg tablet 10 mg feeding tube HS phenobarbital 64.8 mg tablet 129.6 mg feeding tube QPM oxybutynin chloride 5 mg tablet 5 mg PO TID Rx Instructions: 7AM,2;30PM,11PM levothyroxine 75 mcg tablet 75 - 150 mcg PO DIRECTED Rx Instructions: Wednesdays takes 2 (150 mcg), rest of days 75mcg TAKES AT 9PM Discontinued sulfamethoxazole-trimethoprim [Bactrim DS] 800-160 mg tablet 1 tab PO BID 14 Days Qty: 28 2RF Rx Instructions: OF 04/08/25 HAS 7 DAYS LEFT TO TAKE Discharge Orders: Discharge Order (Routine); Ordered 04/10/25 Ordered By: Miguel Whipple Admission Data Admit Date/Time: 04/08/25 22:29 Attending Provider: Som Bernard Admit Provider: Som Bernard Primary Care Provider: Sin Fitzpatrick V. Other Providers: Ramiro Agosto; Carol El; Som Bernard; Huang Singh Other Interventions: Discharge Summary Assessment (RN) Last Done: 04/10/25 10:58 Hospital Stay Data Consultations 04/08/25 21:51 ED Decision to Admit Stat 04/08/25 23:40 Consult Digital Marketing Manager Routine 04/09/25 01:18 Consult Infectious Diseases Routine Diagnostic Imagining Performed 04/08/25 21:09 CT chest diagnostic wo con Stat 04/08/25 23:56 CT Abd and Pelvis [CT abd pelvis wo con] Urgent Pending Results Patient Have Any Pending Studies at Discharge: Yes Discharge Instructions Given to Patient (Per Discharging Provider) Maintain ventilator settings as recommended by Pulmonology. Total Time Total Time Spent Total Time Spent (In Minutes): 55 Coding Level of Care Code 80748 INP/OBS DISCH >30 MIN Diagnoses Acute respiratory failure with hypercapnia J96.02 Acute cystitis with hematuria N30.01 Urinary tract infection type: acute cystitis Hematuria presence: with hematuria MRSA nasal colonization Z22.322 Hyponatremia E87.1 Hyperkalemia E87.5
[2025-04-10 12:04] VITALS: BP 91/56
[2025-04-10 12:32] VITALS: PULSE 58; RESP 17; O2SAT 93
[2025-04-14] MEDS ORDERED: LEVOTHYROXINE SODIUM 75 MCG TABLET GT SCH (21:00)
== END 2025-04-10 12:45 | disposition home or self-care (01) | DRG 208 ==
LOC: ED 17:51 → 1E 22:29

== ENCOUNTER 2025-05-23 16:07 | Inpatient (IN) ==
[2025-05-23] MEDS ORDERED: Patient's HEIGHT &/or WEIGHT Needed STA (16:25)
--- NOTE | 2025-05-23 16:38 | Emergency Department Note ---
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 IV .Q16M ONE Stop: 05/23/25 17:15 Last Infusion: 05/23/25 17:27 Dose: Infused Documented By: Admin: 05/23/25 17:06 Dose: 999 mls/hr Documented By: LJ Ceftolozane/Tazobactam 3,000 (mg/ Dextrose) 122.8 mls @ 122.8 mls/hr IV NOW STA Stop: 05/23/25 18:01 Last Infusion: 05/23/25 18:44 Dose: Infused Documented By: Admin: 05/23/25 17:38 Dose: 122.8 mls/hr Documented By: LJ Parenteral Electrolytes (Plasma-Lyte A Ph 7.4) 1,000 mls @ 999 mls/hr IV .Q1H1M ONE Stop: 05/23/25 19:29 Last Admin: 05/23/25 19:26 Dose: 999 mls/hr Documented By: GUNNAR Calcium Gluconate () 1,000 mg in 60 mls @ 240 mls/hr IV NOW STA Stop: 05/23/25 18:44 Last Infusion: 05/23/25 19:11 Dose: Infused Documented By: Admin: 05/23/25 18:48 Dose: 240 mls/hr Documented By: LJ Ioversol (Optiray 320 125ml) 119 ml IV ONCE ONE Stop: 05/23/25 17:20 Last Admin: 05/23/25 17:19 Dose: 119 ml Documented By: SHIRIN Imaging Data Radiologist's Impression: Chest X-Ray 05/23/25 16:30 Exam: Chest one view portable. Reason for exam: Hypoxia. Previous studies: Chest radiograph 04/29/2025. FINDINGS: Endotracheal tube now seen with the tip approximately 4.5 cm above the mariusz. Heart is enlarged. Significantly increased areas of atelectasis and consolidation are seen throughout all lung zones bilaterally. IMPRESSION: 1. Status post intubation. 2. Markedly increased areas of consolidation and atelectasis in the lung ham bilaterally. Electronically signed by Abram Montgomery 05-23-2025 5:51 PM Chest CTA 05/23/25 17:02 Exam: CT angiogram chest pulmonary embolus protocol. Reason for exam: Hypoxia. Previous studies: Chest x-ray 05/23/2025; CT chest 04/08/2025. FINDINGS: There is good opacification of the pulmonary arteries. No persistent filling defect or embolus is seen on either side at this time. The aorta shows no evidence of aneurysm or dissection at the examined levels. No mediastinal mass or adenopathy is seen.Large area of atelectasis. Air Bronchograms seen in the right middle and lower lobe as well as left lower lobe. This is significantly increased since the previous CT study. Right upper lobe shows moderate scattered patchy consolidation as there is a left upper lobe. No pneumothorax pleural effusion is seen at this time. Small pleural effusions are present. Endotracheal tube is seen with the tip approximately 4.5 cm above the mariusz. IMPRESSION: 1. Negative for pulmonary embolus. 2. Large areas of atelectasis throughout the lungs bilaterally, most severely effecting the right lower lobe, left lower lobe and right middle lobe somewhat lesser areas of atelectasis/consolidation in the upper lobes bilaterally. The areas of involvement has increased significantly since the previous study of 04/08/2025. 3. Small pleural effusions bilaterally. Electronically signed by Abram Montgomery 05-23-2025 5:49 PM Discharge Plan Visit Data Chief Complaint: Respiratory Distress Stated Complaint: RESPIRATORY DISTRESS ED Provider: Zaid Etienne Discharge Problem: Acute respiratory failure with hypercapnia, Pneumonia, Tracheostomy dependent, Hyponatremia Patient Disposition: Admitted As Inpatient Condition: Critical Discharge Instructions Interventions: ED Discharge Assessment Last Done: 05/23/25 20:00
[2025-05-23 17:02] LABS: Base Excess VBG -8.0 mEq/L; HCO3 VBG 21 mmol/L; Oxygen Saturation VBG < 60.0 %; PCO2 VBG 58 mmHg (38-50); PO2 VBG 42 mmHg; pH VBG 7.17 (7.36-7.41)
[2025-05-23] MEDS: SODIUM CHLORIDE 0.9% 250 ML IV ONE (17:06)
[2025-05-23 17:07] LABS: Hematocrit (blood only) 31.4 % (37.0-47.0); Hemoglobin 9.5 g/dl (12.0-16.0); Mean Corpuscular Hemoglobin 29.2 pg (25.0-34.0); Mean Corpuscular Volume 96.6 fL (80.0-100.0); Platelet Count 155 K/uL (130-400); RDW Standard Deviation 77.2 fL (36.4-46.3); Red Blood Count 3.25 M/uL (4.20-5.40); White Blood Count 1.58 K/ul (4.8-10.8)
[2025-05-23] MEDS: ALBUT/IPRATROP 3MG/0.5MG NEB 3 ML VIAL NEB STA (17:07)
[2025-05-23] MEDS: OPTIRAY 320 125ml IV ONE (17:19)
[2025-05-23 17:23] LABS: Alanine Aminotransferase 75.0 U/L (7-52); Albumin Globulin Ratio 0.8 (0.9-2); Alkaline Phosphatase 258.0 U/L (34-104); Anion Gap 11.0 (3-11); Bilirubin,Total 0.6 mg/dl (0.2-1.0); Blood Urea Nitrogen 55.0 mg/dl (6-23); Calcium 8.0 mg/dl (8.6-10.3); Carbon Dioxide 21.0 mmol/L (21-32); Chloride 95.0 mmol/L (98-107); Creatinine Clr Calc Pharmacy 76.0 ml/min; Globulin 4.0 gm/dl (2.5-4.0); Glucose 116.0 mg/dl (70-99(Fasting)); Magnesium 3.7 mg/dl (1.7-2.4); Potassium 3.9 mmol/L (3.5-5.1); Sodium 127.0 mmol/L (136-145); Total Protein 7.2 gm/dl (6.0-8.3)
[2025-05-23 17:34] LABS: Anisocytosis Present; Immature Granulocytes # (auto) 0.00 K/uL (0.01-0.20); Immature Granulocytes % (auto) 0.0 %; Polychromasia 1+
[2025-05-23 17:38] LABS: Thyroid Stimulating Hormone 12.056 uIu/ml (0.300-4.500)
[2025-05-23] MEDS: CEFTOLOZANE/TAZOBACTAM 3,000 MG in DEXTROSE 5% 100 ML IV STA (17:38)
[2025-05-23 17:45] LABS: INR 1.1 (0.9-1.1); Prothrombin Time 11.4 Seconds (9.0-12.0)
--- NOTE | 2025-05-23 17:49 | CT Scan Report ---
Exam: CT angiogram chest pulmonary embolus protocol. Reason for exam: Hypoxia. Previous studies: Chest x-ray 05/23/2025; CT chest 04/08/2025. FINDINGS: There is good opacification of the pulmonary arteries. No persistent filling defect or embolus is seen on either side at this time. The aorta shows no evidence of aneurysm or dissection at the examined levels. No mediastinal mass or adenopathy is seen.Large area of atelectasis. Air Bronchograms seen in the right middle and lower lobe as well as left lower lobe. This is significantly increased since the previous CT study. Right upper lobe shows moderate scattered patchy consolidation as there is a left upper lobe. No pneumothorax pleural effusion is seen at this time. Small pleural effusions are present. Endotracheal tube is seen with the tip approximately 4.5 cm above the mariusz. IMPRESSION: 1. Negative for pulmonary embolus. 2. Large areas of atelectasis throughout the lungs bilaterally, most severely effecting the right lower lobe, left lower lobe and right middle lobe somewhat lesser areas of atelectasis/consolidation in the upper lobes bilaterally. The areas of involvement has increased significantly since the previous study of 04/08/2025. 3. Small pleural effusions bilaterally. Electronically signed by Abram Montgomery 05-23-2025 5:49 PM
--- NOTE | 2025-05-23 17:52 | XRay Report ---
Exam: Chest one view portable. Reason for exam: Hypoxia. Previous studies: Chest radiograph 04/29/2025. FINDINGS: Endotracheal tube now seen with the tip approximately 4.5 cm above the mariusz. Heart is enlarged. Significantly increased areas of atelectasis and consolidation are seen throughout all lung zones bilaterally. IMPRESSION: 1. Status post intubation. 2. Markedly increased areas of consolidation and atelectasis in the lung ham bilaterally. Electronically signed by Abram Montgomery 05-23-2025 5:51 PM
[2025-05-23 17:54] LABS: Chlamydia pneumoniae PCR Not Detected (NotDetected); Coronavirus 229E PCR Not Detected (NotDetected); Coronavirus CoV-2 (COVID19)PCR Not Detected (NotDetected); Coronavirus HKU1 PCR Not Detected (NotDetected); Coronavirus NL63 PCR Not Detected (NotDetected); Coronavirus OC43PCR Not Detected (NotDetected); Human Metapneumovirus PCR Not Detected (NotDetected); Parainfluenza Virus 1 PCR Not Detected (NotDetected); Parainfluenza Virus 2 PCR Not Detected (NotDetected); Parainfluenza Virus 3 PCR Not Detected (NotDetected); Parainfluenza Virus 4 PCR Not Detected (NotDetected); Respiratory Syncytial VirusPCR Not Detected (NotDetected); Rhinovirus/Enterovirus PCR Not Detected (NotDetected)
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
[2025-05-23] MEDS: CALCIUM GLUCONATE 1,000 MG/60 ML BAG IV STA (18:48)
[2025-05-23 19:00] LABS: Appearance Urine Turbid (Clear); Bacteria Urine Automated 4+ (None Seen); Epithelial Cell Urine Auto 0-2 /hpf (0-2); Glucose Urine UA Negative (Negative); RBC Urine Automated >20 /hpf (0-2); WBC Urine Automated >50 /hpf (0-5)
[2025-05-23] MEDS: diphenhydrAMINE 50 MG/ML VIAL IV STA (19:07)
[2025-05-23 19:16] LABS: Cast Urine Automated 0-2 /lpf (0-2)
[2025-05-23] MEDS: VANCOMYCIN HCL 1,500 MG in SODIUM CHLORIDE 0.9% 500 ML IV STA (19:26)
[2025-05-23] MEDS: PLASMA-LYTE A 1,000 ML IV ONE (19:26)
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
[2025-05-23] MEDS ORDERED: SODIUM CHLORIDE 0.9% NEBU SOLN 3 ML NEB PRN (20:13)
[2025-05-23] MEDS ORDERED: LORazepam 1 MG TAB PO PRN (20:13)
[2025-05-23] MEDS ORDERED: VANCOMYCIN CONSULT ACTIVE PRN (20:13)
[2025-05-23] MEDS ORDERED: IPRATROPIUM BROMIDE NEB SOLN 0.02% 0.5MG/2.5ML VIAL INH PRN (20:13)
[2025-05-23] MEDS ORDERED: DIAZEPAM PR PRN (20:13)
[2025-05-23] MEDS ORDERED: SENNOSIDES 8.8 MG/5 ML UDC PO PRN (20:13)
[2025-05-23] MEDS ORDERED: ALBUTEROL HFA 8 GM INHALER INH PRN (20:13)
[2025-05-23] MEDS ORDERED: AZELASTINE HCL 0.1% NASAL 200 SPRAYS/27,400 MCG BTL NAE PRN (20:13)
[2025-05-23] MEDS ORDERED: STAT IV Infusion **Titration per Protocol STA (20:22)
[2025-05-23] MEDS ORDERED: DOCUSATE SODIUM SYRUP 100 MG/10 ML UDC GT PRN (20:44)
[2025-05-23] MEDS ORDERED: BACLOFEN 10 MG TAB PO SCH (21:00)
[2025-05-23 21:35] LABS: iSTAT Art Bld Gas Base Excess -9.0 meg/L (-9-1.8); iSTAT Art Bld Gas pCO2 Correct 29 mmHg (35-46); iSTAT Art Bld Gas pH Corrected 7.372 (7.35-7.45); iSTAT Arterial Blood Gas pO2 C 64
[2025-05-23] MEDS: PLASMA-LYTE A 1,000 ML IV SCH (21:36)
[2025-05-23] MEDS: NOREPINEPHRINE/D5W 4 MG/250 ML PLCT IV SCH (21:37)
[2025-05-23] MEDS: DOXYCYCLINE HYCLATE 100 MG in DEXTROSE 5% MINI-B 100 ML IV SCH (21:56)
[2025-05-23] MEDS: BACLOFEN 10 MG TAB PO SCH (23:39)
[2025-05-23] MEDS: LEVOTHYROXINE SODIUM 75 MCG TABLET PO SCH (23:39)
[2025-05-23] MEDS: CETIRIZINE HCL 10 MG TABLET PO SCH (23:40)
[2025-05-23] MEDS: MELATONIN 3 MG TAB PO SCH (23:40)
[2025-05-23] MEDS: MONTELUKAST SODIUM 10 MG TABLET GT SCH (23:40)
[2025-05-24] MEDS: CEFTOLOZANE/TAZOBACTAM 3,000 MG in DEXTROSE 5% 100 ML IV SCH (01:14)
[2025-05-24 05:11] LABS: Hematocrit (blood only) 25.7 % (37.0-47.0); Hemoglobin 8.5 g/dl (12.0-16.0); Mean Corpuscular Hemoglobin 30.4 pg (25.0-34.0); Mean Corpuscular Volume 91.8 fL (80.0-100.0); Platelet Count 158 K/uL (130-400); RDW Standard Deviation 72.8 fL (36.4-46.3); Red Blood Count 2.80 M/uL (4.20-5.40); White Blood Count 2.79 K/ul (4.8-10.8)
[2025-05-24 05:29] LABS: Magnesium 3.5 mg/dl (1.7-2.4)
[2025-05-24] MEDS: ICU ELECTROLYTE REPLACEMENT PROTOCOL SCH (05:41)
[2025-05-24 06:20] LABS: Anisocytosis Present; Immature Granulocytes # (auto) 0.01 K/uL (0.01-0.20); Immature Granulocytes % (auto) 0.4 %; Polychromasia 1+
[2025-05-24] MEDS: SODIUM CHLOR 7% 4 ML NEB INH SCH (07:38)
[2025-05-24] MEDS: ALBUTEROL 0.083% NEBU SOLN 3 ML VIAL INH PRN (07:57)
--- NOTE | 2025-05-24 07:59 | XRay Report ---
EXAM: XR chest 1V portable CLINICAL HISTORY: eval lung ham, tubes, TECHNIQUE: An X-ray image of the chest is obtained in AP projection. COMPARISON: 05/23/2025 CT. FINDINGS: Pulmonary Parenchyma: Redemonstration of bilateral lower zonal air space, patchy infiltration. The endotracheal tube looks in the proper position. its tip is 4.3 mm above the mariusz. Blunting left CP recess. Heart and Mediastinum: Apparent cardiomegaly. No mediastinal widening or masses. No hilar or mediastinal lymphadenopathy. Bony Thorax: Bony thorax appears intact without fractures or deformities. Soft Tissues: Soft tissues overlying the chest wall are unremarkable. IMPRESSION: 1. Unchanged study. 2. The endotracheal tube looks in the proper position. its tip is 4.3 mm above the mariusz. 3. Redemonstration of bilateral lower zonal patchy areas of air space infiltration. 4. Cardiomegaly. 5. A blunted left CP recess may be attributed to mild pleural thickening/effusion. Electronically signed by Aldair Albarran 05-24-2025 07:58 AM
[2025-05-24] MEDS: MULTI VIT W/MINERALS LIQUID 15 ML UDC GT SCH (08:22)
[2025-05-24] MEDS: LANSOPRAZOLE 30 MG SOLTAB GT SCH (08:22)
[2025-05-24] MEDS: FLUTICASONE PROPIONATE NA SPR 16 GM BTL NAE SCH (08:24)
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
--- NOTE | 2025-05-24 08:30 | Billing Data ---
Date of Service May 24, 2025 Coding Level of Care Code 46521 CRITICAL CARE
[2025-05-24] MEDS ORDERED: ENOXAPARIN INJ 40 MG/0.4 ML SYR SQ SCH (09:00)
[2025-05-24] MEDS: diphenhydrAMINE 50 MG/ML VIAL IV STA (09:02)
[2025-05-24] MEDS: ACETAMINOPHEN SUSP 160 MG/5 ML BTL PEG PRN (09:06)
[2025-05-24] MEDS: VANCOMYCIN HCL 1,500 MG in SODIUM CHLORIDE 0.9% 500 ML IV SCH (09:06)
--- NOTE | 2025-05-24 09:35 | Hospitalist Progress Note ---
Date of Service May 24, 2025 Assessment & Plan (1) Pneumonia: Plan: Chest x-ray appearance is consistent with pneumonia. Infectious disease consultation pending. She is currently on doxycycline and vancomycin. (2) Sepsis: Plan: Present on admission. She is currently on pressor support. Await final culture results (3) Septic shock: Plan: She is currently on Levophed pressor support. Parenteral steroid therapy has been started since she could have an element of hypotension related to adrenal insufficiency. She appears to be cushingoid and dexamethasone is on her home medication list. I assume she is steroid-dependent. (4) Seizure disorder: Plan: Controlled. Continue current medical management (5) Tracheostomy dependent: Plan: History of cerebral palsy with permanent tracheostomy and PEG tube placement Plan To be determined Admission and Anticipated Discharge Date Admission Date: May 23, 2025 Subjective The patient is unresponsive at the time of my examination. She is currently on intravenous doxycycline and vancomycin along with pressor support. She appears cushingoid and dexamethasone is on her home medication list. I can only assume she is steroid-dependent. Intravenous hydrocortisone has been started. Infectious disease consultation has been requested. Chest x-ray is consistent with pneumonia Review of Systems 2 Review of Systems: The patient is unresponsive and unable to answer any questions regarding review of systems at this time Physical Exam 2 Physical Exam: General-unresponsive on ventilator support with permanent tracheostomy in place. Morbidly obese. She appears cushingoid HEENT-head atraumatic and normocephalic Neck-no lymphadenopathy or thyromegaly, trachea midline with permanent tracheostomy present on ventilator support Chest-scattered bilateral rhonchi. No audible wheezing from anterior approach. No audible inspiratory rales Cardiac-regular rate and rhythm, normal S1 and S2 Abdomen-normal bowel sounds, no hepatosplenomegaly. Functional PEG tube in place Extremities-chronic appearing edema present bilateral lower extremities below the knees Neuro-unresponsive. Cannot assess Psych-unresponsive. Cannot assess Results & Data Results & Data Vital Signs (Past 12 Hours) Vital Signs Temp Pulse Resp BP Pulse Ox FiO2 05/24/25 07:43 93 H 19 96 70 05/24/25 07:30 37.1 C 81 19 97 05/24/25 07:30 101/53 L 05/24/25 07:30 101/53 L 05/24/25 07:09 37.0 C 80 18 97 05/24/25 07:00 99/61 L 05/24/25 06:39 36.9 C 79 18 97 05/24/25 06:30 98/54 L 05/24/25 06:24 36.9 C 79 18 98 05/24/25 06:19 93/51 L 05/24/25 06:09 36.8 C 73 18 97 05/24/25 06:03 36.8 C 71 18 95 05/24/25 06:00 74/37 L 05/24/25 05:45 36.7 C 69 18 97 05/24/25 05:30 36.6 C 73 18 97 05/24/25 05:30 103/60 05/24/25 05:21 36.6 C 74 18 97 05/24/25 05:12 36.6 C 74 18 97 05/24/25 05:06 36.5 C 78 18 95 05/24/25 05:00 103/58 L 05/24/25 04:54 36.5 C 73 18 97 05/24/25 04:51 36.4 C L 72 18 96 05/24/25 04:48 36.4 C L 73 18 97 05/24/25 04:33 36.3 C L 68 18 97 05/24/25 04:30 99/59 L 05/24/25 04:30 99/59 L 05/24/25 04:18 36.2 C L 68 18 97 05/24/25 04:12 36.1 C L 73 18 97 05/24/25 04:00 97/60 L 05/24/25 04:00 36.0 C L 68 18 98 05/24/25 04:00 70 05/24/25 03:36 35.8 C L 67 18 98 05/24/25 03:30 99/60 L 05/24/25 03:24 67 18 98 70 05/24/25 03:12 35.6 C L 66 18 98 05/24/25 03:09 35.6 C L 66 18 98 05/24/25 03:00 96/61 L 05/24/25 03:00 96/61 L 05/24/25 03:00 96/61 L 05/24/25 02:57 35.5 C L 65 18 98 05/24/25 02:51 35.4 C L 66 18 97 05/24/25 02:36 35.3 C L 68 18 97 05/24/25 02:30 100/63 05/24/25 02:15 35.1 C L 66 18 93 05/24/25 02:00 35.0 C L 64 18 95 05/24/25 02:00 97/60 L 05/24/25 02:00 97/60 L 05/24/25 01:30 97/64 L 05/24/25 01:24 34.6 C L 68 18 95 05/24/25 01:15 34.5 C L 78 18 97 05/24/25 01:03 34.4 C L 62 18 96 05/24/25 01:00 111/72 05/24/25 01:00 111/72 05/24/25 00:51 34.3 C L 65 18 96 05/24/25 00:30 102/67 05/24/25 00:21 34.1 C L 57 L 15 95 05/24/25 00:15 97/65 L 05/24/25 00:15 97/65 L 05/24/25 00:15 97/65 L 05/24/25 00:15 34.0 C L 57 L 18 95 05/24/25 00:09 34.0 C L 58 L 17 95 05/24/25 00:00 94/65 L 05/24/25 00:00 70 05/23/25 23:54 33.9 C L 59 L 18 94 05/23/25 23:47 59 L 18 95 70 05/23/25 23:33 33.8 C L 54 L 18 94 05/23/25 23:30 101/68 05/23/25 23:30 101/68 05/23/25 23:30 101/68 05/23/25 23:30 101/68 05/23/25 23:27 33.7 C L 55 L 18 94 05/23/25 23:21 33.7 C L 61 18 94 05/23/25 23:15 33.7 C L 60 18 94 05/23/25 23:15 98/72 L 05/23/25 23:15 98/72 L 05/23/25 23:12 33.6 C L 60 18 94 05/23/25 23:00 108/71 05/23/25 23:00 108/71 05/23/25 23:00 33.5 C L 59 L 18 94 05/23/25 22:51 33.5 C L 62 18 93 05/23/25 22:42 33.4 C L 57 L 18 92 05/23/25 22:36 33.4 C L 57 L 18 92 05/23/25 22:30 98/64 L 05/23/25 22:30 98/64 L 05/23/25 22:30 98/64 L 05/23/25 22:15 103/69 05/23/25 22:15 103/69 05/23/25 22:09 33.2 C L 59 L 15 91 05/23/25 22:00 33.2 C L 56 L 18 91 05/23/25 22:00 97/68 L 05/23/25 22:00 97/68 L 05/23/25 21:57 33.2 C L 57 L 18 91 05/23/25 21:45 33.1 C L 63 18 93 05/23/25 21:45 148/90 H 05/23/25 21:45 148/90 H 05/23/25 21:45 148/90 H 05/23/25 21:45 148/90 H 05/23/25 21:33 33.1 C L 57 L 18 96 Laboratory Results 05/24/25 04:51 PG Care Time/CCT Total # of Minutes Spent Total Time Spent with Patient: Total time spent is greater than 50% in coordination of care (as documented) at patient's floor/unit and/or counseling patient: Coding Level of Care Code 13292 SUB INP/OBS CARE 2/35MIN Diagnoses Pneumonia J18.9 Sepsis A41.9 Septic shock A41.9; R65.21 Seizure disorder G40.909 Tracheostomy dependent Z93.0
[2025-05-24] MEDS: HYDROCORTISONE SOD 50 MG in SYRINGE 0 ML IV STA (09:41)
[2025-05-24] MEDS: ERTAPENEM 1000MG 1,000 MG/10 ML SYR IV STA (10:34)
[2025-05-24] MEDS ORDERED: GLUCAGON FOR INJ 1 MG VIAL SQ PRN (10:42)
[2025-05-24] MEDS ORDERED: DEXTROSE 50% 50 ML SYRINGE IV PRN (10:42)
[2025-05-24] MEDS ORDERED: GLUCOSE 40% GEL 15 GM TUBE PO PRN (10:42)
[2025-05-24] MEDS: ALBUT/IPRATROP 3MG/0.5MG NEB 3 ML VIAL INH PRN (11:52)
[2025-05-24 12:05] LABS: Alanine Aminotransferase 58.0 U/L (7-52); Albumin Globulin Ratio 0.9 (0.9-2); Alkaline Phosphatase 227.0 U/L (34-104); Anion Gap 13.0 (3-11); Bilirubin,Total 0.8 mg/dl (0.2-1.0); Blood Urea Nitrogen 53.0 mg/dl (6-23); Calcium 7.4 mg/dl (8.6-10.3); Carbon Dioxide 20.0 mmol/L (21-32); Chloride 99.0 mmol/L (98-107); Creatinine Clr Calc Pharmacy 88.8 ml/min; Globulin 3.3 gm/dl (2.5-4.0); Glucose 119.0 mg/dl (70-99(Fasting)); Potassium 3.7 mmol/L (3.5-5.1); Sodium 132.0 mmol/L (136-145); Total Protein 6.2 gm/dl (6.0-8.3)
[2025-05-24] MEDS: INSULIN ASPART PER UNIT CHARGE SC SCH (12:49)
[2025-05-24] MEDS: PATIENT'S OWN ENTERAL FEEDING GT SCH (12:53)
--- NOTE | 2025-05-24 14:53 | Pharmacy Report ---
Pharmacy PK ABX Note - Date of Service May 24, 2025 - Assessment and Plan Assessment * 24 year old F w history of quadriplegia, cerebral palsy, and vent/trach dependent receiving ceftolozane/tazobactam, doxycycline, vancomycin, and a one-time dose of ertapenem for treatment of CAP while awaiting ID input for further guidance. Patient was on low-dose norepinephrine in the ICU this AM, but this has been titrated off * Pertinent microbiologic data includes: * History of ESBL E. coli in urine * History of MRSA and extensively drug resistant Pseudomonas (S only to levofloxacin and ceftolozane/tazobactam) in sputum * Nasal MRSA swab positive * Current urine with E. coli (sensitivities pending) * Current sputum with E. coli (sensitivities pending) Plan Vancomycin * Loading dose: 1500 mg IV x 1 * Maintenance dose: 1500 mg IV every 24 hours (with doubling the infusion time due to a history of merrill's syndrome) * Regimen is predicted to achieve target AUC/CHRISTOPHER of 400-600 mg/L.hr * Random level ordered for: 05/25 AM Pharmacy will continue to follow and will adjust dose/frequency as necessary. Thank you. Pharmacy has transitioned to AUC monitoring for vancomycin. AUC/CHRISTOPHER is the preferred PK/PD target and is associated with decreased risk of nephrotoxicity compared to traditional trough targets.
[2025-05-24] MEDS: HYDROCORTISONE SOD 50 MG in SYRINGE 0 ML IV SCH (14:55)
--- NOTE | 2025-05-24 15:27 | Infectious Disease Consult ---
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 POC Total CO2 18 L Anion Gap 13 H POC Anion Gap POC BUN BUN 53 H Creatinine 0.98 POC Creatinine Est Cr Clr Drug Dosing 88.8 eGFR 83.18 BUN/Creatinine Ratio 54.1 H Glucose 119 H POC Glucose POC Glucose (other) Lactate 2.2 H* 1.3 Calcium 7.4 L POC Ioniz Calcium Emilie Phosphorus 4.4 Magnesium 3.5 H Total Bilirubin 0.8 AST 49 H ALT 58 H Alkaline Phosphatase 227 H Troponin I High Sens B-Natriuretic Peptide Total Protein 6.2 Albumin 2.9 L Globulin 3.3 Albumin/Globulin Ratio 0.9 Procalcitonin TSH Free T4 Random Cortisol Urine Color Urine Appearance Urine pH Ur Specific [place] Urine Protein Urine Glucose (UA) Urine Ketones Urine Blood Urine Nitrite Urine Bilirubin Urine Urobilinogen Ur Leukocyte Esterase Urine WBC (Auto) Urine RBC (Auto) U Hyaline Cast (Auto) U Epithel Cells (Auto) Urine Bacteria (Auto) Urine Comment Nasal Screen MRSA (PCR) Adenovirus (PCR) B. pertussis DNA (PCR) B.parapertussis DNA PCR C. pneumoniae DNA (PCR) Coronavirus OC43 (PCR) Coronavirus HKU1 (PCR) Coronavirus 229E (PCR) SARS-CoV-2 (PCR) Coronavirus NL63 (PCR) Human Metapneumovir PCR Influenza Type A (PCR) Influenza Type B (PCR) M. pneumoniae (PCR) Parainfluenza 1 (PCR) Parainfluenza 2 (PCR) Parainfluenza 3 (PCR) Parainfluenza 4 (PCR) RSV (PCR) Entero/Rhino (PCR) 05/24/25 10:39 WBC RBC Hgb POC Hgb Hct POC Hct MCV MCH MCHC RDW Std Deviation RDW Coeff of Dulce Plt Count MPV Immature Gran % (Auto) Neut % (Auto) Lymph % (Auto) Sargent % (Auto) Eos % (Auto) Baso % (Auto) Neut # (Auto) Lymph # (Auto) Sargent # (Auto) Eos # (Auto) Baso # (Auto) Immature Gran # (Auto) Absolute Nucleated RBC Nucleated RBC % (auto) Polychromasia Anisocytosis PT INR Specimen Type Sample Site POC pH POC pCO2 POC pO2 POC HCO3 POC Base Excess O2 Sat Pulse Oximetry ABG pH (Temp Correct) ABG pCO2 (Temp Corrct POC ABG pO2 at Pt Temp POC ABG O2 Sat Nehemiah Test VBG pH VBG pCO2 VBG pO2 VBG HCO3 VBG O2 Saturation VBG Base Excess O2 Delivery Device Vent Mode POC FiO2 End Tidal CO2 POC Sodium Sodium POC Potassium Potassium POC Chloride Chloride Carbon Dioxide POC Total CO2 Anion Gap POC Anion Gap POC BUN BUN Creatinine POC Creatinine Est Cr Clr Drug Dosing eGFR BUN/Creatinine Ratio Glucose POC Glucose 183 H POC Glucose (other) Lactate Calcium POC Ioniz Calcium Emilie Phosphorus Magnesium Total Bilirubin AST ALT Alkaline Phosphatase Troponin I High Sens B-Natriuretic Peptide Total Protein Albumin Globulin Albumin/Globulin Ratio Procalcitonin TSH Free T4 Random Cortisol Urine Color Urine Appearance Urine pH Ur Specific [place] Urine Protein Urine Glucose (UA) Urine Ketones Urine Blood Urine Nitrite Urine Bilirubin Urine Urobilinogen Ur Leukocyte Esterase Urine WBC (Auto) Urine RBC (Auto) U Hyaline Cast (Auto) U Epithel Cells (Auto) Urine Bacteria (Auto) Urine Comment Nasal Screen MRSA (PCR) Adenovirus (PCR) B. pertussis DNA (PCR) B.parapertussis DNA PCR C. pneumoniae DNA (PCR) Coronavirus OC43 (PCR) Coronavirus HKU1 (PCR) Coronavirus 229E (PCR) SARS-CoV-2 (PCR) Coronavirus NL63 (PCR) Human Metapneumovir PCR Influenza Type A (PCR) Influenza Type B (PCR) M. pneumoniae (PCR) Parainfluenza 1 (PCR) Parainfluenza 2 (PCR) Parainfluenza 3 (PCR) Parainfluenza 4 (PCR) RSV (PCR) Entero/Rhino (PCR) Microbiology 05/23/25 18:22 Urine,Clean Catch Urine Culture - Preliminary Escherichia coli 05/23/25 Unknown Sputum,Trach Gram Stain - Final 05/23/25 Unknown Sputum,Trach Sputum Culture - Preliminary Escherichia coli Diagnostic Findings Chest X-Ray 05/23/25 16:30 Exam: Chest one view portable. Reason for exam: Hypoxia. Previous studies: Chest radiograph 04/29/2025. FINDINGS: Endotracheal tube now seen with the tip approximately 4.5 cm above the mariusz. Heart is enlarged. Significantly increased areas of atelectasis and consolidation are seen throughout all lung zones bilaterally. IMPRESSION: 1. Status post intubation. 2. Markedly increased areas of consolidation and atelectasis in the lung ham bilaterally. Electronically signed by Abram Montgomery 05-23-2025 5:51 PM Chest CTA 05/23/25 17:02 Exam: CT angiogram chest pulmonary embolus protocol. Reason for exam: Hypoxia. Previous studies: Chest x-ray 05/23/2025; CT chest 04/08/2025. FINDINGS: There is good opacification of the pulmonary arteries. No persistent filling defect or embolus is seen on either side at this time. The aorta shows no evidence of aneurysm or dissection at the examined levels. No mediastinal mass or adenopathy is seen.Large area of atelectasis. Air Bronchograms seen in the right middle and lower lobe as well as left lower lobe. This is significantly increased since the previous CT study. Right upper lobe shows moderate scattered patchy consolidation as there is a left upper lobe. No pneumothorax pleural effusion is seen at this time. Small pleural effusions are present. Endotracheal tube is seen with the tip approximately 4.5 cm above the mariusz. IMPRESSION: 1. Negative for pulmonary embolus. 2. Large areas of atelectasis throughout the lungs bilaterally, most severely effecting the right lower lobe, left lower lobe and right middle lobe somewhat lesser areas of atelectasis/consolidation in the upper lobes bilaterally. The areas of involvement has increased significantly since the previous study of 04/08/2025. 3. Small pleural effusions bilaterally. Electronically signed by Abram Montgomery 05-23-2025 5:49 PM Chest X-Ray 05/24/25 06:00 EXAM: XR chest 1V portable CLINICAL HISTORY: eval lung ham, tubes, TECHNIQUE: An X-ray image of the chest is obtained in AP projection. COMPARISON: 05/23/2025 CT. FINDINGS: Pulmonary Parenchyma: Redemonstration of bilateral lower zonal air space, patchy infiltration. The endotracheal tube looks in the proper position. its tip is 4.3 mm above the mariusz. Blunting left CP recess. Heart and Mediastinum: Apparent cardiomegaly. No mediastinal widening or masses. No hilar or mediastinal lymphadenopathy. Bony Thorax: Bony thorax appears intact without fractures or deformities. Soft Tissues: Soft tissues overlying the chest wall are unremarkable. IMPRESSION: 1. Unchanged study. 2. The endotracheal tube looks in the proper position. its tip is 4.3 mm above the mariusz. 3. Redemonstration of bilateral lower zonal patchy areas of air space infiltration. 4. Cardiomegaly. 5. A blunted left CP recess may be attributed to mild pleural thickening/effusion. Electronically signed by Aldair Albarran 05-24-2025 07:58 AM Medications Administered Home Medications Medication Instructions Recorded Confirmed Last Taken polyethylene glycol 3350 17 gram 17 g feeding tube BID PRN 04/11/19 05/23/25 Unknown oral powder packet (Miralax) Constipation cannabidiol 100 mg/mL oral solution 100 - 150 mg G-tube [facility] 12/11/2505/23/25 05/23/25 08:00 disposable gloves (Disposable #1,200 ea 12/24/19 04/29/25 Unknown Latex-Free Gloves) menthol 0.44 %-zinc oxide 20.6 % 1 applic topical BID skin 03/26/22 05/23/25 05/23/25 08:00 topical ointment (Calmoseptine) irritation #113 grams tramadol 50 mg tablet 50 mg feeding tube BID PRN Pain 12/25/23 05/23/25 12/27/24 #60 tabs levothyroxine 75 mcg tablet 75 - 150 mcg PO DIRECTED 02/14/24 05/23/25 05/22/25 oxybutynin chloride 5 mg tablet 5 mg PO TID 02/14/24 05/23/25 05/23/25 14:00 sennosides 8.8 mg/5 mL oral syrup 8.8 mg (5 mL) PO HS PRN 06/09/24 05/23/25 Unknown (senna) Constipation #236 mL azelastine 137 mcg (0.1 %) nasal 1 spray intranasal DAILY PRN 08/03/24 05/23/25 Unknown spray Allergy Symptoms #30 mL fluocinolone 0.01 % shampoo (Capex) 30 ml topical DAILY #120 mL 09/15/24 05/23/25 05/23/25 lidocaine-prilocaine 2.5 %-2.5 % 1 applic topical ONCE PRN prior to 10/05/24 05/23/25 Unknown topical cream injections #50 grams olopatadine 0.2 % eye drops 1 drp ophthalmic (eye) DAILY PRN 10/05/24 05/23/25 Unknown itching #2.5 mL lorazepam 1 mg tablet (Ativan) 1 mg PO DAILY PRN anxiety #30 tabs 11/09/24 05/23/25 Unknown baclofen 10 mg tablet 10 mg PO TID 90 days #270 tabs 11/20/24 05/23/25 05/23/25 14:00 baclofen 5 mg tablet 5 mg PO TID 90 days #270 tabs 11/20/24 05/23/25 05/23/25 14:00 levetiracetam 750 mg tablet 750 mg PO BID 90 days #180 tabs 03/05/23/25 05/23/25 07:00 (Keppra) lansoprazole 30 mg delayed 30 mg feeding tube QAM #90 tabs 12/17/24 05/23/25 05/23/25 release,disintegrating tablet (Prevacid SoluTab) naproxen 500 mg tablet 500 mg PO BID PRN pain #60 tabs 12/17/24 05/23/25 Unknown clobetasol 0.05 % shampoo (Clodan) 1 applic topical DAILY #118 mL 12/18/24 05/23/25 05/23/25 albuterol sulfate 90 mcg/actuation 2 puff inhalation QID PRN Wheezing 12/28/24 05/23/25 04/29/25 05:00 aerosol inhaler (Ventolin HFA) cetirizine 10 mg tablet (Zyrtec) 10 mg PO HS allergy symptoms 12/28/24 05/23/25 05/22/25 diazepam 12.5 mg-15 mg-17.5 mg-20 12.5 mg [place] DIRECTED PRN seizure 12/28/24 05/23/25 Unknown mg rectal kit activity diclofenac sodium 1 % topical gel 2 g topical TID PRN Pain in Knees 12/28/24 05/23/25 Unknown melatonin 5 mg capsule 5 mg feeding tube HS 12/28/24 05/23/25 05/22/25 [id number] 8 mg-folic 400 0.5 tab PO QAM 12/28/24 05/23/25 05/23/25 mcg-K 50 mcg-lutein 300 mcg tablet (Multivitamin Women 50 Plus) docusate sodium 50 mg/15 mL oral See Rx Instructions feeding tube 01/11/25 05/23/25 Unknown syrup BID PRN Constipation #118 mL medroxyprogesterone 150 mg/mL 150 mg IM .q12wk #1 mL 02/02/25 05/23/25 Unknown intramuscular syringe acetaminophen 160 mg/5 mL oral 640 mg (20 mL) PO Q8H PRN pain 02/05/25 05/23/25 Unknown liquid #473 mL albuterol sulfate 2.5 mg/3 mL 2.5 mg (3 mL) inhalation Q6H PRN 02/10/25 05/23/25 Unknown (0.083 %) solution for nebulization Wheezing #360 mL fluticasone propionate 50 1 spray intranasal DAILY #16 grams 03/30/25 05/23/25 05/23/25 mcg/actuation nasal spray,suspension (Flonase Allergy Relief) dexamethasone 1 mg tablet 1 mg feeding tube UD #30 tabs 04/01/25 05/23/25 Unknown immun glob G 10 gram/50 mL(20 See Rx Instructions subcut 04/02/25 05/23/25 Unknown %)-pro-IgA 0-50 mcg/mL .COMPLEX #120 mL subcutaneous soln (Hizentra) ibuprofen 100 mg/5 mL oral 600 mg (30 mL) feeding tube Q6H 04/05/25 05/23/25 Unknown suspension PRN Fever Or Pain #473 mL ipratropium bromide 0.02 % 2.5 ml inhalation QID PRN 04/06/25 05/23/25 Unknown solution for inhalation shortness of breath or wheezing #75 mL montelukast 10 mg tablet 10 mg feeding tube HS 04/08/25 05/23/25 05/22/25 (Singulair) phenobarbital 30 mg tablet 30 mg PO .COMPLEX #90 tabs 04/19/25 05/23/25 05/23/25 phenobarbital 60 mg tablet 60 mg PO .COMPLEX #270 tabs 04/19/25 05/23/25 05/23/25 08:00 furosemide 20 mg tablet (Lasix) 20 mg PO DAILY 04/23/25 05/23/25 05/23/25 Miscellaneous Pulmonary Supply #2 ea 04/29/25 04/29/25 Unknown Miscellaneous Pulmonary Supply #60 ea 04/29/25 04/29/25 Unknown foam bandage 3.5" X 3.5" (Allevyn #80 ea 04/29/25 04/29/25 Unknown Tracheostomy Dressing) sodium chloride 7 % for 4 ml inhalation DAILY #240 mL 04/29/25 05/23/25 05/23/25 nebulization Miscellaneous Pulmonary Supply #1 ea 05/06/25 Unknown sodium chloride 0.9 % for 3 ml inhalation QID PRN shortness 05/18/25 05/23/25 Unknown nebulization of breath or wheezing #300 mL Miscellaneous Pulmonary Supply #2 ea 05/21/25 Unknown pseudoephedrine HCl 30 mg tablet See Rx Instructions .Route 05/23/25 05/23/25 Unknown .COMPLEX PRN Nasal Congestion Active Medications Generic Name Dose Route Start Last Admin Trade Name Freq PRN Reason Stop Dose Admin Acetaminophen 640 mg 05/23/25 20:25 05/24/25 09:06 Acetaminophen Susp 160 Mg/5 Ml Btl PEG 06/22/25 20:24 640 mg Q8H PRN Administration pain Albuterol 3 ml 05/24/25 10:23 05/24/25 11:52 Albut/Ipratrop 3mg/0.5mg Neb 3 Ml Vial INH 06/23/25 10:22 3 ml Q6H PRN Administration Shortness Of Breath Baclofen 15 mg 05/23/25 21:00 05/24/25 12:54 Baclofen 10 Mg Tab PO 06/22/25 20:59 15 mg TID BRAXTON Administration Cetirizine HCl 10 mg 05/23/25 21:00 05/23/25 23:40 Cetirizine Hcl 10 Mg Tablet PO 06/22/25 20:59 10 mg HS BRAXTON Administration Fluticasone Propionate 1 sprays 05/24/25 09:00 05/24/25 08:24 Fluticasone Propionate Na Spr 16 Gm Btl CORBIN 06/23/25 08:59 Not Given DAILY BRAXTON Ceftolozane/Tazobactam 3,000 122.8 mls @ 122.8 mls/hr 05/24/25 02:00 05/24/25 11:30 mg/ Dextrose IV 05/29/25 01:59 Infused Q8H BRAXTON Infusion Protocol Doxycycline Hyclate 100 mg/ 100 mls @ 50 mls/hr 05/23/25 21:00 05/24/25 10:34 Dextrose IV 05/28/25 20:59 Infused Q12H BRAXTON Infusion Norepinephrine Bitartrate 4 mg in 250 mls @ 0 mls/hr 05/23/25 20:30 05/24/25 10:34 Levophed/D5w IV 06/22/25 20:29 0 mcg/kg/min .Q0M BRAXTON 0 mls/hr Titration Protocol 0 MCG/KG/MIN Vancomycin HCl 1,500 mg/ 530 mls @ 100 mls/hr 05/24/25 09:00 05/24/25 14:52 Sodium Chloride IV 05/26/25 08:59 Infused Q24H BRAXTON Infusion Hydrocortisone Sodium 1 mls @ 4 mls/min 05/24/25 15:00 05/24/25 14:55 Succinate 50 mg/ Syringe IV 06/23/25 14:59 4 mls/min Q8H BRAXTON Administration Insulin Aspart 0 units 05/24/25 12:00 05/24/25 12:49 Insulin Aspart Per Unit Charge SC 06/23/25 11:59 2 units Q6 BRAXTON Administration Lansoprazole 30 mg 05/24/25 09:00 05/24/25 08:22 Lansoprazole 30 Mg Soltab GT 06/23/25 08:59 30 mg QAM BRAXTON Administration Levetiracetam 750 mg 05/23/25 21:00 05/24/25 08:22 Levetiracetam Oral Soln 100mg/Ml PO 06/22/25 20:59 750 mg BID@0700,1830 BRAXTON Administration Levothyroxine Sodium 75 mcg 05/23/25 21:00 05/23/25 23:39 Levothyroxine Sodium 75 Mcg Tablet PO 06/22/25 20:59 75 mcg SuMoTuThFrSa@2100 BRAXTON Administration Melatonin 3 mg 05/23/25 22:00 05/23/25 23:40 Melatonin 3 Mg Tab PO 06/22/25 21:59 3 mg HSZ BRAXTON Administration Miscellaneous 1 each 05/24/25 00:00 05/24/25 11:34 Cannabidiol ~ Order Awaiting Action N/A 06/23/25 00:00 Not Given QS BRAXTON Miscellaneous 1 each 05/24/25 00:00 05/24/25 11:34 Capex ~ Order Awaiting Action N/A 06/23/25 00:00 Not Given QS BRAXTON Miscellaneous 1 each 05/24/25 06:00 05/24/25 14:52 Icu Electrolyte Replacement Protocol N/A 05/31/25 05:59 Not Given BID@06,18 BRAXTON Protocol Montelukast Sodium 10 mg 05/23/25 21:00 05/23/25 23:40 Montelukast Sodium 10 Mg Tablet GT 06/22/25 20:59 10 mg HS BRAXTON Administration Multivitamins/Minerals 15 ml 05/24/25 09:00 05/24/25 08:22 Multi Vit W/Minerals Liquid 15 Ml Udc GT 06/23/25 08:59 15 ml QAM BRAXTON Administration Nutritional Formula 325 ml 05/24/25 14:00 05/24/25 12:53 Patient's Own Enteral Feeding GT 06/23/25 13:59 325 ml TID BRAXTON Administration Protocol Oxybutynin Chloride 5 mg 05/23/25 23:00 05/24/25 12:54 Oxybutynin Chloride 5 Mg Tab PO 06/22/25 22:59 5 mg TID@0700,1430,2300 BRAXTON Administration Phenobarbital 90 mg 05/24/25 07:00 05/24/25 08:22 Phenobarbital 30 Mg Tab PO 06/23/25 06:59 90 mg DAILY@0700 BRAXTON Administration Sodium Chloride 4 ml 05/24/25 09:00 05/24/25 07:38 Sodium Chlor 7% 4 Ml Neb INH 06/23/25 08:59 4 ml DAILY BRAXTON Administration Tramadol HCl 50 mg 05/24/25 12:19 05/24/25 12:52 Tramadol Hcl 50 Mg Tablet PO 06/23/25 12:18 50 mg Q8 PRN Administration Pain
[2025-05-24] MEDS: POLYETHYLENE (MIRALAX) 17 GM PACK GT PRN (19:47)
[2025-05-24] MEDS: FUROSEMIDE INJ 20 MG/2 ML VIAL IV ONE (20:04)
[2025-05-25 05:35] LABS: Anion Gap 12.0 (3-11); Blood Urea Nitrogen 60.0 mg/dl (6-23); Calcium 7.4 mg/dl (8.6-10.3); Carbon Dioxide 19.0 mmol/L (21-32); Chloride 97.0 mmol/L (98-107); Creatinine Clr Calc Pharmacy 69.6 ml/min; Glucose 83.0 mg/dl (70-99(Fasting)); Magnesium 3.4 mg/dl (1.7-2.4); Potassium 3.9 mmol/L (3.5-5.1); Sodium 128.0 mmol/L (136-145)
[2025-05-25 05:47] LABS: Hematocrit (blood only) 21.6 % (37.0-47.0); Hemoglobin 6.8 g/dl (12.0-16.0); Mean Corpuscular Hemoglobin 29.1 pg (25.0-34.0); Mean Corpuscular Volume 92.3 fL (80.0-100.0); Platelet Count 132 K/uL (130-400); RDW Standard Deviation 71.7 fL (36.4-46.3); Red Blood Count 2.34 M/uL (4.20-5.40); White Blood Count 7.77 K/ul (4.8-10.8)
[2025-05-25 05:48] LABS: Dohle Bodies 1+; Immature Granulocytes # (auto) 0.14 K/uL (0.01-0.20); Immature Granulocytes % (auto) 1.8 %; Polychromasia 1+
[2025-05-25 07:13] LABS: Hemoglobin 7.0 g/dl (12.0-16.0); Reticulocytes # 0.090 10^6/uL (0.020-0.100)
[2025-05-25 07:14] LABS: Ferritin 146.9 ng/ml (8-388)
[2025-05-25 07:24] LABS: Iron 10.0 mcg/dl (35-150); Transferrin 172.0 mg/dl (200-360)
[2025-05-25 07:31] LABS: Folate (Folic Acid),Ser orPlas 16.52 ng/ml (>5.38)
[2025-05-25 07:32] LABS: Vitamin B12 > 1500 pg/ml (180-914)
--- NOTE | 2025-05-25 07:39 | XRay Report ---
EXAM: XR chest 1V portable CLINICAL HISTORY: eval lung ham, tubes, TECHNIQUE: An X-ray image of the chest is obtained in AP projection. COMPARISON: 05:40:45 [employer]. FINDINGS: Pulmonary Parenchyma: Redemonstration of bilateral lower zonal air space, patchy infiltration. Tracheostomy tube is seen in situ. Blunting left CP recess. Heart and Mediastinum: Apparent cardiomegaly. No mediastinal widening or masses. No hilar or mediastinal lymphadenopathy. Bony Thorax: Bony thorax appears intact without fractures or deformities. Soft Tissues: Soft tissues overlying the chest wall are unremarkable. IMPRESSION: Unchanged study. Redemonstration of bilateral lower zonal patchy areas of air space infiltration.-stable. Cardiomegaly.-stable. A blunted left CP recess may be attributed to mild pleural thickening/effusion.-stable. Electronically signed by Alirio Guerra 05-25-2025 07:39 AM
--- NOTE | 2025-05-25 07:44 | Billing Data ---
Date of Service May 25, 2025 Coding Level of Care Code 35823 SUB INP/OBS CARE 50MIN Comment Please add ventilator code
--- NOTE | 2025-05-25 08:15 | Critical Care Progress Note ---
Date of Service May 25, 2025 Assessment & Plan (1) UTI (urinary tract infection): (2) Pneumonia: (3) IMER (acute kidney injury): (4) Obesity (BMI 30-39.9): (5) MRSA nasal colonization: (6) Acute respiratory failure with hypercapnia: (7) Hyponatremia: (8) Tracheostomy dependent: (9) Difficult intravenous access: (10) Acute hyperkalemia: (11) Septic shock: (12) Seizure disorder: (13) Neurogenic bladder: (14) Congenital dysplasia of hips, bilateral: (15) Atrial septal defect: (16) Thrombocytopenia: Stefany Stearns is a 24 Y O Female with PMH of Tracheostomy dependence, Chronic PEG feeds, Seizure disorder, Obesity with BMI 30-39.9, Primary Immune Deficiency disorder, Central Hypothyroidism, PDA. Atrial septal Defects, Congenital Hydrocephalus came in with worsening hypoxia at home and is being admitted for management of Pneumonia. Neuro No acute needs- Hx CP with [employer] shunt and seizure disorder CAM ICU: XANDER - Continue supportive care for metabolic and respiratory needs- at baseline she opens eyes, smiles, and grimaces - currently localizes, grimaces and eyes closed - continue with home AEDS- convert to IV if needed Cardiac Shock- distributive septic likely - Patient presents hypotensive, hypoxic, bradycardic- with organ dysfunction -Lactate slightly elevated on presentation. Normalized on repeat check - Patient is off the Levophed. Maintaining BP with MAP around 60-65. - Diurese as hemodynamics permit- hopeful by morning- assist with pulmonary mechanics and peripheral edema - Follow end organ perfusion- - Current organ dysfunction- encephalopathy, pulmonary, mild elevated LFTs, renals, heme Respiratory Hypercarbic and hypoxic respiratory failure, chronic vent dependant- usually on AVAPS. Will trial home AVAPS today - CXR this morning with unchanged findings - Sputum sample positive for E coli Sensitive to Ceftriaxone and Augemntin -Discontinue Vancomycin and Ceftolazone/Tazobactam. Vancomycin level elevated to 46 -Start Ceftriaxone. Will consider switch to Augmentin on discharge - Baseline AVAPS settings: IPAP range to 22-26 and increasing max pressure support to 30 to aim for the tidal volume of 300 and increase the backup rate to 17. NIMV settings should be AVAPS-AE; Breath rate: auto; Inspiratory time:auto; Sigh: off; Tidal Volume: 300-320, PS min: 4-10 PS max: 12-30; EPAP min: 6-10; EPAP max: 10-16; AVAPS rate: 17 GI - mild elevated liver enzymes, obesity- Hx Tube feedings and PEG tube for medications - Continue enteral feedings as able- hold if vasopressor support increasing - Improving LFTs - Bowel regime RENAL/LYTES - - Creatinine increased to 1.31. Likely because of Lasix IV and Vancomycin.Will recheck creatinine in the AM - Hyponatremia- chronic- likely hypervolemic hyponatremia- will give stat 40 mg IV Lasix today - ICU electrolyte protocol - neurogenic bladder - shukla while in ICU ENDO - No acute needs - Continue Synthroid, ICU hyper/hypoglycemic protocol HEME - WBC improved to 7.77 -Has chronic anemia. Hgb dropped to 6.8. Recheck hgb was 7/Complete work up for anemia was done. Likely iron deficiency anemia. Will consider oral iron - Patient does have history of primary immune deficiency- She receives Hizentra q 2weeks- 10GM - due on [id number] ID Septic shock- source pulmonary likely at this time - Sputum culture grows E coli sensitive to Ceftriaxone and Augmentin - Blood cultures pending -Urine culture positive for E Col - PCT elevated 24 - Legionella urine pending - ABX therapy- Rocephin. will switch to Augmentin on discharge LINES/IV ACCESS - Continue use of these lines Admission and Anticipated Discharge Date Admission Date: May 23, 2025 Supervising Physician Co-Signing Physician Notes Dr. De La Vega was resident physician during care of patient. I separately evaluated patient for batista portions of the history and the exam. I was present during the critical portion of medical decision making, and I discussed the case with the resident. I generally agree with the findings and plan. Worsening anemia, and review of medical record there has not been a baseline anemia workup. Sending B12 folate and iron levels also checking reticulocyte count. Will add haptoglobin and LDH for completeness. H&H was rechecked so I do believe that there is a drop, from a hemodynamic standpoint she is not showing hemodynamic instability and is now off vasoactive medication. Speciation has occurred, de-escalate to single agent Rocephin for duration of 10 days with anticipation of transition to Augmentin tomorrow. Patient seems to be tolerating hospital vent will recommend trial of home AVAPS. In review of records patient has waxing and waning renal function, meets criteria for IMER today, this could be related to vancomycin infusion however there are other possible causes. I believe the hyponatremia is hypervolemic hyponatremia will proceed with 40 mg Lasix. Subjective Stefany is currently on mechanical ventilation via tracheostomy tube. She appears comfortable overall and was observed sleeping. She has bilateral pitting pedal edema. Talked with mom in the bedside and she mentioned that patient has been taking Furosemide 20mg daily at home which has been recommended by her facilities supervisor from [place]. She received 10mg IV Lasix and still on positive balance of ~1500ml. HGb this AM check was 6.8. Repeat Hgb was 7. Review of Systems Review of Systems: As per HPI Physical Exam Physical Exam: PHYSICAL EXAM: General: has tracheostomy tube in place ENT: PERRLA, mucous membranes, dry, Neuro: responds to pain, facial grimace, localizes extremities Chest: equal rise and fall of the chest, no accessory muscle use, decreased in bases with scattered rhonchi, trach in place Cardiac: Regular rate and rhythm, telemetry reviewed- NSR, skin warm dry- sunburn to face, cap refill <3 seconds, peripheral pusles +2, pitting edema from feet to just below knee GI: NABS x 4 quadrants, soft, nontender to palpation, no rebound, guarding or tenderness : shukla to gravity Results & Data Results & Data Vital Signs (Past 12 Hours) Vital Signs Temp Pulse Resp BP Pulse Ox FiO2 05/25/25 07:00 124/66 05/25/25 06:59 37.1 C 90 18 96 05/25/25 06:02 37.1 C 78 18 97 05/25/25 06:00 107/49 L 05/25/25 05:53 37.1 C 80 18 97 05/25/25 05:29 37.1 C 86 18 96 05/25/25 05:00 119/62 05/25/25 04:56 37.1 C 84 18 97 05/25/25 04:00 37.0 C 80 18 98 05/25/25 04:00 103/46 L 05/25/25 04:00 103/46 L 05/25/25 04:00 40 05/25/25 03:05 83 18 97 40 05/25/25 03:03 36.9 C 81 18 97 05/25/25 03:00 102/49 L 05/25/25 03:00 102/49 L 05/25/25 03:00 102/49 L 05/25/25 02:39 36.8 C 82 18 97 05/25/25 02:00 36.7 C 84 18 97 05/25/25 02:00 101/49 L 05/25/25 02:00 101/49 L 05/25/25 01:09 36.6 C 84 18 96 05/25/25 01:00 95/43 L 05/25/25 00:51 36.6 C 90 18 96 05/25/25 00:36 36.6 C 92 H 18 95 05/25/25 00:36 95/42 L 05/25/25 00:36 95/42 L 05/25/25 00:36 95/42 L 05/25/25 00:36 95/42 L 05/25/25 00:00 36.6 C 108 H 19 96 05/25/25 00:00 113/52 L 05/25/25 00:00 113/52 L 05/25/25 00:00 113/52 L 05/25/25 00:00 118 H 19 94 40 05/24/25 23:54 50 05/24/25 23:30 117/62 05/24/25 23:30 36.7 C 108 H 19 05/24/25 23:30 117/62 05/24/25 23:03 36.8 C 74 18 95 05/24/25 23:00 107/55 L 05/24/25 23:00 107/55 L 05/24/25 22:39 36.7 C 73 18 94 05/24/25 22:30 105/50 L 05/24/25 22:30 105/50 L 05/24/25 22:30 105/50 L 05/24/25 22:15 36.6 C 73 18 93 05/24/25 22:09 36.6 C 73 18 93 05/24/25 22:00 111/58 L 05/24/25 21:51 36.5 C 71 18 93 05/24/25 21:30 116/59 L 05/24/25 21:27 36.5 C 75 18 94 09/15/25 21:00 36.4 C L 71 18 95 05/24/25 21:00 104/46 L 05/24/25 21:00 104/46 L 05/24/25 20:30 36.4 C L 75 18 96 05/24/25 20:30 110/57 L 05/24/25 20:30 110/57 L 05/24/25 20:18 36.4 C L 71 18 97 Coding Level of Care Code 43244 SUB INP/OBS CARE 3/50MIN Diagnoses UTI (urinary tract infection) N39.0 Pneumonia J18.9 IMER (acute kidney injury) N17.9 Obesity (BMI 30-39.9) E66.9 MRSA nasal colonization Z22.322 Acute respiratory failure with hypercapnia J96.02 Hyponatremia E87.1 Tracheostomy dependent Z93.0 Difficult intravenous access Z78.9 Acute hyperkalemia E87.5 Septic shock A41.9; R65.21 Seizure disorder G40.909 Neurogenic bladder N31.9 Congenital dysplasia of hips, bilateral Q65.89 Atrial septal defect Q21.1 Thrombocytopenia D69.6 Resident Activity Tracking Resident Involvement: Resident Care Provided Care Provided: Adult Hospital Medicine
[2025-05-25] MEDS ORDERED: VANCOMYCIN LEVEL ONE (08:30)
[2025-05-25] MEDS: cefTRIAXone SODIUM 2,000 MG/50 ML BAG IV SCH (11:20)
[2025-05-25] MEDS: FUROSEMIDE 40 MG/4 ML VIAL IV ONE (11:21)
[2025-05-25 12:40] LABS: iSTAT Art Bld Gas Base Excess -7.0 meg/L (-9-1.8); iSTAT Art Bld Gas pCO2 Correct 30 mmHg (35-46); iSTAT Art Bld Gas pH Corrected 7.376 (7.35-7.45); iSTAT Arterial Blood Gas pO2 C 49
--- NOTE | 2025-05-25 13:48 | Infectious Disease Progress Nt ---
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 coli UTI with 7 days of Bactrim She now presents on 05/23/2025 with hypoxia. She is status post tracheostomy exchange with pulmonary on 05/21/2025. The day of admission she became progressively more hypoxic and tachypneic. Her mother attempted increased suctioning and increasing her O2 to 5 L. She remained hypoxic and was brought into the ED. In the ED she was hypotensive with SBP in the 70s, hypothermic with T34.5, hypoxic to the 80s.. She was switched to mechanical ventilation and started on Levophed. Labs: WBC 1.58 (ANC 1.21), platelets 155, hemoglobin 9.5, hematocrit 31.4,, sodium 127, BUN 55, creatinine 1.14, lactate 2.2--> 1.3, AST 95, ALT 75, alk phos 258, procalcitonin 24. Urinalysis with greater than 50 WBC, greater than 20 RBC. MRSA nasal screen positive. RVP negative. Urine culture >100 k E. coli. Sputum culture with E. coli. Chest x-ray with marked increased areas of consolidation and atelectasis in the lung ham bilaterally. CTA chest shows large areas of atelectasis throughout the lungs bilaterally most severely affecting the right lower lobe, right middle lobe and left lower lobe. Lesser areas of consolidation/atelectasis in upper lobes bilaterally. She is receiving zerbaxa/vancomycin and doxycycline. She received a dose of Ertapenem. Id consulted for sepsis An E consult without video evaluation completed as video/camera is not working. Microbiology 05/23 blood culture #1 NGTD 05/23 blood culture #2 NGTD 05/23 urine culture >100 K E. coli (Resistant to ampicillin,Cipro, Levaquin, Bactrim. Intermediate to Unasyn, cefazolin, cefuroxime) 05/23 sputum culture E. coli (resistant to ampicillin, Cipro, Levaquin, intermediate to Unasyn, cefazolin, cefuroxime) 05/23 MRSA screen positive 05/23 RVP negative Antibiotics: Zerbaxa ertapenem 05/24 Vancomycin Doxycycline 05/23 # Septic shock # Acute on chronic respiratory failure # Ecoli Pneumonia and + UCx # MRSA nasal colonization/history of MRSA pneumonias # History of ESBL E. coli in urine culture # History of MDR Pseudomonas (sensitive to levofloxacin and Zerbaxa and sputum culture) # Elevated procalcitonin # Leukopenia, resolved Discussion: She presents with septic shock likely in the setting of pneumonia. She has a history of MRSA infections and multidrug-resistant Pseudomonas aeruginosa infections. Currently growing E. coli in both urine and sputum culture, susceptibility pending. She was on Zerbaxa, Vanco, doxycycline. She received a dose of ertapenem. As of 05/25, Ecoli S to ceftriaxone. Repeat CXR shows bilateral lower zonal air space, patchy infiltration. She is off pressors. Creatinine 1.31. Random Vancomycin level elevated at 40.9. Hemoglobin 7, hematocrit 21.6 Recommendations Agree with discontinuation of IV vancomycin, Zerbaxa Continue doxycycline pending urine legionella ag. If negative, then discontinue. Continue ceftriaxone 2 giv daily . Plan for 7 d of treatment for pna and Uti ( 05/23-05/29). Once more stable, can transition to amox/clav Po to complete treatment. Follow-up blood cultures Ordered Lyme screen, Anaplasma and babesia smear and pcr ID will sign off. Call with questions,if BC x + or tickborne dz testing positive. . Cisco Tee MD, MPH Infectious Disease [facility], ID Division Call [phone] with questions Admission and Anticipated Discharge Date Admission Date: May 23, 2025 Subjective This patient recommendation is based on a telemedicine consult request which was completed asynchronously through chart review and information provided by the primary physician. The patient was not seen or examined today. The evaluation is consultative in nature and all patient care and treatment decisions can either be accepted or rejected by the patient's primary hospital-based treating physician using their own independent medical judgment for their patient. Time Spent Reviewing Chart: 21 - 30 minutes Ecoli Susc reviewed . S To Ceftriaxone Creatinine 1.31. Random Vanco level elevated at 40.9. Hemoglobin 7, hematocrit 21.6 Results & Data Vital Signs (Past 12 Hours) Vital Signs Temp Pulse Resp BP Pulse Ox O2 Del Method FiO2 05/25/25 12:00 127/89 05/25/25 12:00 36.3 C L 119 H 19 93 05/25/25 11:57 28 05/25/25 11:34 99 H 18 95 26 05/25/25 11:12 36.5 C 83 18 93 05/25/25 11:12 120/61 05/25/25 11:00 36.5 C 80 18 94 05/25/25 10:06 36.7 C 82 18 93 05/25/25 10:00 114/66 05/25/25 09:54 36.7 C 85 18 90 05/25/25 09:03 36.9 C 90 20 96 05/25/25 09:00 110/62 05/25/25 08:39 37.0 C 92 H 18 96 05/25/25 08:09 97 H 19 94 40 05/25/25 08:03 37.0 C 96 H 18 95 05/25/25 08:00 99/48 L 05/25/25 08:00 40 05/25/25 08:00 Mechanical Vent 40 05/25/25 07:57 37.0 C 96 H 18 94 05/25/25 07:00 124/66 05/25/25 07:00 124/66 05/25/25 06:59 37.1 C 90 18 96 05/25/25 06:02 37.1 C 78 18 97 05/25/25 06:00 107/49 L 05/25/25 05:53 37.1 C 80 18 97 05/25/25 05:29 37.1 C 86 18 96 05/25/25 05:00 119/62 05/25/25 04:56 37.1 C 84 18 97 05/25/25 04:00 37.0 C 80 18 98 05/25/25 04:00 103/46 L 05/25/25 04:00 103/46 L 05/25/25 04:00 40 05/25/25 03:05 83 18 97 40 05/25/25 03:03 36.9 C 81 18 97 05/25/25 03:00 102/49 L 05/25/25 03:00 102/49 L 05/25/25 03:00 102/49 L 05/25/25 02:39 36.8 C 82 18 97 05/25/25 02:00 36.7 C 84 18 97 05/25/25 02:00 101/49 L 05/25/25 02:00 101/49 L Laboratory Results Laboratory Results - last 48 hr 05/23/25 05/23/25 05/23/25 16:47 16:48 16:52 WBC 1.58 L RBC 3.25 L Hgb 9.5 L POC Hgb 10.2 L Hct 31.4 L POC Hct 30 L MCV 96.6 MCH 29.2 MCHC 30.3 L RDW Std Deviation 77.2 H RDW Coeff of Dulce 22.2 H Plt Count 155 MPV 10.5 Immature Gran % (Auto) 0.0 Neut % (Auto) 76.7 Lymph % (Auto) 12.0 [place] % (Auto) 10.1 Eos % (Auto) 0.6 Baso % (Auto) 0.6 Reticulocyte % (Auto) Neut # (Auto) 1.21 L Lymph # (Auto) 0.19 L [place] # (Auto) 0.16 Eos # (Auto) 0.01 Baso # (Auto) 0.01 Reticulocyte # Immature Gran # (Auto) 0.00 L Absolute Nucleated RBC 0.03 Nucleated RBC % (auto) 1.9 Dohle Bodies Polychromasia 1+ Anisocytosis Present PT 11.4 INR 1.1 Specimen Type Sample Site POC pH POC pCO2 POC pO2 POC HCO3 POC Base Excess O2 Sat Pulse Oximetry ABG pH (Temp Correct) ABG pCO2 (Temp Corrct POC ABG pO2 at Pt Temp POC ABG O2 Sat Nehemiah Test VBG pH VBG pCO2 VBG pO2 VBG HCO3 VBG O2 Saturation VBG Base Excess O2 Delivery Device Vent Mode POC FiO2 End Tidal CO2 POC Sodium 127 L Sodium 127 L POC Potassium 3.9 Potassium 3.9 POC Chloride 99 L Chloride 95 L Carbon Dioxide 21 POC Total CO2 19 L Anion Gap 11 POC Anion Gap 15.0 L POC BUN 57 H BUN 55 H Creatinine 1.14 POC Creatinine 1.2 Est Cr Clr Drug Dosing 76.0 eGFR 69.37 BUN/Creatinine Ratio 48.2 H Glucose 116 H POC Glucose POC Glucose (other) 121 H Lactate 3.0 H* Calcium 8.0 L POC Ioniz Calcium Emilie 1.00 L Phosphorus Magnesium 3.7 H Iron Transferrin Ferritin Total Bilirubin 0.6 AST 95 H ALT 75 H Alkaline Phosphatase 258 H Lactate Dehydrogenase Troponin I High Sens 7.6 B-Natriuretic Peptide Total Protein 7.2 Albumin 3.2 L Globulin 4.0 Albumin/Globulin Ratio 0.8 L Vitamin B12 Folate Procalcitonin 24.00 H TSH 12.056 H Free T4 0.82 Random Cortisol Urine Color Urine Appearance Urine pH Ur Specific [place] Urine Protein Urine Glucose (UA) Urine Ketones Urine Blood Urine Nitrite Urine Bilirubin Urine Urobilinogen Ur Leukocyte Esterase Urine WBC (Auto) Urine RBC (Auto) U Hyaline Cast (Auto) U Epithel Cells (Auto) Urine Bacteria (Auto) Urine Comment Nasal Screen MRSA (PCR) Random Vancomycin Adenovirus (PCR) Not Detected B. pertussis DNA (PCR) Not Detected B.parapertussis DNA PCR Not Detected C. pneumoniae DNA (PCR) Not Detected Coronavirus OC43 (PCR) Not Detected Coronavirus HKU1 (PCR) Not Detected Coronavirus 229E (PCR) Not Detected SARS-CoV-2 (PCR) Not Detected Coronavirus NL63 (PCR) Not Detected Human Metapneumovir PCR Not Detected Influenza Type A (PCR) Not Detected Influenza Type B (PCR) Not Detected M. pneumoniae (PCR) Not Detected Parainfluenza 1 (PCR) Not Detected Parainfluenza 2 (PCR) Not Detected Parainfluenza 3 (PCR) Not Detected Parainfluenza 4 (PCR) Not Detected RSV (PCR) Not Detected Entero/Rhino (PCR) Not Detected Blood Type Antibody Screen 05/23/25 05/23/25 05/23/25 16:54 16:55 18:22 WBC RBC Hgb POC Hgb Hct POC Hct MCV MCH MCHC RDW Std Deviation RDW Coeff of [place] Plt Count MPV Immature Gran % (Auto) Neut % (Auto) Lymph % (Auto) [place] % (Auto) Eos % (Auto) Baso % (Auto) Reticulocyte % (Auto) Neut # (Auto) Lymph # (Auto) [place] # (Auto) Eos # (Auto) Baso # (Auto) Reticulocyte # Immature Gran # (Auto) Absolute Nucleated RBC Nucleated RBC % (auto) Dohle Bodies Polychromasia Anisocytosis PT INR Specimen Type Sample Site POC pH POC pCO2 POC pO2 POC HCO3 POC Base Excess O2 Sat Pulse Oximetry ABG pH (Temp Correct) ABG pCO2 (Temp Corrct POC ABG pO2 at Pt Temp POC ABG O2 Sat Nehemiah Test VBG pH 7.17 L VBG pCO2 58 H VBG pO2 42 VBG HCO3 21 VBG O2 Saturation < 60.0 VBG Base Excess -8.0 O2 Delivery Device Vent Mode POC FiO2 End Tidal CO2 POC Sodium Sodium POC Potassium Potassium POC Chloride Chloride Carbon Dioxide POC Total CO2 Anion Gap POC Anion Gap POC BUN BUN Creatinine POC Creatinine Est Cr Clr Drug Dosing eGFR BUN/Creatinine Ratio Glucose POC Glucose POC Glucose (other) Lactate Calcium POC Ioniz Calcium Emilie Phosphorus Magnesium Iron Transferrin Ferritin Total Bilirubin AST ALT Alkaline Phosphatase Lactate Dehydrogenase Troponin I High Sens B-Natriuretic Peptide 178 H Total Protein Albumin Globulin Albumin/Globulin Ratio Vitamin B12 Folate Procalcitonin TSH Free T4 Random Cortisol Urine Color Yellow Urine Appearance Turbid A Urine pH 5.5 Ur Specific [place] 1.015 Urine Protein 2+ H Urine Glucose (UA) Negative Urine Ketones Negative Urine Blood 3+ H Urine Nitrite Negative Urine Bilirubin Negative Urine Urobilinogen Negative Ur Leukocyte Esterase 3+ H Urine WBC (Auto) >50 H Urine RBC (Auto) >20 H U Hyaline Cast (Auto) 0-2 U Epithel Cells (Auto) 0-2 Urine Bacteria (Auto) 4+ H Urine Comment Nasal Screen MRSA (PCR) Random Vancomycin Adenovirus (PCR) B. pertussis DNA (PCR) B.parapertussis DNA PCR C. pneumoniae DNA (PCR) Coronavirus OC43 (PCR) Coronavirus HKU1 (PCR) Coronavirus 229E (PCR) SARS-CoV-2 (PCR) Coronavirus NL63 (PCR) Human Metapneumovir PCR Influenza Type A (PCR) Influenza Type B (PCR) M. pneumoniae (PCR) Parainfluenza 1 (PCR) Parainfluenza 2 (PCR) Parainfluenza 3 (PCR) Parainfluenza 4 (PCR) RSV (PCR) Entero/Rhino (PCR) Blood Type Antibody Screen 05/23/25 05/23/25 05/23/25 18:47 18:48 20:00 WBC RBC Hgb POC Hgb Hct POC Hct MCV MCH MCHC RDW Std Deviation RDW Coeff of [place] Plt Count MPV Immature Gran % (Auto) Neut % (Auto) Lymph % (Auto) [place] % (Auto) Eos % (Auto) Baso % (Auto) Reticulocyte % (Auto) Neut # (Auto) Lymph # (Auto) [place] # (Auto) Eos # (Auto) Baso # (Auto) Reticulocyte # Immature Gran # (Auto) Absolute Nucleated RBC Nucleated RBC % (auto) Dohle Bodies Polychromasia Anisocytosis PT INR Specimen Type Sample Site POC pH POC pCO2 POC pO2 POC HCO3 POC Base Excess O2 Sat Pulse Oximetry ABG pH (Temp Correct) ABG pCO2 (Temp Corrct POC ABG pO2 at Pt Temp POC ABG O2 Sat Nehemiah Test VBG pH VBG pCO2 VBG pO2 VBG HCO3 VBG O2 Saturation VBG Base Excess O2 Delivery Device Vent Mode POC FiO2 End Tidal CO2 POC Sodium Sodium POC Potassium Potassium POC Chloride Chloride Carbon Dioxide POC Total CO2 Anion Gap POC Anion Gap POC BUN BUN Creatinine POC Creatinine Est Cr Clr Drug Dosing eGFR BUN/Creatinine Ratio Glucose POC Glucose POC Glucose (other) Lactate 1.6 Calcium POC Ioniz Calcium Emilie Phosphorus Magnesium Iron Transferrin Ferritin Total Bilirubin AST ALT Alkaline Phosphatase Lactate Dehydrogenase Troponin I High Sens B-Natriuretic Peptide Total Protein Albumin Globulin Albumin/Globulin Ratio Vitamin B12 Folate Procalcitonin TSH Free T4 Random Cortisol 13.21 Urine Color Urine Appearance Urine pH Ur Specific [place] Urine Protein Urine Glucose (UA) Urine Ketones Urine Blood Urine Nitrite Urine Bilirubin Urine Urobilinogen Ur Leukocyte Esterase Urine WBC (Auto) Urine RBC (Auto) U Hyaline Cast (Auto) U Epithel Cells (Auto) Urine Bacteria (Auto) Urine Comment Nasal Screen MRSA (PCR) Positive A Random Vancomycin Adenovirus (PCR) B. pertussis DNA (PCR) B.parapertussis DNA PCR C. pneumoniae DNA (PCR) Coronavirus OC43 (PCR) Coronavirus HKU1 (PCR) Coronavirus 229E (PCR) SARS-CoV-2 (PCR) Coronavirus NL63 (PCR) Human Metapneumovir PCR Influenza Type A (PCR) Influenza Type B (PCR) M. pneumoniae (PCR) Parainfluenza 1 (PCR) Parainfluenza 2 (PCR) Parainfluenza 3 (PCR) Parainfluenza 4 (PCR) RSV (PCR) Entero/Rhino (PCR) Blood Type Antibody Screen 05/23/25 05/23/25 05/24/25 21:00 21:18 04:51 WBC 2.79 L RBC 2.80 L Hgb 8.5 L POC Hgb 8.2 L Hct 25.7 L POC Hct 24 L MCV 91.8 MCH 30.4 MCHC 33.1 RDW Std Deviation 72.8 H RDW Coeff of [place] 21.3 H Plt Count 158 MPV 10.2 Immature Gran % (Auto) 0.4 Neut % (Auto) 84.9 Lymph % (Auto) 4.7 [place] % (Auto) 9.3 Eos % (Auto) 0.7 Baso % (Auto) 0.0 Reticulocyte % (Auto) Neut # (Auto) 2.37 Lymph # (Auto) 0.13 L [place] # (Auto) 0.26 Eos # (Auto) 0.02 Baso # (Auto) 0.00 Reticulocyte # Immature Gran # (Auto) 0.01 Absolute Nucleated RBC 0.03 Nucleated RBC % (auto) 1.1 Dohle Bodies Polychromasia 1+ Anisocytosis Present PT INR Specimen Type Arterial Sample Site R Radial POC pH 7.32 L POC pCO2 34 L POC pO2 82 POC HCO3 17 L POC Base Excess -9.0 O2 Sat Pulse Oximetry 94 ABG pH (Temp Correct) 7.372 ABG pCO2 (Temp Corrct 29 L POC ABG pO2 at Pt Temp 64 POC ABG O2 Sat 95.0 Nehemiah Test Pass VBG pH VBG pCO2 VBG pO2 VBG HCO3 VBG O2 Saturation VBG Base Excess O2 Delivery Device Ventilator Vent Mode AC POC FiO2 70 End Tidal CO2 25 POC Sodium 125 L Sodium 132 L POC Potassium 3.3 Potassium 3.7 POC Chloride Chloride 99 Carbon Dioxide 20 L POC Total CO2 18 L Anion Gap 13 H POC Anion Gap POC BUN BUN 53 H Creatinine 0.98 POC Creatinine Est Cr Clr Drug Dosing 88.8 eGFR 83.18 BUN/Creatinine Ratio 54.1 H Glucose 119 H POC Glucose POC Glucose (other) Lactate 2.2 H* 1.3 Calcium 7.4 L POC Ioniz Calcium Emilie Phosphorus 4.4 Magnesium 3.5 H Iron Transferrin Ferritin Total Bilirubin 0.8 AST 49 H ALT 58 H Alkaline Phosphatase 227 H Lactate Dehydrogenase Troponin I High Sens B-Natriuretic Peptide Total Protein 6.2 Albumin 2.9 L Globulin 3.3 Albumin/Globulin Ratio 0.9 Vitamin B12 Folate Procalcitonin TSH Free T4 Random Cortisol Urine Color Urine Appearance Urine pH Ur Specific [place] Urine Protein Urine Glucose (UA) Urine Ketones Urine Blood Urine Nitrite Urine Bilirubin Urine Urobilinogen Ur Leukocyte Esterase Urine WBC (Auto) Urine RBC (Auto) U Hyaline Cast (Auto) U Epithel Cells (Auto) Urine Bacteria (Auto) Urine Comment Nasal Screen MRSA (PCR) Random Vancomycin Adenovirus (PCR) B. pertussis DNA (PCR) B.parapertussis DNA PCR C. pneumoniae DNA (PCR) Coronavirus OC43 (PCR) Coronavirus HKU1 (PCR) Coronavirus 229E (PCR) SARS-CoV-2 (PCR) Coronavirus NL63 (PCR) Human Metapneumovir PCR Influenza Type A (PCR) Influenza Type B (PCR) M. pneumoniae (PCR) Parainfluenza 1 (PCR) Parainfluenza 2 (PCR) Parainfluenza 3 (PCR) Parainfluenza 4 (PCR) RSV (PCR) Entero/Rhino (PCR) Blood Type Antibody Screen 05/24/25 05/24/25 05/24/25 10:39 17:43 23:47 WBC RBC Hgb POC Hgb Hct POC Hct MCV MCH MCHC RDW Std Deviation RDW Coeff of [place] Plt Count MPV Immature Gran % (Auto) Neut % (Auto) Lymph % (Auto) [place] % (Auto) Eos % (Auto) Baso % (Auto) Reticulocyte % (Auto) Neut # (Auto) Lymph # (Auto) [place] # (Auto) Eos # (Auto) Baso # (Auto) Reticulocyte # Immature Gran # (Auto) Absolute Nucleated RBC Nucleated RBC % (auto) Dohle Bodies Polychromasia Anisocytosis PT INR Specimen Type Sample Site POC pH POC pCO2 POC pO2 POC HCO3 POC Base Excess O2 Sat Pulse Oximetry ABG pH (Temp Correct) ABG pCO2 (Temp Corrct POC ABG pO2 at Pt Temp POC ABG O2 Sat Nehemiah Test VBG pH VBG pCO2 VBG pO2 VBG HCO3 VBG O2 Saturation VBG Base Excess O2 Delivery Device Vent Mode POC FiO2 End Tidal CO2 POC Sodium Sodium POC Potassium Potassium POC Chloride Chloride Carbon Dioxide POC Total CO2 Anion Gap POC Anion Gap POC BUN BUN Creatinine POC Creatinine Est Cr Clr Drug Dosing eGFR BUN/Creatinine Ratio Glucose POC Glucose 183 H 241 H 114 H POC Glucose (other) Lactate Calcium POC Ioniz Calcium Emilie Phosphorus Magnesium Iron Transferrin Ferritin Total Bilirubin AST ALT Alkaline Phosphatase Lactate Dehydrogenase Troponin I High Sens B-Natriuretic Peptide Total Protein Albumin Globulin Albumin/Globulin Ratio Vitamin B12 Folate Procalcitonin TSH Free T4 Random Cortisol Urine Color Urine Appearance Urine pH Ur Specific [place] Urine Protein Urine Glucose (UA) Urine Ketones Urine Blood Urine Nitrite Urine Bilirubin Urine Urobilinogen Ur Leukocyte Esterase Urine WBC (Auto) Urine RBC (Auto) U Hyaline Cast (Auto) U Epithel Cells (Auto) Urine Bacteria (Auto) Urine Comment Nasal Screen MRSA (PCR) Random Vancomycin Adenovirus (PCR) B. pertussis DNA (PCR) B.parapertussis DNA PCR C. pneumoniae DNA (PCR) Coronavirus OC43 (PCR) Coronavirus HKU1 (PCR) Coronavirus 229E (PCR) SARS-CoV-2 (PCR) Coronavirus NL63 (PCR) Human Metapneumovir PCR Influenza Type A (PCR) Influenza Type B (PCR) M. pneumoniae (PCR) Parainfluenza 1 (PCR) Parainfluenza 2 (PCR) Parainfluenza 3 (PCR) Parainfluenza 4 (PCR) RSV (PCR) Entero/Rhino (PCR) Blood Type Antibody Screen 05/25/25 05/25/25 05/25/25 04:51 06:26 06:28 WBC 7.77 RBC 2.34 L Hgb 6.8 L* Cancelled POC Hgb Hct 21.6 L POC Hct MCV 92.3 MCH 29.1 MCHC 31.5 L RDW Std Deviation 71.7 H RDW Coeff of Dulce 21.5 H Plt Count 132 MPV 10.6 Immature Gran % (Auto) 1.8 Neut % (Auto) 78.7 Lymph % (Auto) 9.8 [place] % (Auto) 9.0 Eos % (Auto) 0.4 Baso % (Auto) 0.3 Reticulocyte % (Auto) Cancelled Neut # (Auto) 6.12 Lymph # (Auto) 0.76 L [place] # (Auto) 0.70 H Eos # (Auto) 0.03 Baso # (Auto) 0.02 Reticulocyte # Cancelled Immature Gran # (Auto) 0.14 Absolute Nucleated RBC 0.03 Nucleated RBC % (auto) 0.4 Dohle Bodies 1+ Polychromasia 1+ Anisocytosis PT INR Specimen Type Sample Site POC pH POC pCO2 POC pO2 POC HCO3 POC Base Excess O2 Sat Pulse Oximetry ABG pH (Temp Correct) ABG pCO2 (Temp Corrct POC ABG pO2 at Pt Temp POC ABG O2 Sat Nehemiah Test VBG pH VBG pCO2 VBG pO2 VBG HCO3 VBG O2 Saturation VBG Base Excess O2 Delivery Device Vent Mode POC FiO2 End Tidal CO2 POC Sodium Sodium 128 L POC Potassium Potassium 3.9 POC Chloride Chloride 97 L Carbon Dioxide 19 L POC Total CO2 Anion Gap 12 H POC Anion Gap POC BUN BUN 60 H Creatinine 1.31 H D POC Creatinine Est Cr Clr Drug Dosing 69.6 eGFR 58.71 BUN/Creatinine Ratio 45.8 H Glucose 83 POC Glucose POC Glucose (other) Lactate Calcium 7.4 L POC Ioniz Calcium Emilie Phosphorus 4.4 Magnesium 3.4 H Iron 10 L Transferrin 172 L Ferritin 146.9 Total Bilirubin AST ALT Alkaline Phosphatase Lactate Dehydrogenase 269 H Troponin I High Sens B-Natriuretic Peptide Total Protein Albumin Globulin Albumin/Globulin Ratio Vitamin B12 > 1500 H Folate 16.52 Procalcitonin TSH Free T4 Random Cortisol Urine Color Urine Appearance Urine pH Ur Specific [place] Urine Protein Urine Glucose (UA) Urine Ketones Urine Blood Urine Nitrite Urine Bilirubin Urine Urobilinogen Ur Leukocyte Esterase Urine WBC (Auto) Urine RBC (Auto) U Hyaline Cast (Auto) U Epithel Cells (Auto) Urine Bacteria (Auto) Urine Comment Nasal Screen MRSA (PCR) Random Vancomycin 46.9 H* Adenovirus (PCR) B. pertussis DNA (PCR) B.parapertussis DNA PCR C. pneumoniae DNA (PCR) Coronavirus OC43 (PCR) Coronavirus HKU1 (PCR) Coronavirus 229E (PCR) SARS-CoV-2 (PCR) Coronavirus NL63 (PCR) Human Metapneumovir PCR Influenza Type A (PCR) Influenza Type B (PCR) M. pneumoniae (PCR) Parainfluenza 1 (PCR) Parainfluenza 2 (PCR) Parainfluenza 3 (PCR) Parainfluenza 4 (PCR) RSV (PCR) Entero/Rhino (PCR) Blood Type A Positive Antibody Screen NEGATIVE 05/25/25 05/25/25 05/25/25 07:02 09:49 11:16 WBC RBC Hgb 7.0 L 7.0 L POC Hgb Hct POC Hct MCV MCH MCHC RDW Std Deviation RDW Coeff of [place] Plt Count MPV Immature Gran % (Auto) Neut % (Auto) Lymph % (Auto) [place] % (Auto) Eos % (Auto) Baso % (Auto) Reticulocyte % (Auto) 3.83 H Neut # (Auto) Lymph # (Auto) [place] # (Auto) Eos # (Auto) Baso # (Auto) Reticulocyte # 0.090 Immature Gran # (Auto) Absolute Nucleated RBC Nucleated RBC % (auto) Dohle Bodies Polychromasia Anisocytosis PT INR Specimen Type Sample Site POC pH POC pCO2 POC pO2 POC HCO3 POC Base Excess O2 Sat Pulse Oximetry ABG pH (Temp Correct) ABG pCO2 (Temp Corrct POC ABG pO2 at Pt Temp POC ABG O2 Sat Nehemiah Test VBG pH VBG pCO2 VBG pO2 VBG HCO3 VBG O2 Saturation VBG Base Excess O2 Delivery Device Vent Mode POC FiO2 End Tidal CO2 POC Sodium Sodium POC Potassium Potassium POC Chloride Chloride Carbon Dioxide POC Total CO2 Anion Gap POC Anion Gap POC BUN BUN Creatinine POC Creatinine Est Cr Clr Drug Dosing eGFR BUN/Creatinine Ratio Glucose POC Glucose 139 H POC Glucose (other) Lactate Calcium POC Ioniz Calcium Emilie Phosphorus Magnesium Iron Transferrin Ferritin Total Bilirubin AST ALT Alkaline Phosphatase Lactate Dehydrogenase Troponin I High Sens B-Natriuretic Peptide Total Protein Albumin Globulin Albumin/Globulin Ratio Vitamin B12 Folate Procalcitonin TSH Free T4 Random Cortisol Urine Color Urine Appearance Urine pH Ur Specific [place] Urine Protein Urine Glucose (UA) Urine Ketones Urine Blood Urine Nitrite Urine Bilirubin Urine Urobilinogen Ur Leukocyte Esterase Urine WBC (Auto) Urine RBC (Auto) U Hyaline Cast (Auto) U Epithel Cells (Auto) Urine Bacteria (Auto) Urine Comment Nasal Screen MRSA (PCR) Random Vancomycin 40.9 H* Adenovirus (PCR) B. pertussis DNA (PCR) B.parapertussis DNA PCR C. pneumoniae DNA (PCR) Coronavirus OC43 (PCR) Coronavirus HKU1 (PCR) Coronavirus 229E (PCR) SARS-CoV-2 (PCR) Coronavirus NL63 (PCR) Human Metapneumovir PCR Influenza Type A (PCR) Influenza Type B (PCR) M. pneumoniae (PCR) Parainfluenza 1 (PCR) Parainfluenza 2 (PCR) Parainfluenza 3 (PCR) Parainfluenza 4 (PCR) RSV (PCR) Entero/Rhino (PCR) Blood Type Antibody Screen 05/25/25 11:18 WBC RBC Hgb POC Hgb 6.8 L* Hct POC Hct 20 L* MCV MCH MCHC RDW Std Deviation RDW Coeff of [place] Plt Count MPV Immature Gran % (Auto) Neut % (Auto) Lymph % (Auto) [place] % (Auto) Eos % (Auto) Baso % (Auto) Reticulocyte % (Auto) Neut # (Auto) Lymph # (Auto) [place] # (Auto) Eos # (Auto) Baso # (Auto) Reticulocyte # Immature Gran # (Auto) Absolute Nucleated RBC Nucleated RBC % (auto) Dohle Bodies Polychromasia Anisocytosis PT INR Specimen Type RAMAN Sample Site Heel Stick POC pH 7.37 POC pCO2 31 L POC pO2 51 L POC HCO3 18 L POC Base Excess -7.0 O2 Sat Pulse Oximetry 95 ABG pH (Temp Correct) 7.376 ABG pCO2 (Temp Corrct 30 L POC ABG pO2 at Pt Temp 49 POC ABG O2 Sat 85.0 L Nehemiah Test NA VBG pH VBG pCO2 VBG pO2 VBG HCO3 VBG O2 Saturation VBG Base Excess O2 Delivery Device Ventilator Vent Mode AC POC FiO2 24 End Tidal CO2 31 POC Sodium 128 L Sodium POC Potassium 3.9 Potassium POC Chloride Chloride Carbon Dioxide POC Total CO2 19 L Anion Gap POC Anion Gap POC BUN BUN Creatinine POC Creatinine Est Cr Clr Drug Dosing eGFR BUN/Creatinine Ratio Glucose POC Glucose POC Glucose (other) Lactate Calcium POC Ioniz Calcium Emilie Phosphorus Magnesium Iron Transferrin Ferritin Total Bilirubin AST ALT Alkaline Phosphatase Lactate Dehydrogenase Troponin I High Sens B-Natriuretic Peptide Total Protein Albumin Globulin Albumin/Globulin Ratio Vitamin B12 Folate Procalcitonin TSH Free T4 Random Cortisol Urine Color Urine Appearance Urine pH Ur Specific [place] Urine Protein Urine Glucose (UA) Urine Ketones Urine Blood Urine Nitrite Urine Bilirubin Urine Urobilinogen Ur Leukocyte Esterase Urine WBC (Auto) Urine RBC (Auto) U Hyaline Cast (Auto) U Epithel Cells (Auto) Urine Bacteria (Auto) Urine Comment Nasal Screen MRSA (PCR) Random Vancomycin Adenovirus (PCR) B. pertussis DNA (PCR) B.parapertussis DNA PCR C. pneumoniae DNA (PCR) Coronavirus OC43 (PCR) Coronavirus HKU1 (PCR) Coronavirus 229E (PCR) SARS-CoV-2 (PCR) Coronavirus NL63 (PCR) Human Metapneumovir PCR Influenza Type A (PCR) Influenza Type B (PCR) M. pneumoniae (PCR) Parainfluenza 1 (PCR) Parainfluenza 2 (PCR) Parainfluenza 3 (PCR) Parainfluenza 4 (PCR) RSV (PCR) Entero/Rhino (PCR) Blood Type Antibody Screen Microbiology 05/23/25 18:22 Urine,Clean Catch Urine Culture - Final Escherichia coli 05/23/25 Unknown Sputum,Trach Gram Stain - Final 05/23/25 Unknown Sputum,Trach Sputum Culture - Final Escherichia coli 05/23/25 17:05 Blood Aerobic Blood Culture - Preliminary No growth in Aerobic bottle after 24 hours. 05/23/25 17:05 Blood Anaerobic Blood Culture - Final 05/23/25 16:52 Blood Aerobic Blood Culture - Preliminary No growth in Aerobic bottle after 24 hours. 05/23/25 16:52 Blood Anaerobic Blood Culture - Preliminary No growth in Anaerobic bottle after 24 hours. Diagnostic Findings Chest X-Ray 05/23/25 16:30 Exam: Chest one view portable. Reason for exam: Hypoxia. Previous studies: Chest radiograph 04/29/2025. FINDINGS: Endotracheal tube now seen with the tip approximately 4.5 cm above the mariusz. Heart is enlarged. Significantly increased areas of atelectasis and consolidation are seen throughout all lung zones bilaterally. IMPRESSION: 1. Status post intubation. 2. Markedly increased areas of consolidation and atelectasis in the lung ham bilaterally. Electronically signed by Abram Montgomery 05-23-2025 5:51 PM Chest CTA 05/23/25 17:02 Exam: CT angiogram chest pulmonary embolus protocol. Reason for exam: Hypoxia. Previous studies: Chest x-ray 05/23/2025; CT chest 04/08/2025. FINDINGS: There is good opacification of the pulmonary arteries. No persistent filling defect or embolus is seen on either side at this time. The aorta shows no evidence of aneurysm or dissection at the examined levels. No mediastinal mass or adenopathy is seen.Large area of atelectasis. Air Bronchograms seen in the right middle and lower lobe as well as left lower lobe. This is significantly increased since the previous CT study. Right upper lobe shows moderate scattered patchy consolidation as there is a left upper lobe. No pneumothorax pleural effusion is seen at this time. Small pleural effusions are present. Endotracheal tube is seen with the tip approximately 4.5 cm above the mariusz. IMPRESSION: 1. Negative for pulmonary embolus. 2. Large areas of atelectasis throughout the lungs bilaterally, most severely effecting the right lower lobe, left lower lobe and right middle lobe somewhat lesser areas of atelectasis/consolidation in the upper lobes bilaterally. The areas of involvement has increased significantly since the previous study of 04/08/2025. 3. Small pleural effusions bilaterally. Electronically signed by Abram Montgomery 05-23-2025 5:49 PM Chest X-Ray 05/24/25 06:00 EXAM: XR chest 1V portable CLINICAL HISTORY: eval lung ham, tubes, TECHNIQUE: An X-ray image of the chest is obtained in AP projection. COMPARISON: 05/23/2025 CT. FINDINGS: Pulmonary Parenchyma: Redemonstration of bilateral lower zonal air space, patchy infiltration. The endotracheal tube looks in the proper position. its tip is 4.3 mm above the mariusz. Blunting left CP recess. Heart and Mediastinum: Apparent cardiomegaly. No mediastinal widening or masses. No hilar or mediastinal lymphadenopathy. Bony Thorax: Bony thorax appears intact without fractures or deformities. Soft Tissues: Soft tissues overlying the chest wall are unremarkable. IMPRESSION: 1. Unchanged study. 2. The endotracheal tube looks in the proper position. its tip is 4.3 mm above the mariusz. 3. Redemonstration of bilateral lower zonal patchy areas of air space infiltration. 4. Cardiomegaly. 5. A blunted left CP recess may be attributed to mild pleural thickening/effusion. Electronically signed by Aldair Albarran 05-24-2025 07:58 AM Chest X-Ray 05/25/25 06:00 EXAM: XR chest 1V portable CLINICAL HISTORY: eval lung ham, tubes, TECHNIQUE: An X-ray image of the chest is obtained in AP projection. COMPARISON: 05:40:45 [employer]. FINDINGS: Pulmonary Parenchyma: Redemonstration of bilateral lower zonal air space, patchy infiltration. Tracheostomy tube is seen in situ. Blunting left CP recess. Heart and Mediastinum: Apparent cardiomegaly. No mediastinal widening or masses. No hilar or mediastinal lymphadenopathy. Bony Thorax: Bony thorax appears intact without fractures or deformities. Soft Tissues: Soft tissues overlying the chest wall are unremarkable. IMPRESSION: Unchanged study. Redemonstration of bilateral lower zonal patchy areas of air space infiltration.-stable. Cardiomegaly.-stable. A blunted left CP recess may be attributed to mild pleural thickening/effusion.-stable. Electronically signed by Alirio Guerra 05-25-2025 07:39 AM
--- NOTE | 2025-05-25 14:18 | Hospitalist Progress Note ---
Date of Service May 25, 2025 Assessment & Plan (1) Pneumonia: Plan: Chest x-ray appearance is consistent with pneumonia. Infectious disease consultation and recommendations appreciated. She is currently on doxycycline, vancomycin, and Zerbaxa. (2) Sepsis: Plan: Present on admission. Now resolved. Pressor support has been weaned off. (3) Septic shock: Plan: Present on admission. Now resolved. She is off pressor support. Mother states she does not take steroids on a daily basis so she is not steroid-dependent despite her cushingoid appearance. She is currently on intravenous hydrocortisone however. (4) Seizure disorder: Plan: Controlled. Continue current medical management (5) Tracheostomy dependent: Plan: History of cerebral palsy with permanent tracheostomy and PEG tube placement Plan To be determined. Hopefully she can be moved out of the intensive care unit within the next day or 2 Admission and Anticipated Discharge Date Admission Date: May 23, 2025 Subjective The patient's eyes are closed. She makes no attempt to interact with me. Mother is at the bedside. Critical care entry and infectious disease entry noted. Review of Systems 2 Review of Systems: The patient is unresponsive and unable to answer any questions regarding review of systems at this time Physical Exam 2 Physical Exam: General-unresponsive with permanent tracheostomy in place. Morbidly obese. She appears cushingoid HEENT-head atraumatic and normocephalic Neck-no lymphadenopathy or thyromegaly, trachea midline with permanent tracheostomy present on ventilator support Chest-scattered bilateral rhonchi. No audible wheezing from anterior approach. No audible inspiratory rales Cardiac-regular rate and rhythm, normal S1 and S2 Abdomen-normal bowel sounds, no hepatosplenomegaly. Functional PEG tube in place Extremities-chronic appearing edema present bilateral lower extremities below the knees Neuro-unresponsive. Cannot assess Psych-unresponsive. Cannot assess Results & Data Results & Data Vital Signs (Past 12 Hours) Vital Signs Temp Pulse Resp BP Pulse Ox O2 Del Method FiO2 05/25/25 12:00 127/89 05/25/25 12:00 36.3 C L 119 H 19 93 05/25/25 11:57 28 05/25/25 11:34 99 H 18 95 26 05/25/25 11:12 36.5 C 83 18 93 05/25/25 11:12 120/61 05/25/25 11:00 36.5 C 80 18 94 05/25/25 10:06 36.7 C 82 18 93 05/25/25 10:00 114/66 05/25/25 09:54 36.7 C 85 18 90 05/25/25 09:03 36.9 C 90 20 96 05/25/25 09:00 110/62 05/25/25 08:39 37.0 C 92 H 18 96 05/25/25 08:09 97 H 19 94 40 05/25/25 08:03 37.0 C 96 H 18 95 05/25/25 08:00 99/48 L 05/25/25 08:00 40 05/25/25 08:00 Mechanical Vent 40 05/25/25 07:57 37.0 C 96 H 18 94 05/25/25 07:00 124/66 05/25/25 07:00 124/66 05/25/25 06:59 37.1 C 90 18 96 05/25/25 06:02 37.1 C 78 18 97 05/25/25 06:00 107/49 L 05/25/25 05:53 37.1 C 80 18 97 05/25/25 05:29 37.1 C 86 18 96 05/25/25 05:00 119/62 05/25/25 04:56 37.1 C 84 18 97 05/25/25 04:00 37.0 C 80 18 98 05/25/25 04:00 103/46 L 05/25/25 04:00 103/46 L 05/25/25 04:00 40 05/25/25 03:05 83 18 97 40 05/25/25 03:03 36.9 C 81 18 97 05/25/25 03:00 102/49 L 05/25/25 03:00 102/49 L 05/25/25 03:00 102/49 L 05/25/25 02:39 36.8 C 82 18 97 Laboratory Results 05/25/25 09:49 05/25/25 04:51 PG Care Time/CCT Total # of Minutes Spent Total Time Spent with Patient: Total time spent is greater than 50% in coordination of care (as documented) at patient's floor/unit and/or counseling patient: Coding Level of Care Code 98714 SUB INP/OBS CARE 2/35MIN Diagnoses Pneumonia J18.9 Sepsis A41.9 Septic shock A41.9; R65.21 Seizure disorder G40.909 Tracheostomy dependent Z93.0
[2025-05-26 05:12] LABS: Hematocrit (blood only) 21.0 % (37.0-47.0); Hemoglobin 6.7 g/dl (12.0-16.0); Mean Corpuscular Hemoglobin 29.0 pg (25.0-34.0); Mean Corpuscular Volume 90.9 fL (80.0-100.0); Platelet Count 138 K/uL (130-400); RDW Standard Deviation 71.2 fL (36.4-46.3); Red Blood Count 2.31 M/uL (4.20-5.40); White Blood Count 11.12 K/ul (4.8-10.8)
[2025-05-26 05:17] LABS: Anion Gap 11.0 (3-11); Blood Urea Nitrogen 63.0 mg/dl (6-23); Calcium 7.6 mg/dl (8.6-10.3); Carbon Dioxide 20.0 mmol/L (21-32); Chloride 97.0 mmol/L (98-107); Creatinine Clr Calc Pharmacy 59.5 ml/min; Glucose 87.0 mg/dl (70-99(Fasting)); Magnesium 3.3 mg/dl (1.7-2.4); Potassium 3.8 mmol/L (3.5-5.1); Sodium 128.0 mmol/L (136-145)
[2025-05-26 05:34] LABS: Anisocytosis Present; Immature Granulocytes # (auto) 0.03 K/uL (0.01-0.20); Immature Granulocytes % (auto) 0.3 %; Polychromasia 1+
[2025-05-26] MEDS: POTASSIUM CHLORIDE 20 MEQ/15 ML UDC NG SCH (05:51)
--- NOTE | 2025-05-26 08:41 | Critical Care Progress Note ---
Date of Service May 26, 2025 Assessment & Plan (1) Counseling regarding goals of care: (2) Palliative care by specialist: (3) Dyspnea and respiratory abnormalities: (4) Anemia: (5) Acute kidney injury: (6) Septic shock: (7) Tracheostomy dependent: (8) Difficult intravenous access: (9) Acute hyponatremia: (10) Acute hyperkalemia: (11) IMER (acute kidney injury): (12) UTI (urinary tract infection): (13) Pneumonia: (14) Obesity (BMI 30-39.9): (15) MRSA nasal colonization: (16) Acute respiratory failure with hypercapnia: (17) Anemia in chronic illness: (18) Hydronephrosis: (19) Hyponatremia: (20) Primary immune deficiency disorder: Stefany Stearns is a 24 Y O Female with PMH of Tracheostomy dependence, Chronic PEG feeds, Seizure disorder, Obesity with BMI 30-39.9, Primary Immune Deficiency disorder, Central Hypothyroidism, PDA. Atrial septal Defects, Congenital Hydrocephalus came in with worsening hypoxia at home and is being admitted for management of Pneumonia. Neuro No acute needs- Hx CP with SPECTROGRAPHER shunt and seizure disorder CAM ICU: XANDER - Continue supportive care for metabolic and respiratory needs- at baseline she opens eyes, smiles, and grimaces - currently localizes, grimaces and eyes closed - continue with home AEDS- convert to IV if needed Cardiac Shock- distributive septic likely - Patient presents hypotensive, hypoxic, bradycardic- with organ dysfunction -Lactate slightly elevated on presentation. Normalized on repeat check - Patient is off the Levophed. Maintaining BP with MAP around 60-65. - Diurese as hemodynamics permit- hopeful by morning- assist with pulmonary mechanics and peripheral edema - Follow end organ perfusion- - Current organ dysfunction- encephalopathy, pulmonary, mild elevated LFTs, renals, heme Respiratory - Hypercarbic and hypoxic respiratory failure, chronic vent dependant- usually on AVAPS. -Patient placed on home AVAPS doing adequately with supplemental oxygen. - CXR this morning with unchanged findings - Sputum sample positive for E coli Sensitive to Ceftriaxone and Augemntin -Discontinue Vancomycin and Ceftolazone/Tazobactam. Vancomycin level down to 40 from 46 -Ceftriaxone switched to Augmentin today - Baseline AVAPS settings: IPAP range to 22-26 and increasing max pressure support to 30 to aim for the tidal volume of 300 and increase the backup rate to 17. NIMV settings should be AVAPS-AE; Breath rate: auto; Inspiratory time:auto; Sigh: off; Tidal Volume: 300-320, PS min: 4-10 PS max: 12-30; EPAP min: 6-10; EPAP max: 10-16; AVAPS rate: 17 GI - mild elevated liver enzymes, obesity- Hx Tube feedings and PEG tube for medications - Continue enteral feedings as able- hold if vasopressor support increasing - Improving LFTs - Bowel regime RENAL/LYTES - - Creatinine increased to 15 Likely because of Lasix IV and Vancomycin.Will recheck creatinine in the AM - Hyponatremia- chronic- likely hypervolemic hyponatremia- - ICU electrolyte protocol - neurogenic bladder - shukla while in ICU ENDO - No acute needs - Continue Synthroid, ICU hyper/hypoglycemic protocol HEME - WBC elevated to 11.12 from 7.77 -Has chronic anemia. Hgb dropped to 6.8. Received 1 pack of PRBCs today. Reticulocyte count is normal in the setting of an anemia, this may be reflective of bone marrow suppression in the setting of recent infection. Iron stores appear to be adequate iron level is low this can also be an acute phase reactant. Patient may benefit from iron supplementation will defer to outpatient practitioners - Patient does have history of primary immune deficiency- She receives Hizentra q 2weeks- 10GM - due on Saturday [id number] ID Septic shock- source pulmonary likely at this time - Sputum culture grows E coli sensitive to Ceftriaxone and Augmentin - Blood cultures pending -Urine culture positive for E Col - PCT elevated 24 - Legionella urine Negative. Doxycycline discontinued - ABX therapy- Rocephin. will switch to Augmentin on discharge LINES/IV ACCESS - Continue use of these lines Admission and Anticipated Discharge Date Admission Date: May 23, 2025 Supervising Physician Co-Signing Physician Notes Dr. De La Vega was resident physician during care of patient. I separately evaluated patient for batista portions of the history and the exam. I was present during the critical portion of medical decision making, and I discussed the case with the resident. I generally agree with the findings and plan. Patient placed on home AVAPS doing adequately with supplemental oxygen. Family was concerned about blood-tinged sputum by a suction catheter: She has recently had her tracheostomy changed to a distal XLT, being treated for an E. coli pneumonia, at this point I largely believe the tinged secretions are reflective of suction trauma as there has been increasing suctioning for what is described as air hunger; however, there is not significant mucoid impactions being suctioned. Reticulocyte count is normal in the setting of an anemia, this may be reflective of bone marrow suppression in the setting of recent infection. Iron stores appear to be adequate iron level is low this can also be an acute phase reactant. Patient may benefit from iron supplementation will defer to outpatient practitioners. Will check an ionized calcium as that has been low, creatinine is worse we will continue to trend this. Check a lactic acid as bicarb has been just outside of normal reference range to ensure there is not an underlying acidosis, check ABG as well as will send a haptoglobin to exclude hemolysis will include LDH and coagulation panels to include a fibrinogen. Will transition to oral Augmentin as patient does not have significant criteria to require IV antibiotics per ID recommendations also finish course of doxycycline. Will send microscopic urinalysis. ABG demonstrates metabolic acidosis nongap, also hypoxia. Will check lactic acid, I suspect there could be an underlying renal contribution to acidosis given renal dysfunction. Checking haptoglobin and LDH for completeness of an anemia workup. At this point I feel 1 unit of packed red blood cells to be transfused would be reasonable to increase oxygen carrying capacity given there is and organ dysfunction as noted by the metabolic acidosis. Subjective Stefany was seen along with mom in the bedside this morning. No significant changes in clinical status compared to yesterday.Got 1 pint of PRBCs. Patient placed on home AVAPS doing adequately with supplemental oxygen Review of Systems Review of Systems: As per HPI Physical Exam Constitutional: + ill appearing, + morbidly obese, + phy sical limitations and + mechanically ventilated; no acute distress Eyes: PERRL, conjunctivae normal, anicteric sclerae Neck: trachea midline, no thyromegaly Respiratory: no respiratory distress and no labored breathing Auscultation: + diminished lung sounds and + crackles Pt on AVAPS with 2L supplemental oxygen - at baseline Gastrointestinal (Abdomen): normal bowel sounds, soft, nontender, no hepatosplenomegaly PEG tube with feedings ongoing, tolerating well Skin: no rashes, warm and dry Psychiatric: A+Ox3, euthymic affect (pt blinks once to indicate yes and twice for no, non verbal at baseline.) Orientation: alert Results & Data Results & Data Vital Signs (Past 12 Hours) Vital Signs Temp Pulse Resp BP Pulse Ox O2 Del Method O2 Flow Rate 05/26/25 06:06 37.1 C 81 18 108/55 L 92 Mechanical Vent 05/26/25 05:00 37 C 83 18 111/59 L 94 Mechanical Vent 05/26/25 04:00 36.9 C 77 18 105/55 L 93 Mechanical Vent 05/26/25 04:00 05/26/25 03:00 36.8 C 75 18 103/58 L 94 Nasal Cannula 3 05/26/25 02:31 76 18 95 05/26/25 02:00 36.7 C 76 18 113/60 95 Mechanical Vent 05/26/25 01:00 36.5 C 75 18 111/62 94 Mechanical Vent 05/26/25 00:06 36.4 C L 76 18 114/67 94 Mechanical Vent 05/26/25 00:00 05/25/25 23:06 76 18 97 05/25/25 23:00 36.3 C L 78 18 108/65 94 Mechanical Vent 05/25/25 22:00 36.1 C L 79 18 105/64 96 Mechanical Vent 05/25/25 21:00 36.0 C L 79 18 104/65 97 Mechanical Vent FiO2 05/26/25 06:06 25 05/26/25 05:00 25 05/26/25 04:00 25 05/26/25 04:00 25 05/26/25 03:00 05/26/25 02:31 25 05/26/25 02:00 25 05/26/25 01:00 25 05/26/25 00:06 25 05/26/25 00:00 25 05/25/25 23:06 30 05/25/25 23:00 35 05/25/25 22:00 30 05/25/25 21:00 30 Coding Level of Care Code 61017 SUB INP/OBS CARE 3/50MIN Diagnoses Counseling regarding goals of care Z71.89 Palliative care by specialist Z51.5 Dyspnea and respiratory abnormalities R06.00; R06.89 Anemia D64.9 Acute kidney injury N17.9 Septic shock A41.9; R65.21 Tracheostomy dependent Z93.0 Difficult intravenous access Z78.9 Acute hyponatremia E87.1 Acute hyperkalemia E87.5 UTI (urinary tract infection) N39.0 Pneumonia J18.9 Obesity (BMI 30-39.9) E66.9 MRSA nasal colonization Z22.322 Acute respiratory failure with hypercapnia J96.02 Anemia in chronic illness D63.8 Hydronephrosis N13.30 Hyponatremia E87.1 Primary immune deficiency disorder D84.89 Resident Activity Tracking Resident Involvement: Resident Care Provided Care Provided: Adult [facility] Medicine
--- NOTE | 2025-05-26 09:46 | Billing Data ---
Date of Service May 26, 2025 Coding Level of Care Code 74244 SUB INP/OBS CARE 50MIN Comment Please add ventilator management code
[2025-05-26 10:51] LABS: Base Excess VBG -7.0 mEq/L; HCO3 VBG 19 mmol/L; Oxygen Saturation VBG 86.6 %; PCO2 VBG 40 mmHg (38-50); PO2 VBG 55 mmHg; pH VBG 7.29 (7.36-7.41)
[2025-05-26 11:08] LABS: iSTAT Art Bld Gas Base Excess -7.0 meg/L (-9-1.8); iSTAT Art Bld Gas pCO2 Correct 39 mmHg (35-46); iSTAT Art Bld Gas pH Corrected 7.298 (7.35-7.45); iSTAT Arterial Blood Gas pO2 C 62
[2025-05-26 11:25] LABS: INR 1.1 (0.9-1.1); Partial Thromboplastin Time 39 Seconds (21-31); Prothrombin Time 11.7 Seconds (9.0-12.0)
[2025-05-26 11:34] LABS: Fibrinogen > 860 mg/dl (184-400)
[2025-05-26] MEDS: DOXYCYCLINE HYCLATE 100 MG in DEXTROSE 5% MINI-B 100 ML IV SCH (11:36)
[2025-05-26] MEDS ORDERED: SODIUM CHLORIDE 0.9% 100 ML IV PRN (11:37)
--- NOTE | 2025-05-26 13:39 | Hospitalist Progress Note ---
Date of Service May 26, 2025 Assessment & Plan (1) Pneumonia: Plan: Probably gram-negative. Sputum culture growing E. coli. Chest x-ray appearance is consistent with pneumonia. Infectious disease consultation and recommendations appreciated. She is currently on intravenous Rocephin. (2) Sepsis: Plan: Present on admission. Now resolved. Pressor support has been weaned off. (3) Septic shock: Plan: Present on admission. Now resolved. She is off pressor support. Mother states she does not take steroids on a daily basis so she is not steroid-dependent despite her cushingoid appearance. Intravenous hydrocortisone has been discontinued. (4) Seizure disorder: Plan: Controlled. Continue current medical management (5) Tracheostomy dependent: Plan: History of cerebral palsy with permanent tracheostomy and PEG tube placement (6) Acute kidney injury: Plan: Creatinine has trended upward to 1.5. Monitor intake and output. Serial labs (7) Anemia: Plan: Multifactorial. She is iron deficient. Hemoglobin has dropped to 6.7. 1 unit packed red blood cells ordered to be given today, May 26. Serial labs Plan Anticipate eventual return to home. Hopefully she can be moved out of the intensive care unit within the next day or 2 Admission and Anticipated Discharge Date Admission Date: May 23, 2025 Subjective No significant change. Mother is at the bedside. 1 unit packed red blood cells ordered for hemoglobin down to 6.7. Creatinine has increased to 1.5. Sputum culture and urine culture growing E. coli. Antibiotics have been switched over to Rocephin. Review of Systems 2 Review of Systems: The patient is unresponsive and unable to answer any questions regarding review of systems at this time Physical Exam 2 Physical Exam: General-unresponsive with permanent tracheostomy in place. Morbidly obese. She appears cushingoid HEENT-head atraumatic and normocephalic Neck-no lymphadenopathy or thyromegaly, trachea midline with permanent tracheostomy present on ventilator support Chest-scattered bilateral rhonchi. No audible wheezing from anterior approach. No audible inspiratory rales Cardiac-regular rate and rhythm, normal S1 and S2 Abdomen-normal bowel sounds, no hepatosplenomegaly. Functional PEG tube in place Extremities-chronic appearing edema present bilateral lower extremities below the knees Neuro-unresponsive. Cannot assess Psych-unresponsive. Cannot assess Results & Data Results & Data Vital Signs (Past 12 Hours) Vital Signs Temp Pulse Pulse Resp BP Pulse Ox O2 Del Method 05/26/25 13:14 36.7 C 82 17 103/56 L 95 05/26/25 08:00 94 H 24 91 Mechanical Vent 05/26/25 06:06 37.1 C 81 18 108/55 L 92 Mechanical Vent 05/26/25 05:00 37 C 83 18 111/59 L 94 Mechanical Vent 05/26/25 04:00 36.9 C 77 18 105/55 L 93 Mechanical Vent 05/26/25 04:00 05/26/25 03:00 36.8 C 75 18 103/58 L 94 Nasal Cannula 05/26/25 02:31 76 18 95 05/26/25 02:00 36.7 C 76 18 113/60 95 Mechanical Vent O2 Flow Rate FiO2 05/26/25 13:14 05/26/25 08:00 2 05/26/25 06:06 25 05/26/25 05:00 25 05/26/25 04:00 25 05/26/25 04:00 25 05/26/25 03:00 3 05/26/25 02:31 25 05/26/25 02:00 25 Laboratory Results 05/26/25 04:45 05/26/25 04:45 PG Care Time/CCT Total # of Minutes Spent Total Time Spent with Patient: Total time spent is greater than 50% in coordination of care (as documented) at patient's floor/unit and/or counseling patient: Coding Level of Care Code 22134 SUB INP/OBS CARE 2/35MIN Diagnoses Pneumonia J18.9 Sepsis A41.9 Septic shock A41.9; R65.21 Seizure disorder G40.909 Tracheostomy dependent Z93.0 Acute kidney injury N17.9 Anemia D64.9
[2025-05-26] MEDS: BACLOFEN 10 MG TAB PO SCH (14:07)
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
[2025-05-26 16:24] LABS: Appearance Urine Turbid (Clear); Bacteria Urine Automated 1+ (None Seen); Glucose Urine UA Negative (Negative); RBC Urine Automated >20 /hpf (0-2); WBC Urine Automated >50 /hpf (0-5)
[2025-05-26] MEDS ORDERED: AMOXICILLIN/CLAVULANATE SUSP 400/57 MG 5 ML BTL PO SCH (17:00)
[2025-05-26] MEDS: LEVOTHYROXINE SODIUM 75 MCG TABLET PO SCH (20:30)
[2025-05-27 05:13] LABS: Hematocrit (blood only) 24.9 % (37.0-47.0); Hemoglobin 8.1 g/dl (12.0-16.0); Immature Granulocytes # (auto) 0.03 K/uL (0.01-0.20); Immature Granulocytes % (auto) 0.3 %; Mean Corpuscular Hemoglobin 28.8 pg (25.0-34.0); Mean Corpuscular Volume 88.6 fL (80.0-100.0); Platelet Count 136 K/uL (130-400); RDW Standard Deviation 63.8 fL (36.4-46.3); Red Blood Count 2.81 M/uL (4.20-5.40); White Blood Count 9.63 K/ul (4.8-10.8)
[2025-05-27] MEDS: MULTI VIT W/MINERALS LIQUID 15 ML UDC GT SCH (05:25)
[2025-05-27] MEDS: LANSOPRAZOLE 30 MG SOLTAB GT SCH (05:26)
[2025-05-27 05:28] LABS: Anion Gap 11.0 (3-11); Blood Urea Nitrogen 65.0 mg/dl (6-23); Calcium 8.0 mg/dl (8.6-10.3); Carbon Dioxide 20.0 mmol/L (21-32); Chloride 99.0 mmol/L (98-107); Creatinine Clr Calc Pharmacy 62.4 ml/min; Glucose 69.0 mg/dl (70-99(Fasting)); Magnesium 3.2 mg/dl (1.7-2.4); Potassium 4.1 mmol/L (3.5-5.1); Sodium 130.0 mmol/L (136-145)
[2025-05-27] MEDS: AMOXICILLIN/CLAVULANATE SUSP 400/57 MG 5 ML BTL GT SCH (09:32)
--- NOTE | 2025-05-27 14:26 | Hospitalist Progress Note ---
Date of Service May 27, 2025 Assessment & Plan (1) Pneumonia: Plan: Suspected gram-negative. Sputum culture growing E. coli. Chest x-ray appearance is consistent with pneumonia. Infectious disease consultation and recommendations appreciated. She is currently on intravenous Rocephin. (2) Sepsis: Plan: Present on admission. Now resolved. Pressor support has been weaned off. (3) Septic shock: Plan: Present on admission. Now resolved. She is off pressor support. Mother states she does not take steroids on a daily basis so she is not steroid-dependent despite her cushingoid appearance. Intravenous hydrocortisone has been discontinued. (4) Seizure disorder: Plan: Controlled. Continue current medical management (5) Tracheostomy dependent: Plan: History of cerebral palsy with permanent tracheostomy and PEG tube placement (6) Acute kidney injury: Plan: Creatinine trended upward to 1.5 and today, May 27, is 1.4. Monitor intake and output. Serial labs (7) Anemia: Plan: Multifactorial. She is iron deficient. Hemoglobin dropped to 6.7. 1 unit packed red blood cells were administered on May 26 and hemoglobin improved to 8.1. No overt bleeding. Serial labs Plan Anticipate eventual return to home. Hopefully she can be moved out of the intensive care unit within the next day or 2 Admission and Anticipated Discharge Date Admission Date: May 23, 2025 Subjective The patient's eyes are open and she is able to track. She is nonverbal however. Hemoglobin improved to 8.1 after transfusion yesterday, May 26. Medical management per ICU team. She is now off pressor support Review of Systems 2 Review of Systems: The patient is nonvocal and unable to answer any questions regarding review of systems at this time Physical Exam 2 Physical Exam: General-awake and eyes are tracking which she is nonverbal. Permanent tracheostomy in place. Morbidly obese. She appears cushingoid HEENT-head atraumatic and normocephalic Neck-no lymphadenopathy or thyromegaly, trachea midline with permanent tracheostomy present on ventilator support Chest-scattered bilateral rhonchi. No audible wheezing from anterior approach. No audible inspiratory rales Cardiac-regular rate and rhythm, normal S1 and S2 Abdomen-normal bowel sounds, no hepatosplenomegaly. Functional PEG tube in place Extremities-chronic appearing edema present bilateral lower extremities below the knees Neuro-no apparent focal motor deficits. She is able to move all 4 extremities randomly. s Psych-nonverbal. Cannot assess Results & Data Results & Data Vital Signs (Past 12 Hours) Vital Signs Temp Pulse Pulse Resp BP Pulse Ox O2 Del Method 05/27/25 11:09 91 H 25 H 93 Mechanical Vent 05/27/25 10:06 36.8 C 92 H 19 93 05/27/25 10:00 113/53 L 05/27/25 09:06 37.0 C 98 H 18 92 05/27/25 09:00 104/55 L 05/27/25 08:00 37.0 C 94 H 0 L 90 05/27/25 08:00 98/49 L 05/27/25 07:43 91 H 18 90 05/27/25 07:03 36.9 C 72 18 94 05/27/25 07:00 111/51 L 05/27/25 06:00 36.9 C 75 18 104/46 L 93 Mechanical Vent 05/27/25 05:00 37 C 85 18 125/63 93 Mechanical Vent 05/27/25 04:00 36.8 C 80 18 110/58 L 95 Mechanical Vent 05/27/25 04:00 05/27/25 03:00 36.6 C 69 18 107/58 L 97 Mechanical Vent 05/27/25 02:37 70 18 96 O2 Flow Rate FiO2 05/27/25 11:09 3 05/27/25 10:06 05/27/25 10:00 05/27/25 09:06 05/27/25 09:00 05/27/25 08:00 05/27/25 08:00 05/27/25 07:43 30 05/27/25 07:03 05/27/25 07:00 05/27/25 06:00 30 05/27/25 05:00 30 05/27/25 04:00 30 05/27/25 04:00 30 05/27/25 03:00 30 05/27/25 02:37 30 Laboratory Results 05/27/25 04:38 05/27/25 04:38 PG Care Time/CCT Total # of Minutes Spent Total Time Spent with Patient: Total time spent is greater than 50% in coordination of care (as documented) at patient's floor/unit and/or counseling patient: Coding Level of Care Code 19237 SUB INP/OBS CARE 2/35MIN Diagnoses Pneumonia J18.9 Sepsis A41.9 Septic shock A41.9; R65.21 Seizure disorder G40.909 Tracheostomy dependent Z93.0 Acute kidney injury N17.9 Anemia D64.9
--- NOTE | 2025-05-27 15:22 | Critical Care Progress Note ---
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 Atrial septal Defects, Congenital Hydrocephalus came in with worsening hypoxia at home and is being admitted for management of Pneumonia. Neuro No acute needs- Hx CP with WATER RESOURCE MANAGER shunt and seizure disorder CAM ICU: XANDER - Continue supportive care for metabolic and respiratory needs- at baseline she opens eyes, smiles, and grimaces - continue with home AEDS- convert to IV if needed Cardiac Shock- distributive septic likely: Resolved Respiratory Hypercarbic and hypoxic respiratory failure, chronic vent dependant- usually on AVAPS. - Attempt home AVAPS today and this evening - Sputum sample positive for E coli Sensitive to Ceftriaxone and Augemntin Transition to Augmentin - Baseline AVAPS settings: IPAP range to 22-26 and increasing max pressure support to 30 to aim for the tidal volume of 300 and increase the backup rate to 17. NIMV settings should be AVAPS-AE; Breath rate: auto; Inspiratory time:auto; Sigh: off; Tidal Volume: 300-320, PS min: 4-10 PS max: 12-30; EPAP min: 6-10; EPAP max: 10-16; AVAPS rate: 17 GI - mild elevated liver enzymes, obesity- Hx Tube feedings and PEG tube for medications - Continue enteral feedings - Improving LFTs - Bowel regime RENAL/LYTES - - Creatinine increased to 1.44 decreased from 1.5 yesterday - Hyponatremia- chronic- - ICU electrolyte protocol - neurogenic bladder - shukla while in ICU ENDO - No acute needs - Continue Synthroid, ICU hyper/hypoglycemic protocol HEME -Has chronic anemia. Hgb dropped to 6.8. Recheck hgb was 7/Complete work up for anemia was done. Likely iron deficiency anemia. Will consider oral iron - Received 1 unit of packed red blood cells yesterday given endorgan dysfunction of acute kidney injury ID Septic shock- source pulmonary likely at this time - Transition to Augmentin for E. coli stop date entered LINES/IV ACCESS - Continue use of these lines Discussed case with mother, if continues to improve unable to tolerate ventilator overnight would feel she would be appropriate for discharge tomorrow Admission and Anticipated Discharge Date Admission Date: May 23, 2025 Subjective Was transition to hospital vent overnight per family request. No overnight events. Physical Exam Physical Exam: General: Alert. Skin: Warm, dry, Head: Atraumatic Ears, nose, mouth and throat: airway patent, tracheostomy in place Cardiovascular: Normal peripheral perfusion Respiratory: no respiratory distress, no nasal flaring during my exam Gastrointestinal: Non distended Results & Data Results & Data Vital Signs (Past 12 Hours) Vital Signs Temp Pulse Pulse Resp BP Pulse Ox O2 Del Method 05/27/25 11:09 91 H 25 H 93 Mechanical Vent 05/27/25 10:06 36.8 C 92 H 19 93 05/27/25 10:00 113/53 L 05/27/25 09:06 37.0 C 98 H 18 92 05/27/25 09:00 104/55 L 05/27/25 08:00 37.0 C 94 H 0 L 90 05/27/25 08:00 98/49 L 05/27/25 07:43 91 H 18 90 05/27/25 07:03 36.9 C 72 18 94 05/27/25 07:00 111/51 L 05/27/25 06:00 36.9 C 75 18 104/46 L 93 Mechanical Vent 05/27/25 05:00 37 C 85 18 125/63 93 Mechanical Vent 05/27/25 04:00 36.8 C 80 18 110/58 L 95 Mechanical Vent 05/27/25 04:00 O2 Flow Rate FiO2 05/27/25 11:09 3 05/27/25 10:06 05/27/25 10:00 05/27/25 09:06 05/27/25 09:00 05/27/25 08:00 05/27/25 08:00 05/27/25 07:43 30 05/27/25 07:03 05/27/25 07:00 05/27/25 06:00 30 05/27/25 05:00 30 05/27/25 04:00 30 05/27/25 04:00 30 Critical Care Results & Data Vital Signs (Past 12 Hours) Vital Signs Temp Pulse Pulse Resp BP Pulse Ox O2 Del Method 05/27/25 11:09 91 H 25 H 93 Mechanical Vent 05/27/25 10:06 36.8 C 92 H 19 93 05/27/25 10:00 113/53 L 05/27/25 09:06 37.0 C 98 H 18 92 05/27/25 09:00 104/55 L 05/27/25 08:00 37.0 C 94 H 0 L 90 05/27/25 08:00 98/49 L 05/27/25 07:43 91 H 18 90 05/27/25 07:03 36.9 C 72 18 94 05/27/25 07:00 111/51 L 05/27/25 06:00 36.9 C 75 18 104/46 L 93 Mechanical Vent 05/27/25 05:00 37 C 85 18 125/63 93 Mechanical Vent 05/27/25 04:00 36.8 C 80 18 110/58 L 95 Mechanical Vent 05/27/25 04:00 O2 Flow Rate FiO2 05/27/25 11:09 3 05/27/25 10:06 05/27/25 10:00 05/27/25 09:06 05/27/25 09:00 05/27/25 08:00 05/27/25 08:00 05/27/25 07:43 30 05/27/25 07:03 05/27/25 07:00 05/27/25 06:00 30 05/27/25 05:00 30 05/27/25 04:00 30 05/27/25 04:00 30 Lab & Micro Results (Past 24 Hours) RBC 2.81 M/uL (4.20-5.40) L 05/27/25 WBC 9.63 K/ul (4.8-10.8) 05/27/25 Hgb 8.1 g/dl (12.0-16.0) L 05/27/25 Hct 24.9 % (37.0-47.0) L 05/27/25 MCV 88.6 fL (80.0-100.0) 05/27/25 MCH 28.8 pg (25.0-34.0) 05/27/25 MCHC 32.5 g/dL (32.0-36.0) 05/27/25 RDW Standard Deviation 63.8 fL (36.4-46.3) H 05/27/25 RDW Coefficient of Variation 20.0 % (11.5-14.5) H 05/27/25 Plt Count 136 K/uL (130-400) 05/27/25 MPV 10.5 fL (9.4-12.4) 05/27/25 Nucleated Red Blood Cells % (auto) 0.5 % 05/27 Nucleated RBC Absolute Count (auto) 0.05 K/uL (0.00-0.12) 0 05/27/25 Neutrophils (%) (Auto) 72.2 % 05/27/25 Lymphocytes (%) (Auto) 14.2 % 05/27/25 Monocytes # (Auto) 0.97 K/uL (0.11-0.59) H 05/27/25 Eosinophils # (Auto) 0.27 K/uL (0.00-0.50) 05/27/25 Immature Granulocyte % (Auto) 0.3 % 05/27/25 Neutrophils # (Auto) 6.95 K/uL (1.40-6.50) H 05/27/25 Lymphocytes # (Auto) 1.37 K/uL (1.20-3.40) 05/27/25 Monocytes # (Auto) 0.97 K/uL (0.11-0.59) H 05/27/25 Eosinophils # (Auto) 0.27 K/uL (0.00-0.50) 05/27/25 Basophils # (Auto) 0.04 K/uL (0.00-0.20) 05/27/25 Immature Granulocyte # (Auto) 0.03 K/uL (0.01-0.20) 5 Na 130 mmol/L (136-145) L 05/27/25 K 4.1 mmol/L (3.5-5.1) 05/27/25 Cl 99 mmol/L (98-107) 05/27/25 CO2 20 mmol/L (21-32) L 05/27/25 Anion Gap 11 (3-11) 05/27/25 BUN 65 mg/dl (6-23) H 05/27/25 Creatinine 1.44 mg/dl (0.6-1.2) H 05/27/25 BUN/Creatinine Ratio 45.1 (10-20) H 05/27/25 Glu 69 mg/dl (70-99(Fasting)) L 05/27/25 Ca 8.0 mg/dl (8.6-10.3) L 05/27/25 Phosphorus Level 5.6 mg/dl (2.5-4.9) H 05/27/25 Mg 3.2 mg/dl (1.7-2.4) H 05/27/25 04:38 Calcium Level 8.0 mg/dl (8.6-10.3) L 05/27/25 04:38 I & O Totals 24 Hours 05/26/25 05/27/25 05/28/25 06:59 06:59 06:59 Intake Total 2024 / 2024 460 / 460 Output Total 2650 / 2650 2402 / 2402 750 / 750 Balance -625 / -625 -1942 / -1942 -750 / -750 Cumulative 05/23/25 16:07 thru 05/27/25 13:46 Intake Total 9560.930 Output Total 9062 Balance 498.930 RT Ventilator Mngmt (Last Documented) Ventilator Ordered Settings Ventilator Support Mode Assist Control 05/27/25 07:43 Respiratory Rate 25 05/27/25 11:09 Ventilator Tidal Volume 380 05/27/25 07:43 Setting Minute Ventilation 6.6 05/27/25 07:43 Positive End Expiratory 8 05/27/25 07:43 Pressure Fraction of Inspired Oxygen 30 05/27/25 07:43 Peak Inspiratory Flow 30 05/27/25 07:43 Machine Comment weaned to 25% 05/25/25 23:06 Ventilator - PT Measurements Respiratory Rate 25 Exhaled Tidal Volume 381 Minute Ventilation 6.6 Peak Inspiratory Airway 32 Pressure Plateau Pressure 25.3 Respiratory Cycle Inspiratory: 1:3.4 Expiratory Ratio Inspiratory Phase Time 1.0 End-Tidal CO2 34 Static Lung Compliance 22.02 Dynamic Lung Compliance 15.88 Normal Static Lung Compliance 44.00 Patient Measurements Comment Pt on Home Vent, AVAPS settings, 2.5L o2, SPO2 94% at this time Coding Level of Care Code 74298 SUB INP/OBS CARE 3/50MIN Diagnoses UTI (urinary tract infection) N39.0 Pneumonia J18.9 IMER (acute kidney injury) N17.9 Obesity (BMI 30-39.9) E66.9 MRSA nasal colonization Z22.322 Acute respiratory failure with hypercapnia J96.02 Hyponatremia E87.1 Tracheostomy dependent Z93.0 Difficult intravenous access Z78.9 Acute hyperkalemia E87.5 Septic shock A41.9; R65.21 Seizure disorder G40.909 Neurogenic bladder N31.9 Congenital dysplasia of hips, bilateral Q65.89 Atrial septal defect Q21.1 Thrombocytopenia D69.6 Comment Please include ventilator management code
[2025-05-28 05:18] LABS: Hematocrit (blood only) 25.2 % (37.0-47.0); Hemoglobin 8.3 g/dl (12.0-16.0); Immature Granulocytes # (auto) 0.05 K/uL (0.01-0.20); Immature Granulocytes % (auto) 0.7 %; Mean Corpuscular Hemoglobin 29.6 pg (25.0-34.0); Mean Corpuscular Volume 90.0 fL (80.0-100.0); Platelet Count 149 K/uL (130-400); RDW Standard Deviation 63.5 fL (36.4-46.3); Red Blood Count 2.80 M/uL (4.20-5.40); White Blood Count 7.62 K/ul (4.8-10.8)
[2025-05-28 05:36] LABS: Anion Gap 11.0 (3-11); Blood Urea Nitrogen 59.0 mg/dl (6-23); Calcium 8.0 mg/dl (8.6-10.3); Carbon Dioxide 20.0 mmol/L (21-32); Chloride 102.0 mmol/L (98-107); Creatinine Clr Calc Pharmacy 69.1 ml/min; Glucose 73.0 mg/dl (70-99(Fasting)); Magnesium 3.2 mg/dl (1.7-2.4); Potassium 3.6 mmol/L (3.5-5.1); Sodium 133.0 mmol/L (136-145)
[2025-05-28] MEDS: POTASSIUM CHLORIDE 20 MEQ/15 ML UDC PEG STA (06:03)
--- NOTE | 2025-05-28 07:47 | Critical Care Progress Note ---
Date of Service May 28, 2025 Assessment & Plan (1) Counseling regarding goals of care: (2) Palliative care by specialist: (3) Dyspnea and respiratory abnormalities: (4) Anemia: (5) Acute kidney injury: (6) Septic shock: (7) Tracheostomy dependent: (8) Difficult intravenous access: (9) Acute hyponatremia: (10) Acute hyperkalemia: (11) UTI (urinary tract infection): (12) Pneumonia: (13) Obesity (BMI 30-39.9): (14) MRSA nasal colonization: (15) Acute respiratory failure with hypercapnia: (16) Anemia in chronic illness: (17) Hydronephrosis: (18) Hyponatremia: (19) Primary immune deficiency disorder: Stefany Stearns is a 24 Y O Female with PMH of Tracheostomy dependence, Chronic PEG feeds, Seizure disorder, Obesity with BMI 30-39.9, Primary Immune Deficiency disorder, Central Hypothyroidism, PDA. Atrial septal Defects, Congenital Hydrocephalus came in with worsening hypoxia at home and is being admitted for management of Pneumonia. Neuro No acute needs- Hx CP with MANAGER HOUSEKEEPING shunt and seizure disorder CAM ICU: XANDER - Continue supportive care for metabolic and respiratory needs- at baseline she opens eyes, smiles, and grimaces - currently localizes, grimaces and eyes closed - continue with home AEDS- Cardiac Shock- distributive septic likely - Patient presents hypotensive, hypoxic, bradycardic- with organ dysfunction -Lactate slightly elevated on presentation. Normalized on repeat check - Patient is off the Levophed. Maintaining BP with MAP around 60-65. -Continue home diuretics Respiratory - Hypercarbic and hypoxic respiratory failure, chronic vent dependant- usually on AVAPS. -Patient placed on home AVAPS doing adequately with supplemental oxygen. - CXR this morning with unchanged findings - Sputum sample positive for E coli Sensitive to Ceftriaxone and Augemntin -Discontinue Vancomycin and Ceftolazone/Tazobactam. Vancomycin level down to 40 from 46 -Ceftriaxone switched to Augmentin . Continue Augmentin at home. -Patient need follow up with PCP within next week - Baseline AVAPS settings: IPAP range to 22-26 and increasing max pressure support to 30 to aim for the tidal volume of 300 and increase the backup rate to 17. NIMV settings should be AVAPS-AE; Breath rate: auto; Inspiratory time:auto; Sigh: off; Tidal Volume: 300-320, PS min: 4-10 PS max: 12-30; EPAP min: 6-10; EPAP max: 10-16; AVAPS rate: 17 GI - mild elevated liver enzymes, obesity- Hx Tube feedings and PEG tube for medications - Continue enteral feedings as able- hold if vasopressor support increasing - Improving LFTs RENAL/LYTES - - Creatinine improving. repeat CMP in the outpatient - Hyponatremia- chronic- likely hypervolemic hyponatremia- - ICU electrolyte protocol - neurogenic bladder - Foleys out on discharge ENDO - No acute needs - Continue Synthroid, ICU hyper/hypoglycemic protocol HEME - WBC wnl -Has chronic anemia. Hgb 8.3 on discharge. Got 1 bag of PRBCs while on hospital Reticulocyte count is normal in the setting of an anemia, this may be reflective of bone marrow suppression in the setting of recent infection. Iron stores appear to be adequate iron level is low this can also be an acute phase reactant. Patient may benefit from iron supplementation will defer to outpatient practitioners - Patient does have history of primary immune deficiency- She receives Hizentra q 2weeks- 10GM - due on Saturday [id number] ID Septic shock- source pulmonary likely at this time - Sputum culture grows E coli sensitive to Ceftriaxone and Augmentin - Blood cultures is negative -Urine culture positive for E Col - Legionella urine Negative. Doxycycline discontinued - ABX therapy- Rocephin. will switch to Augmentin on discharg Dispo: Home Admission and Anticipated Discharge Date Admission Date: May 23, 2025 Supervising Physician Co-Signing Physician Notes Dr. De La Vega was resident physician during care of patient. I separately evaluated patient for batista portions of the history and the exam. I was present during the critical portion of medical decision making, and I discussed the case with the resident. I generally agree with the findings and plan. Patient placed on home AVAPS, mild oxygen requirement increased from 2 L to 4 L. Mom feel comfortable with discharge home; creatinine improving, white count down, has transition to oral antibiotics being administered without difficulty. Will obtain a chest x-ray to rule out significant mucoid impaction. Given that mom feels comfortable and knows how to treat with pulmonary toilet and by enlarge patient is improving I think it is reasonable for discharge home, after checking venous blood gas to ensure that the ventilation is adequate. Her admissions usually surround inadequate ventilation and a hypercapnic respiratory failure. Patient weight is 87.4 kg, will give 20 mg Lasix, this is down from high of 89.9. Discussed this with mom. Also discussed being able to obtain daily weights to best manage diuretics. Rechecked VBG, there is no evidence of hypercarbia, discussed extensively with mother she feels comfortable managing at home feels with better positioning in wheelchair and home resources oxygen requirement should decrease. I feel this is a reasonable approach mom in agreement. Will have close follow-up. Subjective Patient comfortable and seems to be in her baseline Review of Systems Review of Systems: As per HPI Physical Exam Physical Exam: PHYSICAL EXAM: General: has tracheostomy tube in place ENT: PERRLA, mucous membranes, dry, Neuro: responds to pain, facial grimace, localizes extremities Chest: equal rise and fall of the chest, no accessory muscle use, decreased in bases with scattered rhonchi, trach in place Cardiac: Regular rate and rhythm, telemetry reviewed- NSR, skin warm dry- sunburn to face, cap refill <3 seconds, peripheral pusles +2, pitting edema from feet to just below knee GI: NABS x 4 quadrants, soft, nontender to palpation, no rebound, guarding or tenderness : shukla to gravity Constitutional: + ill appearing, + morbidly obese, + phy sical limitations and + mechanically ventilated; no acute distress Eyes: PERRL, conjunctivae normal, anicteric sclerae Neck: trachea midline, no thyromegaly Respiratory: no respiratory distress and no labored breathing Auscultation: + diminished lung sounds and + crackles Gastrointestinal (Abdomen): normal bowel sounds, soft, nontender, no hepatosplenomegaly Skin: no rashes, warm and dry Psychiatric: A+Ox3, euthymic affect (pt blinks once to indicate yes and twice for no, non verbal at baseline.) Orientation: alert Results & Data Results & Data Vital Signs (Past 12 Hours) Vital Signs Temp Pulse Pulse Resp BP Pulse Ox Pulse Ox 05/28/25 06:06 36.3 C L 69 21 91 05/28/25 05:06 36.4 C L 71 18 94 05/28/25 04:00 36.5 C 72 17 93 05/28/25 04:00 99/56 L 05/28/25 03:00 36.5 C 70 18 93 05/28/25 03:00 97/51 L 05/28/25 02:00 105/50 L 05/28/25 02:00 36.5 C 77 15 94 05/28/25 01:18 36.6 C 74 17 94 05/28/25 01:00 102/51 L 05/28/25 00:57 36.6 C 73 21 94 05/28/25 00:00 36.6 C 77 18 94 05/28/25 00:00 102/51 L 05/27/25 23:54 75 05/27/25 23:00 36.6 C 73 15 93 05/27/25 23:00 97/48 L 05/27/25 22:18 36.7 C 79 18 93 05/27/25 22:00 108/61 05/27/25 21:57 36.7 C 77 17 97 05/27/25 21:00 108/61 05/27/25 21:00 108/61 05/27/25 21:00 108/61 05/27/25 21:00 36.7 C 80 21 96 05/27/25 20:47 96 H 24 94 05/27/25 20:00 109/62 05/27/25 20:00 109/62 05/27/25 20:00 109/62 05/27/25 20:00 36.8 C 85 17 96 05/27/25 20:00 05/27/25 20:00 05/27/25 20:00 95 O2 Del Method O2 Del Method O2 Flow Rate FiO2 05/28/25 06:06 05/28/25 05:06 05/28/25 04:00 05/28/25 04:00 05/28/25 03:00 05/28/25 03:00 05/28/25 02:00 05/28/25 02:00 05/28/25 01:18 05/28/25 01:00 05/28/25 00:57 05/28/25 00:00 05/28/25 00:00 05/27/25 23:54 05/27/25 23:00 05/27/25 23:00 05/27/25 22:18 05/27/25 22:00 05/27/25 21:57 05/27/25 21:00 05/27/25 21:00 05/27/25 21:00 05/27/25 21:00 05/27/25 20:47 Mechanical Vent 1.5 05/27/25 20:00 05/27/25 20:00 05/27/25 20:00 05/27/25 20:00 05/27/25 20:00 Mechanical Vent 05/27/25 20:00 30 05/27/25 20:00 Mechanical Vent Coding Level of Care Code 99099 SUB INP/OBS CARE 2/35MIN Diagnoses Counseling regarding goals of care Z71.89 Palliative care by specialist Z51.5 Dyspnea and respiratory abnormalities R06.00; R06.89 Anemia D64.9 Acute kidney injury N17.9 Septic shock A41.9; R65.21 Tracheostomy dependent Z93.0 Difficult intravenous access Z78.9 Acute hyponatremia E87.1 Acute hyperkalemia E87.5 UTI (urinary tract infection) N39.0 Pneumonia J18.9 Obesity (BMI 30-39.9) E66.9 MRSA nasal colonization Z22.322 Acute respiratory failure with hypercapnia J96.02 Anemia in chronic illness D63.8 Hydronephrosis N13.30 Hyponatremia E87.1 Primary immune deficiency disorder D84.89 Resident Activity Tracking Resident Involvement: Resident Care Provided Care Provided: Adult Hospital Medicine
--- NOTE | 2025-05-28 09:50 | Billing Data ---
Date of Service May 28, 2025 Coding Level of Care Code 42617 SUB INP/OBS CARE 50MIN Comment Please add ventilator management code
[2025-05-28 10:15] LABS: Base Excess VBG -6.8 mEq/L; HCO3 VBG 20 mmol/L; Oxygen Saturation VBG 92.7 %; PCO2 VBG 42 mmHg (38-50); PO2 VBG 62 mmHg; pH VBG 7.28 (7.36-7.41)
--- NOTE | 2025-05-28 11:20 | XRay Report ---
XR chest 1V portable CLINICAL HISTORY: hypoxia COMPARISON STUDY: 05/25/2025 FINDINGS: Tracheostomy tube tip is at the thoracic inlet, stable. There is stable cardiomegaly with p ulmonary vascular congestion. Stable hazy opacity in the lower lungs with obscuration of the diaphrag m. No pneumothorax seen. IMPRESSION: Stable exam. ACT 112: Negative or not required by law. Electronically signed by: Abram Fenton M.D. 05/28/2025 11:18 AM
[2025-05-28] MEDS: FUROSEMIDE INJ 20 MG/2 ML VIAL IV ONE (11:29)
--- NOTE | 2025-05-28 11:51 | Discharge Summary ---
Discharge Summary Date of Service May 28, 2025 Principal Dx & Hospital Course #1 = Principal Diagnosis (1) Pneumonia: Suspected gram-negative. Sputum culture growing E. coli. Chest x-ray appearance is consistent with pneumonia. Infectious disease consultation and recommendations appreciated. Rocephin has been switched to Augmentin suspension twice daily through the PEG tube which will continue for 10 more days at discharge. She was treated while hospitalized with Rocephin (2) Sepsis: Present on admission. Now resolved. Pressor support has been weaned off. (3) Septic shock: Present on admission. Now resolved. She is off pressor support. Mother states she does not take steroids on a daily basis so she is not steroid-dependent despite her cushingoid appearance. Intravenous hydrocortisone has been discontinued. (4) Seizure disorder: Controlled. 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 Monitor intake and output. Serial labs (7) Anemia: Multifactorial. She is iron deficient. Hemoglobin dropped to 6.7. 1 unit packed red blood cells were administered on May 26 and hemoglobin improved to 8.1. Hemoglobin 8.3 today, May 28. No overt bleeding. Serial labs Plan Home today, May 28, on Augmentin suspension for 10 more days. Follow-up with primary care provider soon as possible. Admission HPI Per Admitting Provider history obtained from mom. Patient was in her usual state of health yesterdaywas tailgating the [employer] game (she shares picturespatient appears bright and happy sitting in a wheelchair posing with a large crowd of people). Today she suddenly and fairly progressively became more and more hypoxicthey increased to the full 5 L they have at home and she was still hypoxiccame here to the hospital for further evaluation. Found to be hypotensive, hypothermic, and leukopenicCT scan consistent with extensive pneumonia. If appearing consistent with septic shock. In discussion with mom patient got her IVIG last week and is not due until next week (i.e. she is right in between dosing and has been on schedule) and does not take chronic steroids. Discharge Exam General-awake and eyes are tracking which she is nonverbal. Permanent tracheostomy in place. Morbidly obese. She appears cushingoid HEENT-head atraumatic and normocephalic Neck-no lymphadenopathy or thyromegaly, trachea midline with permanent tracheostomy present on ventilator support Chest-scattered bilateral rhonchi. No audible wheezing from anterior approach. No audible inspiratory rales Cardiac-regular rate and rhythm, normal S1 and S2 Abdomen-normal bowel sounds, no hepatosplenomegaly. Functional PEG tube in place Extremities-chronic appearing edema present bilateral lower extremities below the knees Neuro-no apparent focal motor deficits. She is able to move all 4 extremities randomly. s Psych-nonverbal. Cannot assess Discharge Plan Discharge Items Patient Disposition: Home - Self-Care Reason For Visit: PNEUMONIA, SEPSIS, SEPTIC SHOCK Discharge Diagnosis: Gram-negative pneumonia, E. coli UTI, septic shock, acute on chronic respiratory failure, acute kidney injury, Coumadin toxicity, acute on chronic anemia Condition on Discharge: Fair Activity: Resume your previous activity Non-emergency contact: Primary Care Provider Call non-emergency contact if: your symptoms worsen Follow-up/Referrals: Sin Fitzpatrick MD [Primary Care Provider] - Diet: Other - See Diet Comment Diet Comment: Continue tube feed schedule as usual Addtl Attending Provider Instructions: Take Augmentin suspension twice daily for 10 more days. All other medications remain the same. Tube feedings remain the same. Follow-up with primary care provider soon as possible Pending Studies at Discharge: No Stand-Alone Forms: My [facility], Smoking Cessation Medications and DC Order Prescriptions: New amoxicillin-pot clavulanate 400-57 mg/5 mL Suspension For Reconstitution 10 ml G-tube BIDM 10 Days Qty: 200 0RF Continued (DME) disposable gloves [Disposable Latex-Free Gloves] Misc See Rx Instructions .ROUTE .MEDSUPPLY Qty: 1200 11RF Rx Instructions: As directed Calmoseptine 0.44-20.6 % ointment 1 applic TOP BID Qty: 113 5RF Rx Instructions: around trach tramadol 50 mg tablet 50 mg feeding tube BID PRN (Reason: Pain) Qty: 60 1RF sennosides [senna] 8.8 mg/5 mL syrup 8.8 mg PO HS PRN (Reason: Constipation) Qty: 236 5RF azelastine 137 mcg (0.1 %) spray,non-aerosol 1 spray intranasal DAILY PRN (Reason: Allergy Symptoms) Qty: 30 6RF Rx Instructions: administer into each nostril Capex 0.01 % shampoo 30 ml topical DAILY Qty: 120 3RF lorazepam [Ativan] 1 mg tablet 1 mg PO DAILY PRN (Reason: anxiety) Qty: 30 2RF Rx Instructions: rare use naproxen 500 mg tablet 500 mg PO BID PRN (Reason: pain) Qty: 60 5RF lansoprazole [Prevacid SoluTab] 30 mg tablet,disintegrat, delay rel 30 mg feeding tube QAM Qty: 90 3RF clobetasol [Clodan] 0.05 % shampoo 1 applic topical DAILY Qty: 118 6RF docusate sodium 50 mg/15 mL syrup See Rx Instructions feeding tube BID PRN (Reason: Constipation) Qty: 118 5RF Rx Instructions: 10mL feeding tube BID PRN; medroxyprogesterone 150 mg/mL syringe 150 mg IM .q12wk Qty: 1 0RF Rx Instructions: PT NO LONGER SEES OBGYN. MOM STATES ENDO IS NOW PRESCRIBING. acetaminophen 160 mg/5 mL liquid 640 mg PO Q8H PRN (Reason: pain) Qty: 473 2RF albuterol sulfate 2.5 mg /3 mL (0.083 %) solution for nebulization 2.5 mg inhalation Q6H PRN (Reason: Wheezing) Qty: 360 3RF fluticasone propionate [Flonase Allergy Relief] 50 mcg/actuation spray,suspension 1 spray intranasal DAILY Qty: 16 5RF Rx Instructions: administer into each nostril ibuprofen 100 mg/5 mL suspension 600 mg feeding tube Q6H PRN (Reason: Fever Or Pain) Qty: 473 3RF Rx Instructions: use as needed ipratropium bromide 0.02 % solution 2.5 ml inhalation QID PRN (Reason: shortness of breath or wheezing) Qty: 75 6RF phenobarbital 60 mg tablet 60 mg PO .COMPLEX Qty: 270 0RF Rx Instructions: 60 mg orally IN THE AM AND 2 TABS IN THE PM VIA FEEDING TUBE; TOTAL DAILY DOSE 90MG IN AM AND 120MG IN PM phenobarbital 30 mg tablet 30 mg PO .COMPLEX Qty: 90 0RF Rx Instructions: 30 mg orally QAM VIA FEEDING TUBE. TAKE WITH 60MG FOR A TOTAL AM DOSE OF 90MG (DME) Miscellaneous Pulmonary Supply Misc See Rx Instructions .Route Qty: 1 0RF Rx Instructions: BPM 14 breaths, TV 300 mL, PS min 6/max 25 sodium chloride 0.9 % solution for nebulization 3 ml inhalation QID PRN (Reason: shortness of breath or wheezing) Qty: 300 3RF (DME) Miscellaneous Pulmonary Supply Misc See Rx Instructions .Route Qty: 2 0RF Rx Instructions: Size 6 cuffed Shiley XLT tracheostomy. 2 trach's per month. cannabidiol 100 mg/mL solution 100 - 150 mg G-tube [facility] Patient Comments: 0.5mL every a.m., 1mL every p.m. ; Rx Instructions: 1.5ML QAM - 1ML QPM dexamethasone 1 mg tablet 1 mg feeding tube UD Qty: 30 3RF Rx Instructions: gets for pre-treatment GIVE 1 mg prior to Hizentra q2 weeks Hizentra 10 gram/50 mL (20 %) solution See Rx Instructions subcut .COMPLEX Qty: 120 11RF Rx Instructions: INFUSE 12GM SQ subcutaneously EVERY 2 WEEKS [facility] GOOD 09/21/24-03/21/25 MONALISA [id number] GOOD furosemide [Lasix] 20 mg tablet 20 mg PO DAILY baclofen 5 mg tablet 5 mg PO TID 90 Days Qty: 270 3RF Rx Instructions: take with the 10 mg tab to equal 15mg three times daily baclofen 10 mg tablet 10 mg PO TID 90 Days Qty: 270 3RF Rx Instructions: take with the 5 mg tab to equal 15mg three times daily levetiracetam [Keppra] 750 mg tablet 750 mg PO BID 90 Days Qty: 180 3RF Rx Instructions: PER G-TUBE at 0700 and 1830 olopatadine 0.2 % drops 1 drp ophthalmic (eye) DAILY PRN (Reason: itching) Qty: 2.5 11RF lidocaine-prilocaine 2.5-2.5 % cream 1 applic topical ONCE PRN (Reason: prior to injections) Qty: 50 6RF (DME) Allevyn Tracheostomy Dressing 3.5 X 3.5 " bandage See Rx Instructions .Route Qty: 80 3RF Rx Instructions: As directed (DME) [facility]ructions .Route Qty: 2 11RF Rx Instructions: Biovana Trach [id number]: ID 6mm OD 9.2mm Length 110mm (DME) Miscellaneous Pulmonary Supply Misc See Rx Instructions .Route Qty: 60 8RF Rx Instructions: 5 mL saline bullets for ventilator clearance polyethylene glycol 3350 [Miralax] 17 gram Powder In Packet 17 g feeding tube BID PRN (Reason: Constipation) Multivitamin Women 50 Plus 8 mg iron-400 mcg-50 mcg Tablet 0.5 tab PO QAM diclofenac sodium 1 % Gel 2 g TOPICAL TID PRN (Reason: Pain in Knees) cetirizine [Zyrtec] 10 mg tablet 10 mg PO HS albuterol sulfate [Ventolin HFA] 90 mcg/actuation HFA aerosol inhaler 2 puff inhalation QID PRN (Reason: Wheezing) diazepam 12.5-15-17.5-20 mg kit 12.5 mg KS DIRECTED PRN (Reason: seizure activity) Rx Instructions: 12.5 mg rectally Give 1 dose for seizure activity lasting more than 5 minutes or seizure clusters without return to baseline PRN; melatonin 5 mg capsule 5 mg feeding tube HS montelukast [Singulair] 10 mg tablet 10 mg feeding tube HS sodium chloride 7 % solution for nebulization 4 ml inhalation DAILY Qty: 240 3RF oxybutynin chloride 5 mg tablet 5 mg PO TID Rx Instructions: 7AM,2;30PM,11PM levothyroxine 75 mcg tablet 75 - 150 mcg PO DIRECTED Rx Instructions: Wednesdays takes 2 (150 mcg), rest of days 75mcg TAKES AT 9PM pseudoephedrine HCl 30 mg tablet See Rx Instructions .ROUTE .COMPLEX PRN (Reason: Nasal Congestion) Rx Instructions: ADMINISTER 1 TABLET VIA FEEDING TUBE EVERY 6 HOURS NEEDED FOR NASAL DECONGESTION Discharge Orders: Discharge Order (Routine); Ordered 05/28/25 Ordered By: Tang Tabor Admission Data Admit Date/Time: 05/23/25 18:29 Attending Provider: Tang Tabor Admit Provider: Sebastián Diaz Primary Care Provider: Sin Fitzpatrick V. Other Providers: Ramiro Agosto; [facility],Home [facility]; Sera Polanco; Brianna Hernández Hospital Stay Data Consultations 05/23/25 20:13 Consult Manufacturing Teacher Routine 05/24/25 07:45 Consult Infectious Diseases Routine 05/25/25 15:34 Consult Palliative Care Routine Diagnostic Imagining Performed 05/23/25 17:02 CT angio chest PE protocol Stat Pending Results Patient Have Any Pending Studies at Discharge: No Discharge Instructions Given to Patient (Per Discharging Provider) Take Augmentin suspension twice daily for 10 more days. All other medications remain the same. Tube feedings remain the same. Follow-up with primary care provider soon as possible Total Time Total Time Spent Total Time Spent (In Minutes): 50 minutes Coding Level of Care Code 02582 INP/OBS DISCH >30 MIN Diagnoses Pneumonia J18.9 Sepsis A41.9 Septic shock A41.9; R65.21 Seizure disorder G40.909 Tracheostomy dependent Z93.0 Acute kidney injury N17.9 Anemia D64.9
[2025-05-28 11:56] VITALS: BP 101/59; RESP 20; TEMP 97.5; O2SAT 94
[2025-05-28 12:00] VITALS: PULSE 79
--- NOTE | 2025-05-28 14:54 | Electrocardiogram Report ---
Test Reason : Blood Pressure : */* mmHG Vent. Rate : 66 BPM Atrial Rate : 66 BPM P-R Int : 178 ms QRS Dur : 100 ms QT Int : 406 ms P-R-T Axes : 40 54 105 degrees QTcB Int : 425 ms Normal sinus rhythm Abnormal ECG When compared with ECG of 03-Jan-2025 13:52, T wave inversion now evident in Lateral leads Confirmed by Pascual Rosen ([id number]) on 05/28/2025 2:53:54 PM Referred By: REFERRED SELF Confirmed By: Pascual Rosen
== END 2025-05-28 12:30 | disposition home health service (06) | DRG 870 ==
LOC: ED 16:07 → 1E 18:29 → SUATTDRO 18:29 → 1E 20:00

== ENCOUNTER 2025-06-17 07:19 | Observation (INO) ==
--- NOTE | 2025-06-17 08:28 | Procedure Note ---
Procedure Note: Bronchoscopy Procedure Consent obtained from mother prior to procedure. Time out performed immediately prior to procedure. Inspection bronch performed via old trach and mucous plug noted in the trachea which was suctioned free. B/l bronchial tree inspection performed with no evidence of significant disease. Washing performed of RLL with 30 ml of saline. Clear fluid aspirated back. Scope was withdrawn. Old trach removed and replaced with a new size 6 xlt distal shiley. Bronchoscope reinserted and the trach was well seated. Minimal bleeding noted around stoma site encountered after trach exchange. Post procedure cxr noted b/l lower lobe atelectasis and a well positioned trach. Patient tolerated bronch and trach exchange well. [facility] [place]odes (Charges) Pulmonary/Thoracic Procedure 1: Pulmonary and Thoracic: 08001 Tracheotomy tube change prior to Fistula Procedure 2: Pulmonary and Thoracic: 92770 Dx bronchoscopy/wash
[2025-06-17 09:05] LABS: Base Excess VBG -2.7 mEq/L; HCO3 VBG 21 mmol/L; Oxygen Saturation VBG 99.4 %; PCO2 VBG 31 mmHg (38-50); PO2 VBG 117 mmHg; pH VBG 7.43 (7.36-7.41)
--- NOTE | 2025-06-17 09:06 | XRay Report ---
XR chest 1V portable CLINICAL HISTORY: trach exchange COMPARISON STUDY: Chest CT May 23, 2025. Chest radiograph May 28, 2025. FINDINGS: Tracheostomy tube is in place. SPICE BLENDER shunt catheter is partially imaged. An old SPICE BLENDER shunt edgar ter is also partially imaged. Cardiomegaly is again noted with suspected mild pulmonary edema. Extens rachana airspace opacities within the lungs are unchanged. Moderate right and small left pleural effusion s are noted. The right pleural effusion has increased in size. There is no pneumothorax. IMPRESSION: 1. Tracheostomy tube in place. 2. Cardiomegaly with pulmonary edema, similar to prior exam. 3. Extensive bilateral airspace opacities which are also similar to prior study and suggest pneumonia . 4. Moderate right pleural effusion, increased since prior chest radiograph. Small left pleural effusi on. No pneumothorax. ACT 112: Negative or not required by law. Electronically signed by: Michael Cunningham M.D. 06/17/2025 9:04 AM
[2025-06-17 09:10] LABS: Hematocrit (blood only) 29.0 % (37.0-47.0); Hemoglobin 9.4 g/dl (12.0-16.0); Immature Granulocytes # (auto) 0.01 K/uL (0.01-0.20); Immature Granulocytes % (auto) 0.2 %; Mean Corpuscular Hemoglobin 28.8 pg (25.0-34.0); Mean Corpuscular Volume 89.0 fL (80.0-100.0); Platelet Count 201 K/uL (130-400); RDW Standard Deviation 62.6 fL (36.4-46.3); Red Blood Count 3.26 M/uL (4.20-5.40); White Blood Count 4.86 K/ul (4.8-10.8)
[2025-06-17 09:28] LABS: Alanine Aminotransferase 17.0 U/L (7-52); Albumin Globulin Ratio 0.9 (0.9-2); Albumin Level 3.1 gm/dl (3.4-5.0); Alkaline Phosphatase 221.0 U/L (34-104); Anion Gap 10.0 (3-11); Bilirubin,Total 0.2 mg/dl (0.2-1.0); Blood Urea Nitrogen 47.0 mg/dl (6-23); Calcium 8.4 mg/dl (8.6-10.3); Carbon Dioxide 21.0 mmol/L (21-32); Chloride 97.0 mmol/L (98-107); Creatinine Clr Calc Pharmacy 74.4 ml/min; Globulin 3.5 gm/dl (2.5-4.0); Glucose 78.0 mg/dl (70-99(Fasting)); Potassium 4.6 mmol/L (3.5-5.1); Sodium 128.0 mmol/L (136-145); Total Protein 6.6 gm/dl (6.0-8.3)
--- NOTE | 2025-06-17 12:13 | Ultrasound Report ---
LEFT UPPER EXTREMITY VENOUS DOPPLER ULTRASOUND CLINICAL HISTORY: Left upper extremity edema. COMPARISON STUDY: No previous studies for comparison. TECHNIQUE: Sonography of the venous system of the left upper extremity was performed. FINDINGS: Left forearm subcutaneous edema is noted. No fluid collection is identified. No venous thro mbus is identified within the left upper extremity although exam is mildly compromised given difficul ty positioning and partial obscuration of the internal jugular vein. IMPRESSION: Technically compromised exam but no venous thrombus identified within the left upper ext remity. ACT 112: Negative or not required by law. Electronically signed by: Michael Cunningham M.D. 06/17/2025 12:12 PM
--- NOTE | 2025-06-17 12:41 | Ultrasound Report ---
US abdomen complete CLINICAL HISTORY: 24 years-old Female with eval for ascites and cirrhosis. TECHNIQUE: Multiple real time sonographic images of the abdomen were obtained assessing jules-scale a ppearance. COMPARISON: CT abdomen and pelvis 04/09/2025 FINDINGS: PANCREAS: The pancreas is partially obscured by bowel gas. The visualized portions of the pancreas are normal without focal lesion or pancreatic duct dilatation. LIVER: 18 cm in length. Mild heterogeneity without definite marginal nodularity. No discrete mass id entified. Trace right upper quadrant ascites. GALLBLADDER: Cholecystectomy. The common bile duct measures 1.3 cm. RIGHT KIDNEY: The right kidney measures 12.4 cm. The parenchymal echotexture and cortical thickness are normal. No nephrolithiasis or hydronephrosis. LEFT KIDNEY: The left kidney measures 9.1 cm. Increased echogenicity with cortical thinning again n oted. No nephrolithiasis or hydronephrosis. SPLEEN: The spleen measures 11.4 cm and is normal in echotexture. No focal lesions are identified. VASCULATURE: The visualized aorta and inferior vena cava are sub-visualized although appear normal a s seen. Hepatopetal flow is seen within the portal vein. Limited exam secondary to patient condition, body habitus and obscuring bowel gas. IMPRESSION: 1. Limited study as above. 2. Trace right upper quadrant ascites. No definitive sonographic evidence of cirrhosis. 3. Cholecystectomy. 4. Asymmetric atrophy with cortical thinning of the left kidney redemonstrated. ACT 112: Negative or not required by law. The above report was generated using voice recognition software. It may contain grammatical, syntax o r spelling errors. Electronically signed by: Chapo Thacker M.D. 06/17/2025 12:38 PM
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
[2025-06-17] MEDS ORDERED: ALBUTEROL 0.083% NEBU SOLN 3 ML VIAL INH PRN (15:17)
[2025-06-17] MEDS ORDERED: POLYETHYLENE (MIRALAX) 17 GM PACK PEG PRN (15:17)
[2025-06-17] MEDS ORDERED: DIPHENOXYLATE/ATROPINE 2.5/0.025MG TAB PO PRN (15:17)
[2025-06-17] MEDS ORDERED: IPRATROPIUM BROMIDE NEB SOLN 0.02% 0.5MG/2.5ML VIAL INH PRN (15:17)
[2025-06-17] MEDS ORDERED: PSEUDOEPHEDRINE HCL 30 MG TAB PEG PRN (15:17)
[2025-06-17] MEDS ORDERED: ALBUTEROL HFA 8 GM INHALER INH PRN (15:17)
[2025-06-17] MEDS ORDERED: LORazepam 1 MG TAB PO PRN (15:17)
[2025-06-17] MEDS ORDERED: SENNOSIDES 8.8 MG/5 ML UDC PEG PRN (15:17)
[2025-06-17] MEDS ORDERED: DICLOFENAC SOD 1% GEL 100 GM TUBE EXT PRN (15:17)
[2025-06-17] MEDS ORDERED: AZELASTINE HCL 0.1% NASAL 200 SPRAYS/27,400 MCG BTL NAE PRN (15:17)
[2025-06-17 16:01] LABS: Appearance Urine Clear (Clear); Bacteria Urine Automated None Seen (None Seen); Cast Urine Automated 0-2 /lpf (0-2); Epithelial Cell Urine Auto 0-2 /hpf (0-2); Glucose Urine UA Negative (Negative); RBC Urine Automated >20 /hpf (0-2); WBC Urine Automated 0-5 /hpf (0-5)
[2025-06-17] MEDS ORDERED: DIPHENOXYLATE/ATROPINE 2.5/0.025MG TAB PEG PRN (16:03)
[2025-06-17] MEDS: BACLOFEN 10 MG TAB PEG ONE (16:08)
[2025-06-17 16:16] LABS: Sodium 130.0 mmol/L (136-145)
[2025-06-17] MEDS ORDERED: IBUPROFEN 200 MG/10 ML UDC PEG PRN (16:25)
[2025-06-17] MEDS ORDERED: Nursing to Pharmacy Communication SCH (16:30)
[2025-06-17 16:32] LABS: Thyroid Stimulating Hormone 19.663 uIu/ml (0.300-4.500)
[2025-06-17] MEDS ORDERED: ACETAMINOPHEN SUSP 325 MG/10.15 ML UDC PEG PRN (16:49)
[2025-06-17] MEDS ORDERED: DOCUSATE SODIUM SYRUP 100 MG/10 ML UDC PEG PRN (16:51)
[2025-06-17] MEDS: PATIENT'S OWN ENTERAL FEEDING PEG SCH (17:59)
[2025-06-17] MEDS: TUBE FEEDING WATER FLUSH PEG SCH (18:38)
[2025-06-17] MEDS: PHENobarbitaL 20 MG/5 ML PEG SCH (18:52)
[2025-06-17] MEDS: ALBUTEROL 0.083% NEBU SOLN 3 ML VIAL NEB SCH (20:01)
[2025-06-17] MEDS: SODIUM CHLOR 7% 4 ML NEB INH SCH (20:01)
[2025-06-17] MEDS: FUROSEMIDE 10 MG/ML PEG STA (20:14)
[2025-06-17] MEDS: LEVOTHYROXINE SODIUM 75 MCG TABLET GT SCH (20:16)
[2025-06-17] MEDS: MENTHOL-ZINC OXIDE 360 APPLN/120 GM TUBE EXT SCH (20:35)
[2025-06-17] MEDS ORDERED: LEVOTHYROXINE SODIUM 75 MCG TABLET PEG SCH (21:00)
[2025-06-17] MEDS ORDERED: BACLOFEN 10 MG TAB PEG SCH (21:00)
[2025-06-17] MEDS ORDERED: BACLOFEN 10 MG TAB PO SCH ×2 (21:00)
[2025-06-17] MEDS: LORazepam 1 MG TAB PEG PRN (21:55)
[2025-06-17 21:59] LABS: Protein Creatinine Ratio Urine 1.5 (0-0.2); Total Protein Urine Random 21.7 mg/dl (0-11.9)
[2025-06-17 22:02] VITALS: TEMP 90.9
[2025-06-17] MEDS: MELATONIN 3 MG TAB PEG SCH (22:13)
[2025-06-17] MEDS: MONTELUKAST SODIUM 10 MG TABLET PEG SCH (22:13)
[2025-06-17] MEDS: BACLOFEN 10 MG TAB PEG SCH (22:15)
[2025-06-17] MEDS: CETIRIZINE ORAL SOLN 1 MG/ML PEG SCH (22:16)
[2025-06-17] MEDS: SULFAMETHOXAZOLE/TRIMETHOPRIM DS 800/160MG TAB PO SCH (23:56)
[2025-06-18] MEDS: LOPERAMIDE LIQUID 120 ML BOTTLE PO PRN (01:01)
[2025-06-18] MEDS: LANSOPRAZOLE 30 MG SOLTAB PEG SCH (06:09)
[2025-06-18] MEDS: PHENobarbitaL 20 MG/5 ML PEG SCH (06:28)
--- NOTE | 2025-06-18 07:51 | XRay Report ---
EXAM: XR chest 1V portable CLINICAL HISTORY: f/u TECHNIQUE: An X-ray image of the chest was obtained in the AP projection. COMPARISON: 05/28/2025 08:58:42 ELA TEACHER FINDINGS: Pulmonary Parenchyma: There is redemonstration of bilateral lower zonal air space with patchy infiltration. There is partial improvement on the left side, with improved blunting of the costophrenic angle. Currently, haziness of the right upper lung zone is appreciated. A tracheostomy tube is seen in situ. There is blunting of the right costophrenic angle, likely due to a pleural effusion. Heart and Mediastinum: There is apparent cardiomegaly. No mediastinal widening or masses are seen. No hilar or mediastinal lymphadenopathy is noted. Bony Thorax: The bony thorax appears intact, without fractures or deformities. Soft Tissues: The soft tissues overlying the chest wall are unremarkable. IMPRESSION: 1. Redemonstration of bilateral lower zonal air space patchy infiltration, partially improved on the left side, with improved left pleural effusion. 2. Currently, haziness of the right upper lung zone is appreciated. 3. Blunting of the right costophrenic angle is likely due to pleural effusion. Stable. 4. Cardiomegaly, stable. Electronically signed by Aldair Albarran 06-18-2025 07:51 AM
[2025-06-18 08:14] VITALS: BP 101/67
[2025-06-18] MEDS: FUROSEMIDE 10 MG/ML PEG SCH (08:19)
[2025-06-18] MEDS: MULTI VIT W/MINERALS LIQUID 15 ML UDC PEG SCH (08:19)
[2025-06-18] MEDS: FLUTICASONE PROPIONATE NA SPR 16 GM BTL NAE SCH (08:22)
[2025-06-18] MEDS: INFLUENZA VACC TS2025-26(6m+)/PF (IIV3) 0.5mL Syr IM ONE (08:28)
[2025-06-18] MEDS: PNEUMOCOCCAL VACCINE (PCV20) 20-VAL CONJ-DIP CRM/PF 0.5 ML SYR IM ONE (08:28)
[2025-06-18 08:41] VITALS: RESP 20
[2025-06-18] MEDS ORDERED: LANSOPRAZOLE 30 MG SOLTAB PEG SCH (09:00)
[2025-06-18] MEDS ORDERED: SODIUM CHLOR 7% 4 ML NEB INH SCH (09:00)
[2025-06-18] MEDS ORDERED: CLOBETASOL 0.05% TOP SCH (09:00)
[2025-06-18 10:32] LABS: Base Excess VBG -3.2 mEq/L; HCO3 VBG 20 mmol/L; Oxygen Saturation VBG 88.1 %; PCO2 VBG 29 mmHg (38-50); PO2 VBG 53 mmHg; pH VBG 7.45 (7.36-7.41)
[2025-06-18 11:07] LABS: Cholesterol 154.0 mg/dl (0-200); HDL Cholesterol 65.0 mg/dl; Iron 18.0 mcg/dl (35-150); Total Iron Binding Cap Calc 263.0 mcg/dl (250-450); Transferrin 188.0 mg/dl (200-360); Transferrin (FE) Percent Satur 7.0 % (15-50); Triglycerides 98.0 mg/dl (0-150)
[2025-06-18 11:23] LABS: Hep B Surface Ag with confirm Negative (Negative)
[2025-06-18 11:26] LABS: Ferritin 170.8 ng/ml (8-388)
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
[2025-06-18 11:28] LABS: Hep C Ab Rflx HepCQuant RNA Negative (Negative)
--- NOTE | 2025-06-18 12:02 | Discharge Summary ---
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 Post bronchoscopy chest x-ray showed atelectasis, pulmonary edema, extensive bilateral airspace opacities similar to prior study, and moderate right and small left pleural effusions increased from previous. She has been requiring supplemental oxygen at home and has worsening anasarca. She was found to have hyponatremia at 128. She was hypothermic and bradycardic at the time of admission to the ICU which was not concerning for the mom as she says this frequently happens when she has been undressed in a hospital gown and cold rooms. #Acute and chronic respiratory failure with hypercapnia and hypoxemia/ventilator and tracheostomy dependent/anasarca-suspect worsening hypoxia is secondary to pleural effusions and heart failure. She has had some 2+ protein on previous UAs but now only with trace protein. BNP is normal however. Her albumin is only mildly low.. She is s/p bronchoscopy and tracheostomy exchange with pulmonology on the day of admission. Mom has given her increased doses of Lasix 40 mg a few times in the last week with some modest effect with the edema. Of note, patient does take in at least 2.5 L/day between her tube feeds, free water flushes, and flushes with medications as well as prune juice. -Consult pulmonology for ventilator management appreciated - Follow bronchoscopy lavage cultures-pending at time of dc (recently finished out Bactrim x 14 day course for stenotrophomonas likely colonized in trach) - Continue CoughAssist/chest PT and home nebulizers including hypertonic saline - Gave an extra dose of Lasix 20 mg per PEG tube and had increased diurese- change home lasix to 40mg daily - Check urine spot protein-creatinine ratio, 24 hr urine protein to be done at home - Consult nephrology for further evaluation appreciated-autoimmune workup commenced and should f/u as outpt, may need renal bx in future - Follow I's and O's, daily weights, intermittent cath-Turner removed prior to discharge - Dietitian consulted-decreased free water flushes by a total volume of 450 mL/day #Suspected acute on chronic HFpEF-with weight increased from previous, edema all 4 extremities and labia is worsening. With a history of congenital heart disease with preserved EF on echo from 04/2025. As noted above, suspect excessive fluid intake per PEG tube plus multiple recent hospitalizations all contributing to volume overload. - as above #Hyponatremia- Suspect hyponatremia secondary to heart failure/volume overload. Sodium 128 on admission and up to 131 after further diuretics given -follow BMP as outpt #Hypothermia/sinus bradycardia-temp 32.9 on arrival to the ICU, with sinus david ycardia in the 40s. Mom reports this is from exposure to being in the cardiopulmonary lab all day which was very cold ambient temperature - Apply Sarah ribeiro and mom did not think further temps were necessary as pt acting like herself - Ordered blood cultures and a lactate but mom declined to have labs drawn at this time which is reasonable-cancelled - TSH elevated but free T3 and free T4 checked as she has central hypothyroidism and were normal-continue same dose LT4 #Hyperglycemia-blood sugar normal on the morning of admission while n.p.o. and a random check in the evening at 168. Recent HgbA1c normal at 5.0% and has no history of diabetes. - venous glucose in the morning normal #Elevated alkaline phosphatase-this has been elevated off-and-on in the past and has known fatty liver. #Hmshbhxihcky-ejlnmsv-obd increases doses of MiraLAX at home and gives docusate as needed as well as senna. She had multiple bowel movements here after mom gave extra MiraLAX prior to admission - Continue MiraLAX, docusate, Senokot as needed - Can give bisacodyl suppositories as needed #Cerebral palsy/TEACHER EDUCATION DIRECTOR shunt/seizure disorder/tube feed dependent with PEG tube-no recent seizures, requires total care - Ordered similar tube feeds-appreciate dietitian consult, free water flushes reduced due to volume overload and hyponatremia - Continue home Keppra and phenobarbital-doses confirmed with mom - Continue frequent turning and skin care, tracheostomy care, PEG tube care #Central Hypothyroidism-TSH here is elevated at 20 but she has central hypothyroidism. FT3 and FT4 normal. Follows with endocrinology at [facility]-Dr. Rosario - Continue home levothyroxine dosing #Primary immunodeficiency-follows with allergy/immunology, is on Hizentra injections. 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 Post bronchoscopy chest x-ray showed atelectasis, pulmonary edema, extensive bilateral airspace opacities similar to prior study, and moderate right and small left pleural effusions increased from previous. The patient's mom provides the history as patient is nonverbal. She reports that patient has continued to become more and more edematous all over her body in the last couple of months including her labia. She also is now requiring supplemental oxygen with her ventilator which is unusual. The patient's PCP contacted me and forwarded me a message of communication from the patient's shot peen operator at [facility]-she recommended more of a nephrology type workup for causes of anasarca as she did not believe that this was all related to diastolic heart failure. The patient's mom did describe that she uses approximately 2.5 L/day of tube feeds, free water flushes after feeds, prune juice, and free water flushes with dissolving of her medications for PEG tube purposes. She will be admitted to the ICU for ventilator management and further workup for her anasarca. Upon arrival to the ICU, she was noted to be hypothermic at 32 Celsius and bradycardic in the 40s. Mom is not concerned about this and says the patient frequently gets hypothermic especially because she was in the cold pulmonology/Refinery Pipeline Operator for most of the day. A Sarah hugger was applied and her heart rate did improve along with her temperature. Mom also requested that an IV not be placed unless absolutely necessary because the patient is a hard stick and was quite edematous. She also requested that a rectal temperature not be performed after the initial temperature was obtained. Discharge Exam Constitutional + obese; no acute distress Neck + tracheostomy present and + thick neck; + abnormal visual inspection (Tracheostomy tube in place) Respiratory normal respiratory effort; no cough Auscultation: + diminished lung sounds (Bibasilar); no crackles, no rhonchi and no wheezes Cardiovascular Rate/Rhythm: regular rate and regular rhythm Heart Sounds: no murmur Extremities: + edema (3+ pitting edema all 4 extremities and labia) Gastrointestinal (Abdomen) Inspection/Auscultation: normal bowel sounds; + abdomen abnormal to inspection (PEG tube in place) and abdomen not distended Percussion/Palpation: abdomen soft; abdomen nontender Discharge Plan Discharge Items Patient Disposition: Home - Self-Care Reason For Visit: S/P TRACHEOSTOMY EXCHANGE/ATELECTASIS Discharge Diagnosis: Tracheostomy dependent Acute on chronic respiratory failure Anasarca, pleural effusion/volume overload from acute on chronic heart failure with preserved ejection fraction versus renal dysfunction Hyponatremia Iron deficiency anemia Condition on Discharge: Fair Activity: Resume your previous activity Non-emergency contact: Primary Care Provider, Museum Informatics Specialist and Tire Regrooving Machine Operator Call non-emergency contact if: you have any medication questions and your symptoms worsen Follow-up/Referrals: Sin Fitzpatrick MD [Primary Care Provider] - (Follow-up within 1-2 weeks) Jason Chin DO [Physician] - (Dr. Chin's office should contact you with your appointment date and time within 2 weeks) Ramiro Agosto MD [Physician] - (Follow-up as directed) Diet: Nothing by Mouth Diet Comment: Tube feeds Addtl Attending Provider Instructions: You were admitted after having a tracheostomy exchange for increased oxygen requirement. This is secondary to fluid in and around the lungs. You also have excessive fluid retention in your whole body. This could be from congestive heart failure but could also be from a kidney issue. Your Lasix dose will be increased to 40 mg once daily and you will need to follow-up with nephrology af ter discharge to continue the workup for any potential kidney issues. They will follow your kidney function with blood work as an outpatient. Please collect the 24-hour urine as we discussed and submit that on Saturday. Please cut the free water flushes down to 100 mL after each of her 3 feedings. This will help reduce her swelling. You were found to be anemic and iron deficient-please add supplemental iron per PEG tube. This can cause constipation and dark stools which may require increased doses of laxatives. As per pulmonology: We exchanged Stefany's trach to the same distal size 6 shiley xlt as that is what we currently have available. She has some significant atelectasis of the bilateral lower lobes. Because of this, I increased her minimum EPAP setting to 10 cm H20 to help "inflate" the lower lobes of her lungs. There was some mild bleeding after the new trach was exchanged which should resolve over the next 24 hours or so. The ultrasound of her left arm was negative for DVT. I also think sinus secretions are playing a significant role in her symptoms and I will send pseudophed and Atrovent nasal spray to [facility] pharmacy. Pending Studies at Discharge: Yes (GIANNI, ANCA, C3, C4, free kappa lambda, anti- DNAse, hepatitis panel) Studies:: Bronchoscopy culture Stand-Alone Forms: My [facility] Medications and DC Order Prescriptions: New ipratropium bromide 21 mcg (0.03 %) spray,non-aerosol 2 spray intranasal BID Qty: 30 0RF Rx Instructions: administer into each nostril pseudoephedrine HCl 30 mg tablet 30 mg PO Q6H Qty: 90 1RF ferrous sulfate 300 mg (60 mg iron)/5 mL liquid 300 mg feeding tube DAILY Qty: 1 0RF Rx Instructions: Bvow-ney-emhvlnq Continued (DME) disposable gloves [Disposable Latex-Free Gloves] Misc See Rx Instructions .ROUTE .MEDSUPPLY Qty: 1200 11RF Rx Instructions: As directed Calmoseptine 0.44-20.6 % ointment 1 applic TOP BID Qty: 113 5RF Rx Instructions: around trach tramadol 50 mg tablet 50 mg feeding tube BID PRN (Reason: Pain) Qty: 60 1RF sennosides [senna] 8.8 mg/5 mL syrup 8.8 mg PO HS PRN (Reason: Constipation) Qty: 236 5RF azelastine 137 mcg (0.1 %) spray,non-aerosol 1 spray intranasal DAILY PRN (Reason: Allergy Symptoms) Qty: 30 6RF Rx Instructions: administer into each nostril Capex 0.01 % shampoo 30 ml topical DAILY Qty: 120 3RF lorazepam [Ativan] 1 mg tablet 1 mg PO DAILY PRN (Reason: anxiety) Qty: 30 2RF Rx Instructions: rare use lansoprazole [Prevacid SoluTab] 30 mg tablet,disintegrat, delay rel 30 mg feeding tube QAM Qty: 90 3RF clobetasol [Clodan] 0.05 % shampoo 1 applic topical DAILY Qty: 118 6RF docusate sodium 50 mg/15 mL syrup See Rx Instructions feeding tube BID PRN (Reason: Constipation) Qty: 118 5RF Rx Instructions: 10mL feeding tube BID PRN; medroxyprogesterone 150 mg/mL syringe 150 mg IM .q12wk Qty: 1 0RF Rx Instructions: PT NO LONGER SEES OBGYN. MOM STATES ENDO IS NOW PRESCRIBING. acetaminophen 160 mg/5 mL liquid 640 mg PO Q8H PRN (Reason: pain) Qty: 473 2RF albuterol sulfate 2.5 mg /3 mL (0.083 %) solution for nebulization 2.5 mg inhalation Q6H PRN (Reason: Wheezing) Qty: 360 3RF fluticasone propionate [Flonase Allergy Relief] 50 mcg/actuation spray,suspension 1 spray intranasal DAILY Qty: 16 5RF Rx Instructions: administer into each nostril ibuprofen 100 mg/5 mL suspension 600 mg feeding tube Q6H PRN (Reason: Fever Or Pain) Qty: 473 3RF Rx Instructions: use as needed ipratropium bromide 0.02 % solution 2.5 ml inhalation QID PRN (Reason: shortness of breath or wheezing) Qty: 75 6RF phenobarbital 60 mg tablet 60 mg PO .COMPLEX Qty: 270 0RF Rx Instructions: 60 mg orally IN THE AM AND 2 TABS IN THE PM VIA FEEDING TUBE; TOTAL DAILY DOSE 90MG IN AM AND 120MG IN PM phenobarbital 30 mg tablet 30 mg PO .COMPLEX Qty: 90 0RF Rx Instructions: 30 mg orally QAM VIA FEEDING TUBE. TAKE WITH 60MG FOR A TOTAL AM DOSE OF 9 0MG (DME) Miscellaneous Pulmonary Supply Misc See Rx Instructions .Route Qty: 1 0RF Rx Instructions: BPM 14 breaths, TV 300 mL, PS min 6/max 25 sodium chloride 0.9 % solution for nebulization 3 ml inhalation QID PRN (Reason: shortness of breath or wheezing) Qty: 300 3RF mupirocin 2 % ointment 1 applic topical TID Qty: 22 0RF (DME) Miscellaneous Pulmonary Supply Misc See Rx Instructions .Route Qty: 1 0RF Rx Instructions: Trilogy vent adjustment: Target tidal volume of 400 to 420 mL diphenoxylate-atropine [Lomotil] 2.5-0.025 mg tablet See Rx Instructions PO .COMPLEX PRN (Reason: diarrhea) Qty: 30 1RF Rx Instructions: 1-2 tablets orally up to four times daily PRN; (DME) Miscellaneous Pulmonary Supply Misc See Rx Instructions .Route Qty: 2 11RF Rx Instructions: Size 6 cuffed Shiley XLT tracheostomy. 2 trach's per month. (DME) Miscellaneous Pulmonary Supply Misc See Rx Instructions .Route Qty: 4 6RF Rx Instructions: Inner cannula for size 6 xlt shiley tracheostomy to be changed weekly (DME) Oxygen Home Liters Per Minute See Rx Instructions .ROUTE .MEDSUPPLY Qty: 1 0RF Rx Instructions: High flow oxygen concentrator cannabidiol 100 mg/mL solution 100 - 150 mg G-tube AMHS Patient Comments: 0.5mL every a.m., 1mL every p.m. ; Rx Instructions: 1.5ML QAM - 1ML QPM Hizentra 10 gram/50 mL (20 %) solution See Rx Instructions subcut .COMPLEX Qty: 120 11RF Rx Instructions: INFUSE 12GM SQ subcutaneously EVERY 2 WEEKS [employer] GOOD 09/21/24-03/21/25 MONALISA [id number] GOOD loperamide 2 mg capsule 2 mg PO Q6H PRN (Reason: Diarrhea) baclofen 5 mg tablet 5 mg PO TID 90 Days Qty: 270 3RF Rx Instructions: take with the 10 mg tab to equal 15mg three times daily baclofen 10 mg tablet 10 mg PO TID 90 Days Qty: 270 3RF Rx Instructions: take with the 5 mg tab to equal 15mg three times daily levetiracetam [Keppra] 750 mg tablet 750 mg PO BID 90 Days Qty: 180 3RF Rx Instructions: PER G-TUBE at 0700 and 1830 olopatadine 0.2 % drops 1 drp ophthalmic (eye) DAILY PRN (Reason: itching) Qty: 2.5 11RF lidocaine-prilocaine 2.5-2.5 % cream 1 applic topical ONCE PRN (Reason: prior to injections) Qty: 50 6RF (DME) Allevyn Tracheostomy Dressing 3.5 X 3.5 " bandage See Rx Instructions .Route Qty: 80 3RF Rx Instructions: As directed (DME) Miscellaneous Pulmonary Supply Misc See Rx Instructions .Route Qty: 2 11RF Rx Instructions: Biovana Trach [id number]: ID 6mm OD 9.2mm Length 110mm (DME) Miscellaneous Pulmonary Supply Misc See Rx Instructions .Route Qty: 60 8RF Rx Instructions: 5 mL saline bullets for ventilator clearance polyethylene glycol 3350 [Miralax] 17 gram Powder In Packet 17 g feeding tube BID PRN (Reason: Constipation) Multivitamin Women 50 Plus 8 mg iron-400 mcg-50 mcg Tablet 0.5 tab PO QAM diclofenac sodium 1 % Gel 2 g TOPICAL TID PRN (Reason: Pain in Knees) cetirizine [Zyrtec] 10 mg tablet 10 mg PO HS albuterol sulfate [Ventolin HFA] 90 mcg/actuation HFA aerosol inhaler 2 puff inhalation QID PRN (Reason: Wheezing) diazepam 12.5-15-17.5-20 mg kit 12.5 mg LA DIRECTED PRN (Reason: seizure activity) Rx Instructions: 12.5 mg rectally Give 1 dose for seizure activity lasting more than 5 minutes or seizure clusters without return to baseline PRN; melatonin 5 mg capsule 5 mg feeding tube HS montelukast [Singulair] 10 mg tablet 10 mg feeding tube HS sodium chloride 7 % solution for nebulization 4 ml inhalation DAILY Qty: 240 3RF oxybutynin chloride 5 mg tablet 5 mg PO TID Rx Instructions: 7AM,2;30PM,11PM levothyroxine 75 mcg tablet 75 - 150 mcg PO DIRECTED Rx Instructions: Wednesdays takes 2 (150 mcg), rest of days 75mcg TAKES AT 9PM pseudoephedrine HCl 30 mg tablet See Rx Instructions .ROUTE .COMPLEX PRN (Reason: Nasal Congestion) Rx Instructions: ADMINISTER 1 TABLET VIA FEEDING TUBE EVERY 6 HOURS NEEDED FOR NASAL DECONGESTION Changed furosemide [Lasix] 20 mg tablet 40 mg PO DAILY Qty: 60 0RF Discontinued naproxen 500 mg tablet 500 mg PO BID PRN (Reason: pain) Qty: 60 5RF sulfamethoxazole-trimethoprim [Bactrim DS] 800-160 mg tablet 1 tab PO BID 14 Days Qty: 28 2RF azithromycin 200 mg/5 mL suspension for reconstitution See Rx Instructions PO .COMPLEX Qty: 30 0RF Rx Instructions: patient taking 5ml daily x 30 days after completing bactrim dexamethasone 1 mg tablet 1 mg feeding tube UD Qty: 30 3RF Rx Instructions: gets for pre-treatment GIVE 1 mg prior to Hizentra q2 weeks amoxicillin-pot clavulanate 400-57 mg/5 mL suspension for reconstitution 10 ml G-tube BIDM Rx Instructions: Stopped taking 05/31 - diarrhea Discharge Orders: Discharge Order (Routine); Ordered 06/18/25 Ordered By: Melissa Valdes Admission Data Admit Date/Time: 06/17/25 14:36 Attending Provider: Melissa Valdes Admit Provider: Melissa Valdes Primary Care Provider: Sin Fitzpatrick V. Other Providers: Ramiro Agosto; Lennie Pisano Other Interventions: Discharge Summary Assessment (RN) Last Done: 06/18/25 13:13 Hospital Stay Data Consultations 06/17/25 14:47 Consult Pulmonology Routine 06/17/25 15:38 Consult Nephrology Routine Procedures Performed Operation Date: 06/17/25 07:00 Actual Procedures p Bronchoscopy - Ramiro Agosto MD Diagnostic Imagining Performed 06/17/25 08:52 US venous doppler UE LT Urgent 06/17/25 09:04 US abdomen complete Routine Pending Results Patient Have Any Pending Studies at Discharge: Yes (GIANNI, ANCA, C3, C4, free kappa lambda, anti-DNAse, hepatitis panel) Discharge Instructions Given to Patient (Per Discharging Provider) You were admitted after having a tracheostomy exchange for increased oxygen requirement. This is secondary to fluid in and around the lungs. You also have excessive fluid retention in your whole body. This could be from congestive heart failure but could also be from a kidney issue. Your Lasix dose will be increased to 40 mg once daily and you will need to follow-up with nephrology after discharge to continue the workup for any potential kidney issues. They will follow your kidney function with blood work as an outpatient. Please collect the 24-hour urine as we discussed and submit that on Saturday. Please cut the free water flushes down to 100 mL after each of her 3 feedings. This will help reduce her swelling. You were found to be anemic and iron deficient-please add supplemental iron per PEG tube. This can cause constipation and dark stools which may require increased doses of laxatives. As per pulmonology: We exchanged Stefany's trach to the same distal size 6 shiley xlt as that is what we currently have available. She has some significant atelectasis of the bilateral lower lobes. Because of this, I increased her minimum EPAP setting to 10 cm H20 to help "inflate" the lower lobes of her lungs. There was some mild bleeding after the new trach was exchanged which should resolve over the next 24 hours or so. The ultrasound of her left arm was negative for DVT. I also think sinus secretions are playing a significant role in her symptoms and I will send pseudophed and Atrovent nasal spray to [facility] pharmacy. Total Time Total Time Spent Total Time Spent (In Minutes): 45 minutes Total Time Includes: Examination of the Patient, Discharge Planning, Medication Reconciliation and Communication With Other Providers (Nephrology, pulmonology) Coding Level of Care Code 77488 INP/OBS DISCH >30 MIN Diagnoses Acute and chronic respiratory failure, unspecified whether with hypoxia or hypercapnia J96.20 Anasarca R60.1 Acute hyponatremia E87.1 Proteinuria R80.9
[2025-06-18 12:14] LABS: Protein Creatinine Ratio Urine 2.3 (0-0.2); Total Protein Urine Random 34.2 mg/dl (0-11.9)
[2025-06-18] MEDS: ALBUTEROL 0.083% NEBU SOLN 3 ML VIAL NEB PRN (12:20)
[2025-06-18 12:21] LABS: Anion Gap 14.0 (3-11); Blood Urea Nitrogen 47.0 mg/dl (6-23); Calcium 8.2 mg/dl (8.6-10.3); Carbon Dioxide 18.0 mmol/L (21-32); Chloride 99.0 mmol/L (98-107); Creatinine Clr Calc Pharmacy 83.7 ml/min; Glucose 85.0 mg/dl (70-99(Fasting)); Potassium 4.0 mmol/L (3.5-5.1); Sodium 131.0 mmol/L (136-145)
[2025-06-18 12:41] VITALS: PULSE 58; O2SAT 94
--- NOTE | 2025-06-18 12:44 | Pulmonology Progress Note ---
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 Who presented to [facility] on 06/17/25 for a planned trach change. Post procedure patient noted to have bibasilar atelectasis and peripheral edema necessitating admission for further evaluation and management. Bibasilar atelectasis; Ventilator dependent hypercapneic and hypoxic respiratory failure -Patient on home vent with EPAP increased to /15 -CXR this am shows improved aeration with noted persistent atelectasis. -Trach site clean without significant bleeding. -VBG 7.45/29/53/20 Peripheral edema noncardiogenic appearing -Work up initiated to include 24hr urine started. -Nephro following. -PCP aware and gave recs for workup. -Patient should follow up outpatient. Thank you for allowing us to participate in this patient's care. Please feel free to reach out with questions or concerns. 40 minutes is the time spent reviewing the chart, obtaining history, performing the physical exam, working with specialists and hospitalist service and updating the patient's family. Admission and Anticipated Discharge Date Admission Date: June 17, 2025 Supervising Physician Co-Signing Physician Notes [facility] cultures growing Pseudomonas aeruginosa and E. coli. Sensitivities pending. Patient clinically improved today with improved sodium levels. Hyponatremia likely related to hypothyroidism, volume retention and high free water intake. Patient's mother educated by dietitian to help reduce free water intake. Patient seems to be tolerating size 6 distal XLT Shiley trach. Bivona trach is currently on backorder. I will follow-up with her in pulmonary clinic in about 2 weeks. Subjective Patient at baseline neuro exam. CXR shows improvement in aeration of bilateral lower lobes. Small amount of bleeding noted around trach site. Workup initiated for etiology of noncardiogenic edema with assistance from nephrology. Review of Systems 2 Review of Systems: Unobtainable due to cognitive status Physical Exam 2 Constitutional: VITALS: Reviewed. WEIGHT/BMI reviewed. GEN: Patient lying in bed on vent in no acute distress. PSYCH: Unable to assess. HEENT -Head: NC/AT; -Eyes: PERRL, EOMI. No discharge or redn ess; -Ears: External ears are normal. -Nose: Normal nares. NECK: Supple, with no masses. CV: RRR, no m/r/g. LUNGS: Clear in b/l upper lobes. Diminished in lower lobes. Chest rise symmetrical. ABD: Soft, NT/ND, NBS, no masses or organomegaly. : Turner with clear/yellow urine. SKIN: Warm, well perfused. No skin rashes or abnormal lesions. MSK: No deformities, Normal gait. EXT: No clubbing, cyanosis, or edema. NEURO: Opens eyes spontaneously, spastic extremities, Nonverbal. Results & Data Results & Data Vital Signs (Past 12 Hours) Vital Signs Pulse Pulse Resp BP Pulse Ox O2 Del Method O2 Flow Rate 06/18/25 12:30 58 L 20 94 Mechanical Vent 6 06/18/25 09:01 63 06/18/25 08:00 Mechanical Vent 2 06/18/25 08:00 61 20 91 06/18/25 08:00 66 22 101/67 91 Mechanical Vent 2 06/18/25 07:45 64 20 91 Mechanical Vent 2 06/18/25 05:57 52 L 19 96/62 L 94 Mechanical Vent 2 FiO2 06/18/25 12:30 06/18/25 09:01 06/18/25 08:00 06/18/25 08:00 26 06/18/25 08:00 06/18/25 07:45 06/18/25 05:57 Laboratory Results 06/17/25 08:44 06/18/25 10:18 Abnormal Lab Results 06/17/25 06/17/25 06/17/25 15:36 15:45 18:02 VBG pH VBG pCO2 VBG pO2 VBG HCO3 VBG O2 Saturation VBG Base Excess Sodium 130 L Potassium Chloride Carbon Dioxide Anion Gap BUN Creatinine Est Cr Clr Drug Dosing eGFR BUN/Creatinine Ratio Glucose POC Glucose Calcium Iron TIBC Transferrin Transferrin % Sat Ferritin Triglycerides Cholesterol LDL Cholesterol, Calc VLDL Cholesterol, Calc HDL Cholesterol Cholesterol/HDL Ratio TSH 19.663 H Free T4 Cancelled 0.85 Free T3 Random Cortisol 12.13 Urine Color Yellow Urine Appearance Clear Urine pH 6.5 Ur Specific [place] 1.007 Urine Protein Trace H Urine Glucose (UA) Negative Urine Ketones Negative Urine Blood 3+ H Urine Nitrite Negative Urine Bilirubin Negative Urine Urobilinogen Negative Ur Leukocyte Esterase Trace H Urine WBC (Auto) 0-5 Urine RBC (Auto) >20 H U Hyaline Cast (Auto) 0-2 U Epithel Cells (Auto) 0-2 Urine Bacteria (Auto) None Seen Urine Osmolality 144 L Ur Random Creatinine 14.9 U Random Total Protein 21.7 H Ur Random Sodium < 10 Protein/Creatinin Ratio 1.5 H U Free [place] Light Ch U Free Lambda Light Ch U Free [place]/Lambda Urine Comment Nasal Screen MRSA (PCR) Positive A Hep Bs Antigen Hepatitis C Antibody 06/17/25 06/17/25 06/18/25 18:20 23:08 01:26 VBG pH VBG pCO2 VBG pO2 VBG HCO3 VBG O2 Saturation VBG Base Excess Sodium Potassium Chloride Carbon Dioxide Anion Gap BUN Creatinine Est Cr Clr Drug Dosing eGFR BUN/Creatinine Ratio Glucose POC Glucose 168 H 68 L* 108 H Calcium Iron TIBC Transferrin Transferrin % Sat Ferritin Triglycerides Cholesterol LDL Cholesterol, Calc VLDL Cholesterol, Calc HDL Cholesterol Cholesterol/HDL Ratio TSH Free T4 Free T3 Random Cortisol Urine Color Urine Appearance Urine pH Ur Specific [place] Urine Protein Urine Glucose (UA) Urine Ketones Urine Blood Urine Nitrite Urine Bilirubin Urine Urobilinogen Ur Leukocyte Esterase Urine WBC (Auto) Urine RBC (Auto) U Hyaline Cast (Auto) U Epithel Cells (Auto) Urine Bacteria (Auto) Urine Osmolality Ur Random Creatinine U Random Total Protein Ur Random Sodium Protein/Creatinin Ratio U Free [place] Light Ch U Free Lambda Light Ch U Free [place]/Lambda Urine Comment Nasal Screen MRSA (PCR) Hep Bs Antigen Hepatitis C Antibody 06/18/25 06/18/25 06/18/25 06:11 09:57 09:58 VBG pH VBG pCO2 VBG pO2 VBG HCO3 VBG O2 Saturation VBG Base Excess Sodium Potassium Chloride Carbon Dioxide Anion Gap BUN Creatinine Est Cr Clr Drug Dosing eGFR BUN/Creatinine Ratio Glucose POC Glucose 83 Calcium Iron TIBC Transferrin Transferrin % Sat Ferritin Triglycerides Cholesterol LDL Cholesterol, Calc VLDL Cholesterol, Calc HDL Cholesterol Cholesterol/HDL Ratio TSH Free T4 Free T3 2.35 Random Cortisol Urine Color Urine Appearance Urine pH Ur Specific [place] Urine Protein Urine Glucose (UA) Urine Ketones Urine Blood Urine Nitrite Urine Bilirubin Urine Urobilinogen Ur Leukocyte Esterase Urine WBC (Auto) Urine RBC (Auto) U Hyaline Cast (Auto) U Epithel Cells (Auto) Urine Bacteria (Auto) Urine Osmolality Ur Random Creatinine U Random Total Protein Ur Random Sodium Protein/Creatinin Ratio U Free [place] Light Ch Cancelled U Free Lambda Light Ch Cancelled U Free [place]/Lambda Cancelled Urine Comment Nasal Screen MRSA (PCR) Hep Bs Antigen Negative Hepatitis C Antibody Negative 06/18/25 06/18/25 10:18 Unknown VBG pH 7.45 H VBG pCO2 29 L VBG pO2 53 VBG HCO3 20 VBG O2 Saturation 88.1 VBG Base Excess -3.2 Sodium 131 L Potassium 4.0 Chloride 99 Carbon Dioxide 18 L Anion Gap 14 H BUN 47 H Creatinine 1.11 Est Cr Clr Drug Dosing 83.7 eGFR 71.63 BUN/Creatinine Ratio 42.3 H Glucose 85 POC Glucose Calcium 8.2 L Iron 18 L TIBC 263 Transferrin 188 L Transferrin % Sat 7 L Ferritin 170.8 Triglycerides 98 Cholesterol 154 LDL Cholesterol, Calc 69 VLDL Cholesterol, Calc 20 HDL Cholesterol 65 Cholesterol/HDL Ratio 2.4 TSH Free T4 Free T3 Random Cortisol Urine Color Urine Appearance Urine pH Ur Specific [place] Urine Protein Urine Glucose (UA) Urine Ketones Urine Blood Urine Nitrite Urine Bilirubin Urine Urobilinogen Ur Leukocyte Esterase Urine WBC (Auto) Urine RBC (Auto) U Hyaline Cast (Auto) U Epithel Cells (Auto) Urine Bacteria (Auto) Urine Osmolality Ur Random Creatinine 15.1 U Random Total Protein 34.2 H Ur Random Sodium Protein/Creatinin Ratio 2.3 H U Free [place] Light Ch U Free Lambda Light Ch U Free [place]/Lambda Urine Comment Nasal Screen MRSA (PCR) Hep Bs Antigen Hepatitis C Antibody Diagnostic Findings Chest X-Ray 06/18/25 07:00 EXAM: XR chest 1V portable CLINICAL HISTORY: f/u TECHNIQUE: An X-ray image of the chest was obtained in the AP projection. COMPARISON: 05/28/2025 08:58:42 DRIVING INSTRUCTOR FINDINGS: Pulmonary Parenchyma: There is redemonstration of bilateral lower zonal air space with patchy infiltration. There is partial improvement on the left side, with improved blunting of the costophrenic angle. Currently, haziness of the right upper lung zone is appreciated. A tracheostomy tube is seen in situ. There is blunting of the right costophrenic angle, likely due to a pleural effusion. Heart and Mediastinum: There is apparent cardiomegaly. No mediastinal widening or masses are seen. No hilar or mediastinal lymphadenopathy is noted. Bony Thorax: The bony thorax appears intact, without fractures or deformities. Soft Tissues: The soft tissues overlying the chest wall are unremarkable. IMPRESSION: 1. Redemonstration of bilateral lower zonal air space patchy infiltration, partially improved on the left side, with improved left pleural effusion. 2. Currently, haziness of the right upper lung zone is appreciated. 3. Blunting of the right costophrenic angle is likely due to pleural effusion. Stable. 4. Cardiomegaly, stable. Electronically signed by Aldair Albarran 06-18-2025 07:51 AM PG Care Time/CCT Total # of Minutes Spent Total Time Spent with Patient: Total time spent is greater than 50% in coordination of care (as documented) at patient's floor/unit and/or counseling patient: Coding Level of Care Code 33891 SUB INP/OBS CARE 2/35MIN Diagnoses Proteinuria R80.9 Anasarca R60.1 Acute and chronic respiratory failure, unspecified whether with hypoxia or hypercapnia J96.20 Tracheostomy dependent Z93.0 Acute hyponatremia E87.1
[2025-06-18] MEDS ORDERED: LEVOTHYROXINE SODIUM 100 MCG TABLET GT SCH (21:00)
[2025-06-23 08:08] LABS: Kappa Light Chain, Free, Urine 32.71 mg/L (<=32.90); Kappa/Lambda, Free Ratio, Ur 5.66 (<=8.69); Lambda Light Chain, Free, Ur 5.78 mg/L (<=3.79)
[2025-06-23] MEDS ORDERED: LEVOTHYROXINE SODIUM 75 MCG TABLET PEG SCH (21:00)
== END 2025-06-18 14:58 | disposition home or self-care (01) ==
LOC: CC 07:19 → 1E 14:36 → INTOOBSV 14:36

== ENCOUNTER 2025-08-17 11:55 | Inpatient (IN) ==
[2025-08-17 15:52] LABS: Hematocrit (blood only) 33.7 % (37.0-47.0); Hemoglobin 10.7 g/dL (12.0-16.0); Immature Granulocytes # (auto) 0.01 K/uL (0.01-0.20); Immature Granulocytes % (auto) 0.3 %; Mean Corpuscular Hemoglobin 32.3 pg (25.0-34.0); Mean Corpuscular Volume 101.8 fL (80.0-100.0); Platelet Count 168 K/uL (130-400); RDW Standard Deviation 83.5 fL (36.4-46.3); Red Blood Count 3.31 M/uL (4.20-5.40); White Blood Count 3.65 K/ul (4.8-10.8)
[2025-08-17] MEDS: LIDOCAINE 2% LOCAL 50 ML VIAL ONE (16:00)
[2025-08-17] MEDS: KETOROLAC TROMETHAMINE 15 MG/ML VIAL IV ONE (16:00)
[2025-08-17] MEDS: Patient's HEIGHT &/or WEIGHT Needed STA (16:07)
[2025-08-17 16:10] LABS: Alanine Aminotransferase 97.0 U/L (7-52); Albumin Globulin Ratio 0.9 (0.9-2); Albumin Level 3.4 gm/dl (3.4-5.0); Alkaline Phosphatase 376.0 U/L (34-104); Anion Gap 11.0 (3-11); Bilirubin,Total 0.3 mg/dl (0.2-1.0); Blood Urea Nitrogen 44.0 mg/dl (6-23); Calcium 8.4 mg/dl (8.6-10.3); Carbon Dioxide 19.0 mmol/L (21-32); Chloride 111.0 mmol/L (98-107); Creatinine Clr Calc Pharmacy 101.8 ml/min; Globulin 3.8 gm/dl (2.5-4.0); Glucose 99.0 mg/dl (70-99(Fasting)); Iron 100.0 mcg/dl (35-150); Magnesium 3.8 mg/dl (1.7-2.4); Potassium 3.8 mmol/L (3.5-5.1); Sodium 141.0 mmol/L (136-145); Total Iron Binding Cap Calc 297.0 mcg/dl (250-450); Total Protein 7.2 gm/dl (6.0-8.3); Transferrin 212.0 mg/dl (200-360); Transferrin (FE) Percent Satur 34.0 % (15-50)
[2025-08-17 16:13] LABS: Anisocytosis Present
[2025-08-17] MEDS ORDERED: Nursing to Pharmacy Communication SCH ×5 (16:15→22:45)
[2025-08-17 16:17] LABS: INR 1.1 (0.9-1.1); Prothrombin Time 11.7 Seconds (9.0-12.0)
[2025-08-17 16:27] LABS: T4 Free Thyroxine 0.88 ng/dl (0.61-1.60)
[2025-08-17] MEDS ORDERED: VANCOMYCIN CONSULT ACTIVE PRN (16:50)
--- NOTE | 2025-08-17 16:56 | Procedure Note ---
Procedure Note Date of Service August 17, 2025 Written consent was obtained from the patient's mother prior to the procedure and witnessed by bedside nursing. Timeout performed immediately prior to procedure. Limited thoracic ultrasound performed of the right pleural space. Thin septations were noted in the right pleural effusion. The effusion appeared large with compressive atelectasis noted. PIGTAIL CATHETER PLACEMENT NOTE: Procedure: Pigtail Catheter Chest Tube Placement Indication: Loculated right pleural effusion Anesthesia: 20 ml Lidocaine 2% Written consent was obtained and placed on the chart. Timeout was done prior to the procedure. Prior to procedure, chest x-ray films were reviewed by myself and demonstrated loculated large right pleural effusion. A time-out was completed verifying correct patient, procedure, site, positioning, and implant(s) or special equipment if applicable. Utilizing bedside ultrasound, chest wall was evaluated for location for optimal chest tube placement. Location between the fifth and sixth ribs were marked on the skin using gentle pressure. The right sided chest wall was prepped with chlorhexidine and draped in the typical sterile fashion. 20 mL of 2% Lidocaine without epinephrine was used to anesthetize the skin down to the dorsal surface of the sixth rib. Serosanguineous pleural fluid return confirmed entry into the pleural space. Lidocaine was injected into the pleural space for increased anesthetization. Introducer needle on syringe was inserted in perpendicular fashion taking care to ride just above the dorsal surface of the sixth rib. Entry into the pleural space was heralded by serosanguineous pleural fluid return into the syringe while under gentle aspiration. Guide wire was advanced into the pleural space without resistance and the introducer needle was subsequently removed. Scalpel was used to make small incision of the kay perficial tissue, parallel to the direction of the rib anatomy. Dilator was advanced uneventfully over the guide wire into the pleural space. 14 [place] Pigtail Catheter was inserted into the pleural space. Inner introducer and guide wire were removed. Drain was immediately connected to pre-prepared RIGOBERTO pleur- evac system. Pigtail was sutured securely in place and sterile dressing was applied. Chest tube was placed to -10 cmH2O suction. Patient tolerated procedure well. Thus far 600 mL of pleural fluid taken out. Pleural fluid sent for cultures, cytology and cell counts. Blood Loss: Minimal Complications: None Post procedure Chest X-ray was ordered and reviewed by myself which demonstrated adequate placement. [facility] [place] Procedure Codes (Charges) Pulmonary/Thoracic Procedure 1: Pulmonary and Thoracic: 42356 Tube thoracostomy Procedure 2: Pulmonary and Thoracic: 68319 US, Chest, real time with imaging documentation Coding CPT Codes Pulmonary/Thoracic - Pulmonary and Thoracic: 43746 Tube thoracostomy ([id number]) Pulmonary/Thoracic - Pulmonary and Thoracic: 58847 US, Chest, real time with imaging documentation ([id number]) Additional Codes Date of Service ([email or web address])
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
[2025-08-17] MEDS ORDERED: PSEUDOEPHEDRINE HCL 30 MG TAB PEG PRN (17:15)
[2025-08-17] MEDS ORDERED: LORazepam 1 MG TAB PEG PRN (17:15)
[2025-08-17] MEDS ORDERED: LIDOCAINE/PRILOCAINE 2.5% EA CRM EXT PRN (17:15)
[2025-08-17] MEDS ORDERED: DIAZEPAM PR PRN (17:15)
[2025-08-17] MEDS ORDERED: SENNOSIDES 8.8 MG/5 ML UDC PO PRN (17:15)
[2025-08-17] MEDS ORDERED: NON-FORMULARY MEDICATION (Oxygen Home Liters per Minute) SCH ×2 (17:15)
[2025-08-17] MEDS ORDERED: LOPERAMIDE HCL 2 MG CAP PO PRN (17:15)
[2025-08-17] MEDS ORDERED: DOCUSATE SODIUM SYRUP 100 MG/10 ML UDC PEG PRN (17:15)
[2025-08-17] MEDS ORDERED: ALBUTEROL HFA 8 GM INHALER INH PRN (17:15)
[2025-08-17] MEDS ORDERED: DIPHENOXYLATE/ATROPINE 2.5/0.025MG TAB PEG PRN (17:15)
[2025-08-17] MEDS ORDERED: ACETAMINOPHEN SUSP 160 MG/5 ML BTL PO PRN ×3 (17:26→19:02)
[2025-08-17 17:43] LABS: Appearance Pleural Fluid Bloody; Color Pleural Fluid Red; RBC Pleural Fluid Auto 112000 /uL; Source Pleural Fluid Right Lung; WBC Pleural Fluid Auto 667 /uL
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
[2025-08-17] MEDS: VANCOMYCIN HCL 1,750 MG in SODIUM CHLORIDE 0.9% 500 ML IV ONE (18:06)
[2025-08-17] MEDS: 4.5GM X1 IV STA (18:06)
[2025-08-17] MEDS: diphenhydrAMINE 50 MG/ML VIAL IV PRN (18:06)
[2025-08-17] MEDS: PLASMA-LYTE A 1,000 ML IV SCH (18:07)
[2025-08-17] MEDS: ACETAMINOPHEN SUSP 325 MG/10.15 ML UDC NG PRN (18:07)
[2025-08-17] MEDS: HYDROmorphone INJ 0.5 MG/0.5 ML SYR IV PRN (18:29)
[2025-08-17] MEDS: METHENAMINE HIPPURATE 1 GM TAB PO SCH (18:30)
[2025-08-17] MEDS: ALBUTEROL 0.083% NEBU SOLN 3 ML VIAL INH SCH ×2 (18:50→20:46)
--- NOTE | 2025-08-17 18:59 | XRay Report ---
EXAM: Portable AP chest radiograph TECHNIQUE: AP portable radiograph of the chest was obtained. INDICATION: Shortness of breath Comparison: Chest radiograph July 16, 2025 FINDINGS: LINES and TUBES: Tracheostomy. Right basilar pleural catheter. Redemonstrated right CLOSING SPECIALIST shunt. CARDIOVASCULAR: Cardiac silhouette is stably enlarged. LUNGS/PLEURA: Interval improvement of the bibasilar densities obscuring the hemidiaphragms likely representing small layering pleural fluids and associated atelectasis. Superimposed pneumonia is not excluded. Mild pulmonary vascular congestion appears similar to previous. No discernible pneumothorax. OSSEOUS/OTHER: No displaced acute osseous process identified. IMPRESSION: Right basilar pleural catheter is seen. Interval improvement of the bibasilar densities obscuring the hemidiaphragms likely representing small layering pleural fluids and associated atelectasis. Superimposed pneumonia is not excluded. Electronically signed by Angel Eid 08-17-2025 6:58 PM
[2025-08-17] MEDS: PLASMA-LYTE A 500 ML IV ONE (19:25)
--- NOTE | 2025-08-17 19:47 | XRay Report ---
Technique: 2 frontal views of the chest were obtained Comparison is made to the prior examination obtained earlier today Findings: There has been interval decrease in size of a right pleural effusion. There is a new right-sided pigtail catheter. There is hazy right mid and lower lung opacity that could be due to either atelectasis or pneumonia. The heart size is within normal limits. No definite pneumothorax is seen. A tracheostomy catheter is again seen No fracture is noted. Catheter tubing extends down the right chest wall that may represent a ventriculoperitoneal shunt Impression: 1. Interval decrease in size of a right pleural effusion after placement of a pigtail catheter 2. Right lung opacity that could be due to either atelectasis or pneumonia Electronically signed by Prince Antoine 08-17-2025 7:47 PM
[2025-08-17] MEDS: HYDROCORTISONE SOD 100 MG in SYRINGE 0 ML IV STA (19:57)
[2025-08-17 20:17] LABS: Hematocrit (blood only) 28.8 % (37.0-47.0); Hemoglobin 9.0 g/dL (12.0-16.0); Mean Corpuscular Hemoglobin 31.9 pg (25.0-34.0); Mean Corpuscular Volume 102.1 fL (80.0-100.0); Platelet Count 147 K/uL (130-400); RDW Standard Deviation 84.1 fL (36.4-46.3); Red Blood Count 2.82 M/uL (4.20-5.40); White Blood Count 3.21 K/ul (4.8-10.8)
[2025-08-17] MEDS: LEVOTHYROXINE SODIUM 125 MCG TABLET PO SCH (20:37)
[2025-08-17] MEDS ORDERED: HEPARIN SOD 5,000 UNIT/0.5 ML VIAL SQ SCH (21:00)
[2025-08-17] MEDS: BACLOFEN 10 MG TAB PEG SCH ×2 (21:34)
[2025-08-17] MEDS: CETIRIZINE HCL 10 MG TABLET SCH (21:34)
[2025-08-17] MEDS: MELATONIN 3 MG TAB PO SCH (21:35)
[2025-08-17] MEDS: MONTELUKAST SODIUM 10 MG TABLET PEG SCH (21:35)
[2025-08-17] MEDS: MENTHOL-ZINC OXIDE 360 APPLN/120 GM TUBE EXT SCH (21:51)
[2025-08-17] MEDS: PIPERACILLIN/TAZOBACTAM 4.5 GM/100 ML BAG IV SCH (22:16)
[2025-08-18] MEDS: HYDROCORTISONE SOD 50 MG in SYRINGE 0 ML IV SCH (00:33)
[2025-08-18] MEDS: diphenhydrAMINE 50 MG/ML VIAL IV PRN (02:17)
[2025-08-18] MEDS: VANCOMYCIN 750 MG in SODIUM CHLORIDE 0.9% 250 ML IV SCH (02:18)
[2025-08-18] MEDS ORDERED: ACETAMINOPHEN SUSP 325 MG/10.15 ML UDC PEG PRN (02:36)
[2025-08-18] MEDS: ACETAMINOPHEN SUSP 160 MG/5 ML BTL PEG PRN (02:41)
[2025-08-18] MEDS ORDERED: SENNOSIDES 8.8 MG/5 ML UDC PEG PRN (02:44)
[2025-08-18 05:00] LABS: Hematocrit (blood only) 28.1 % (37.0-47.0); Hemoglobin 9.0 g/dL (12.0-16.0); Immature Granulocytes # (auto) 0.01 K/uL (0.01-0.20); Immature Granulocytes % (auto) 0.4 %; Mean Corpuscular Hemoglobin 31.7 pg (25.0-34.0); Mean Corpuscular Volume 98.9 fL (80.0-100.0); Platelet Count 166 K/uL (130-400); RDW Standard Deviation 79.4 fL (36.4-46.3); Red Blood Count 2.84 M/uL (4.20-5.40); White Blood Count 2.82 K/ul (4.8-10.8)
[2025-08-18 05:19] LABS: Alanine Aminotransferase 202.0 U/L (7-52); Albumin Globulin Ratio 0.9 (0.9-2); Albumin Level 2.8 gm/dl (3.4-5.0); Alkaline Phosphatase 340.0 U/L (34-104); Anion Gap 10.0 (3-11); Bilirubin,Total 0.4 mg/dl (0.2-1.0); Blood Urea Nitrogen 43.0 mg/dl (6-23); Calcium 7.4 mg/dl (8.6-10.3); Carbon Dioxide 17.0 mmol/L (21-32); Chloride 110.0 mmol/L (98-107); Creatinine Clr Calc Pharmacy 91.4 ml/min; Globulin 3.2 gm/dl (2.5-4.0); Glucose 143.0 mg/dl (70-99(Fasting)); Magnesium 3.7 mg/dl (1.7-2.4); Potassium 4.6 mmol/L (3.5-5.1); Sodium 137.0 mmol/L (136-145); Total Protein 6.0 gm/dl (6.0-8.3)
[2025-08-18 05:20] LABS: Anisocytosis Present; Polychromasia 1+
[2025-08-18] MEDS: LANSOPRAZOLE 30 MG SOLTAB PEG SCH (06:36)
[2025-08-18] MEDS: BACLOFEN 10 MG TAB PEG SCH ×2 (06:37→13:07)
[2025-08-18 06:58] LABS: Eosinophils, Fluid 3 %; Lymphocytes, Fluid 72 %; Mono,Macrophage,Mesothelial 10 %; Neutrophils, Fluid 15 %
[2025-08-18] MEDS ORDERED: STAT IV/IM STA (08:08)
--- NOTE | 2025-08-18 08:23 | XRay Report ---
EXAM: XR chest 1V portable CLINICAL HISTORY: pigtail TECHNIQUE: An X-ray image of the chest was obtained in AP projection. COMPARISON: 08/17/2025 CR FINDINGS: Tubes and lines: Interval stable; tracheostomy tube seen in situ. Interval stable; pigtail catheter seen in the right lower zone shows slight kinking. Pulmonary Parenchyma: Interval stable; enlarged, homogeneous opacification of right middle and lower zones with blunting of right costophrenic recess. Interval stable; haziness seen in the left lower zone with blunting of left costophrenic recess. Heart and Mediastinum: Mild cardiomegaly. No mediastinal widening or masses. No hilar or mediastinal lymphadenopathy. Bony Thorax: Bony thorax appears intact without fractures or deformities. Soft Tissues: Soft tissues overlying the chest wall are unremarkable. IMPRESSION: 1. Interval stable tracheostomy tube seen in situ. 2. Interval stable; pigtail catheter seen in the right lower zone shows slight kinking. 3. Interval stable; homogeneous opacification of right mid and lower zones with blunting of right costophrenic recess. Small right pleural effusion. 4. Interval stable, haziness seen in the left lower zone with blunting of left costophrenic recess. Small pleural effusion. 5. Comparing the previous X-ray dated 08/17/2025, the findings remain stable. Electronically signed by Aldair Albarran 08-18-2025 08:23 AM
--- NOTE | 2025-08-18 08:41 | Infectious Disease Consult ---
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 liver is suboptimally assessed due to poor acoustic window. The liver is grossly normal in size and echotexture. There is no intrahepatic biliary ductal dilatation. The main portal vein is patent. Gallbladder: The gallbladder is surgically absent. The common bile duct measures up to 0.4 cm in diameter. Pancreas: Not visualized due to overlying bowel gas. Right kidney: The right kidney is suboptimally assessed due to poor acoustic window. Survey images of the right kidney demonstrate normal size and echotexture. There is no hydronephrosis. Ascites: None. IMPRESSION: 1. The examination is degraded by poor acoustic window and portable technique. 2. The liver is grossly normal in size and echotexture. 3. Status post cholecystectomy. ACT 112: Negative or not required by law. Electronically signed by: Pedro Quispe M.D. 08/18/2025 11:30 AM Medications Administered Current Inpatient Medications Acetaminophen (Acetaminophen Susp 160 Mg/5 Ml Btl) 500 mg PEG Q8H PRN PRN Reason: pretreat 15 min prior to vanc Stop: 09/17/25 02:34 Last Admin: 08/18/25 10:42 Dose: 500 mg Acetaminophen (Acetaminophen Susp 325 Mg/10.15 Ml Udc) 650 mg PEG Q8H PRN PRN Reason: pain Stop: 09/17/25 02:35 Albuterol (Albuterol Hfa 8 Gm Inhaler) 2 puffs INH QID PRN PRN Reason: Wheezing Stop: 09/16/25 17:14 Albuterol (Albuterol 0.083% Nebu Soln 3 Ml Vial) 2.5 mg INH Q6R [facility]; Protocol Stop: 09/16/25 18:59 Last Admin: 08/18/25 10:34 Dose: 2.5 mg Baclofen (Baclofen 10 Mg Tab) 15 mg PEG TID@0700,1430,2300 [facility] Stop: 09/17/25 08:59 Calamine/Phenol (Menthol-Zinc Oxide 360 Appln/120 Gm Tube) 1 appln EXT BID [facility] Stop: 09/16/25 20:59 Last Admin: 08/18/25 09:30 Dose: 1 appln Cetirizine HCl (Cetirizine Oral Soln 1 Mg/Ml) 10 mg PEG 2300 [facility] Stop: 09/17/25 20:59 Diphenhydramine HCl (Diphenhydramine 50 Mg/Ml Vial) 12.5 mg IV Q8H PRN PRN Reason: pretreatment prior to vancomyc Stop: 09/16/25 17:25 Last Admin: 08/18/25 10:42 Dose: 12.5 mg Diphenoxylate HCl/Atropine (Diphenoxylate/Atropine 2.5/0.025mg Tab) 1 tab PEG QID PRN PRN Reason: diarrhea Stop: 09/16/25 17:14 Docusate Sodium (Docusate Sodium Syrup 100 Mg/10 Ml Udc) 100 mg PEG BID PRN PRN Reason: Constipation Stop: 09/16/25 17:14 Ferrous Sulfate (Ferrous Sulfate Elix 220mg/5ml) 300 mg PEG DAILY@1130 [facility] Stop: 09/18/25 08:59 Hydromorphone HCl (Hydromorphone Inj 0.5 Mg/0.5 Ml Syr) 0.25 mg IV Q6H PRN PRN Reason: Pain Stop: 08/31/25 17:25 Last Admin: 08/17/25 18:29 Dose: 0.25 mg Piperacillin Sod/Tazobactam Sod (Zosyn) 4.5 gm in 100 mls @ 25 mls/hr IV Q8H [facility]; Protocol Stop: 08/24/25 22:59 Last Infusion: 08/18/25 10:12 Dose: Infused Vancomycin HCl 750 mg/ Sodium (Chloride) 265 mls @ 100 mls/hr IV Q8H [facility] Stop: 08/25/25 02:59 Last Admin: 08/18/25 11:09 Dose: 100 mls/hr Hydrocortisone Sodium (Succinate 50 mg/ Syringe) 1 mls @ 4 mls/min IV Q6H [facility] Stop: 09/17/25 00:59 Last Admin: 08/18/25 11:48 Dose: 4 mls/min Sodium Bicarbonate 150 meq/ (Dextrose) 1,150 mls @ 80 mls/hr IV .[id number] [facility] Stop: 08/21/25 08:14 Last Admin: 08/18/25 09:29 Dose: 80 mls/hr Lansoprazole (Lansoprazole 30 Mg Soltab) 30 mg PEG DAILY@0700 [facility] Stop: 09/17/25 08:59 Levetiracetam (Levetiracetam Oral Soln 100mg/Ml) 750 mg PEG BID@0700,1830 [facility] Stop: 09/17/25 06:59 Last Admin: 08/18/25 06:13 Dose: 750 mg Levothyroxine Sodium (Levothyroxine Sodium 125 Mcg Tablet) 125 mcg PO HS [facility] Stop: 09/16/25 20:59 Last Admin: 08/17/25 20:37 Dose: 125 mcg Lidocaine/Prilocaine (Lidocaine/Prilocaine 2.5% Ea Crm) 1 each EXT ONCE PRN PRN Reason: prior to injections Stop: 09/16/25 17:14 Loperamide HCl (Loperamide Hcl 2 Mg Cap) 2 mg PO Q6H PRN PRN Reason: Diarrhea Stop: 09/16/25 17:14 Lorazepam (Lorazepam 1 Mg Tab) 1 mg PEG DAILY PRN PRN Reason: anxiety Stop: 09/16/25 17:14 Melatonin (Melatonin 3 Mg Tab) 6 mg PO HS [facility] Stop: 09/16/25 20:59 Last Admin: 08/17/25 21:35 Dose: 6 mg Methenamine Hippurate (Methenamine Hippurate 1 Gm Tab) 1 gm PO BID@0700,1830 [facility] Stop: 08/27/25 18:29 Last Admin: 08/18/25 06:08 Dose: 1 gm Miscellaneous (Non-Formulary Medication (Immun Glob G(Igg)-Pro-Iga 0-50 [Hizentra] 1order Awaiting Action) 1 each N/A QS [facility] Stop: 09/17/25 00:00 Last Admin: 08/18/25 08:38 Dose: Not Given Miscellaneous (Medroxyprogesterone 150 Mg/Ml Syringe)--Order Awaiting Action) 1 each N/A QS [facility] Stop: 09/17/25 00:00 Last Admin: 08/18/25 08:38 Dose: Not Given Miscellaneous (Icu Protocol For Hyperglycemia) 1 each N/A Q6 [facility] Stop: 08/20/25 00:00 Last Admin: 08/18/25 11:48 Dose: 1 each Miscellaneous Information (Vancomycin Consult Active) 1 each N/A UD PRN PRN Reason: Consult Stop: 09/16/25 16:49 Miscellaneous Medication (Medical Marijuana: Cannabidiol 100 Mg/Ml Solution) 0 dose PO BID [facility] Stop: 09/16/25 20:59 Last Admin: 08/18/25 08:39 Dose: Not Given Montelukast Sodium (Montelukast Sodium 10 Mg Tablet) 10 mg PEG DAILY@2300 [facility] Stop: 09/16/25 20:59 Multivitamins/Minerals (Multi Vit W/Minerals Liquid 15 Ml Ud) 15 ml PEG DAILY@0700 [facility] Stop: 09/17/25 08:59 (Caysoten 75 Mg)~Non -Formulary Patient's Own Med 1 each INH TID@0700,1900,2300 [facility] Stop: 09/16/25 22:59 Last Admin: 08/18/25 07:48 Dose: 75 mg Oxybutynin Chloride (Oxybutynin Chloride 5 Mg Tab) 5 mg PEG TID@0700,1430,2300 [facility] Stop: 09/16/25 22:59 Last Admin: 08/18/25 06:08 Dose: 5 mg Phenobarbital (Phenobarbital 30 Mg Tab) 90 mg PO DAILY@0700 [facility] Stop: 09/17/25 06:59 Last Admin: 08/18/25 06:04 Dose: 90 mg Phenobarbital (Phenobarbital 30 Mg Tab) 120 mg PO 1830 [facility] Stop: 09/17/25 18:29 Polyethylene Glycol (Polyethylene (Miralax) 17 Gm Pack) 17 gm PEG BID PRN PRN Reason: Constipation Stop: 09/16/25 17:14 Pseudoephedrine HCl (Pseudoephedrine Hcl 30 Mg Tab) 30 mg PEG Q6H PRN PRN Reason: Nasal Congestion Stop: 09/16/25 17:14 Sennosides (Sennosides 8.8 Mg/5 Ml Udc) 8.8 mg PEG HS PRN PRN Reason: Constipation Stop: 09/17/25 02:43 Sodium Bicarbonate (Sodium Bicarbonate 650 Mg Tab) 650 mg PO BID [facility] Stop: 09/17/25 20:59 Sodium Chloride (Sodium Chlor 7% 4 Ml Neb) 4 ml INH DAILY [facility] Stop: 09/17/25 08:59 Last Admin: 08/18/25 10:34 Dose: 4 ml Tramadol HCl (Tramadol Hcl 50 Mg Tablet) 50 mg PEG BID PRN PRN Reason: Pain Stop: 09/16/25 17:14 Last Admin: 08/18/25 02:18 Dose: 50 mg
[2025-08-18] MEDS: CALCIUM GLUCONATE 1,000 MG/60 ML BAG IV SCH (08:58)
[2025-08-18] MEDS ORDERED: FUROSEMIDE 20 MG TAB PO SCH (09:00)
[2025-08-18] MEDS ORDERED: MULTI VIT W/MINERALS LIQUID 15 ML UDC PO SCH (09:00)
[2025-08-18] MEDS ORDERED: MULTI VIT W/MINERALS LIQUID 15 ML UDC PEG SCH (09:00)
--- NOTE | 2025-08-18 09:11 | Critical Care Progress Note ---
Date of Service August 18, 2025 Assessment & Plan (1) Pleural effusion, right: Plan: 900 mL out from right pleural catheter placed 08/17/2025. Fluid appeared serosanguineous. Lymphocytic predominant and exudative. Cultures and cytology pending. Gram stain negative thus far. Differential for effusion is broad including secondary to hypothyroidism, parapneumonic effusion and/or malignancy related. Continue chest tube until drainage less than 200 mL/day. Will consider repeat CT chest imaging in the next day or 2 depending on clinical picture. (2) Pseudomonal pneumonia: Plan: Continue nebulized [place]. Continue IV Zosyn given her history of E. coli and Pseudomonas pulmonary infection. Continue vancomycin given her history of MRSA positivity. Awaiting ID consultation. (3) Tracheostomy dependent: Plan: Given improvement in aeration and removal of pleural fluid, decreased her EPAP to a minimum setting of 5 and a maximum setting of 10. Targeted tidal volume of 375 mL. Respiratory rate remains at 14. (4) Localized swelling of both lower legs: Plan: Patient with significant chronic edema of the lower extremities probably related to hypothyroidism and venous stasis. She actually appears a bit intravascularly depleted and we will treat with 80 mL of Plasma-Lyte an hour overnight. (5) Hypothyroidism: Plan: Levothyroxine to 125 mcg daily given her TSH is still elevated, but improved from prior. (6) Hypovolemia: Plan: IV fluid rehydration. (7) Acidemia: Plan: Will transition off Plasma-Lyte and start the patient on bicarb infusion. Nephrology consulted for possible RTA. (8) Transaminitis: Plan: Patient with transaminitis of unclear etiology. Liver ultrasound ordered. Gastroenterology consult placed. Possibly medication induced. (9) Hyperphosphatemia: Plan: Nephrology consult as above. Will likely need Phos binders. Plan I spent 20 minutes reviewing the electronic medical record/relevant imaging, 30 minutes discussing diagnosis and treatment plan with patient/family, and 15 minutes discussing care plan with ancillary staff such as RT/RN/pharmacist/date night caregiver/PT/OT/other consulting medical services. CRITICAL CARE TIME I have personally spent 65 minutes of critical care time in the direct management of this patient. This is a life/limb threatening event. This includes time spent evaluating patient, direct bedside care, chart review, placing orders, interpretation of diagnostic studies, discussion with consultants, keshia ent, and family members, as well as other required patient management activities. This time is exclusive of all separately billable procedures, and teaching time and separate from and in addition to any other critical care service time. Admission and Anticipated Discharge Date Admission Date: August 17, 2025 Subjective Oxygenation improved this morning. Mother notes that patient has had nasal flaring. Chest tube output has been excellent with about 900 mL out since insertion. Fluid appears to be serosanguineous. Review of Systems Review of Systems: All systems reviewed & are unremarkable except as noted in HPI & below Physical Exam Physical Exam: Constitutional: Patient appears to be of their stated age. Patient is in no apparent distress. Patient is well-developed. Eyes: Pupils are equal round and reactive to light. Conjunctivae are normal. Anicteric sclera. Ears nose, mouth and throat: Roving eye movements. No cyanosis. Neck: [place] cuffed tracheostomy in place. Respiratory: Improved aeration at the right lung base. Mild rhonchi bilaterally. Cardiovascular: Regular rate and rhythm. No murmurs. Diffusely edematous in all extremities. Gastrointestinal: PEG tube in place. Distended abdomen. Musculoskeletal: Contractures noted. Scoliotic. Skin: No rashes, warm dry and intact. Neurologic: Smiles and frowns spontaneously. Quadriparesis. Psychiatric: Alert and oriented x3 with a euthymic affect. Results & Data Results & Data Vital Signs (Past 12 Hours) Vital Signs Temp Pulse Pulse Resp BP Pulse Ox O2 Del Method 08/18/25 06:30 85/37 L 08/18/25 06:30 85/37 L 08/18/25 06:30 85/37 L 08/18/25 06:30 85/37 L 08/18/25 06:30 85/37 L 08/18/25 06:30 36.6 C 65 17 89 L 08/18/25 06:15 36.6 C 60 19 94 08/18/25 06:15 92/37 L 08/18/25 06:15 92/37 L 08/18/25 06:00 90/39 L 08/18/25 06:00 90/39 L 08/18/25 06:00 36.5 C 59 L 14 93 08/18/25 05:45 90/38 L 08/18/25 05:45 90/38 L 08/18/25 05:45 36.3 C L 57 L 16 93 08/18/25 05:30 36.2 C L 56 L 19 93 08/18/25 05:30 88/39 L 08/18/25 05:15 36.0 C L 55 L 15 94 08/18/25 05:15 89/40 L 08/18/25 05:03 35.9 C L 54 L 14 94 08/18/25 05:00 87/37 L 08/18/25 05:00 87/37 L 08/18/25 05:00 87/37 L 08/18/25 05:00 87/37 L 08/18/25 05:00 87/37 L 08/18/25 04:59 35.8 C L 55 L 14 94 08/18/25 04:45 89/37 L 08/18/25 04:45 89/37 L 08/18/25 04:44 35.7 C L 55 L 14 95 08/18/25 04:30 91/37 L 08/18/25 04:30 91/37 L 08/18/25 04:30 91/37 L 08/18/25 04:30 91/37 L 08/18/25 04:30 91/37 L 08/18/25 04:29 35.5 C L 53 L 19 95 08/18/25 04:15 86/37 L 08/18/25 04:15 86/37 L 08/18/25 04:14 35.4 C L 54 L 16 94 08/18/25 04:02 35.3 C L 53 L 19 94 08/18/25 04:00 84/39 L 08/18/25 04:00 84/39 L 08/18/25 04:00 08/18/25 03:59 35.2 C L 52 L 16 94 08/18/25 03:45 85/41 L 08/18/25 03:45 85/41 L 08/18/25 03:44 35.1 C L 51 L 18 94 08/18/25 03:32 35.0 C L 54 L 23 95 08/18/25 03:30 91/42 L 08/18/25 03:29 35.0 C L 54 L 17 94 08/18/25 03:15 85/42 L 08/18/25 03:14 34.9 C L 56 L 17 94 08/18/25 03:02 34.9 C L 54 L 26 H 96 08/18/25 03:00 87/46 L 08/18/25 03:00 87/46 L 08/18/25 03:00 87/46 L 08/18/25 03:00 87/46 L 08/18/25 03:00 87/46 L 08/18/25 02:59 34.9 C L 54 L 17 95 08/18/25 02:45 97/57 L 08/18/25 02:44 35.0 C L 57 L 15 95 08/18/25 02:30 85/46 L 08/18/25 02:30 85/46 L 08/18/25 02:29 35.1 C L 53 L 17 95 08/18/25 02:15 84/42 L 08/18/25 02:14 35.2 C L 52 L 19 96 08/18/25 02:03 35.2 C L 54 L 16 95 08/18/25 02:00 86/43 L 08/18/25 02:00 86/43 L 08/18/25 01:56 35.3 C L 53 L 19 96 08/18/25 01:45 88/42 L 08/18/25 01:45 88/42 L 08/18/25 01:41 35.4 C L 54 L 24 96 08/18/25 01:00 87/34 L 08/18/25 01:00 35.3 C L 60 26 H 94 08/18/25 00:45 35.3 C L 61 16 92 08/18/25 00:45 88/39 L 08/18/25 00:30 87/37 L 08/18/25 00:30 87/37 L 08/18/25 00:30 35.3 C L 54 L 14 93 08/18/25 00:30 55 L 14 93 Room Air, Mechanical Vent 08/18/25 00:15 35.2 C L 54 L 16 94 08/18/25 00:15 86/36 L 08/18/25 00:00 82/40 L 08/18/25 00:00 35.1 C L 54 L 16 94 08/18/25 00:00 08/17/25 23:45 86/36 L 08/17/25 23:45 86/36 L 08/17/25 23:45 86/36 L 08/17/25 23:45 86/36 L 08/17/25 23:45 86/36 L 08/17/25 23:45 35.0 C L 51 L 14 92 08/17/25 23:30 34.8 C L 50 L 14 94 08/17/25 23:30 81/37 L 08/17/25 23:30 81/37 L 08/17/25 23:30 81/37 L 08/17/25 23:20 51 L 08/17/25 23:15 34.8 C L 51 L 14 93 08/17/25 23:15 81/34 L 08/17/25 23:15 81/34 L 08/17/25 23:00 83/32 L 08/17/25 23:00 83/32 L 08/17/25 23:00 83/32 L 08/17/25 23:00 83/32 L 08/17/25 23:00 83/32 L 08/17/25 23:00 34.7 C L 49 L 20 93 08/17/25 22:45 34.6 C L 52 L 15 93 08/17/25 22:45 82/37 L 08/17/25 22:45 82/37 L 08/17/25 22:30 77/37 L 08/17/25 22:30 34.5 C L 50 L 14 93 08/17/25 22:15 34.3 C L 51 L 20 93 08/17/25 22:15 82/38 L 08/17/25 21:40 50 L 15 95 FiO2 08/18/25 06:30 08/18/25 06:30 08/18/25 06:30 08/18/25 06:30 08/18/25 06:30 08/18/25 06:30 08/18/25 06:15 08/18/25 06:15 08/18/25 06:15 08/18/25 06:00 08/18/25 06:00 08/18/25 06:00 08/18/25 05:45 08/18/25 05:45 08/18/25 05:45 08/18/25 05:30 08/18/25 05:30 08/18/25 05:15 08/18/25 05:15 08/18/25 05:03 08/18/25 05:00 08/18/25 05:00 08/18/25 05:00 08/18/25 05:00 08/18/25 05:00 08/18/25 04:59 08/18/25 04:45 08/18/25 04:45 08/18/25 04:44 08/18/25 04:30 08/18/25 04:30 08/18/25 04:30 08/18/25 04:30 08/18/25 04:30 08/18/25 04:29 08/18/25 04:15 08/18/25 04:15 08/18/25 04:14 08/18/25 04:02 08/18/25 04:00 08/18/25 04:00 08/18/25 04:00 08/18/25 03:59 08/18/25 03:45 08/18/25 03:45 08/18/25 03:44 08/18/25 03:32 08/18/25 03:30 08/18/25 03:29 08/18/25 03:15 08/18/25 03:14 08/18/25 03:02 08/18/25 03:00 08/18/25 03:00 08/18/25 03:00 08/18/25 03:00 08/18/25 03:00 08/18/25 02:59 08/18/25 02:45 08/18/25 02:44 08/18/25 02:30 08/18/25 02:30 08/18/25 02:29 08/18/25 02:15 08/18/25 02:14 08/18/25 02:03 08/18/25 02:00 08/18/25 02:00 08/18/25 01:56 08/18/25 01:45 08/18/25 01:45 08/18/25 01:41 08/18/25 01:00 08/18/25 01:00 08/18/25 00:45 08/18/25 00:45 08/18/25 00:30 08/18/25 00:30 08/18/25 00:30 08/18/25 00:30 08/18/25 00:15 08/18/25 00:15 08/18/25 00:00 08/18/25 00:00 08/18/25 00:00 21 08/17/25 23:45 08/17/25 23:45 08/17/25 23:45 08/17/25 23:45 08/17/25 23:45 08/17/25 23:45 08/17/25 23:30 08/17/25 23:30 08/17/25 23:30 08/17/25 23:30 08/17/25 23:20 08/17/25 23:15 08/17/25 23:15 08/17/25 23:15 08/17/25 23:00 08/17/25 23:00 08/17/25 23:00 08/17/25 23:00 08/17/25 23:00 08/17/25 23:00 08/17/25 22:45 08/17/25 22:45 08/17/25 22:45 08/17/25 22:30 08/17/25 22:30 08/17/25 22:15 08/17/25 22:15 08/17/25 21:40 21 Coding Level of Care Code 47068 CRITICAL CARE 1ST 30-74M Diagnoses Pleural effusion, right J90 Pseudomonal pneumonia J15.1 Tracheostomy dependent Z93.0 Localized swelling of both lower legs R22.43 Hypothyroidism E03.9 Hypovolemia E86.1 Acidemia E87.20 Transaminitis R74.01 Hyperphosphatemia E83.39
[2025-08-18] MEDS: SODIUM BICARBONATE 8.4% 150 MEQ in DEXTROSE 5% 1,000 ML IV SCH (09:29)
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
[2025-08-18] MEDS: SODIUM CHLOR 7% 4 ML NEB INH SCH (10:34)
--- NOTE | 2025-08-18 11:31 | Ultrasound Report ---
ULTRASOUND RIGHT UPPER QUADRANT ABDOMEN CLINICAL HISTORY: Elevated hepatic transaminases. COMPARISON STUDY: Abdominal CT dated 04/09/2025 TECHNIQUE: Portable real-time, grayscale, and color flow sonography of the right upper quadrant of e abdomen was performed. Images are reviewed in the transverse and longitudinal planes. FINDINGS: Liver: The liver is suboptimally assessed due to poor acoustic window. The liver is grossly normal in size and echotexture. There is no intrahepatic biliary ductal dilatation. The main portal vein is pa tent. Gallbladder: The gallbladder is surgically absent. The common bile duct measures up to 0.4 cm in diam eter. Pancreas: Not visualized due to overlying bowel gas. Right kidney: The right kidney is suboptimally assessed due to poor acoustic window. Survey images of the right kidney demonstrate normal size and echotexture. There is no hydronephrosis. Ascites: None. IMPRESSION: 1. The examination is degraded by poor acoustic window and portable technique. 2. The liver is grossly normal in size and echotexture. 3. Status post cholecystectomy. ACT 112: Negative or not required by law. Electronically signed by: Pedro Quispe M.D. 08/18/2025 11:30 AM
[2025-08-18] MEDS: FERROUS SULFATE ELIX 220MG/5ML PO SCH (11:46)
--- NOTE | 2025-08-18 12:41 | History & Physical Report ---
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 Bony thorax appears intact without fractures or deformities. Soft Tissues: Soft tissues overlying the chest wall are unremarkable. IMPRESSION: 1. Interval stable tracheostomy tube seen in situ. 2. Interval stable; pigtail catheter seen in the right lower zone shows slight kinking. 3. Interval stable; homogeneous opacification of right mid and lower zones with blunting of right costophrenic recess. Small right pleural effusion. 4. Interval stable, haziness seen in the left lower zone with blunting of left costophrenic recess. Small pleural effusion. 5. Comparing the previous X-ray dated 08/17/2025, the findings remain stable. Electronically signed by Aldair Albarran 08-18-2025 08:23 AM Liver Ultrasound 08/18/25 09:03 ULTRASOUND RIGHT UPPER QUADRANT ABDOMEN CLINICAL HISTORY: Elevated hepatic transaminases. COMPARISON STUDY: Abdominal CT dated 04/09/2025 TECHNIQUE: Portable real-time, grayscale, and color flow sonography of the right upper quadrant of the abdomen was performed. Images are reviewed in the transverse and longitudinal planes. FINDINGS: Liver: The liver is suboptimally assessed due to poor acoustic window. The liver is grossly normal in size and echotexture. There is no intrahepatic biliary ductal dilatation. The main portal vein is patent. Gallbladder: The gallbladder is surgically absent. The common bile duct measures up to 0.4 cm in diameter. Pancreas: Not visualized due to overlying bowel gas. Right kidney: The right kidney is suboptimally assessed due to poor acoustic window. Survey images of the right kidney demonstrate normal size and echotexture. There is no hydronephrosis. Ascites: None. IMPRESSION: 1. The examination is degraded by poor acoustic window and portable technique. 2. The liver is grossly normal in size and echotexture. 3. Status post cholecystectomy. ACT 112: Negative or not required by law. Electronically signed by: Pedro Quispe M.D. 08/18/2025 11:30 AM Code Status & VTE Plan VTE Prophylaxis Plan VTE Prophylaxis will be ordered: Yes
--- NOTE | 2025-08-18 12:44 | Hospitalist Progress Note ---
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 Serosanguineous output. Fluid studies and cell studies pending #MDR E. coli -Infectious disease consulted placed in the outpatient setting, will consult here to get input in regards to MDR E. coli and Pseudomonas- ID consult, no changes to current medication regimen close of vancomycin- #Chronic respiratory failure #Ventilator dependence/trach dependence -Currently back with Bivona trach, she had used a 6 Shiley XLT because of supply issues but that since resolved since -Last trach swab was 07/16 - Consult to pulmonology as above - Respiratory therapy, consideration for mucociliary clearance supportive cares including albuterol, hypertonic saline as needed - Is uncertain what trach she has in place at this time, she previously was on a Bivona/Shiley XLT. Pulmonology consider using a alternate dimension custom trach to improve clearance. #Cerebral palsy #Status post [facility] [employer] [facility] shunt -Baseline mental status now, respiratory support as above. PT and OT for maintenance therapy - continue baclofen #Seizure disorder - Stable at this time, continue phenobarbital and Keppra, doses confirmed with updated medicine sheet from [facility] – [place] - Seizure precaution - Benzos for acute abortive therapy as needed #HFpEF - Euvolemic at this time, recent history of decompensation, continue baseline Lasix dose - Recent episodes of volume overload concerning for nephrotic protein loss - Daily weights - continue furosemide #history of difficult IV access -VATS team to evaluate, she has had a port twice in the past but has had serial issues with infection so family is reluctant -May revisit depending on clinical course, #History of electrolyte abnormalities CMP and magnesium on admission, replete as needed- #Hyperglycemia -Recent A1c 5.0, no history of diabetes, - Routine monitoring during initial hospitalization #Pressure Ulcers -present on admission, WCN to see #Tube feed dependence -Patient is on [place] standard, mom is bringing improved. Our pharmacy does not stock the exact formulation she is on. -Her G-tube requires a very specific Enfit syringe which we typically do not have, supply working on getting adapters -Registered dietitian/nutrition consultation -Will have pharmacy convert medications to TF solutions/crush instructions PRN. #Chronic Pain -topical NSAID to knees, Ultram via TF PRN #Constipation - MiraLAX, docusate, senna - Suppositories as needed #Primary immunodeficiency - Hizentra injection, next infusion 08/20 #Neurogenic bladder - Turner, oxybutinin #Central hypothyroidism - No further eval at this time - continue levothroxine #FEN -TF diet as above, NS for short term in needed to be NPO for procedures #CODE STATUS -Full Code, verified with mom at the bedside at the time of admission Admission and Anticipated Discharge Date Admission Date: August 17, 2025 Subjective Doing okay this morning. Mom is at the bedside. She is pretty close to her baseline. Oxygen needs have been greater in the last 24 hours. No concerning to family. Per nursing with serosanguineous output about 900 cc from the pigtail. No fevers or chills. No other concerning events per family or nursing staff. Catheter for neurogenic bladder. She is on her home tube feed diet Physical Exam Physical Exam: GEN: Awake, alert, NAD nonverbal but appropriately expressive HEENT: Bonner facies, MMM NECK: Trach in place, cuff CDI, short broad soft tissues CV: RRR, No M/R/G RESP: Course throughout, decreased on right lateral/posterior, good air exchange ABD: Obese, NT/ND Mateo-Reilly GJ Button in place EXTR: chronic wound dressing on heels bilaterally, no general rash, pallor or discoloration, contractures of all 4 extremities present and at baseline Results & Data Results & Data Vital Signs (Past 12 Hours) Vital Signs Temp Pulse Resp BP Pulse Ox O2 Del Method FiO2 08/18/25 12:00 21 08/18/25 10:58 63 22 94 08/18/25 10:45 36.2 C L 62 31 H 96 08/18/25 10:45 94/51 L 08/18/25 10:30 97/53 L 08/18/25 10:30 36.3 C L 66 14 96 08/18/25 10:15 36.3 C L 69 14 96 08/18/25 10:15 97/52 L 08/18/25 10:00 98/48 L 08/18/25 10:00 36.2 C L 69 15 96 08/18/25 09:45 36.3 C L 77 21 95 08/18/25 09:45 100/54 L 08/18/25 09:30 36.3 C L 77 14 87 L 08/18/25 09:30 97/44 L 08/18/25 09:15 75 31 H 91 08/18/25 09:00 78 17 88 L 08/18/25 09:00 94/43 L 08/18/25 08:45 36.2 C L 88 26 H 91 08/18/25 08:45 101/40 L 08/18/25 08:00 Mechanical Vent 08/18/25 08:00 21 08/18/25 07:40 62 24 93 21 08/18/25 06:30 85/37 L 08/18/25 06:30 85/37 L 08/18/25 06:30 85/37 L 08/18/25 06:30 85/37 L 08/18/25 06:30 85/37 L 08/18/25 06:30 36.6 C 65 17 89 L 08/18/25 06:15 36.6 C 60 19 94 08/18/25 06:15 92/37 L 08/18/25 06:15 92/37 L 08/18/25 06:00 90/39 L 08/18/25 06:00 90/39 L 08/18/25 06:00 36.5 C 59 L 14 93 08/18/25 05:45 90/38 L 08/18/25 05:45 90/38 L 08/18/25 05:45 36.3 C L 57 L 16 93 08/18/25 05:30 36.2 C L 56 L 19 93 08/18/25 05:30 88/39 L 08/18/25 05:15 36.0 C L 55 L 15 94 08/18/25 05:15 89/40 L 08/18/25 05:03 35.9 C L 54 L 14 94 08/18/25 05:00 87/37 L 08/18/25 05:00 87/37 L 08/18/25 05:00 87/37 L 08/18/25 05:00 87/37 L 08/18/25 05:00 87/37 L 08/18/25 04:59 35.8 C L 55 L 14 94 08/18/25 04:45 89/37 L 08/18/25 04:45 89/37 L 08/18/25 04:44 35.7 C L 55 L 14 95 08/18/25 04:30 91/37 L 08/18/25 04:30 91/37 L 08/18/25 04:30 91/37 L 08/18/25 04:30 91/37 L 08/18/25 04:30 91/37 L 08/18/25 04:29 35.5 C L 53 L 19 95 08/18/25 04:15 86/37 L 08/18/25 04:15 86/37 L 08/18/25 04:14 35.4 C L 54 L 16 94 08/18/25 04:02 35.3 C L 53 L 19 94 08/18/25 04:00 84/39 L 08/18/25 04:00 84/39 L 08/18/25 04:00 21 08/18/25 03:59 35.2 C L 52 L 16 94 08/18/25 03:45 85/41 L 08/18/25 03:45 85/41 L 08/18/25 03:44 35.1 C L 51 L 18 94 08/18/25 03:32 35.0 C L 54 L 23 95 08/18/25 03:30 91/42 L 08/18/25 03:29 35.0 C L 54 L 17 94 08/18/25 03:15 85/42 L 08/18/25 03:14 34.9 C L 56 L 17 94 08/18/25 03:02 34.9 C L 54 L 26 H 96 08/18/25 03:00 87/46 L 08/18/25 03:00 87/46 L 08/18/25 03:00 87/46 L 08/18/25 03:00 87/46 L 08/18/25 03:00 87/46 L 08/18/25 02:59 34.9 C L 54 L 17 95 08/18/25 02:45 97/57 L 08/18/25 02:44 35.0 C L 57 L 15 95 08/18/25 02:30 85/46 L 08/18/25 02:30 85/46 L 08/18/25 02:29 35.1 C L 53 L 17 95 08/18/25 02:15 84/42 L 08/18/25 02:14 35.2 C L 52 L 19 96 08/18/25 02:03 35.2 C L 54 L 16 95 08/18/25 02:00 86/43 L 08/18/25 02:00 86/43 L 08/18/25 01:56 35.3 C L 53 L 19 96 08/18/25 01:45 88/42 L 08/18/25 01:45 88/42 L 08/18/25 01:41 35.4 C L 54 L 24 96 08/18/25 01:00 87/34 L 08/18/25 01:00 35.3 C L 60 26 H 94 08/18/25 00:45 35.3 C L 61 16 92 08/18/25 00:45 88/39 L Laboratory Results 08/17/25 Unknown Gram Stain - Final Pleural Fluid Aerobic and Anaerobic Culture - Preliminary No growth to date. 08/17/25 Unknown Acid Fast Bacilli Smear - Pending Pleural Fluid Acid Fast Bacilli Culture - Pending 08/18/25 08/18/25 08/18/25 11:47 04:28 00:06 WBC 2.82 L RBC 2.84 L Hgb 9.0 L Hct 28.1 L MCV 98.9 MCH 31.7 MCHC 32.0 RDW Std Deviation 79.4 H RDW Coeff of Dulce 21.9 H Plt Count 166 MPV 10.4 Immature Gran % (Auto) 0.4 Neut % (Auto) 76.1 Lymph % (Auto) 17.4 [place] % (Auto) 5.3 Eos % (Auto) 0.4 Baso % (Auto) 0.4 Neut # (Auto) 2.15 Lymph # (Auto) 0.49 L [place] # (Auto) 0.15 Eos # (Auto) 0.01 Baso # (Auto) 0.01 Immature Gran # (Auto) 0.01 Polychromasia 1+ Anisocytosis Present PT INR Sodium 137 Potassium 4.6 D Chloride 110 H Carbon Dioxide 17 L Anion Gap 10 BUN 43 H Creatinine 0.98 Est Cr Clr Drug Dosing 91.4 eGFR 83.18 BUN/Creatinine Ratio 43.9 H Glucose 143 H POC Glucose 178 H 120 H Lactate Calcium 7.4 L Phosphorus 6.6 H Magnesium 3.7 H Iron TIBC Transferrin Transferrin % Sat Total Bilirubin 0.4 AST 217 H ALT 202 H Alkaline Phosphatase 340 H B-Natriuretic Peptide Total Protein 6.0 Albumin 2.8 L Globulin 3.2 Albumin/Globulin Ratio 0.9 Procalcitonin TSH Free T4 Fluid Neutrophils % Fluid Lymphocytes % Fluid Eosinophils % Fluid Meso/Macro/[place] % Fluid Comment Pleural Fluid Source Pleural Color Pleural Appearance Pleural pH Pleural WBC (Auto) Pleural RBC (Auto) Pleural Total Protein Pleural LDH Pleural Glucose Pleural Amylase Nasal Screen MRSA (PCR) 08/17/25 08/17/25 08/17/25 Unknown Unknown 19:25 WBC 3.21 L RBC 2.82 L Hgb 9.0 L Hct 28.8 L MCV 102.1 H MCH 31.9 MCHC 31.3 L RDW Std Deviation 84.1 H RDW Coeff of Dulce 22.4 H Plt Count 147 MPV 10.2 Immature Gran % (Auto) Neut % (Auto) Lymph % (Auto) [place] % (Auto) Eos % (Auto) Baso % (Auto) Neut # (Auto) Lymph # (Auto) [place] # (Auto) Eos # (Auto) Baso # (Auto) Immature Gran # (Auto) Polychromasia Anisocytosis PT INR Sodium Potassium Chloride Carbon Dioxide Anion Gap BUN Creatinine Est Cr Clr Drug Dosing eGFR BUN/Creatinine Ratio Glucose POC Glucose Lactate Calcium Phosphorus Magnesium Iron TIBC Transferrin Transferrin % Sat Total Bilirubin AST ALT Alkaline Phosphatase B-Natriuretic Peptide Total Protein Albumin Globulin Albumin/Globulin Ratio Procalcitonin TSH Free T4 Fluid Neutrophils % 15 Fluid Lymphocytes % 72 Fluid Eosinophils % 3 Fluid Meso/Macro/[place] % 10 Fluid Comment Pleural Fluid Source Right Lung Pleural Color Red Pleural Appearance Bloody Pleural pH 7.30 Pleural WBC (Auto) 667 Pleural RBC (Auto) [id number] Pleural Total Protein 3.5 Pleural LDH 236 Pleural Glucose 67 Pleural Amylase Cancelled 32 Nasal Screen MRSA (PCR) 08/17/25 08/17/25 08/17/25 19:24 15:35 15:34 WBC 3.65 L RBC 3.31 L Hgb 10.7 L Hct 33.7 L MCV 101.8 H MCH 32.3 MCHC 31.8 L RDW Std Deviation 83.5 H RDW Coeff of Dulce 22.2 H Plt Count 168 MPV 10.2 Immature Gran % (Auto) 0.3 Neut % (Auto) 60.6 Lymph % (Auto) 22.7 [place] % (Auto) 12.3 Eos % (Auto) 3.3 Baso % (Auto) 0.8 Neut # (Auto) 2.21 Lymph # (Auto) 0.83 L [place] # (Auto) 0.45 Eos # (Auto) 0.12 Baso # (Auto) 0.03 Immature Gran # (Auto) 0.01 Polychromasia Anisocytosis Present PT 11.7 INR 1.1 Sodium 141 Potassium 3.8 Chloride 111 H Carbon Dioxide 19 L Anion Gap 11 BUN 44 H Creatinine 0.88 Est Cr Clr Drug Dosing 101.8 eGFR 94.64 BUN/Creatinine Ratio 50.0 H Glucose 99 POC Glucose Lactate 1.3 Calcium 8.4 L Phosphorus Magnesium 3.8 H Iron 100 TIBC 297 Transferrin 212 Transferrin % Sat 34 Total Bilirubin 0.3 AST 80 H ALT 97 H Alkaline Phosphatase 376 H B-Natriuretic Peptide 57 Total Protein 7.2 Albumin 3.4 Globulin 3.8 Albumin/Globulin Ratio 0.9 Procalcitonin 0.25 TSH 33.906 H Free T4 0.88 Fluid Neutrophils % Fluid Lymphocytes % Fluid Eosinophils % Fluid Meso/Macro/[place] % Fluid Comment Pleural Fluid Source Pleural Color Pleural Appearance Pleural pH Pleural WBC (Auto) Pleural RBC (Auto) Pleural Total Protein Pleural LDH Pleural Glucose Pleural Amylase Nasal Screen MRSA (PCR) 08/17/25 15:00 WBC RBC Hgb Hct MCV MCH MCHC RDW Std Deviation RDW Coeff of Dulce Plt Count MPV Immature Gran % (Auto) Neut % (Auto) Lymph % (Auto) [place] % (Auto) Eos % (Auto) Baso % (Auto) Neut # (Auto) Lymph # (Auto) [place] # (Auto) Eos # (Auto) Baso # (Auto) Immature Gran # (Auto) Polychromasia Anisocytosis PT INR Sodium Potassium Chloride Carbon Dioxide Anion Gap BUN Creatinine Est Cr Clr Drug Dosing eGFR BUN/Creatinine Ratio Glucose POC Glucose Lactate Calcium Phosphorus Magnesium Iron TIBC Transferrin Transferrin % Sat Total Bilirubin AST ALT Alkaline Phosphatase B-Natriuretic Peptide Total Protein Albumin Globulin Albumin/Globulin Ratio Procalcitonin TSH Free T4 Fluid Neutrophils % Fluid Lymphocytes % Fluid Eosinophils % Fluid Meso/Macro/[place] % Fluid Comment Pleural Fluid Source Pleural Color Pleural Appearance Pleural pH Pleural WBC (Auto) Pleural RBC (Auto) Pleural Total Protein Pleural LDH Pleural Glucose Pleural Amylase Nasal Screen MRSA (PCR) Positive A Diagnostic Findings Chest X-Ray 08/18/25 07:00 EXAM: XR chest 1V portable CLINICAL HISTORY: pigtail TECHNIQUE: An X-ray image of the chest was obtained in AP projection. COMPARISON: 08/17/2025 CR FINDINGS: Tubes and lines: Interval stable; tracheostomy tube seen in situ. Interval stable; pigtail catheter seen in the right lower zone shows slight kinking. Pulmonary Parenchyma: Interval stable; enlarged, homogeneous opacification of right middle and lower zones with blunting of right costophrenic recess. Interval stable; haziness seen in the left lower zone with blunting of left costophrenic recess. Heart and Mediastinum: Mild cardiomegaly. No mediastinal widening or masses. No hilar or mediastinal lymphadenopathy. Bony Thorax: Bony thorax appears intact without fractures or deformities. Soft Tissues: Soft tissues overlying the chest wall are unremarkable. IMPRESSION: 1. Interval stable tracheostomy tube seen in situ. 2. Interval stable; pigtail catheter seen in the right lower zone shows slight kinking. 3. Interval stable; homogeneous opacification of right mid and lower zones with blunting of right costophrenic recess. Small right pleural effusion. 4. Interval stable, haziness seen in the left lower zone with blunting of left costophrenic recess. Small pleural effusion. 5. Comparing the previous X-ray dated 08/17/2025, the findings remain stable. Electronically signed by Aldair Albarran 08-18-2025 08:23 AM Liver Ultrasound 08/18/25 09:03 ULTRASOUND RIGHT UPPER QUADRANT ABDOMEN CLINICAL HISTORY: Elevated hepatic transaminases. COMPARISON STUDY: Abdominal CT dated 04/09/2025 TECHNIQUE: Portable real-time, grayscale, and color flow sonography of the right upper quadrant of the abdomen was performed. Images are reviewed in the transverse and longitudinal planes. FINDINGS: Liver: The liver is suboptimally assessed due to poor acoustic window. The liver is grossly normal in size and echotexture. There is no intrahepatic biliary ductal dilatation. The main portal vein is patent. Gallbladder: The gallbladder is surgically absent. The common bile duct measures up to 0.4 cm in diameter. Pancreas: Not visualized due to overlying bowel gas. Right kidney: The right kidney is suboptimally assessed due to poor acoustic window. Survey images of the right kidney demonstrate normal size and echotexture. There is no hydronephrosis. Ascites: None. IMPRESSION: 1. The examination is degraded by poor acoustic window and portable technique. 2. The liver is grossly normal in size and echotexture. 3. Status post cholecystectomy. ACT 112: Negative or not required by law. Electronically signed by: Pedro Quispe M.D. 08/18/2025 11:30 AM PG Care Time/CCT Total # of Minutes Spent Total Time Spent with Patient: Total time spent is greater than 50% in coordination of care (as documented) at patient's floor/unit and/or counseling patient: Coding Level of Care Code 06930 SUB INP/OBS CARE 3/50MIN Diagnoses Pseudomonal pneumonia J15.1 Chronic hypoxemic respiratory failure J96.11 Pseudomonas aeruginosa colonization Z22.39 Proteinuria R80.9 Congenital dysplasia of hips, bilateral Q65.89 Spastic quadriplegic cerebral palsy G80.0 Seizure disorder G40.909 Neurogenic bladder N31.9 Tracheostomy dependent Z93.0 Cortical blindness H47.619 Aortic root dilation I77.810 Feeding by G-tube Z93.1 Neuromuscular scoliosis M41.40 Patent ductus arteriosus Q25.0 Pulmonary valve insufficiency I37.1 Anemia D64.9
--- NOTE | 2025-08-18 13:52 | Pharmacy Report ---
Pharmacy PK ABX Note - Date of Service August 18, 2025 - Assessment and Plan Assessment 24 year old F receiving ZOSYN/VANCOMYCIN for treatment of pleural effusion/pneumonia. Complex PMH. Pertinent microbiologic data includes: MRSA nasal swab positive, see ID note for further background. Pleural cultures pending. Patient with history of redmans syndrome- vancomycin being infused over ~ 2 hours 40 minutes. Current dosing is predicting within target AUC/CHRISTOPHER however, patient with significant accumulation on previous admission. Will check early level. Plan Vancomycin * Loading dose: 1750 mg IV x 1 * Maintenance dose: 750 mg IV every 8 hours * Regimen is predicted to achieve target AUC/CHRISTOPHER of 400-600 mg/L.hr * Trough level ordered 08/18 @ 1830 Pharmacy will continue to follow and will adjust dose/frequency as necessary. Thank you. Pharmacy has transitioned to AUC monitoring for vancomycin. AUC/CHRISTOPHER is the preferred PK/PD target and is associated with decreased risk of nephrotoxicity compared to traditional trough targets.
[2025-08-18] MEDS: POLYETHYLENE (MIRALAX) 17 GM PACK PEG PRN (17:09)
[2025-08-18] MEDS ORDERED: GLUCOSE 10 TAB/TUBE PO PRN (18:20)
[2025-08-18] MEDS ORDERED: GLUCOSE 40% GEL 15 GM TUBE PO PRN (18:20)
[2025-08-18] MEDS ORDERED: CARBOHYDRATES FOR HYPOGLYCEMIA PO PRN (18:20)
[2025-08-18] MEDS ORDERED: GLUCAGON FOR INJ 1 MG VIAL SQ PRN (18:20)
[2025-08-18] MEDS ORDERED: DEXTROSE 50% 50 ML SYRINGE IV PRN (18:20)
[2025-08-18] MEDS: VANCOMYCIN LEVEL ONE (19:00)
[2025-08-18] MEDS ORDERED: LEVOTHYROXINE SODIUM 125 MCG TABLET PO SCH (19:15)
[2025-08-18] MEDS ORDERED: CETIRIZINE ORAL SOLN 1 MG/ML PEG SCH (21:00)
[2025-08-18] MEDS ORDERED: LEVOTHYROXINE SODIUM 100 MCG TABLET NG SCH (21:00)
[2025-08-18] MEDS: SODIUM BICARBONATE 650 MG TAB PO SCH (22:42)
[2025-08-18] MEDS: MONTELUKAST SODIUM 10 MG TABLET PEG SCH (22:43)
[2025-08-18] MEDS: CETIRIZINE ORAL SOLN 1 MG/ML PEG SCH (22:45)
[2025-08-18] MEDS: INSULIN ASPART PER UNIT CHARGE SC SCH (23:32)
[2025-08-19 04:07] LABS: Hematocrit (blood only) 28.1 % (37.0-47.0); Hemoglobin 9.0 g/dL (12.0-16.0); Immature Granulocytes # (auto) 0.02 K/uL (0.01-0.20); Immature Granulocytes % (auto) 0.5 %; Mean Corpuscular Hemoglobin 31.5 pg (25.0-34.0); Mean Corpuscular Volume 98.3 fL (80.0-100.0); Platelet Count 153 K/uL (130-400); RDW Standard Deviation 76.6 fL (36.4-46.3); Red Blood Count 2.86 M/uL (4.20-5.40); White Blood Count 4.15 K/ul (4.8-10.8)
[2025-08-19 04:24] LABS: Alanine Aminotransferase 268.0 U/L (7-52); Albumin Globulin Ratio 0.8 (0.9-2); Albumin Level 2.7 gm/dl (3.4-5.0); Alkaline Phosphatase 347.0 U/L (34-104); Anion Gap 11.0 (3-11); Bilirubin,Total 0.3 mg/dl (0.2-1.0); Blood Urea Nitrogen 41.0 mg/dl (6-23); Calcium 7.8 mg/dl (8.6-10.3); Carbon Dioxide 20.0 mmol/L (21-32); Chloride 107.0 mmol/L (98-107); Creatinine Clr Calc Pharmacy 95.1 ml/min; Globulin 3.5 gm/dl (2.5-4.0); Glucose 157.0 mg/dl (70-99(Fasting)); Magnesium 3.5 mg/dl (1.7-2.4); Potassium 4.0 mmol/L (3.5-5.1); Sodium 138.0 mmol/L (136-145); Total Protein 6.2 gm/dl (6.0-8.3)
[2025-08-19 04:33] LABS: INR 1.1 (0.9-1.1); Prothrombin Time 11.6 Seconds (9.0-12.0)
[2025-08-19 04:40] LABS: Anisocytosis Present
[2025-08-19] MEDS: LANSOPRAZOLE 30 MG SOLTAB PEG SCH (06:00)
[2025-08-19] MEDS: MULTI VIT W/MINERALS LIQUID 15 ML UDC PEG SCH (06:00)
--- NOTE | 2025-08-19 08:02 | XRay Report ---
EXAM: XR chest 1V portable CLINICAL HISTORY: pigtail TECHNIQUE: X-ray images of the chest were obtained in frontal view. COMPARISON: done with x ray dated 08.18.25 FINDINGS: A tracheostomy tube is seen in situ. Right sided pig tail cather seen projected over right lower zone. Pulmonary findings: Unchanged bilateral lower zonal air space opacities. There is bilateral blunting of the costophrenic angles, suggesting bilateral moderate pleural effusion. Heart and Mediastinum: Heart size is increased. No mediastinal widening or masses. No hilar or mediastinal lymphadenopathy. Bony Thorax: Bony thorax appears intact without fractures or deformities. Soft Tissues: Soft tissues overlying the chest wall are unremarkable. IMPRESSION: 1. Redemonstration of bilateral moderate pleurl effusion, with underlying lower zonal consolidation/ collapse. 2. A tracheostomy tube is seen in situ. 3. Right sided pig tail cather seen projected over right lower zone. 4. No interval changes. Electronically signed by Aldair Albarran 08-19-2025 08:02 AM
[2025-08-19] MEDS ORDERED: FERROUS SULFATE ELIX 220MG/5ML PEG SCH (09:00)
[2025-08-19] MEDS: FUROSEMIDE 40 MG/4 ML VIAL IV ONE (09:04)
--- NOTE | 2025-08-19 09:45 | Nephrology Progress Note ---
Date of Service August 19, 2025 Assessment & Plan (1) Proteinuria: (2) Hyperphosphatemia: (3) Acidemia: Plan 24-year old female with cerebral palsy, chronic ventilator dependent, neurogenic bladder requiring self-catheterization, Proteinuria, admitted with worsening right pleural effusion noted on CT scan done as an outpatient, had thoracentesis and has chest tube in place. Lab was notable for stable kidney function, creatinine 1.0 mg/dl, moderate degree of proteinuria, stable. Lab was notable for multiple electrolyte abnormalities including metabolic acidosis, bicarb 17, phosphorus 6.5, magnesium also has been chronically high around 3.7. Albumin was 2.7. AST, ALT and alk phos was elevated. Ultrasound in June showed Rt kidney 12.4 cm and left kidney 9.1 cm, chronically small. She is on 2.5 L/day of tube feeds, free water flushes after feeds. Hyperphosphatemia could be secondary to mild hypocalcemia etiology, PTH and vitamin D was normal. or other no offending medications to contribute. -- Agree with diuretics to improve volume status which might also help with lowering the magnesium level somewhat. --continue on sodium bicarbonate 650 mg twice a day Admission and Anticipated Discharge Date Admission Date: August 17, 2025 Shannan Mccall was phoned this morning with her family at bedside and both intensive care and hospitalist team in room. She remains volume overloaded, plan to start on diuretic today but having decent urine output even without diuretic. Kidney function remained normal. Phosphorus slightly improved to 5.4, magnesium also slightly improved and staying relatively stable at 3.5. PTH, calcium, vitamin D normal. Review of Systems Review of Systems: Detailed review of system was not possible. Physical Exam Physical Exam: Exam was not done. Results & Data Vital Signs (Past 12 Hours) Vital Signs Temp Pulse Pulse Resp BP Pulse Ox O2 Del Method 08/19/25 08:09 55 L 18 96 08/19/25 08:09 62 18 97 Room Air, Mechanical Vent 08/19/25 06:00 47 L 16 94/60 L 97 Mechanical Vent 08/19/25 05:00 51 L 17 95/62 L 97 Mechanical Vent 08/19/25 04:00 36.3 C L 47 L 16 97/64 L 99 Mechanical Vent 08/19/25 04:00 08/19/25 03:00 49 L 16 103/65 97 Mechanical Vent 08/19/25 02:00 48 L 18 101/65 97 Mechanical Vent 08/19/25 01:00 51 L 17 101/59 L 96 Mechanical Vent 08/19/25 00:00 36.3 C L 55 L 20 97/55 L 96 Mechanical Vent 08/19/25 00:00 08/18/25 23:33 54 L 19 94 08/18/25 23:00 53 L 18 103/66 94 Mechanical Vent 08/18/25 22:10 54 L 19 94 Room Air, Mechanical Vent 08/18/25 22:00 49 L 14 95/59 L 94 Mechanical Vent FiO2 08/19/25 08:09 08/19/25 08:09 08/19/25 06:00 21 08/19/25 05:00 21 08/19/25 04:00 21 08/19/25 04:00 21 08/19/25 03:00 21 08/19/25 02:00 21 08/19/25 01:00 21 08/19/25 00:00 21 08/19/25 00:00 21 08/18/25 23:33 21 08/18/25 23:00 21 08/18/25 22:10 08/18/25 22:00 21 PG Care Time/CCT Total # of Minutes Spent Total Time Spent with Patient: Total time spent is greater than 50% in coordination of care (as documented) at patient's floor/unit and/or counseling patient: Coding Level of Care Code 69790 SUB INP/OBS CARE 10/03MIN Diagnoses Proteinuria R80.9 Hyperphosphatemia E83.39 Acidemia E87.20
--- NOTE | 2025-08-19 10:23 | Critical Care Progress Note ---
Date of Service August 19, 2025 Assessment & Plan (1) Pleural effusion, right: Plan: 1400 mL out from right pleural catheter placed 08/17/2025. Fluid appears serosanguineous. Lymphocytic predominant and exudative. Cultures negative today and cytology pending. Differential for effusion is broad including secondary to hypothyroidism, parapneumonic effusion and/or malignancy related. Continue chest tube until drainage less than 200 mL/day. Will consider repeat CT chest imaging in the next day or 2 depending on clinical picture. Limited right Jerry thorax pleural ultrasound revealed minimal effusion on the right side. I flushed the pleural catheter today with 30 mL of saline. (2) Pseudomonal pneumonia: Plan: Continue nebulized [place]. Continue IV Zosyn given her history of E. coli and Pseudomonas pulmonary infection. Vancomycin discontinued as no evidence of MRSA pneumonia at this time given that the cultures have been negative from her pleura. (3) Tracheostomy dependent: Plan: Continue full support with home trilogy ventilator. Target tidal volume of 375. Minimum EPAP of 5 and maximum EPAP of 10. Respiratory rate 14 breaths/min. Will change out tracheostomy prior to discharge. (4) Localized swelling of both lower legs: Plan: Patient with significant chronic edema of the lower extremities probably related to hypothyroidism and venous stasis. (5) Hypothyroidism: Plan: Levothyroxine to 125 mcg daily given her TSH is still elevated, but improved from prior. (6) Hypovolemia: Plan: Resolved. (7) Acidemia: Plan: Continue sodium bicarbonate via J-tube per nephrology. (8) Transaminitis: Plan: Patient with transaminitis of unclear etiology. Liver ultrasound unremarkable. Will check hepatitis antibodies. Possibly medication induced. (9) Hyperphosphatemia: Plan: Nephrology consult as above. Will try to eliminate additional phosphorus through diet (10) Volume overload: Plan: She is net positive on I's and O's and appears to be retaining significant amounts of fluid with an x-ray suggesting worsening pulmonary edema. Will give 40 mg of IV Lasix and follow urine output closely. Plan I spent 10 minutes reviewing the electronic medical record/relevant imaging, 30 minutes discussing diagnosis and treatment plan with patient/family, and 10 minutes discussing care plan with ancillary staff such as RT/RN/pharmacist/director television news/PT/OT/other consulting medical services. CRITICAL CARE TIME I have personally spent 50 minutes of critical care time in the direct management of this patient. This is a life/limb threatening event. This includes time spent evaluating patient, direct bedside care, chart review, placing orders, interpretation of diagnostic studies, discussion with consultants, patient, and family members, as well as other required patient management activities. This time is exclusive of all separately billable procedures, and teaching time and separate from and in addition to any other critical care service time. Admission and Anticipated Discharge Date Admission Date: August 17, 2025 Subjective Patient nonverbal and difficult to obtain review of systems. Overnight there were no significant issues. Drainage from the pleural catheter is decreased significantly. Approximately 1400 mL of pleural fluid out since insertion of chest tube. She remains on room air via the trilogy ventilator. She has not had any bowel movements in the last 2 days Review of Systems Review of Systems: All systems reviewed & are unremarkable except as noted in HPI & below Physical Exam Physical Exam: Constitutional: Patient appears to be of their stated age. Patient is in no apparent distress. Patient is well-developed. Eyes: Pupils are equal round and reactive to light. Conjunctivae are normal. Anicteric sclera. Ears nose, mouth and throat: Roving eye movements. No cyanosis. Neck: Adam Pickens cuffed tracheostomy in place. Respiratory: Crackles or rhonchi bilaterally. Cardiovascular: Regular rate and rhythm. No murmurs. Diffusely edematous in all extremities. Gastrointestinal: PEG tube in place. Distended abdomen. Musculoskeletal: Contractures noted. Scoliotic. Skin: No rashes, warm dry and intact. Neurologic: Smiles and frowns spontaneously. Quadriparesis. Psychiatric: Alert and oriented x3 with a euthymic affect. Results & Data Results & Data Vital Signs (Past 12 Hours) Vital Signs Temp Pulse Pulse Resp BP Pulse Ox O2 Del Method 08/19/25 08:09 55 L 18 96 08/19/25 08:09 62 18 97 Room Air, Mechanical Vent 08/19/25 06:00 47 L 16 94/60 L 97 Mechanical Vent 08/19/25 05:00 51 L 17 95/62 L 97 Mechanical Vent 08/19/25 04:00 36.3 C L 47 L 16 97/64 L 99 Mechanical Vent 08/19/25 04:00 08/19/25 03:00 49 L 16 103/65 97 Mechanical Vent 08/19/25 02:00 48 L 18 101/65 97 Mechanical Vent 08/19/25 01:00 51 L 17 101/59 L 96 Mechanical Vent 08/19/25 00:00 36.3 C L 55 L 20 97/55 L 96 Mechanical Vent 08/19/25 00:00 08/18/25 23:33 54 L 19 94 08/18/25 23:00 53 L 18 103/66 94 Mechanical Vent FiO2 08/19/25 08:09 08/19/25 08:09 08/19/25 06:00 21 08/19/25 05:00 21 08/19/25 04:00 21 08/19/25 04:00 21 08/19/25 03:00 21 08/19/25 02:00 21 08/19/25 01:00 21 08/19/25 00:00 21 08/19/25 00:00 21 08/18/25 23:33 21 08/18/25 23:00 21 Coding Level of Care Code 98159 CRITICAL CARE 1ST 30-74M Diagnoses Pleural effusion, right J90 Pseudomonal pneumonia J15.1 Tracheostomy dependent Z93.0 Localized swelling of both lower legs R22.43 Hypothyroidism E03.9 Hypovolemia E86.1 Acidemia E87.20 Transaminitis R74.01 Hyperphosphatemia E83.39 Volume overload E87.70
[2025-08-19] MEDS: PATIENT'S OWN ENTERAL FEEDING GT SCH (11:07)
[2025-08-19] MEDS: FERROUS SULFATE ELIX 220MG/5ML PEG SCH (11:11)
--- NOTE | 2025-08-19 11:28 | Hospitalist Progress Note ---
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 Serosanguineous output. Fluid studies and cell studies pending #Early Pulmonary Edema -See pulm notes, uncertain etiology, ? Reactionary, notable LE Edema, B lines on Bedside US c/w edema -low threshold for repeat CT, lasix 40mg IV, monitor I/O #MDR E. coli -Infectious disease consulted placed in the outpatient setting, will consult here to get input in regards to MDR E. coli and Pseudomonas- -ID consult, DC vancomycin -Cultures thus far negative, short course of zosyn in the absence of need for agressive dosing schedule #Transaminitis - Mild, stable trend over the first 24 hours, liver ultrasound negative. Acute hepatitis panel sent as a precaution - Possibly related to antibiotics, INR is since synthetic function appear appropriate - Continue daily monitoring #Hypovitaminosis D - she is on the lower limits of normal. Would probably be reasonable to give her a high-dose supplement for 6 weeks set her target at 50, or the upper normal range. -B12 testing in the outpatient setting #Chronic respiratory failure #Ventilator dependence/trach dependence -Currently back with Bivona trach, she had used a 6 Shiley XLT because of supply issues but that since resolved since -Last trach swab was 07/16 - Consult to pulmonology as above - Respiratory therapy, consideration for mucociliary clearance supportive cares including albuterol, hypertonic saline as needed - Is uncertain what trach she has in place at this time, she previously was on a Bivona/Shiley XLT. Pulmonology consider using a alternate dimension custom trach to improve clearance. 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 PT and OT for maintenance therapy - continue baclofen #Seizure disorder - Stable at this time, continue phenobarbital and Keppra, doses confirmed with u pdated medicine sheet from mom - Seizure precaution - Benzos for acute abortive therapy as needed #HFpEF - Euvolemic at this time, recent history of decompensation, continue baseline Lasix dose - Recent episodes of volume overload concerning for nephrotic protein loss - Daily weights - continue furosemide, increase to 40mg IV as above #history of difficult IV access -VATS team to evaluate, she has had a port twice in the past but has had serial issues with infection so family is reluctant -May revisit depending on clinical course #History of electrolyte abnormalities CMP and magnesium on admission, replete as needed- #Central hypothyroidism - continue levothroxine - Relative hypothyroidism, normal free T4, TSH elevated - This could well be contributing to her volume distribution issues/third spacing #Hyperglycemia -Recent A1c 5.0, no history of diabetes, - Routine monitoring during initial hospitalization #Pressure Ulcers -present on admission, WCN to see #Tube feed dependence -Patient is on Dasher standard, mom is bringing improved. Our pharmacy does not stock the exact formulation she is on. -Her G-tube requires a very specific Enfit syringe which we typically do not have, supply working on getting adapters -Registered dietitian/nutrition consultation -Will have pharmacy convert medications to TF solutions/crush instructions PRN. #Chronic Pain -topical NSAID to knees, Ultram via TF PRN #Constipation - MiraLAX, docusate, senna - Suppositories as needed #Primary immunodeficiency - Hizentra injection, next infusion due 08/20 #Neurogenic bladder - Turner, oxybutinin #FEN -TF diet as above, NS for short term in needed to be NPO for procedures #CODE STATUS -Full Code, verified with mom at the bedside at the time of admission Admission and Anticipated Discharge Date Admission Date: August 17, 2025 Subjective Clinically about her baseline per mom. Normal level of interaction. Met with family and care team at the bedside. X-ray findings reviewed, bedside ultrasound by critical care. Minimal recent output from the pigtail. Output had remained serosanguineous. Cytology has not yet returned. Otherwise she continues with tube feed diet on her baseline formula, adequate urine output. Physical Exam Physical Exam: GEN: Awake, alert, NAD nonverbal but appropriately expressive HEENT: Bonner facies, MMM NECK: Trach in place, cuff CDI, short broad soft tissues CV: RRR, No M/R/G RESP: Course throughout, decreased on right lateral/posterior, good air exchange ABD: Obese, NT/ND Mateo-Reilly GJ Button in place EXTR: chronic wound dressing on heels bilaterally, no general rash, pallor or discoloration, contractures of all 4 extremities present and at baseline Results & Data Results & Data Vital Signs (Past 12 Hours) Vital Signs Temp Pulse Pulse Resp BP Pulse Ox O2 Del Method 08/19/25 10:34 54 L 15 96 Room Air 08/19/25 08:09 55 L 18 96 08/19/25 08:09 62 18 97 Room Air, Mechanical Vent 08/19/25 06:00 47 L 16 94/60 L 97 Mechanical Vent 08/19/25 05:00 51 L 17 95/62 L 97 Mechanical Vent 08/19/25 04:00 36.3 C L 47 L 16 97/64 L 99 Mechanical Vent 08/19/25 04:00 08/19/25 03:00 49 L 16 103/65 97 Mechanical Vent 08/19/25 02:00 48 L 18 101/65 97 Mechanical Vent 08/19/25 01:00 51 L 17 101/59 L 96 Mechanical Vent 08/19/25 00:00 36.3 C L 55 L 20 97/55 L 96 Mechanical Vent 08/19/25 00:00 08/18/25 23:33 54 L 19 94 FiO2 08/19/25 10:34 08/19/25 08:09 08/19/25 08:09 08/19/25 06:00 21 08/19/25 05:00 21 08/19/25 04:00 21 08/19/25 04:00 21 08/19/25 03:00 21 08/19/25 02:00 21 08/19/25 01:00 21 08/19/25 00:00 21 08/19/25 00:00 21 08/18/25 23:33 21 Laboratory Results 08/17/25 Unknown Acid Fast Bacilli Smear - Final Pleural Fluid Acid Fast Bacilli Culture - Pending 08/17/25 Unknown Gram Stain - Final Pleural Fluid Aerobic and Anaerobic Culture - Preliminary No growth to date. 08/19/25 08/19/25 08/18/25 06:05 03:27 23:03 WBC 4.15 L RBC 2.86 L Hgb 9.0 L Hct 28.1 L MCV 98.3 MCH 31.5 MCHC 32.0 RDW Std Deviation 76.6 H RDW Coeff of Dulce 21.6 H Plt Count 153 MPV 10.2 Immature Gran % (Auto) 0.5 Neut % (Auto) 73.9 Lymph % (Auto) 16.9 Bailey % (Auto) 7.7 Eos % (Auto) 0.5 Baso % (Auto) 0.5 Neut # (Auto) 3.07 Lymph # (Auto) 0.70 L Bailey # (Auto) 0.32 Eos # (Auto) 0.02 Baso # (Auto) 0.02 Immature Gran # (Auto) 0.02 Anisocytosis Present PT 11.6 INR 1.1 Sodium 138 Potassium 4.0 Chloride 107 Carbon Dioxide 20 L Anion Gap 11 BUN 41 H Creatinine 0.95 Est Cr Clr Drug Dosing 95.1 eGFR 86.34 BUN/Creatinine Ratio 43.2 H Glucose 157 H POC Glucose 149 H 206 H Calcium 7.8 L Phosphorus 5.4 H Magnesium 3.5 H Total Bilirubin 0.3 AST 156 H ALT 268 H Alkaline Phosphatase 347 H Total Protein 6.2 Albumin 2.7 L Globulin 3.5 Albumin/Globulin Ratio 0.8 L 25-OH Vitamin D Total PTH Intact Random Vancomycin 37.0 H* 08/18/25 08/18/25 08/18/25 19:43 18:16 12:15 WBC RBC Hgb Hct MCV MCH MCHC RDW Std Deviation RDW Coeff of Dulce Plt Count MPV Immature Gran % (Auto) Neut % (Auto) Lymph % (Auto) Bailey % (Auto) Eos % (Auto) Baso % (Auto) Neut # (Auto) Lymph # (Auto) Bailey # (Auto) Eos # (Auto) Baso # (Auto) Immature Gran # (Auto) Anisocytosis PT INR Sodium Potassium Chloride Carbon Dioxide Anion Gap BUN Creatinine Est Cr Clr Drug Dosing eGFR BUN/Creatinine Ratio Glucose POC Glucose 282 H Calcium Phosphorus Magnesium Total Bilirubin AST ALT Alkaline Phosphatase Total Protein Albumin Globulin Albumin/Globulin Ratio 25-OH Vitamin D Total 32.1 PTH Intact 65.1 Random Vancomycin 36.6 H* 08/18/25 11:47 WBC RBC Hgb Hct MCV MCH MCHC RDW Std Deviation RDW Coeff of Dulce Plt Count MPV Immature Gran % (Auto) Neut % (Auto) Lymph % (Auto) Bailey % (Auto) Eos % (Auto) Baso % (Auto) Neut # (Auto) Lymph # (Auto) Bailey # (Auto) Eos # (Auto) Baso # (Auto) Immature Gran # (Auto) Anisocytosis PT INR Sodium Potassium Chloride Carbon Dioxide Anion Gap BUN Creatinine Est Cr Clr Drug Dosing eGFR BUN/Creatinine Ratio Glucose POC Glucose 178 H Calcium Phosphorus Magnesium Total Bilirubin AST ALT Alkaline Phosphatase Total Protein Albumin Globulin Albumin/Globulin Ratio 25-OH Vitamin D Total PTH Intact Random Vancomycin PG Care Time/CCT Total # of Minutes Spent Total Time Spent with Patient: Total time spent is greater than 50% in coordination of care (as documented) at patient's floor/unit and/or counseling patient: Coding Level of Care Code 82784 SUB INP/OBS CARE 3/50MIN Diagnoses Pseudomonal pneumonia J15.1 Chronic hypoxemic respiratory failure J96.11 Pseudomonas aeruginosa colonization Z22.39 Proteinuria R80.9 Congenital dysplasia of hips, bilateral Q65.89 Spastic quadriplegic cerebral palsy G80.0 Seizure disorder G40.909 Neurogenic bladder N31.9 Tracheostomy dependent Z93.0 Cortical blindness H47.619 Aortic root dilation I77.810 Feeding by G-tube Z93.1 Neuromuscular scoliosis M41.40 Patent ductus arteriosus Q25.0 Pulmonary valve insufficiency I37.1 Anemia D64.9
--- NOTE | 2025-08-19 12:08 | Gastroenterology Progress Note ---
Date of Service August 19, 2025 Assessment & Plan (1) Abnormal LFTs: Plan: LFT's are stable. No intervention planned. I am leaving service in early am. As nothing to do other than watchful waiting will not sign out to other GI team. If things change and GI needed please reconsult. I explained this to her mother as well. Admission and Anticipated Discharge Date Admission Date: August 17, 2025 Subjective No change from our standpoint. LFT's up and down. Not much different from yesterday. Spoke with mom Physical Exam Physical Exam: Still ventilated Results & Data Vital Signs (Past 12 Hours) Vital Signs Temp Pulse Pulse Resp BP Pulse Ox O2 Del Method 08/19/25 10:34 54 L 15 96 Room Air 08/19/25 08:09 55 L 18 96 08/19/25 08:09 62 18 97 Room Air, Mechanical Vent 08/19/25 06:00 47 L 16 94/60 L 97 Mechanical Vent 08/19/25 05:00 51 L 17 95/62 L 97 Mechanical Vent 08/19/25 04:00 36.3 C L 47 L 16 97/64 L 99 Mechanical Vent 08/19/25 04:00 08/19/25 03:00 49 L 16 103/65 97 Mechanical Vent 08/19/25 02:00 48 L 18 101/65 97 Mechanical Vent 08/19/25 01:00 51 L 17 101/59 L 96 Mechanical Vent FiO2 08/19/25 10:34 08/19/25 08:09 08/19/25 08:09 08/19/25 06:00 21 08/19/25 05:00 21 08/19/25 04:00 21 08/19/25 04:00 21 08/19/25 03:00 21 08/19/25 02:00 21 08/19/25 01:00 21
[2025-08-19] MEDS: IMMUNE GLOBULIN SC SCH ×2 (12:31→12:32)
[2025-08-19 12:47] LABS: Hep B Surface Ag with confirm Negative (Negative)
[2025-08-19] MEDS: TUBE FEEDING WATER FLUSH GT SCH (13:31)
[2025-08-19 13:38] LABS: Hep C Ab Rflx HepCQuant RNA Negative (Negative)
--- NOTE | 2025-08-19 14:26 | Infectious Disease Progress Nt ---
Date of Service August 19, 2025 Assessment & Plan (1) Pleural effusion, right: Plan Problems: #R pleural effusion s/p chest tube 08/17 #Chronic trach with ventilator dependence #Pulmonary colonization with Pseudomonas and E coli #Primary immunodeficiency on Hizentra injections #Neurogenic bladder requiring intermittent catheterization Micro: 08/17 R pleural fluid - Bacterial cx: NGTD. GS neg - AFB cx: pending, smear neg 07/19 UCx: E coli (R amp, cipro, levo, nitrofurantoin. I amp/sul. S amox/clav, cefaz, TMP/SMX, pip/tazo) 06/24 UCx: E coli 06/17 RLL BAL cx: Pseudomonas aeruginosa (S cefepime, ceftaz, cipro, tonya, pip/tazo. I levo), E coli (R amp, cipro, levo. I amp/sul, cefaz, cefuroxime. S amox/clav, ceftriaxone, TMP/SMX, pip/tazo) 06/03 Sputum cx: Stenotrophomonas maltophilia (S TMP/SMX) 05/23 Sputum cx: E coli 05/23 UCx: E coli 05/04 UCx: ESBL E coli 04/09 Sputum cx: MRSA, Pseudomonas aeruginosa (R ceftaz, ceftaz/marimar, cipro, tonya. I cefepime, pip/tazo. S ceftol/tazo, levo) Abx: Vanc 08/17 - 08/18 Zosyn 08/17 - 08/19 24 yo F with history of spastic quadriplegia, CP, congenital hydrocephalus s/p STUNT PERFORMER shunt, chronic tracheostomy with ventilator dependence, s/p PEG, central hypothyroidism, ALL in remission, ASD and VSD, primary immunodeficiency on Hizentra injections, neurogenic bladder requiring intermittent catheterization, seizure disorder, morbid obesity who was admitted 08/17 with large R pleural effusion. Admitted 02/2024 with pneumonia (sputum cx grew MRSA, Serratia, Stenotrophomonas maltophilia, s/p 7 days of Bactrim). Admitted 12/2024 with hypoxia/pulm edema/LLL infiltrate; sputum cx with MRSA and MDR PsA s/p 14 days of levofloxacin and Bactrim. Admitted 04/2025 for ESBL E coli UTI, s/p 7 days of Bactrim. Admitted 05/2025 with pneumonia and septic shock, with sputum and urine cultures growing E coli, treated with ceftriaxone --> Augmentin. Per pulm notes, pt has a history of lung colonization with E coli and Pseudomonas. At 07/30 pulm visit, was started on [place] TID via aerogen nebulizer for chronic Pseudomonas colonization, with plan for 28 day cycles on and off. Was also started on ciprofloxacin x 2 weeks for possible acute/subacute pseudomonal pneumonia given ongoing increased O2 requirements. Pt's mother reports that with the new [place] nebulizer and course of cipro, pt's respiratory status improved significantly and was back to room air. A CT chest was performed 08/17 as per pulm for follow-up after a 28 day course of [place], which showed a moderate to large and at least partially loculated debris- containing R pleural effusion with associated pleural thickening, significantly increased in size from 05/23/25. Complete atelectasis/consolidation of RLL. Pulm therefore referred pt to the hospital for admission, thoracentesis/pigtail placement. Over the last week, pt was noted to be having significant desaturations with even simple activities. On presentation, pt was hypothermic to 32.4, HR 40s, BP 90/56. Labs showed WBC 3.65, AST 80, ALT 97, procal 0.25. Pt admitted to the ICU, and pulm placed a pigtail catheter chest tube on 08/17. 600 cc serosanguineous pleural fluid removed. She was started on vanc and Zosyn, and continued on nebulized [place]. Pleural fluid studies show 667 WBCs, 15% neutrophils, 72% lymphocytes, total protein 3.5, LDH 236. Discussion: Per mother, pt's respiratory status improved prior to admission with a course of ciprofloxacin as well as nebulized [place]. Remains on FiO2 21%. CT chest with mod to large at least partially loculated R pleural effusion, s/p chest tube placement 08/17. Pleural fluid studies show exudative effusion, but only 667 WBCs, primarily lymphocytes--less consistent with bacterial infection, but unclear etiology. Recommendations: - Vanc and Zosyn now discontinued, as it appears pt's respiratory status improved prior to admission after a course of ciprofloxacin, and pt has been afebrile with stable respiratory status here. If pt's respiratory status worsens, can restart Zosyn - Follow-up pleural fluid culture Discussed with pulm. Will continue to follow Admission and Anticipated Discharge Date Admission Date: August 17, 2025 Subjective This patient recommendation is based on a telemedicine consult request which was completed asynchronously through chart review and information provided by the primary physician. The patient was not seen or examined today. The evaluation is consultative in nature and all patient care and treatment decisions can either be accepted or rejected by the patient's primary hospital-based treating physician using their own independent medical judgment for their patient. Time Spent Reviewing Chart: 11 - 20 minutes CXR today with redemonstration of bilateral moderate pleural effusion with underlying lower zonal consolidation/collapse Results & Data Vital Signs (Past 12 Hours) Vital Signs Temp Pulse Pulse Resp BP Pulse Ox O2 Del Method 08/19/25 14:00 95/61 L 08/19/25 14:00 54 L 27 H 95 08/19/25 13:00 99/61 L 08/19/25 13:00 99/61 L 08/19/25 13:00 99/61 L 08/19/25 13:00 55 L 17 95 08/19/25 12:00 104/59 L 08/19/25 12:00 104/59 L 08/19/25 12:00 56 L 28 H 94 08/19/25 12:00 08/19/25 11:00 59 L 24 100 08/19/25 11:00 108/70 08/19/25 11:00 108/70 08/19/25 10:34 54 L 15 96 Room Air 08/19/25 10:00 103/68 08/19/25 10:00 55 L 28 H 96 08/19/25 09:00 58 L 22 93 08/19/25 09:00 99/63 L 08/19/25 08:09 55 L 18 96 08/19/25 08:09 62 18 97 Room Air, Mechanical Vent 08/19/25 08:00 53 L 22 96 08/19/25 08:00 96/59 L 08/19/25 08:00 Trach Collar 08/19/25 08:00 08/19/25 07:00 46 L 14 98 08/19/25 07:00 97/66 L 08/19/25 07:00 97/66 L 08/19/25 06:51 46 L 08/19/25 06:00 47 L 16 94/60 L 97 Mechanical Vent 08/19/25 05:00 51 L 17 95/62 L 97 Mechanical Vent 08/19/25 04:00 36.3 C L 47 L 16 97/64 L 99 Mechanical Vent 08/19/25 04:00 08/19/25 03:00 49 L 16 103/65 97 Mechanical Vent FiO2 08/19/25 14:00 08/19/25 14:00 08/19/25 13:00 08/19/25 13:00 08/19/25 13:00 08/19/25 13:00 08/19/25 12:00 08/19/25 12:00 08/19/25 12:00 08/19/25 12:00 21 08/19/25 11:00 08/19/25 11:00 08/19/25 11:00 08/19/25 10:34 08/19/25 10:00 08/19/25 10:00 08/19/25 09:00 08/19/25 09:00 08/19/25 08:09 08/19/25 08:09 08/19/25 08:00 08/19/25 08:00 08/19/25 08:00 08/19/25 08:00 08/19/25 07:00 08/19/25 07:00 08/19/25 07:00 08/19/25 06:51 08/19/25 06:00 08/19/25 05:00 08/19/25 04:00 08/19/25 04:00 08/19/25 03:00 21
[2025-08-19] MEDS: PEPTAMEN INTENSE VHP 1.0 CAL 1,000 ML BAG GT SCH (16:15)
[2025-08-19] MEDS ORDERED: Nursing to Pharmacy Communication SCH ×2 (16:45→18:45)
[2025-08-19] MEDS: MELATONIN 3 MG TAB PO SCH (20:54)
[2025-08-19] MEDS: SODIUM BICARBONATE 650 MG TAB PO SCH (20:58)
[2025-08-20 05:23] LABS: Hematocrit (blood only) 26.7 % (37.0-47.0); Hemoglobin 8.6 g/dL (12.0-16.0); Immature Granulocytes # (auto) 0.02 K/uL (0.01-0.20); Immature Granulocytes % (auto) 0.4 %; Mean Corpuscular Hemoglobin 31.7 pg (25.0-34.0); Mean Corpuscular Volume 98.5 fL (80.0-100.0); Platelet Count 188 K/uL (130-400); RDW Standard Deviation 77.8 fL (36.4-46.3); Red Blood Count 2.71 M/uL (4.20-5.40); White Blood Count 5.06 K/ul (4.8-10.8)
[2025-08-20 05:42] LABS: Alanine Aminotransferase 229.0 U/L (7-52); Albumin Globulin Ratio 0.7 (0.9-2); Albumin Level 2.6 gm/dl (3.4-5.0); Alkaline Phosphatase 298.0 U/L (34-104); Anion Gap 11.0 (3-11); Bilirubin,Total 0.3 mg/dl (0.2-1.0); Blood Urea Nitrogen 41.0 mg/dl (6-23); Calcium 7.7 mg/dl (8.6-10.3); Carbon Dioxide 21.0 mmol/L (21-32); Chloride 110.0 mmol/L (98-107); Creatinine Clr Calc Pharmacy 90.6 ml/min; Globulin 3.6 gm/dl (2.5-4.0); Glucose 110.0 mg/dl (70-99(Fasting)); Potassium 3.4 mmol/L (3.5-5.1); Sodium 142.0 mmol/L (136-145); Total Protein 6.2 gm/dl (6.0-8.3)
[2025-08-20 06:10] LABS: Anisocytosis Present; Polychromasia 1+
[2025-08-20] MEDS: POTASSIUM CHLORIDE 20 MEQ/15 ML UDC PEG STA ×2 (06:41→07:31)
[2025-08-20] MEDS: CALCIUM GLUCONATE 1,000 MG/60 ML BAG IV STA (07:31)
--- NOTE | 2025-08-20 08:18 | XRay Report ---
EXAM: XR chest 1V portable CLINICAL HISTORY: pigtail TECHNIQUE: An X-ray image of the chest is obtained in AP projection. COMPARISON: compared to prior studiy dated 08/19/2025 FINDINGS: Tubes and lines: Stable; tracheostomy tube seen in situ. Stable; pigtail catheter seen in the right lower zone Pulmonary Parenchyma: Interval mild regression of previously noted homogeneous opacification of right middle and lower zones with still noted blunting of right costophrenic recess. Interval stable; haziness seen in the left lower zone with blunting of left costophrenic recess. Heart and Mediastinum: Mild cardiomegaly. No mediastinal widening or masses. No hilar or mediastinal lymphadenopathy. Bony Thorax: Bony thorax appears intact without fractures or deformities. Soft Tissues: Soft tissues overlying the chest wall are unremarkable. IMPRESSION: 1. Interval mild regression of previously noted homogeneous opacification of right middle and lower zones. 2. Redemonstration of bilateral moderate pleural effusion. 3. A tracheostomy tube is seen in situ. 4. Right sided pig tail catheter seen projected over right lower zone. Electronically signed by Aldair Albarran 08-20-2025 08:17 AM
[2025-08-20] MEDS: dexAMETHasone 1 MG in SYRINGE 0 ML IV PRN (09:54)
[2025-08-20] MEDS: IMMUNE GLOBULIN SC SCH ×2 (09:54→09:55)
--- NOTE | 2025-08-20 12:14 | Infectious Disease Progress Nt ---
Date of Service August 20, 2025 Assessment & Plan (1) Pleural effusion, right: Plan Problems: #R pleural effusion s/p chest tube 08/17 #Chronic trach with ventilator dependence #Prior respiratory cultures with Pseudomonas, MRSA, E coli, Steno: likely some degree of colonization #Primary immunodeficiency on Hizentra injections #Neurogenic bladder requiring intermittent catheterization Micro: 08/19 Sputum cx: Steno, Staph aureus 08/17 R pleural fluid - Bacterial cx: NGTD. GS neg - AFB cx: pending, smear neg 07/19 UCx: E coli (R amp, cipro, levo, nitrofurantoin. I amp/sul. S amox/clav, cefaz, TMP/SMX, pip/tazo) 06/24 UCx: E coli 06/17 RLL BAL cx: Pseudomonas aeruginosa (S cefepime, ceftaz, cipro, tonya, pip/tazo. I levo), E coli (R amp, cipro, levo. I amp/sul, cefaz, cefuroxime. S amox/clav, ceftriaxone, TMP/SMX, pip/tazo) 06/03 Sputum cx: Stenotrophomonas maltophilia (S TMP/SMX) 05/23 Sputum cx: E coli 05/23 UCx: E coli 05/04 UCx: ESBL E coli 04/09 Sputum cx: MRSA, Pseudomonas aeruginosa (R ceftaz, ceftaz/marimar, cipro, tonya. I cefepime, pip/tazo. S ceftol/tazo, levo) Abx: Vanc 08/17 - 08/18 Zosyn 08/17 - 08/19 24 yo F with history of spastic quadriplegia, CP, congenital hydrocephalus s/p AEROPHYSICS ENGINEER shunt, chronic tracheostomy with ventilator dependence, s/p PEG, central hypothyroidism, ALL in remission, ASD and VSD, primary immunodeficiency on Hizentra injections, neurogenic bladder requiring intermittent catheterization, seizure disorder, morbid obesity who was admitted 08/17 with large R pleural effusion s/p chest tube 08/17. Admitted 02/2024 with pneumonia (sputum cx grew MRSA, Serratia, Stenotrophomonas maltophilia, s/p 7 days of Bactrim). Admitted 12/2024 with hypoxia/pulm edema/LLL infiltrate; sputum cx with MRSA and MDR PsA s/p 14 days of levofloxacin and Bactrim. Admitted 04/2025 for ESBL E coli UTI, s/p 7 days of Bactrim. Admitted 05/2025 with pneumonia and septic shock, with sputum and urine cultures growing E coli, treated with ceftriaxone --> Augmentin. Per pulm notes, pt has a history of lung colonization with E coli and Pseudomonas. At 07/30 pulm visit, was started on [place] TID via aerogen nebulizer for chronic Pseudomonas colonization, with plan for 28 day cycles on and off. Was also started on ciprofloxacin x 2 weeks for possible acute/subacute pseudomonal pneumonia given ongoing increased O2 requirements. Pt's mother reports that with the new [place] nebulizer and course of cipro, pt's respiratory status improved significantly and was back to room air. A CT chest was performed 08/17 as per pulm for follow-up after a 28 day course of [place], which showed a moderate to large and at least partially loculated debris- containing R pleural effusion with associated pleural thickening, significantly increased in size from 05/23/25. Complete atelectasis/consolidation of RLL. Pulm therefore referred pt to the hospital for admission, thoracentesis/pigtail placement. Over the last week, pt was noted to be having significant desaturations with even simple activities. On presentation, pt was hypothermic to 32.4, HR 40s, BP 90/56. Labs showed WBC 3.65, AST 80, ALT 97, procal 0.25. Pt admitted to the ICU, and pulm placed a pigtail catheter chest tube on 08/17. 600 cc serosanguineous pleural fluid removed. She was started on vanc and Zosyn, and continued on nebulized [place]. Pleural fluid studies show 667 WBCs, 15% neutrophils, 72% lymphocytes, total protein 3.5, LDH 236, and culture NGTD. Discussion: Per mother, pt's respiratory status improved prior to admission with a course of ciprofloxacin as well as nebulized [place]. Remains on FiO2 21%. CT chest with mod to large at least partially loculated R pleural effusion, s/p chest tube placement 08/17. Pleural fluid studies show exudative effusion, but only 667 WBCs, primarily lymphocytes--less consistent with bacterial infection, but unclear etiology. Sputum culture was collected 08/19 which is growing Steno and Staph aureus, sensitivities pending. However, pt's respiratory status appears stable, and she is afebrile with minimal secretions, so these may represent colonizers. Recommendations: - Note that sputum culture from 08/19 is growing Steno and Staph aureus--may represent colonizers as pt's respiratory status is stable and she is afebrile with minimal secretions. Ok to hold off on antibiotics at this time - If pt's respiratory status worsens, would start TMP/SMX (if Steno and Staph aureus confirmed to be susceptible to this. Otherwise, if Steno R to TMP/SMX, could call micro lab and ask if levofloxacin sensitivities were performed as this is an alternative treatment option for the Steno.) Discussed with pulm. Please note that ID does not round or write notes over the weekend. If questions or concerns arise, please contact the Infectious Disease Call Center and ask to speak with the covering ID physician. Admission and Anticipated Discharge Date Admission Date: August 17, 2025 Subjective This patient recommendation is based on a telemedicine consult request which was completed asynchronously through chart review and information provided by the primary physician. The patient was not seen or examined today. The evaluation is consultative in nature and all patient care and treatment decisions can either be accepted or rejected by the patient's primary hospital-based treating physician using their own independent medical judgment for their patient. Time Spent Reviewing Chart: 11 - 20 minutes Sputum culture with Steno, Staph aureus Remains on FiO2 21% CXR today with interval mild regression of previously noted homogenous opacification of R middle and lower zones, redemonstration of bilateral moderate pleural effusions Results & Data Vital Signs (Past 12 Hours) Vital Signs Temp Pulse Pulse Resp BP Pulse Ox O2 Del Method 08/20/25 12:00 57 L 28 H 100 08/20/25 12:00 99/58 L 08/20/25 12:00 08/20/25 12:00 36.9 C 08/20/25 11:00 66 10 L 94 08/20/25 11:00 100/57 L 08/20/25 11:00 100/57 L 08/20/25 10:00 98/57 L 08/20/25 10:00 98/57 L 08/20/25 10:00 59 L 29 H 94 08/20/25 09:00 57 L 28 H 95 08/20/25 09:00 97/58 L 08/20/25 08:00 102/55 L 08/20/25 08:00 102/55 L 08/20/25 08:00 61 29 H 95 08/20/25 08:00 51 L 08/20/25 08:00 36.8 C 08/20/25 08:00 08/20/25 07:34 55 L 16 93 08/20/25 07:34 58 L 15 94 Mechanical Vent 08/20/25 07:00 52 L 30 H 94 08/20/25 07:00 91/54 L 08/20/25 03:00 52 L 14 96 08/20/25 03:00 37.1 C 95/57 L 08/20/25 03:00 95/57 L 08/20/25 03:00 95/57 L 08/20/25 03:00 95/57 L 08/20/25 03:00 95/57 L 08/20/25 02:00 54 L 22 96 08/20/25 02:00 94/56 L 08/20/25 02:00 94/56 L 08/20/25 02:00 94/56 L 08/20/25 02:00 94/56 L 08/20/25 02:00 94/56 L 08/20/25 01:14 59 L 16 95 Mechanical Vent 08/20/25 01:00 93/54 L 08/20/25 01:00 93/54 L 08/20/25 01:00 93/54 L 08/20/25 01:00 93/54 L 08/20/25 01:00 93/54 L 08/20/25 01:00 93/54 L 08/20/25 01:00 93/54 L 08/20/25 01:00 93/54 L 08/20/25 01:00 93/54 L 08/20/25 01:00 56 L 28 H 96 FiO2 08/20/25 12:00 08/20/25 12:00 08/20/25 12:00 21 08/20/25 12:00 08/20/25 11:00 08/20/25 11:00 08/20/25 11:00 08/20/25 10:00 08/20/25 10:00 08/20/25 10:00 08/20/25 09:00 08/20/25 09:00 08/20/25 08:00 08/20/25 08:00 08/20/25 08:00 08/20/25 08:00 08/20/25 08:00 08/20/25 08:00 21 08/20/25 07:34 21 08/20/25 07:34 21 08/20/25 07:00 08/20/25 07:00 08/20/25 03:00 08/20/25 03:00 08/20/25 03:00 08/20/25 03:00 08/20/25 03:00 08/20/25 03:00 08/20/25 02:00 08/20/25 02:00 08/20/25 02:00 08/20/25 02:00 08/20/25 02:00 08/20/25 02:00 08/20/25 01:14 08/20/25 01:00 08/20/25 01:00 08/20/25 01:00 08/20/25 01:00 08/20/25 01:00 08/20/25 01:00 08/20/25 01:00 08/20/25 01:00 08/20/25 01:00 08/20/25 01:00
--- NOTE | 2025-08-20 12:31 | Procedure Note ---
Procedure Note Date of Service August 20, 2025 Procedure: Pigtail chest tube removal Deblocker: Dr. Justo Padilla Indication: Resolved right-sided pleural effusion Consent: Verbal consent was obtained from the mother at bedside Anesthesia: None Procedure: Patient was positioned appropriately The previous dressing were removed. Under aseptic precautions and sterile measures the sutures were removed. The chest tube was removed on exhalation. It was found to be intact. The site was cleaned with alcohol swab It was dressed with Vaseline gauze followed by 4 x 4. Medipore tape was placed on top of the The patient tolerated the procedure without obvious complication Complications: None Blood loss: None [facility] [place] Procedure Codes (Charges) Pulmonary/Thoracic Procedure 1: Pulmonary and Thoracic: 24478 Remove lung catheter Coding CPT Codes Pulmonary/Thoracic - Pulmonary and Thoracic: 02956 Remove lung catheter ([id number]) Additional Codes Date of Service ([email or web address])
--- NOTE | 2025-08-20 12:33 | Procedure Note ---
Procedure Note Date of Service August 20, 2025 Procedure: Tracheostomy change Research Test Engine Operator: Dr. Justo Padilla Indication: Trach dependent respiratory failure Consent: Verbal consent was obtained from patient's mother at bedside Anesthesia: 1% lidocaine jelly topical Procedure: Patient was placed in a supine position. The tracheostomy was suctioned first. Clear secretions were appreciated. The patient was disconnected from the ventilator. She was preoxygenated Size 7 Bovana nonfenestrated trach was changed to Size 7 Bovana nonfenestrated trach smoothly over a bougie Patient was reconnected to the vent No bleeding was appreciated postprocedure. Good expiratory flow appreciated from the trach. A soft trach collar was then connected to the tracheostomy to make sure it is in place. The patient appeared comfortable and vital signs were stable all throughout the procedure. Complications: None [facility] [place] (Charges) Pulmonary/Thoracic Procedure 1: Pulmonary and Thoracic: 81566 Tracheotomy tube change prior to Fistula Coding CPT Codes Pulmonary/Thoracic - Pulmonary and Thoracic: 20145 Tracheotomy tube change prior to Fistula ([id number]) Additional Codes Date of Service ([email or web address])
--- NOTE | 2025-08-20 14:23 | Critical Care Progress Note ---
Date of Service August 20, 2025 Assessment & Plan (1) Pleural effusion, right: Plan: 1400 mL out from right pleural catheter placed 08/17/2025. Fluid appears serosanguineous. Lymphocytic predominant and exudative. Cultures negative today and cytology negative for malignancy with only blood noted. Differential for effusion is broad including secondary to hypothyroidism, parapneumonic effusion and/or malignancy related. CXR this am showing overall improvement in right sided effusion with small residual pleural effusion. Chest tube out put down to 200ml over last 24hrs. Chest tube removed at bedside this am. (2) Pseudomonal pneumonia: Plan: Continue nebulized [place]. ID following. D/C vanco and zosyn. Procal negative. Sputum is growing Stenotrophomonas and staph aureus discussed with pulmonary attending this is likely colonization and not true infection. Will continue to monitor and initiate ABX as appropriate. (3) Tracheostomy dependent: Plan: Continue full support with home trilogy ventilator. Target tidal volume of 375. Minimum EPAP of 5 and maximum EPAP of 10. Respiratory rate 14 breaths/min. Trach changed today at bedside by Dr. Padilla. (4) Localized swelling of both lower legs: Plan: Patient with significant chronic edema of the lower extremities probably related to hypothyroidism and venous stasis. Will continue gentle diuresis with 20mg IV lasix this am. (5) Hypothyroidism: Plan: Levothyroxine to 125 mcg daily. TSH improved from prior. (6) Hypovolemia: Plan: Resolved. (7) Acidemia: Plan: Continue sodium bicarbonate via J-tube per nephrology. (8) Transaminitis: Plan: Patient with transaminitis of unclear etiology. Liver ultrasound unremarkable. Will check hepatitis antibodies. Possibly medication induced. Downtredning this am. (9) Hyperphosphatemia: Plan: Nephrology consult as above. Will try to eliminate additional phosphorus through diet (10) Volume overload: Plan: She is net positive on I's and O's and appears to be retaining significant amounts of fluid with an x-ray suggesting worsening pulmonary edema. Diuresed yesterday. Will give 20 mg of IV Lasix and follow urine output closely. Admission and Anticipated Discharge Date Admission Date: August 17, 2025 Supervising Physician Co-Signing Physician Notes I saw and evaluated the patient with PAM Be, and agree with findings and plan as documented in the note. Patient seen and examined at bedside. No acute distress, no adverse events overnight Patient's mother was in the room She was saturating well while being ventilated with the help of the ventilator Was not in any respiratory distress The chest tube was in place and was draining serosanguineous fluid Has been afebrile Constitutional: No acute distress HEENT: PERRLA Respiratory system: Decreased air entry bilaterally, no wheeze, no rhonchi, no crackles CVS: S1-S2 positive, no murmurs or gallops Abdomen: Soft, nontender, nondistended, positive bowel sounds x4, obese, positive PEG Extremities: +1 pulses bilaterally radialis/ dorsalis pedis, no cyanosis, positive pitting edema bilateral lower extremity Neuro: Awake and alert Psych: Unable to assess G/U: Positive Turner --Prophylaxis VTE: Patient's mother refusing to use IPC's GI: Lansoprazole Lines: Peripheral Diet: Tube feeds Plan: In/out: -3.9 L, urine output 3500 mL Chest x-ray from today on personal review does not show any signs of pneumothorax There is still haziness appreciated on the right side especially in the right lower part. Minimal pleural effusion. Potassium is being replaced. Will give 20 mg of Lasix today. Patient's LFTs were elevated but they are gradually trending down. Could be from the previous use of Bactrim. Follow-up hepatitis antibodies Will plan to discontinue the chest tube today Patient is usually supposed to have trach exchange today as an outpatient but given that she is in the hospital we will do it inpatient. Getting bicarbonate through the PEG tube for hypocalcemia as per nephrology All questions inquiries of the patient's mother were answered in depth Please note the above document was generated using voice recognition software. It may contain grammatical, syntax or spelling errors.Any formal questions or concerns about the content, text or information contained within the body of this dictation should be directly addressed to the provider for clarification. Subjective Patient doing well this am on her mechanical vent with home settings and room air with SpO2 95% or greater. Trach change performed at bedside with Dr. Padilla. Chest tube removed. Will repeat CXR in am. Review of Systems 2 Review of Systems: All systems reviewed & are unremarkable except as noted in HPI & below Physical Exam 2 Physical Exam: VITALS: Reviewed. WEIGHT/BMI reviewed. GEN: Patient lying in bed on vent in no acute distress. PSYCH: Unable to assess. HEENT -Head: NC/AT; -Eyes: PERRL, EOMI. No discharge or redn ess; -Ears: External ears are normal. -Nose: Normal nares. NECK: Supple, with no masses. CV: RRR, no m/r/g. LUNGS: Clear in b/l upper lobes. Diminished in lower lobes. Chest rise symmetrical. ABD: Soft, NT/ND, NBS, no masses or organomegaly. : Turner with clear/yellow urine. SKIN: Warm, well perfused. No skin rashes or abnormal lesions. MSK: No deformities, Normal gait. EXT: No clubbing, cyanosis, or edema. NEURO: Opens eyes spontaneously, spastic extremities, Nonverbal. Results & Data Results & Data Vital Signs (Past 12 Hours) Vital Signs Temp Pulse Pulse Resp BP Pulse Ox O2 Del Method 08/20/25 12:00 57 L 28 H 100 08/20/25 12:00 99/58 L 08/20/25 12:00 08/20/25 12:00 36.9 C 08/20/25 11:00 66 10 L 94 08/20/25 11:00 100/57 L 08/20/25 11:00 100/57 L 08/20/25 10:00 98/57 L 08/20/25 10:00 98/57 L 08/20/25 10:00 59 L 29 H 94 08/20/25 09:00 57 L 28 H 95 08/20/25 09:00 97/58 L 08/20/25 08:00 102/55 L 08/20/25 08:00 102/55 L 08/20/25 08:00 61 29 H 95 08/20/25 08:00 51 L 08/20/25 08:00 36.8 C 08/20/25 08:00 08/20/25 07:34 55 L 16 93 08/20/25 07:34 58 L 15 94 Mechanical Vent 08/20/25 07:00 52 L 30 H 94 08/20/25 07:00 91/54 L 08/20/25 03:00 52 L 14 96 08/20/25 03:00 37.1 C 95/57 L 08/20/25 03:00 95/57 L 08/20/25 03:00 95/57 L 08/20/25 03:00 95/57 L 08/20/25 03:00 95/57 L FiO2 08/20/25 12:00 08/20/25 12:00 08/20/25 12:00 21 08/20/25 12:00 08/20/25 11:00 08/20/25 11:00 08/20/25 11:00 08/20/25 10:00 08/20/25 10:00 08/20/25 10:00 08/20/25 09:00 08/20/25 09:00 08/20/25 08:00 08/20/25 08:00 08/20/25 08:00 08/20/25 08:00 08/20/25 08:00 08/20/25 08:00 21 08/20/25 07:34 21 08/20/25 07:34 21 08/20/25 07:00 08/20/25 07:00 08/20/25 03:00 08/20/25 03:00 08/20/25 03:00 08/20/25 03:00 08/20/25 03:00 08/20/25 03:00 Laboratory Results 08/20/25 04:49 08/20/25 04:49 Abnormal Lab Results 08/19/25 08/19/25 08/20/25 18:27 23:31 04:49 WBC 5.06 RBC 2.71 L Hgb 8.6 L Hct 26.7 L MCV 98.5 MCH 31.7 MCHC 32.2 RDW Std Deviation 77.8 H RDW Coeff of Dulce 21.7 H Plt Count 188 MPV 10.6 Immature Gran % (Auto) 0.4 Neut % (Auto) 62.6 Lymph % (Auto) 23.3 Haakon % (Auto) 12.3 Eos % (Auto) 1.0 Baso % (Auto) 0.4 Neut # (Auto) 3.17 Lymph # (Auto) 1.18 L Haakon # (Auto) 0.62 H Eos # (Auto) 0.05 Baso # (Auto) 0.02 Immature Gran # (Auto) 0.02 Absolute Nucleated RBC 0.02 Nucleated RBC % (auto) 0.4 Polychromasia 1+ Anisocytosis Present Sodium 142 Potassium 3.4 L Chloride 110 H Carbon Dioxide 21 Anion Gap 11 BUN 41 H Creatinine 1.01 Est Cr Clr Drug Dosing 90.6 eGFR 80.22 BUN/Creatinine Ratio 40.6 H Glucose 110 H POC Glucose 131 H 117 H Calcium 7.7 L Total Bilirubin 0.3 AST 94 H ALT 229 H Alkaline Phosphatase 298 H B-Natriuretic Peptide 106 H Total Protein 6.2 Albumin 2.6 L Globulin 3.6 Albumin/Globulin Ratio 0.7 L Procalcitonin 0.24 08/20/25 11:46 WBC RBC Hgb Hct MCV MCH MCHC RDW Std Deviation RDW Coeff of Dulce Plt Count MPV Immature Gran % (Auto) Neut % (Auto) Lymph % (Auto) Haakon % (Auto) Eos % (Auto) Baso % (Auto) Neut # (Auto) Lymph # (Auto) Haakon # (Auto) Eos # (Auto) Baso # (Auto) Immature Gran # (Auto) Absolute Nucleated RBC Nucleated RBC % (auto) Polychromasia Anisocytosis Sodium Potassium Chloride Carbon Dioxide Anion Gap BUN Creatinine Est Cr Clr Drug Dosing eGFR BUN/Creatinine Ratio Glucose POC Glucose 132 H Calcium Total Bilirubin AST ALT Alkaline Phosphatase B-Natriuretic Peptide Total Protein Albumin Globulin Albumin/Globulin Ratio Procalcitonin Diagnostic Findings Chest X-Ray 08/20/25 07:00 EXAM: XR chest 1V portable CLINICAL HISTORY: pigtail TECHNIQUE: An X-ray image of the chest is obtained in AP projection. COMPARISON: compared to prior studiy dated 08/19/2025 FINDINGS: Tubes and lines: Stable; tracheostomy tube seen in situ. Stable; pigtail catheter seen in the right lower zone Pulmonary Parenchyma: Interval mild regression of previously noted homogeneous opacification of right middle and lower zones with still noted blunting of right costophrenic recess. Interval stable; haziness seen in the left lower zone with blunting of left costophrenic recess. Heart and Mediastinum: Mild cardiomegaly. No mediastinal widening or masses. No hilar or mediastinal lymphadenopathy. Bony Thorax: Bony thorax appears intact without fractures or deformities. Soft Tissues: Soft tissues overlying the chest wall are unremarkable. IMPRESSION: 1. Interval mild regression of previously noted homogeneous opacification of right middle and lower zones. 2. Redemonstration of bilateral moderate pleural effusion. 3. A tracheostomy tube is seen in situ. 4. Right sided pig tail catheter seen projected over right lower zone. Electronically signed by Aldair Albarran 08-20-2025 08:17 AM Critical Care Results & Data Vital Signs (Past 12 Hours) Vital Signs Temp Pulse Pulse Resp BP Pulse Ox O2 Del Method 08/20/25 12:00 57 L 28 H 100 08/20/25 12:00 99/58 L 08/20/25 12:00 08/20/25 12:00 36.9 C 08/20/25 11:00 66 10 L 94 08/20/25 11:00 100/57 L 08/20/25 11:00 100/57 L 08/20/25 10:00 98/57 L 08/20/25 10:00 98/57 L 08/20/25 10:00 59 L 29 H 94 08/20/25 09:00 57 L 28 H 95 08/20/25 09:00 97/58 L 08/20/25 08:00 102/55 L 08/20/25 08:00 102/55 L 08/20/25 08:00 61 29 H 95 08/20/25 08:00 51 L 08/20/25 08:00 36.8 C 08/20/25 08:00 08/20/25 07:34 55 L 16 93 08/20/25 07:34 58 L 15 94 Mechanical Vent 08/20/25 07:00 52 L 30 H 94 08/20/25 07:00 91/54 L 08/20/25 03:00 52 L 14 96 08/20/25 03:00 37.1 C 95/57 L 08/20/25 03:00 95/57 L 08/20/25 03:00 95/57 L 08/20/25 03:00 95/57 L 08/20/25 03:00 95/57 L FiO2 08/20/25 12:00 08/20/25 12:00 08/20/25 12:00 21 08/20/25 12:00 08/20/25 11:00 08/20/25 11:00 08/20/25 11:00 08/20/25 10:00 08/20/25 10:00 08/20/25 10:00 08/20/25 09:00 08/20/25 09:00 08/20/25 08:00 08/20/25 08:00 08/20/25 08:00 08/20/25 08:00 08/20/25 08:00 08/20/25 08:00 21 08/20/25 07:34 21 08/20/25 07:34 21 08/20/25 07:00 08/20/25 07:00 08/20/25 03:00 08/20/25 03:00 08/20/25 03:00 08/20/25 03:00 08/20/25 03:00 08/20/25 03:00 Lab & Micro Results (Past 24 Hours) 2 RBC 2.71 M/uL (4.20-5.40) L 08/20/25 WBC 5.06 K/ul (4.8-10.8) 08/20/25 Hgb 8.6 g/dL (12.0-16.0) L 08/20/25 Hct 26.7 % (37.0-47.0) L 08/20/25 MCV 98.5 fL (80.0-100.0) 08/20/25 MCH 31.7 pg (25.0-34.0) 08/20/25 MCHC 32.2 g/dL (32.0-36.0) 08/20/25 RDW Standard Deviation 77.8 fL (36.4-46.3) H 08/20/25 RDW Coefficient of Variation 21.7 % (11.5-14.5) H 08/20/25 Plt Count 188 K/uL (130-400) 08/20/25 MPV 10.6 fL (9.4-12.4) 08/20/25 Nucleated Red Blood Cells % (auto) 0.4 % 08/20 Nucleated RBC Absolute Count (auto) 0.02 K/uL (0.00-0.12) 1 10/21/24 Neutrophils (%) (Auto) 62.6 % 08/20/25 Lymphocytes (%) (Auto) 23.3 % 08/20/25 Monocytes # (Auto) 0.62 K/uL (0.11-0.59) H 08/20/25 Eosinophils # (Auto) 0.05 K/uL (0.00-0.50) 08/20/25 Immature Granulocyte % (Auto) 0.4 % 08/20/25 Neutrophils # (Auto) 3.17 K/uL (1.40-6.50) 08/20/25 Lymphocytes # (Auto) 1.18 K/uL (1.20-3.40) L 08/20/25 Monocytes # (Auto) 0.62 K/uL (0.11-0.59) H 08/20/25 Eosinophils # (Auto) 0.05 K/uL (0.00-0.50) 08/20/25 Basophils # (Auto) 0.02 K/uL (0.00-0.20) 08/20/25 Immature Granulocyte # (Auto) 0.02 K/uL (0.01-0.20) 5 Polychromasia 1+ 08/20/25 Anisocytosis Present 08/20/25 2 Na 142 mmol/L (136-145) 08/20/25 K 3.4 mmol/L (3.5-5.1) L 08/20/25 Cl 110 mmol/L (98-107) H 08/20/25 CO2 21 mmol/L (21-32) 08/20/25 Anion Gap 11 (3-11) 08/20/25 BUN 41 mg/dl (6-23) H 08/20/25 Creatinine 1.01 mg/dl (0.6-1.2) 08/20/25 BUN/Creatinine Ratio 40.6 (10-20) H 08/20/25 Glu 110 mg/dl (70-99(Fasting)) H 08/20/25 Ca 7.7 mg/dl (8.6-10.3) L 08/20/25 Total Bilirubin 0.3 mg/dl (0.2-1.0) 08/20/25 AST 94 U/L (13-39) H 08/20/25 ALT 229 U/L (7-52) H 08/20/25 Alkaline Phosphatase 298 U/L (34-104) H 08/20/25 TP 6.2 gm/dl (6.0-8.3) 08/20/25 Albumin 2.6 gm/dl (3.4-5.0) L 08/20/25 Globulin 3.6 gm/dl (2.5-4.0) 08/20/25 Albumin/Globulin Ratio 0.7 (0.9-2) L 08/20/25 2 Calcium Level 7.7 mg/dl (8.6-10.3) L 08/20/25 04:49 Microbiology 08/17/25 Unknown Gram Stain - Final Pleural Fluid Aerobic and Anaerobic Culture - Preliminary No growth to date. 08/19/25 Unknown Gram Stain - Final Sputum,Trach Sputum Culture - Preliminary Stenotrophomonas maltophilia Staphylococcus aureus 08/17/25 Unknown Acid Fast Bacilli Smear - Final Pleural Fluid Diagnostic Findings (Past 24 Hours) Chest X-Ray 08/20/25 07:00 EXAM: XR chest 1V portable CLINICAL HISTORY: pigtail TECHNIQUE: An X-ray image of the chest is obtained in AP projection. COMPARISON: compared to prior studiy dated 08/19/2025 FINDINGS: Tubes and lines: Stable; tracheostomy tube seen in situ. Stable; pigtail catheter seen in the right lower zone Pulmonary Parenchyma: Interval mild regression of previously noted homogeneous opacification of right middle and lower zones with still noted blunting of right costophrenic recess. Interval stable; haziness seen in the left lower zone with blunting of left costophrenic recess. Heart and Mediastinum: Mild cardiomegaly. No mediastinal widening or masses. No hilar or mediastinal lymphadenopathy. Bony Thorax: Bony thorax appears intact without fractures or deformities. Soft Tissues: Soft tissues overlying the chest wall are unremarkable. IMPRESSION: 1. Interval mild regression of previously noted homogeneous opacification of right middle and lower zones. 2. Redemonstration of bilateral moderate pleural effusion. 3. A tracheostomy tube is seen in situ. 4. Right sided pig tail catheter seen projected over right lower zone. Electronically signed by Aldair Albarran 08-20-2025 08:17 AM I & O Totals 24 Hours 08/19/25 08/20/25 08/21/25 06:59 06:59 06:59 Intake Total 2788 / 2788 250.417 / 250.417 60 / 60 Output Total 3352 / 3352 4570 / 4570 515 / 515 Balance -564 / -564 -4319.583 / -4319.583 -455 / -455 Cumulative 08/17/25 thru 08/20/25 12:00 Intake Total 6488.084 Output Total 9757 Balance -3268.916 RT Ventilator Mngmt (Last Documented) Ventilator Ordered Settings Respiratory Rate 28 08/20/25 12:00 Ventilator Tidal Volume 375 08/20/25 12:00 Setting Minute Ventilation 5.9 08/20/25 07:34 Fraction of Inspired Oxygen 21 08/20/25 12:00 Machine Comment Home vent changes made by 08/17/25 18:30 Triny Vt 375, EPAP 10/5 Ventilator - PT Measurements Respiratory Rate 28 Exhaled Tidal Volume 355 Minute Ventilation 5.9 Peak Inspiratory Airway 28 Pressure Respiratory Cycle Inspiratory: 1:3.2 Expiratory Ratio Inspiratory Phase Time 1 End-Tidal CO2 20 Patient Measurements Comment Per patient to remain on home unit upon arrival to ICU Coding Level of Care Code 92746 SUB INP/OBS CARE 2/35MIN Diagnoses Pleural effusion, right J90 Pseudomonal pneumonia J15.1 Tracheostomy dependent Z93.0 Localized swelling of both lower legs R22.43 Hypothyroidism E03.9 Hypovolemia E86.1 Acidemia E87.20 Transaminitis R74.01 Hyperphosphatemia E83.39 Volume overload E87.70
[2025-08-20] MEDS: FUROSEMIDE INJ 20 MG/2 ML VIAL IV ONE (14:53)
--- NOTE | 2025-08-20 17:00 | Hospitalist Progress Note ---
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 Tube Removal Today #Early Pulmonary Edema -See pulm notes, uncertain etiology, ? Reactionary, notable LE Edema, B lines on Bedside US c/w edema -Redose lasix, interval improvement compared to yesterday, likely iatrogenic to some degree rather than third spacing #Anemia -10.7 on admit, now 8.5 likely dilutional, continue daily monitoring #MDR E. coli -Infectious disease consulted placed in the outpatient setting, will consult here to get input in regards to MDR E. coli and Pseudomonas- -ID consult, DC vancomycin -Cultures thus far negative, of abx now, enterococcus in initial, Bactrim as needed with recurrence #Transaminitis - Mild, stable trend over the first 24 hours, liver ultrasound negative. Acute hepatitis panel sent as a precaution - Possibly related to antibiotics, INR is since synthetic function appear appropriate - Continue daily monitoring, stable #Hypovitaminosis D - she is on the lower limits of normal. Would probably be reasonable to give her a high-dose supplement for 6 weeks set her target at 50, or the upper normal range. -B12 testing in the outpatient setting #Chronic respiratory failure #Ventilator dependence/trach dependence -Currently back with Bivona trach, she had used a 6 Shiley XLT because of supply issues but that since resolved since -Last trach swab was 07/16 - Consult to pulmonology as above - Respiratory therapy, consideration for mucociliary clearance supportive cares including albuterol, hypertonic saline as needed - Bivona swapped by pulm #Cerebral palsy #Status post DIRECTOR IT shunt -Baseline mental status now, respiratory support as above. PT and OT for m aintenance therapy - continue baclofen #Seizure disorder - Stable at this time, continue phenobarbital and Keppra, doses confirmed with updated medicine sheet from mom - Seizure precaution - Benzos for acute abortive therapy as needed #HFpEF - Euvolemic at this time, recent history of decompensation, continue baseline Lasix dose - Recent episodes of volume overload concerning for nephrotic protein loss - Daily weights - continue furosemide, increase to 40mg IV as above #history of difficult IV access -VATS team to evaluate, she has had a port twice in the past but has had serial issues with infection so family is reluctant -May revisit depending on clinical course #History of electrolyte abnormalities CMP and magnesium on admission, replete as needed- #Central hypothyroidism - continue levothroxine - Relative hypothyroidism, normal free T4, TSH elevated - This could well be contributing to her volume distribution issues/third spacing #Hyperglycemia -Recent A1c 5.0, no history of diabetes, - Routine monitoring during initial hospitalization #Pressure Ulcers -present on admission, WCN to see #Tube feed dependence -Patient is on [employer] standard, mom is bringing improved. Our pharmacy does not stock the exact formulation she is on. -Her G-tube requires a very specific Enfit syringe which we typically do not have, supply working on getting adapters -Registered dietitian/nutrition consultation -Will have pharmacy convert medications to TF solutions/crush instructions PRN. #Chronic Pain -topical NSAID to knees, Ultram via TF PRN #Constipation - MiraLAX, docusate, senna - Suppositories as needed #Primary immunodeficiency - Hizentra injection, next infusion today, pretreat with benadryl 50mg and decardon 1mg #Neurogenic bladder - Turner, oxybutinin #FEN -TF diet as above, NS for short term in needed to be NPO for procedures #CODE STATUS -Full Code, verified with mom at the bedside at the time of admission Admission and Anticipated Discharge Date Admission Date: August 17, 2025 Subjective Net improvement in respiratory status after diuresis yesterday. X-ray looks better this morning. Mom was at the bedside. Updated her. She is due for her Hizentra infusion today will add the Decadron and the Benadryl pretreatment. Otherwise pulmonology to decide on whether or not chest tube gets to be discontinued. Meeting goals with her nutrition and feeding tube. Otherwise at her baseline. Physical Exam Physical Exam: GEN: Awake, alert, NAD nonverbal but appropriately expressive HEENT: Bonner facies, MMM NECK: Trach in place, cuff CDI, short broad soft tissues CV: RRR, No M/R/G RESP: Course throughout, decreased on right lateral/posterior, good air exchange ABD: Obese, NT/ND Mateo-Reilly GJ Button in place EXTR: chronic wound dressing on heels bilaterally, no general rash, pallor or di scoloration, contractures of all 4 extremities present and at baseline Results & Data Results & Data Vital Signs (Past 12 Hours) Vital Signs Temp Pulse Pulse Resp BP Pulse Ox Pulse Ox 08/20/25 16:00 57 L 14 94 08/20/25 16:00 97/49 L 08/20/25 16:00 91 08/20/25 16:00 08/20/25 15:07 36.4 C L 08/20/25 15:00 101/53 L 08/20/25 15:00 101/53 L 08/20/25 15:00 57 L 25 H 98 08/20/25 14:00 96/54 L 08/20/25 14:00 96/54 L 08/20/25 14:00 54 L 27 H 95 08/20/25 13:00 99/58 L 08/20/25 13:00 99/58 L 08/20/25 13:00 60 16 94 08/20/25 12:00 99/58 L 08/20/25 12:00 57 L 28 H 100 08/20/25 12:00 99/58 L 08/20/25 12:00 08/20/25 12:00 36.9 C 08/20/25 11:00 66 10 L 94 08/20/25 11:00 100/57 L 08/20/25 11:00 100/57 L 08/20/25 10:00 98/57 L 08/20/25 10:00 98/57 L 08/20/25 10:00 59 L 29 H 94 08/20/25 09:00 57 L 28 H 95 08/20/25 09:00 97/58 L 08/20/25 08:00 102/55 L 08/20/25 08:00 102/55 L 08/20/25 08:00 61 29 H 95 08/20/25 08:00 51 L 08/20/25 08:00 36.8 C 08/20/25 08:00 08/20/25 07:34 55 L 16 93 08/20/25 07:34 58 L 15 94 08/20/25 07:00 52 L 30 H 94 08/20/25 07:00 91/54 L O2 Del Method O2 Del Method O2 Flow Rate FiO2 08/20/25 16:00 Mechanical Vent 08/20/25 16:00 08/20/25 16:00 Mechanical Vent 0 08/20/25 16:00 21 08/20/25 15:07 08/20/25 15:00 08/20/25 15:00 08/20/25 15:00 08/20/25 14:00 08/20/25 14:00 08/20/25 14:00 08/20/25 13:00 08/20/25 13:00 08/20/25 13:00 08/20/25 12:00 08/20/25 12:00 08/20/25 12:00 08/20/25 12:00 21 08/20/25 12:00 08/20/25 11:00 08/20/25 11:00 08/20/25 11:00 08/20/25 10:00 08/20/25 10:00 08/20/25 10:00 08/20/25 09:00 08/20/25 09:00 08/20/25 08:00 08/20/25 08:00 08/20/25 08:00 08/20/25 08:00 08/20/25 08:00 08/20/25 08:00 21 08/20/25 07:34 21 08/20/25 07:34 Mechanical Vent 21 08/20/25 07:00 08/20/25 07:00 Laboratory Results 08/17/25 Unknown Gram Stain - Final Pleural Fluid Aerobic and Anaerobic Culture - Preliminary No growth to date. 08/19/25 Unknown Gram Stain - Final Sputum,Trach Sputum Culture - Preliminary Stenotrophomonas maltophilia Staphylococcus aureus 08/20/25 08/20/25 08/19/25 11:46 04:49 23:31 WBC 5.06 RBC 2.71 L Hgb 8.6 L Hct 26.7 L MCV 98.5 MCH 31.7 MCHC 32.2 RDW Std Deviation 77.8 H RDW Coeff of Dulce 21.7 H Plt Count 188 MPV 10.6 Immature Gran % (Auto) 0.4 Neut % (Auto) 62.6 Lymph % (Auto) 23.3 [place] % (Auto) 12.3 Eos % (Auto) 1.0 Baso % (Auto) 0.4 Neut # (Auto) 3.17 Lymph # (Auto) 1.18 L [place] # (Auto) 0.62 H Eos # (Auto) 0.05 Baso # (Auto) 0.02 Immature Gran # (Auto) 0.02 Absolute Nucleated RBC 0.02 Nucleated RBC % (auto) 0.4 Polychromasia 1+ Anisocytosis Present Sodium 142 Potassium 3.4 L Chloride 110 H Carbon Dioxide 21 Anion Gap 11 BUN 41 H Creatinine 1.01 Est Cr Clr Drug Dosing 90.6 eGFR 80.22 BUN/Creatinine Ratio 40.6 H Glucose 110 H POC Glucose 132 H 117 H Calcium 7.7 L Total Bilirubin 0.3 AST 94 H ALT 229 H Alkaline Phosphatase 298 H B-Natriuretic Peptide 106 H Total Protein 6.2 Albumin 2.6 L Globulin 3.6 Albumin/Globulin Ratio 0.7 L Procalcitonin 0.24 08/19/25 18:27 WBC RBC Hgb Hct MCV MCH MCHC RDW Std Deviation RDW Coeff of Dulce Plt Count MPV Immature Gran % (Auto) Neut % (Auto) Lymph % (Auto) [place] % (Auto) Eos % (Auto) Baso % (Auto) Neut # (Auto) Lymph # (Auto) [place] # (Auto) Eos # (Auto) Baso # (Auto) Immature Gran # (Auto) Absolute Nucleated RBC Nucleated RBC % (auto) Polychromasia Anisocytosis Sodium Potassium Chloride Carbon Dioxide Anion Gap BUN Creatinine Est Cr Clr Drug Dosing eGFR BUN/Creatinine Ratio Glucose POC Glucose 131 H Calcium Total Bilirubin AST ALT Alkaline Phosphatase B-Natriuretic Peptide Total Protein Albumin Globulin Albumin/Globulin Ratio Procalcitonin PG Care Time/CCT Total # of Minutes Spent Total Time Spent with Patient: Total time spent is greater than 50% in coordination of care (as documented) at patient's floor/unit and/or counseling patient: Coding Level of Care Code 48185 SUB INP/OBS CARE 2/35MIN Diagnoses Pseudomonal pneumonia J15.1 Chronic hypoxemic respiratory failure J96.11 Pseudomonas aeruginosa colonization Z22.39 Proteinuria R80.9 Congenital dysplasia of hips, bilateral Q65.89 Spastic quadriplegic cerebral palsy G80.0 Seizure disorder G40.909 Neurogenic bladder N31.9 Tracheostomy dependent Z93.0 Cortical blindness H47.619 Aortic root dilation I77.810 Feeding by G-tube Z93.1 Neuromuscular scoliosis M41.40 Patent ductus arteriosus Q25.0 Pulmonary valve insufficiency I37.1 Anemia D64.9
[2025-08-21 05:12] LABS: Anion Gap 9.0 (3-11); Blood Urea Nitrogen 45.0 mg/dl (6-23); Calcium 8.0 mg/dl (8.6-10.3); Carbon Dioxide 22.0 mmol/L (21-32); Chloride 112.0 mmol/L (98-107); Creatinine Clr Calc Pharmacy 96.3 ml/min; Glucose 102.0 mg/dl (70-99(Fasting)); Magnesium 3.3 mg/dl (1.7-2.4); Potassium 3.6 mmol/L (3.5-5.1); Sodium 143.0 mmol/L (136-145)
--- NOTE | 2025-08-21 07:55 | XRay Report ---
EXAM: XR chest 1V portable CLINICAL HISTORY: pigtail TECHNIQUE: An X-ray image of the chest is obtained in AP projection. COMPARISON: A comparison with the previous CR study dated 08/20/2025. FINDINGS: Tubes and lines: No pigtail catheter noted at today's study. Stable; tracheostomy tube seen in situ. Pulmonary Parenchyma: A rather stable state of the previously noted homogeneous opacification of the right middle and lower zones, with still noted blunting of the right costophrenic recess. Interval stable; haziness seen in the left lower zone with blunting of the left costophrenic recess. Heart and Mediastinum: Mild cardiomegaly. No mediastinal widening or masses. No hilar or mediastinal lymphadenopathy. Bony Thorax: Bony thorax appears intact without fractures or deformities. Soft Tissues: Soft tissues overlying the chest wall are unremarkable. IMPRESSION: 1. No pigtail catheter noted at today's study. new findings. 2. Stable; tracheostomy tube seen in situ 3. A rather stable state of the previously noted homogeneous opacification of the right middle and lower zones. 4. Redemonstration of bilateral moderate pleural effusion. stable. 5. Cardiomegaly. stable. Electronically signed by Aldair Albarran 08-21-2025 07:54 AM
--- NOTE | 2025-08-21 08:23 | Critical Care Progress Note ---
Date of Service August 21, 2025 Assessment & Plan (1) Pleural effusion, right: (2) Pseudomonal pneumonia: (3) Tracheostomy dependent: (4) Localized swelling of both lower legs: (5) Hypothyroidism: (6) Hypovolemia: Plan: Resolved. (7) Acidemia: (8) Transaminitis: (9) Hyperphosphatemia: (10) Volume overload: Plan -- Right-sided pleural effusion Right pleural catheter placed 08/17/2025 --> discontinue 08/20/2025 Fluid appears serosanguineous. Lymphocytic predominant and exudative. Cultures negative till date cultures negative today, cytology negative for malignancy Differential for effusion is broad including secondary to hypothyroidism, parapneumonic effusion and/or malignancy related. --Trach dependent respiratory failure S/p trach change 08/20/2025 with Bovana size 7 -- Transaminitis Likely from Bactrim, has finished the course of Bactrim Downtrending Continue to monitor Hepatitis panel negative --Pseudomonas aeruginosa Continue nebulized aztreonam. ID following. D/C vanco and zosyn. Procal negative. Sputum is growing Stenotrophomonas and staph aureus, likely colonizer --Prophylaxis VTE: Patient's mother refusing to use IPC's GI: Lansoprazole Lines: Peripheral Diet: Tube feeds Plan: In/out: -3.9 L, urine output 3500 mL Chest x-ray from today on personal review still shows haziness in the right lower lobe and small bilateral pleural effusions Will give 40 mg of Lasix today Recommend patient to be discharged on Lasix on a daily basis with an increased dose Patient's LFTs were elevated but they are gradually trending down. Could be from the previous use of Bactrim. Hepatitis panel negative Getting bicarbonate through the PEG tube for hypocalcemia as per nephrology Okay to discharge from pulmonary perspective. Would recommend to go back to the previous ventilator settings before she came to the hospital Case discussed with hospitalist Please note the above document was generated using voice recognition software. It may contain grammatical, syntax or spelling errors.Any formal questions or concerns about the content, text or information contained within the body of this dictation should be directly addressed to the provider for clarification. Admission and Anticipated Discharge Date Admission Date: August 17, 2025 Subjective Patient seen and examined at bedside. No acute distress, no adverse events overnight She was saturating well on room air while being on the vent Patient's mother was also in the room Has been afebrile Diuresing well Review of Systems 2 Review of Systems: All systems reviewed & are unremarkable except as noted in Subjective Physical Exam 2 Physical Exam: Constitutional: No acute distress HEENT: PERRLA Respiratory system: Decreased air entry bilaterally, no wheeze, no rhonchi, mild crackles bilateral lower lobes CVS: S1-S2 positive, no murmurs or gallops Abdomen: Soft, nontender, nondistended, positive bowel sounds x4, obese, positive PEG Extremities: +1 pulses bilaterally radialis/ dorsalis pedis, no cyanosis, +1 pitting edema bilateral lower extremity Neuro: Awake and alert Psych: Unable to assess G/U: Positive Turner Skin: no rashes, warm and dry Lymphatic: no cervical or axillary lymphadenopathy Results & Data Results & Data Vital Signs (Past 12 Hours) Vital Signs Temp Pulse Resp BP Pulse Ox 08/21/25 06:00 36.3 C L 57 L 15 98 08/21/25 06:00 91/50 L 08/21/25 06:00 91/50 L 08/21/25 06:00 91/50 L 08/21/25 06:00 91/50 L 08/21/25 06:00 91/50 L 08/21/25 05:00 57 L 19 98 08/21/25 05:00 89/48 L 08/21/25 05:00 89/48 L 08/21/25 05:00 89/48 L 08/21/25 05:00 89/48 L 08/21/25 05:00 89/48 L 08/21/25 04:00 91/53 L 08/21/25 04:00 91/53 L 08/21/25 04:00 91/53 L 08/21/25 04:00 91/53 L 08/21/25 04:00 91/53 L 08/21/25 04:00 57 L 16 98 08/21/25 03:00 99/60 L 08/21/25 03:00 99/60 L 08/21/25 03:00 99/60 L 08/21/25 03:00 99/60 L 08/21/25 03:00 99/60 L 08/21/25 03:00 60 20 98 08/21/25 02:00 59 L 23 99 08/21/25 02:00 90/56 L 08/21/25 02:00 90/56 L 08/21/25 02:00 90/56 L 08/21/25 02:00 90/56 L 08/21/25 02:00 90/56 L 08/21/25 01:02 91/47 L 08/21/25 01:02 91/47 L 08/21/25 01:02 91/47 L 08/21/25 01:02 91/47 L 08/21/25 01:02 91/47 L 08/21/25 01:00 61 24 100 08/21/25 00:00 55 L 22 95 08/21/25 00:00 87/50 L 08/21/25 00:00 87/50 L 08/21/25 00:00 87/50 L 08/21/25 00:00 36.3 C L 87/50 L 08/21/25 00:00 87/50 L 08/20/25 23:00 87/52 L 08/20/25 23:00 87/52 L 08/20/25 23:00 87/52 L 08/20/25 23:00 87/52 L 08/20/25 23:00 54 L 21 92 08/20/25 22:00 53 L 24 93 08/20/25 22:00 87/52 L 08/20/25 22:00 87/52 L 08/20/25 22:00 87/52 L 08/20/25 22:00 87/52 L 08/20/25 21:00 51 L 14 98 08/20/25 21:00 86/54 L 08/20/25 21:00 86/54 L 08/20/25 21:00 86/54 L 08/20/25 21:00 86/54 L 08/20/25 21:00 86/54 L Laboratory Results 08/20/25 04:49 08/21/25 04:14 Diagnostic Findings 08/20/25 04:49 08/21/25 04:14 Coding Level of Care Code 15078 SUB INP/OBS CARE 2/35MIN Diagnoses Pleural effusion, right J90 Pseudomonal pneumonia J15.1 Tracheostomy dependent Z93.0 Localized swelling of both lower legs R22.43 Hypothyroidism E03.9 Hypovolemia E86.1 Acidemia E87.20 Transaminitis R74.01 Hyperphosphatemia E83.39 Volume overload E87.70
[2025-08-21 08:58] LABS: Alanine Aminotransferase 195.0 U/L (7-52); Albumin Level 3.0 gm/dl (3.4-5.0); Alkaline Phosphatase 302.0 U/L (34-104); Bilirubin,Total 0.3 mg/dl (0.2-1.0); Total Protein 6.3 gm/dl (6.0-8.3)
[2025-08-21 09:29] VITALS: TEMP 99
[2025-08-21] MEDS: FUROSEMIDE 40 MG/4 ML VIAL IV ONE (09:48)
[2025-08-21] MEDS: POTASSIUM CHLORIDE 20 MEQ/15 ML UDC PO STA (09:48)
[2025-08-21 11:22] VITALS: PULSE 68
--- NOTE | 2025-08-21 11:34 | Discharge Summary ---
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 Repeat chest x-ray today shows no recurrence of pneumothorax no reaccumulation of effusion. Routine post chest tube cares. - Resume prednisone and use #Early Pulmonary Edema -See pulm notes, uncertain etiology, ? Reactionary, notable LE Edema, B lines on Bedside US c/w edema -Redose lasix, interval improvement compared to yesterday, likely iatrogenic to some degree rather than third spacing -Discharged with Lasix 40 mg p.o. for at least 5 days. Will have her follow-up with primary clinic for recheck and discussion of long-term dosing #Anemia -10.7 on admit, now 8.5 likely dilutional, continue daily monitoring, stable no need for transfusion or further evaluation. Recheck in the outpatient setting #MDR E. coli -Infectious disease consulted placed in the outpatient setting, will consult here to get input in regards to MDR E. coli and Pseudomonas- -ID consult, DC vancomycin -Cultures thus far negative, of abx now, enterococcus in initial, Bactrim as needed with recurrence - Off antibiotics in the short-term. Consideration for Bactrim with any recurrent #Transaminitis - Mild, stable trend over the first 24 hours, liver ultrasound negative. Acute hepatitis panel sent as a precaution - Possibly related to antibiotics, INR is since synthetic function appear appropriate - Recheck in 1 week, likely secondary to previous Bactrim ongoing study normalizing trend #Hypovitaminosis D - she is on the lower limits of normal. Would probably be reasonable to give her a high-dose supplement for 6 weeks set her target at 50, or the upper normal range. -B12 testing in the outpatient setting - Sodium bicarb was added will continue to twice daily per nephrology. Follow- up in the outpatient setting for long-term discussion #Tube feed dependence -Patient is on Edgar standard, mom is bringing improved. Our pharmacy does not stock the exact formulation she is on. -Her G-tube requires a very specific Enfit syringe which we typically do not have, supply working on getting adapters - She was transition to Peptamen HC while here, and having some GI intolerance as a longstanding history of clinical irritation and ulcer formation, discharge prescription for Edgar peptide 1.0 continue with outpatient dietitian for protein supplementation, optimization of caloric balances. She will resume bolus feeds on discharge #Chronic respiratory failure #Ventilator dependence/trach dependence -Currently back with Bivona trach, she had used a 6 Shiley XLT because of supply issues but that since resolved since -Last trach swab was 07/16 - Consult to pulmonology as above - Respiratory therapy, consideration for mucociliary clearance supportive cares including albuterol, hypertonic saline as needed - Bivona swapped by pulm Continue baseline vent settings with no changes- #Cerebral palsy #Status post LUBRICATING SPECIALIST shunt -Baseline mental status now, respiratory support as above. PT and OT for maintenance therapy - continue baclofen #Seizure disorder - Stable at this time, continue phenobarbital and Keppra, doses [place] [facility] [place] Seizure precaution - Benzos for acute abortive therapy as needed #HFpEF - Euvolemic at this time, recent history of decompensation, continue baseline Lasix dose - Recent episodes of volume overload concerning for nephrotic protein loss - Daily weights - continue furosemide as noted above #history of difficult IV access -VATS team to evaluate, she has had a port twice in the past but has had serial issues with infection so family is reluctant -May revisit depending on clinical course #History of electrolyte abnormalities CMP and magnesium on admission, replete as needed- #Central hypothyroidism - continue levothroxine - Relative hypothyroidism, normal free T4, TSH elevated - This could well be contributing to her volume distribution issues/third spacing #Hyperglycemia -Recent A1c 5.0, no history of diabetes, - Routine monitoring during initial hospitalization #Pressure Ulcers -present on admission, WCN to see #Chronic Pain -topical NSAID to knees, Ultram via TF PRN #Constipation - MiraLAX, docusate, senna - Suppositories as needed #Primary immunodeficiency - Hizentra injection, next infusion today, pretreat with benadryl 50mg and d ecardon 1mg #Neurogenic bladder - Turner, oxybutinin Admission HPI Per Admitting Provider 24 year old CP patient with multiple medical problems admitted with pneumonia and sepsis. I am asked to see her for elevated LFT's. History obtained from mother who is in her room. She has had elevated LFT's in the past and has seen hepatology at [place]. Her LFT's typically fluctuate and when she was seen in [place] they had almost normalized. It is felt that they are elevated from multiple reasons--fatty liver and possibly medications. She has had some work up done, all of which was negative. CT scan suggests her bile duct is dilated but ultrasound does not confirm that. On admit she has a loculated right pleural effusion. LFT's on admit were AST 80 ALT 97 and alk phos 376 then on recheck AST 217 ALT 202 Alk phos 340. Discharge Exam GEN: Awake, alert, NAD nonverbal but appropriately expressive HEENT: Bonner facies, MMM NECK: Trach in place, cuff CDI, short broad soft tissues CV: RRR, No M/R/G RESP: Course throughout, decreased on right lateral/posterior, good air exchange ABD: Obese, NT/ND Mateo-Reilly GJ Button in place EXTR: chronic wound dressing on heels bilaterally, no general rash, pallor or discoloration, contractures of all 4 extremities present and at baseline Discharge Plan Discharge Items Patient Disposition: Home - Home Health Services Reason For Visit: PLEURAL EFFUSION, CHRONIC RESP FAILURE Discharge Diagnosis: Pleural Effusion, Pseudomonas Colonization Condition on Discharge: Fair Health Concerns: - Increase Lasix to 40 mg/day for the first week, follow-up with primary clinic for recheck of x-ray, labs, electrolytes, review hepatitis B panel, sodium bicarb dosing - Continue sodium bicarb twice daily - Prescription sent to pharmacy for Edgar peptide 1.0, follow-up with outpatient dietitian for ongoing high-protein supportive measures - Follow-up with pulmonology as previously arranged Activity: Resume your previous activity Non-emergency contact: Primary Care Provider and Fraud Analyst Call non-emergency contact if: you have any medication questions, your symptoms worsen and your pain is worsening Follow-up/Referrals: Sin Fitzpatrick MD [Primary Care Provider] - (Please call the office on Saturday to schedule a hospital follow up appointment.) Dietitian Info: Rocio Molina (Was on standard, transition to Peptide 1.0 if possible.) Diet: Other - See Diet Comment Addtl Attending Provider Instructions: Recheck BMP and CBC, Follow-up thyroid and lasix dosing. Repeat CXR Pending Studies at Discharge: Yes Studies:: Repeat Acute Hepatitis Panel Stand-Alone Forms: My [facility] [employer], Smoking Cessation Medications and DC Order Prescriptions: New furosemide [Lasix] 20 mg tablet 40 mg PO DAILY 5 Days Qty: 10 0RF Rocio Molina Peptide 1.0 0.05 gram-1 kcal/mL liquid 12 ea feeding tube TIDWMEAL Qty: 3900 0RF sodium bicarbonate 650 mg Tablet 650 mg PO BID@0700,2300 30 Days Qty: 60 0RF Continued (DME) disposable gloves [Disposable Latex-Free Gloves] Misc See Rx Instructions .ROUTE .MEDSUPPLY Qty: 1200 11RF Rx Instructions: As directed Calmoseptine 0.44-20.6 % ointment 1 applic TOP BID Qty: 113 5RF Rx Instructions: around trach sennosides [senna] 8.8 mg/5 mL syrup 8.8 mg PO HS PRN (Reason: Constipation) Qty: 236 5RF lorazepam [Ativan] 1 mg tablet 1 mg PO DAILY PRN (Reason: anxiety) Qty: 30 2RF Rx Instructions: rare use lansoprazole [Prevacid SoluTab] 30 mg tablet,disintegrat, delay rel 30 mg feeding tube QAM Qty: 90 3RF Patient Comments: Patient takes this medication at 0700. docusate sodium 50 mg/15 mL syrup See Rx Instructions feeding tube BID PRN (Reason: Constipation) Qty: 118 5RF Rx Instructions: 10mL feeding tube BID PRN; medroxyprogesterone 150 mg/mL syringe 150 mg IM .q12wk Qty: 1 0RF Rx Instructions: PT NO LONGER SEES OBGYN. MOM STATES ENDO IS NOW PRESCRIBING. acetaminophen 160 mg/5 mL liquid 640 mg PO Q8H PRN (Reason: pain) Qty: 473 2RF (DME) Miscellaneous Pulmonary Supply Misc See Rx Instructions .Route Qty: 1 0RF Rx Instructions: BPM 14 breaths, TV 300 mL, PS min 6/max 25 (DME) Miscellaneous Pulmonary Supply Misc See Rx Instructions .Route Qty: 1 0RF Rx Instructions: Trilogy vent adjustment: Target tidal volume of 400 to 420 mL diphenoxylate-atropine [Lomotil] 2.5-0.025 mg tablet See Rx Instructions PO .COMPLEX PRN (Reason: diarrhea) Qty: 30 1RF Rx Instructions: 1-2 tablets orally up to four times daily PRN; (DME) Miscellaneous Pulmonary Supply Misc See Rx Instructions .Route Qty: 2 11RF Rx Instructions: Size 6 cuffed Shiley XLT tracheostomy. 2 trach's per month. (DME) Miscellaneous Pulmonary Supply Misc See Rx Instructions .Route Qty: 4 6RF Rx Instructions: Inner cannula for size 6 xlt shiley tracheostomy to be changed weekly aztreonam lysine 75 mg/mL solution for nebulization 75 mg inhalation Q8H 28 Days Qty: 84 3RF (DME) nebulizers [Altera Nebulizer System] Misc See Rx Instructions .Route Qty: 1 0RF Rx Instructions: As directed dexamethasone 1 mg tablet 1 mg feeding tube UD Qty: 30 3RF Rx Instructions: gets for pre-treatment GIVE 1 mg prior to Hizentra q2 weeks (DME) Oxygen Home Liters Per Minute See Rx Instructions .ROUTE .MEDSUPPLY Qty: 2 0RF Rx Instructions: 2 L of oxygen bled into her trilogy ventilator at all times (DME) nebulizers Misc See Rx Instructions .Route Qty: 2 8RF Rx Instructions: aerogen neb kit sodium chloride 7 % solution for nebulization 4 ml inhalation DAILY Qty: 240 3RF Patient Comments: Patient combines with albuterol nebulizer at 1200 daily. (DME) Miscellaneous Pulmonary Supply Misc See Rx Instructions .Route Qty: 120 8RF Rx Instructions: 5 mL saline bullets for ventilator clearance cannabidiol 100 mg/mL solution 100 - 150 mg G-tube AMHS Patient Comments: 0.5mL every a.m., 1mL every p.m. ; Rx Instructions: 1.5ML QAM - 1ML QPM (DME) Miscellaneous Pulmonary Supply Misc See Rx Instructions .Route Qty: 2 3RF Rx Instructions: Bivona TTS 7.0mm ID ([id number]) tramadol 50 mg tablet 50 mg feeding tube BID PRN (Reason: Pain) Qty: 60 5RF Hizentra 10 gram/50 mL (20 %) solution See Rx Instructions subcut .COMPLEX Qty: 120 11RF Rx Instructions: INFUSE 12GM SQ subcutaneously EVERY 2 WEEKS [employer] GOOD 09/21/24-03/21/25 MONALISA [id number] GOOD loperamide 2 mg capsule 2 mg PO Q6H PRN (Reason: Diarrhea) baclofen 5 mg tablet 5 mg PO TID 90 Days Qty: 270 3RF Patient Comments: Patient takes at these times: 0700, 1430, 2300 Rx Instructions: take with the 10 mg tab to equal 15mg three times daily baclofen 10 mg tablet 10 mg PO TID 90 Days Qty: 270 3RF Patient Comments: Patient takes at these times: 0700, 1430, 2300 Rx Instructions: take with the 5 mg tab to equal 15mg three times daily lidocaine-prilocaine 2.5-2.5 % cream 1 applic topical ONCE PRN (Reason: prior to injections) Qty: 50 6RF (DME) Allevyn Tracheostomy Dressing 3.5 X 3.5 " bandage See Rx Instructions .Route Qty: 80 3RF Rx Instructions: As directed (DME) Miscellaneous Pulmonary Supply Misc See Rx Instructions .Route Qty: 2 11RF Rx Instructions: Biovana Trach [id number]: ID 6mm OD 9.2mm Length 110mm (DME) Oxygen Home Liters Per Minute See Rx Instructions .ROUTE .MEDSUPPLY Qty: 1 0RF Rx Instructions: High flow oxygen concentrator (per mom at [facility]- "it varies, usually 4" ferrous sulfate 220 mg (44 mg iron)/5 mL elixir See Rx Instructions PO DAILY Qty: 473 5RF Patient Comments: Patient takes this medication at 1130 Rx Instructions: 6.8 ML orally daily; [id number] gluconate [Liquid Multivitamin] 9 mg iron/ 15 mL (15 mL) liquid 15 ml PO DAILY Patient Comments: Patient takes at 0700 (DME) Miscellaneous Pul[place] [facility] [place] Rx Instructions .Route Qty: 3 0RF Rx Instructions: Aerogen Med cups polyethylene glycol 3350 [Miralax] 17 gram Powder In Packet 17 g feeding tube BID PRN (Reason: Constipation) diclofenac sodium 1 % Gel 2 g TOPICAL TID PRN (Reason: Pain in Knees) albuterol sulfate [Ventolin HFA] 90 mcg/actuation HFA aerosol inhaler 2 puff inhalation QID PRN (Reason: Wheezing) diazepam 12.5-15-17.5-20 mg kit 12.5 mg MO DIRECTED PRN (Reason: seizure activity) Rx Instructions: 12.5 mg rectally Give 1 dose for seizure activity lasting more than 5 minutes or seizure clusters without return to baseline PRN; melatonin 5 mg capsule 5 mg feeding tube HS Patient Comments: Patient takes at 2300 montelukast [Singulair] 10 mg tablet 10 mg feeding tube HS Patient Comments: Patient takes at 2300 albuterol sulfate 2.5 mg /3 mL (0.083 %) solution for nebulization 2.5 mg inhalation Q6H Patient Comments: Third treatment of the day, use Albuterol and Sodium Chloride 7% cetirizine 10 mg tablet 10 mg feeding tube HS Patient Comments: Patient takes once daily at 2300. methenamine hippurate 1 gram tablet 1 g feeding tube UD Patient Comments: Patient takes at 0700 and 1830 Rx Instructions: 1 gram twice daily at 0700 and 1830 phenobarbital 30 mg tablet 90 mg feeding tube DAILY@07 Patient Comments: Patient takes at 0700 Rx Instructions: Take with 60 mg dose for a total of 90 mg daily at 0700. levetiracetam [Keppra] 750 mg tablet 750 mg PO BID Rx Instructions: PER G-TUBE at 0700 and 1830 phenobarbital 60 mg Tablet 120 mg PO DAILY@1830 oxybutynin chloride 5 mg tablet 5 mg feeding tube TID Patient Comments: Patient takes at these times: 0700, 1430, 2300 Rx Instructions: 7AM,2;30PM,11PM levothyroxine 75 mcg tablet 100 mcg PO DIRECTED Rx Instructions: Wednesdays takes (200 mcg), rest of days 100mcg TAKES AT 9PM pseudoephedrine HCl 30 mg tablet See Rx Instructions .ROUTE .COMPLEX PRN (Reason: Nasal Congestion) Rx Instructions: ADMINISTER 1 TABLET VIA FEEDING TUBE EVERY 6 HOURS NEEDED FOR NASAL DECONGESTION Held furosemide [Lasix] 20 mg tablet 20 mg PO DAILY Qty: 90 3RF Hold Instructions: Resume on 08/27/25. Take 40mg oral lasix in place of the 20mg dose Patient Comments: Patient takes at 0700 Discharge Orders: Discharge Order (Routine); Ordered 08/21/25 Ordered By: Elmer Melton/Other Patient Handouts: Chest Tubes Admission Data Admit Date/Time: 08/17/25 14:16 Attending Provider: Elmer Peña Admit Provider: Elmer Peña Primary Care Provider: Sin Fitzpatrick V. Other Providers: Ramiro Agosto; Daryl Marmolejo; Rocael Barcenas; Iram Serna; Linda Kyle; Wilma Alvarez; Paola Zheng; Catrachito Mckeon; Yelena Mcmanus; Grisel Ruiz; Román Johnson; Emily Gama; Rosalie Dunaway; Lily Lanier; Mohan Doherty; Mo Bear; Scottie Foster; Leticia Nicole; Mich Hilario Jr; Esdras Villa; Kev Ibanez; Ulisses Goode; Tierney Licea; Rudy Donaldson I; Alyse Mayo; Conner Byers; Davey Holt; Doroteo Navarro; Alexandro Lee; Rosemary Morin; Hema Owusu; Girish Pisano Kevin C.; Beryl Hutson Other Interventions: Discharge Summary Assessment (RN) Last Done: 08/21/25 11:13 Hospital Stay Data Consultations 08/17/25 14:41 Consult Pump Technician Routine 08/17/25 17:49 Consult Infectious Diseases Routine 08/18/25 08:06 Consult Gastroenterology Routine Consult Nephrology Routine Diagnostic Imagining Performed 08/18/25 09:03 US liver Urgent Pending Results Patient Have Any Pending Studies at Discharge: Yes Discharge Instructions Given to Patient (Per Discharging Provider) Recheck BMP and CBC, Follow-up thyroid and lasix dosing. Repeat CXR Total Time Total Time Spent Total Time Spent (In Minutes): 45 minutes spent at the bedside discussing results and modifications to care plan with patient. Arrangements for prescription on discharge. Reviewing new medications, discharge planning and follow-up coordination Coding Level of Care Code 97504 INP/OBS DISCH >30 MIN Diagnoses Pseudomonal pneumonia J15.1 Chronic hypoxemic respiratory failure J96.11 Pseudomonas aeruginosa colonization Z22.39 Proteinuria R80.9 Congenital dysplasia of hips, bilateral Q65.89 Spastic quadriplegic cerebral palsy G80.0 Seizure disorder G40.909 Neurogenic bladder N31.9 Tracheostomy dependent Z93.0 Cortical blindness H47.619 Aortic root dilation I77.810 Feeding by G-tube Z93.1 Neuromuscular scoliosis M41.40 Patent ductus arteriosus Q25.0 Pulmonary valve insufficiency I37.1 Anemia D64.9
[2025-08-21 12:12] LABS: Hepatitis A Antibody IgM NON-REACTIVE (NON-REACTIVE); Hepatitis B Core Antibody IgM NON-REACTIVE (NON-REACTIVE)
[2025-08-21 13:42] VITALS: BP 99/54; RESP 32; O2SAT 93
== END 2025-08-21 13:59 | disposition home health service (06) | DRG 208 ==
LOC: 1E 14:16 → SUATTDRO 14:16